=== PATIENT | female | born 1945 | race Caucasian/White ===

== ENCOUNTER 2021-02-07 13:00 | Outpatient (CLI) | payer MEDICARE, SELFPAY | END 2021-02-07 13:01 | disposition home or self-care (01) | LOC: ANHAUDIO 13:01 | PROVIDERS: PCP Internal Medicine; Visit Provider Otolaryngology | DX: R49.8 Other voice and resonance disorders (principal); H91.93 Unspecified hearing loss, bilateral | CPT/HCPCS: 92557; 92567 ==

== ENCOUNTER 2021-02-20 11:00 | Outpatient (RCR) | payer MEDICARE, SELFPAY ==
--- NOTE | 2021-01-25 15:28 | STOPEVAL ---
SPEECH THERAPY INITIAL EVALUATION: Thank you for referring Liat Anton to [facility].? The patient is scheduled to be seen for therapy?2x/week for 4 weeks. Please review, sign, date and return this plan of care TAMMIE. I agree with and certify that the following plan of care is medically necessary. Referring Physician Date Attending Provider: Chadwick Pardo MD Outpatient Past Medical History Past Medical History Source of Past Medical History Patient Respiratory History Hx Chronic Obstructive Pulmonary Disease Yes: my lungs are ok,just (COPD) small Hx Sleep Apnea Yes: uses a Dream station Hx Other Respiratory Disorders Yes: on oxygen Genitourinary History Hx Kidney Stones Yes Musculoskeletal History Hx Other Musculoskeletal Disorders Yes: congenital spinal curvature HEENT History Hx Cataracts Yes: removed Integumentary History Hx Shingles Yes Evaluation Information Problem Diagnosis hoarse vocal quality; bowed vocal cords; presbyphonia Onset 9-12 months at least Cause unknown Additional Evaluation Detail Pt reports her is very hard of hearing which has caused her to talk very loud. She stated she has stopped the loud talking and feels her voice is intermittently better . Her also recently got bilateral hearing aids. She is also cognizant that she was talking over the loudness of the television but has stopped and makes him turn down the television. No choir singing or organizational speaking. 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 Diagnostic Tests Other Tests For This Problem Yes: laryngoscopy Prior Level of Function Activity Level (Last 3 Months) Occupation retired Medications Home Meds (Include: OTC, RX, Vitamins, pt reported that she takes Herbals, Dose, Route,and Frequency) losartan - a low dose beta Query Text:Home Med Entries Will No zaid & doxycycline for Longer Recall From Past Visits. Home rosacea Meds Must Be Re-entered With Each Visit. Prior Swallow Level Prior Intake Method Oral Prior Diet Regular (Level 7 Diet) Prior Liquid Consistency Thin (Level 0 Diet
--- NOTE | 2021-02-21 12:23 | STOPEVAL ---
SPEECH THERAPY PROGRESS REPORT AND PLAN OF CARE UPDATE: Thank you for referring Liat Anton to [facility].? The patient is scheduled to be seen for therapy? 1x/ every other week for 4 weeks. Please review, sign, date and return this plan of care TAMMIE. I agree with and certify that the following plan of care is medically necessary. Referring Physician Date Attending Provider: Chadwick Pardo MD *ST Outpatient Reevaluation Voice Evaluation Voice History Laryngeal Pain No Variation of the Problem Inconsistent Better Situations Pt reports that since beginning ST, her overall vocal quality has improved even though at times there is fluctuation. 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 Description of Daily Voice Use She is retired but states she and her are still very conversive and have lots to talk about . She admits she has had to talk loudly to her him due to his hearing loss but has recently not had to as much due to him getting bilateral hearing aids. Provider Consulted Yes Provider Diagnosis hoarse vocal quality; bowed vocal cords; presbyphonia Allergies No History of Trauma/Injury to the No Laryngeal Region Previous or Planned Laryngeal Surgery No: unknown at this time Previous Speech of Voice Therapy No Intelligibility Conversational Level Speech (% 100 Intelligibility) Respiration Vowel Prolongation (seconds) 12 Termination of Phrases/Sentences not observed pt reports it Coincides with Termination of Exhalation occurs with exertion; has 27% lung capacity Respiratory Support Comments poor breath support and decreased lung capacity may be having a negative impact on her vocal quality. i.e. vocal straining. Pitch Middle to Lowest Tone (Sing) (Hz) 243 Optimal Pitch (Hz) 264 Habitual Pitch in Conversation (Hz) 185 Pitch Discrimination Yes Diplophonia No Pitch Habitual and optimal pitch levels were discussed. Pt may be inadvertently lowering her pitch as she attempts to increase her loudness level
--- NOTE | 2021-03-06 16:52 | PCSTNOTE ---
Patient called & cancelled scheduled appointment this date due to ILLNESS
--- NOTE | 2021-03-13 13:07 | PCSTNOTE ---
SPEECH THERAPY DISCHARGE: Ordering Provider: Chadwick Pardo MD Patient:Liat Anton Date of :1945 Patient has not returned for any further treatments since 02/20/2021, therefore she will be discharged at this time. Patient?s initial visit was on 01/25/2021 and she had a total of 5 visits. The goals have been partially met. Thank you for referring this patient to [facility]. Please review, sign, date and return this discharge summary TAMMIE. I have been updated about the patient's current status and I agree with discharge from the above service at this time. Referring Physician Date
== END 2021-03-14 11:29 | disposition home or self-care (01) ==
LOC: ANHST 11:00
PROVIDERS: PCP Internal Medicine; Visit Provider Otolaryngology
DX: R49.8 Other voice and resonance disorders (principal); H91.93 Unspecified hearing loss, bilateral
CPT/HCPCS: 92507; 92524

== ENCOUNTER → 2021-03-08 00:49 | Outpatient (CLI) | payer MEDICARE, SELFPAY ==
[2021-03-08 17:10] LABS: SARS-CoV-2 RNA PCR Positive
== END ==
PROVIDERS: PCP Internal Medicine; Visit Provider Internal Medicine
DX: U07.1 COVID-19 (principal)
CPT/HCPCS: C9803; U0003; U0005

== ENCOUNTER 2021-03-12 09:32 | Outpatient (RCR) | payer MEDICARE, SELFPAY ==
[2021-03-12] MEDS: ACETAMINOPHEN 325 MG TABLET 650 MG PO (14:40)
[2021-03-12] MEDS: FAMOTIDINE 20 MG TABLET PO (14:41)
[2021-03-12] MEDS: diphenhydrAMINE HCl CAP 25 MG CAPSULE PO (14:41)
[2021-03-12 14:53] VITALS: BP 186/82; PULSE 96; RESP 20; TEMP 36.4; O2SAT 98
[2021-03-12 16:16] VITALS: BP 154/68
--- NOTE | 2021-03-13 12:53 | PC.NURSE ---
Spoke to Ms. Anton and she is feeling about the same as yesterday. She has no questions at this time. I told her if her symptoms do not improve she needs to call her PCP or go to the ER,and she verbalized the understanding.
== END 2021-03-12 16:00 ==
LOC: AMCINF 09:32
PROVIDERS: PCP Internal Medicine; Visit Provider Internal Medicine Hematology & Oncology
DX: U07.1 COVID-19 (principal); I10 Essential (primary) hypertension; J44.9 Chronic obstructive pulmonary disease, unspecified
CPT/HCPCS: A9270; M0243; Q0243

== ENCOUNTER 2022-03-05 14:32 | Outpatient (CLI) | payer MEDICARE, SELFPAY ==
--- NOTE | 2022-03-05 14:47 | ECHO_ITS ---
Patient Info Name: Liat Anton Age: 76 years : 1945 Gender: Female Ht: 58 in Wt: 125 lbs BSA: 1.54 m2 HR: 93 bpm BP: 178 / 82 mmHg Technical Quality: Good Exam Date: 03/05/2022 3:12 PM Exam Location: [facility] Patient Status: Outpatient Admit Date: 03/05/2022 Staff Ordering Physician: Severiano Rivas DO [employer] Operator: Halima Hartmann RCS Attending Provider: Severiano Rivas DO Referring Physician: Evelyn LECHUGA; Exam Type: CA echo doppler color flow Study Info Indications R01.1 - Cardiac murmur, unspecified Complete two-dimensional, color flow and Doppler transthoracic echocardiogram is performed. Summary 1. Complete two-dimensional, color flow and Doppler transthoracic echocardiogram is performed. 2. Left ventricular chamber dimension is normal. 3. Left ventricular systolic function is normal, estimated at 65-70%. 4. There is mildly increased left ventricular wall thickness. 5. The left ventricular diastolic function is grade I diastolic dysfunction. 6. E/e' 13 is mildly elevated. 7. Left atrial chamber dimension is moderately enlarged. 8. There is moderate aortic valve sclerosis. 9. There is mild to moderate aortic valve regurgitation. 10. The mitral valve has moderately calcified annulus. 11. There is mild mitral valve regurgitation. 12. There is mild to moderate tricuspid valve regurgitation. 13. Mild pulmonary hypertension, estimated pulmonary arterial systolic pressure is 44 mmHg. Left Ventricle E/e' 13 is mildly elevated. Left ventricular chamber dimension is normal. Left ventricular systolic function is normal, estimated at 65-70%. There is mildly increased left ventricular wall thickness. The left ventricular diastolic function is grade I diastolic dysfunction. Right Ventricle Right ventricular chamber dimension is normal. Right ventricular systolic function is normal. Left Atria Left atrial chamber dimension is moderately enlarged. Right Atria Right atrial chamber dimension is normal. Aortic Valve The aortic valve is trileaflet. There is moderate aortic valve sclerosis. There is no aortic valve stenosis. There is mild to moderate aortic valve regurgitation. Pulmonic Valve There is no pulmonic regurgitation. Mitral Valve The mitral valve has moderately calcified annulus. There is no mitral valve stenosis. There is mild mitral valve regurgitation. Tricuspid Valve There is mild to moderate tricuspid valve regurgitation. Mild pulmonary hypertension, estimated pulmonary arterial systolic pressure is 44 mmHg. Pericardium/Pleural There is no pericardial effusion. Inferior Vena Cava Normal inferior vena cava with >50% collapse upon inspiration consistent with normal right atrial pressure, 5 mmHg. Aorta The aortic root size at the sinus of Valsalva is normal. Left Ventricular Outflow Tract Name Value Normal LVOT 2D LVOT Diameter 2.0 cm LVOT Doppler LVOT Peak Gradient 7 mmHg LVOT Mean Gradient 4 mmHg LVOT VTI 26 cm LVOT VTI/AV VTI
== END 2022-03-05 14:33 | disposition home or self-care (01) ==
PROVIDERS: PCP Internal Medicine; Visit Provider Internal Medicine
DX: R01.1 Cardiac murmur, unspecified (principal); I08.3 Combined rheumatic disorders of mitral, aortic and tricuspid valves
CPT/HCPCS: 93306

== ENCOUNTER 2022-04-15 10:49 | Outpatient (CLI) | payer MEDICARE, SELFPAY ==
[2022-04-15 12:32] LABS: Influenza A QL RT-PCR Negative (Negative); Influenza B QL RT-PCR Negative (Negative); SARS-CoV-2 RNA PCR Positive
== END 2022-04-15 10:50 | disposition home or self-care (01) ==
PROVIDERS: PCP Internal Medicine; Visit Provider Internal Medicine
DX: U07.1 COVID-19 (principal)
CPT/HCPCS: 87636

== ENCOUNTER 2022-05-23 10:26 | Outpatient (CLI) | payer MEDICARE, SELFPAY ==
--- NOTE | ~2022-05-23 | MM_ITS ---
EXAMINATION: MM screening abena BI w bita HISTORY: Screening mammogram TECHNIQUE: Craniocaudal and mediolateral oblique 3-D tomosynthesis images were obtained and synthetic 2-D images were generated. CAD analysis was submitted and interpreted. COMPARISON: No prior mammogram is available for comparison at this institution. BREAST PARENCHYMAL COMPOSITION: The breasts are heterogeneously dense, which may obscure small masses . FINDINGS: History of bilateral partial mastectomies for breast cancer. There is approximately 1 cm spiculated opacity with prominent overlying retraction in the posterior u pper outer right breast. This may be postoperative scarring. Malignancy is not excluded. Comparison w ith prior mammograms is recommended. Calcifications from fat necrosis and associated architectural distortion are noted on the left. Mode rison with prior mammogram is recommended. Prominent bilateral arterial calcifications. Occasional left calcified microhematomas. IMPRESSION: 1. Bilateral mammographic abnormalities, possibly related to previous bilateral partial mastectomy fo r breast cancer. Malignancy however cannot be excluded. 2. Comparison with prior mammogram examinations is recommended BI-RADS Category 0: Incomplete: Needs additional imaging evaluation. Reviewed, dictated and finalized at location A. OR PUBLICATIONS IMPRESSION: 1. Bilateral mammographic abnormalities, possibly related to previous bilateral partial mastectomy for breast cancer. Malignancy however cannot be excluded. 2. Comparison with prior mammogram examinations is recommended BI-RADS Category 0: Incomplete: Needs additional imaging evaluation.
== END 2022-05-23 10:27 | disposition home or self-care (01) ==
PROVIDERS: PCP Internal Medicine; Visit Provider Internal Medicine
DX: Z12.31 Encounter for screening mammogram for malignant neoplasm of breast (principal); R92.8 Other abnormal and inconclusive findings on diagnostic imaging of breast
CPT/HCPCS: 77063; 77067

== ENCOUNTER 2022-07-21 16:52 | Observation (INO) | payer MEDICARE, SELFPAY ==
--- NOTE | ~2022-07-21 | CT_ITS ---
EXAMINATION: CT abdomen pelvis wo con DATE: 07/21/2022 20:33 INDICATION: RLQ pain TECHNIQUE: Computed tomography (CT) of the abdomen and pelvis was performed without intravenous contr ast. Automated exposure control and iterative reconstruction technique were employed. The dose-length product was 514.25 mGy-cm. COMPARISON: 02/23/2017. FINDINGS: Lower thorax: Bibasilar scarring. Aortic valve, mitral, and coronary artery calcification. Stable arc hitectural distortion in the right breast. Liver: Right lobe hemangioma. Biliary/Gallbladder: Gallbladder is absent. No bile duct dilation. Pancreas: No mass or duct dilation. Spleen: Normal. Adrenals:No mass. Kidneys: 3.4 cm right midpole hypodensity, slightly heterogeneous, indeterminate density. Bilateral n onobstructive calculi. 11 mm calcification in the left renal pelvis. No hydronephrosis or perinephric stranding. GI tract: No small or large bowel dilation. Normal appendix. Diffuse diverticulosis. Short segment pe ricolonic inflammatory change and wall thickening at the splenic flexure. Mesentery/Peritoneum: No ascites, mass, or free air. Retroperitoneum: No mass. Atherosclerotic abdominal aortic and/or arterial calcifications. Pelvis: 4 mm calcification in the left urinary bladder, the remaining pelvic organs are within normal limits. Soft Tissues: Soft tissues and body wall unremarkable. Small uncomplicated fat-containing umbilical h ernia. Bones: No acute osseous finding. Severe thoracolumbar scoliosis IMPRESSION: 1. Acute uncomplicated diverticulitis at the splenic flexure in the left upper quadrant. 2. 3.4 cm indeterminate right renal mass, concerning for renal cell carcinoma, recommend timely outpa tient renal CT or MRI for further evaluation. 3. 11 mm left renal pelvis stone. No evidence of obstructive uropathy. 4. 4 mm calcification in the urinary bladder may represent a bladder wall calcification or a recently passed stone. ... Reviewed, dictated and finalized at location K. IMPRESSION: 1. Acute uncomplicated diverticulitis at the splenic flexure in the left upper quadrant. 2. 3.4 cm indeterminate right renal mass, concerning for renal cell carcinoma, recommend timely outpatient renal CT or MRI for further evaluation. 3. 11 mm left renal pelvis stone. No evidence of obstructive uropathy. 4. 4 mm calcification in the urinary bladder may represent a bladder wall calci fication or a recently passed stone. ...
[2022-07-21 16:57] VITALS: BP 183/84; PULSE 100; RESP 18; TEMP 36.6; O2SAT 100
[2022-07-21 17:18] LABS: Basophils Absolute Auto 0.1 K/mm3 (0.0-0.1); Eosinophils Absolute Auto 0.1 K/mm3 (0-0.3); Eosinophils Percent Auto 1.1 % (0-4.4); Hemoglobin 13.7 g/dL (12.0-15.0); Immature Granulocyte Absolute 0.02 K/mm3 (0.00-0.031); Immature Granulocyte Percent A 0.3 % (0-0.5); Lymphocytes Absolute Auto 0.97 K/mm3 (0.9-3.2); Lymphocytes Percent Auto 13.5 % (18.3-44.2); Mean Corpuscular HGB Conc 32.6 g/dl (32-36); Mean Corpuscular Hemoglobin 29.5 pg (26-34); Mean Corpuscular Volume 90.5 fl (80-100); Mean Platelet Volume 10.6 fl (7.4-10.4); Monocytes Absolute Auto 0.6 K/mm3 (0.1-0.6); Monocytes Percent Auto 7.9 % (2.6-8.5); Neutrophils Absolute Auto 5.5 K/mm3 (1.3-6.7); Neutrophils Percent Auto 76.2 % (45.5-73.1); Platelet Count Result 184 k/mm3 (150-375); Red Blood Count 4.64 M/mm3 (4.2-5.4); Red Cell Distribution Width 12.7 % (11.5-14.5); White Blood Count 7.2 K/mm3 (4.5-10.0)
[2022-07-21 17:29] LABS: Alanine Aminotransferase 16 U/L (6-35); Albumin Level 4.1 g/dL (3.5-5.1); Alkaline Phosphatase 90 U/L (38-126); Anion Gap 3 mmol/L (8-16); Aspartate Amino Transferase 28 U/L (14-36); Bilirubin,Total 0.6 mg/dL (0.2-1.3); Blood Urea Nitrogen 20 mg/dL (7-17); Calcium 8.6 mg/dL (8.4-10.2); Carbon Dioxide 33 mmol/L (22-30); Chloride 104 mmol/L (98-107); Estimated Glomerular Filt Rate > 60; Glucose 128 mg/dL (65-110); Lipase 81 U/L (23-300); Potassium 3.5 mmol/L (3.4-5.0); Sodium 140 mmol/L (137-145)
[2022-07-21 21:00] LABS: Appearance Urine Clear (Clear); Bacteria Urine None Seen /hpf; Bilirubin Urine Negative (Negative); Blood Urine 2+ (Negative); Color Urine Yellow (Yellow); Glucose Urine UA Negative (Negative); Ketones Urine Trace mg/dL (Negative); Leukocyte Esterase Ur 1+ LEU/UL (Negative); Nitrate Urine Negative (Negative); Non Pathogenic Casts 0-2; Protein Urine Trace mg/dL (Negative); RBC Urine 21-50 /hpf (0-2); Specific Grav Ur 1.017 (1.001-1.035); Squamous Epithelial Cell Urine None seen /hpf (Few); Urobilinogen Urine 0.2 mg/dL (<2.0)
[2022-07-21 21:04] LABS: Add Urine Microscopic? YES
--- NOTE | 2022-07-21 21:43 | PM.IMHP ---
H&P: HPI History of Present Illness Date/Time: 07/21/22 21:43 Chief Complaint: Abdominal pain Narrative: This is a 77-year-old female past medical history significant for hypertension, COPD, osteoporosis. Patient presents to the emergency room due to abdominal pain localized to the right flank, discomfort with urination, denies fevers, rigors, chills, nausea, no vomiting her appetite has been poor. Preliminary workup was significant for urinalysis with numerous WBCs present, CT of abdomen and pelvis was reported as: CT abd/ pelvis FINDINGS: Lower thorax: Bibasilar scarring. Aortic valve, mitral, and coronary artery calcification. Stable architectural distortion in the right breast. Liver: Right lobe hemangioma.? Biliary/Gallbladder: Gallbladder is absent. No bile duct dilation. Pancreas: No mass or duct dilation. Spleen: Normal. Adrenals:No mass. Kidneys: 3.4 cm right midpole hypodensity, slightly heterogeneous, indeterminate density. Bilateral nonobstructive calculi. 11 mm calcification in the left renal pelvis. No hydronephrosis or perinephric stranding. GI tract: No small or large bowel dilation. Normal appendix. Diffuse diverticulosis. Short segment pericolonic inflammatory change and wall thickening at the splenic flexure. Mesentery/Peritoneum: No ascites, mass, or free air. Retroperitoneum: No mass. Atherosclerotic abdominal aortic and/or arterial calcifications. Pelvis: 4 mm calcification in the left urinary bladder, the remaining pelvic organs are within normal limits. Soft Tissues: Soft tissues and body wall unremarkable. Small uncomplicated fat-containing umbilical hernia. Bones:? No acute osseous finding. Severe thoracolumbar scoliosis IMPRESSION: 1. Acute uncomplicated diverticulitis at the splenic flexure in the left upper quadrant. 2. 3.4 cm indeterminate right renal mass, concerning for renal cell carcinoma, recommend timely outpatient renal CT or MRI for further evaluation. 3. 11 mm left renal pelvis stone. No evidence of obstructive uropathy. 4. 4 mm calcification in the urinary bladder may represent a bladder wall calcification or a recently passed stone. ... Review of Systems Review of Systems: Abdominal pain, discomfort with urination, poor appetite. Constitutional: Constitutional: Denies chills, Reports fatigue, Denies fever(s), Reports lethargy, Denies malaise, Reports poor appetite and Reports weakness Eyes: Eyes: Denies change in vision ENT: Denies dysphagia and Denies odynophagia Cardiovascular: Cardiovascular: Denies chest pain, Denies leg edema, Denies lightheadedness and Denies radiating jaw, neck or arm pain Respiratory: Respiratory: Denies chest congestion, Denies cough, Denies pain on inspiration and Denies dyspnea on exertion Gastrointestinal: Gastrointestinal: Reports abdominal pain, Denies dyspepsia, Denies heartburn, Denies diarrhea, Denies nausea and Denies vomiting Genitourinary: Genitourinary: Reports dysuria Musculoskeletal: Musculoskeletal: Denies back pain, Denies myalgias, Denies joint swelling and Denies muscle weakness Integumentary/Breasts: Skin/Breast: Denies rash Neurologic: Denies focal weakness and Denies Sensory deficit (Neuro) Psychiatric: Psychiatric: Reports no additional psychiatric complaints and Reports as per HPI Endocrine: Endocrine: Denies cold intolerance, Denies flushing, Denies heat intolerance, Denies polyphagia, Denies polydipsia and Denies palpitations Hematologic/Lymphatic: Hematologic/Lymphatic: Reports no additional hematologic/lymphatic complaints and Reports as per HPI Allergic/Immunologic: Allergic/Immunologic: Reports no additional allergic/immunologic complaints and Reports as per HPI PMFSH Past Medical History Medical History Arthritis COPD (chronic obstructive pulmonary disease) History of kidney cancer Hypertension Osteoporosis Surgical History Surgical History (Reviewed 07/21/22 @ 21:52 by
--- NOTE | 2022-07-21 21:51 | ED.ABDPAIN ---
HPI - Abdominal Pain General Chief Complaint: Abdominal Pain Stated Complaint: Abodminal pain Time Seen by Provider: 07/21/22 20:35 History of Present Illness HPI narrative: Patient has been having on and off abdominal discomfort for the past few months that has worsened over the last week, with increased loose stools, worse on her right lower side. Some pressure and discomfort, worse with certain movements. More difficulty with urination. No nausea or vomiting, no fevers or chills. Related Data Allergies Allergy/AdvReac Type Severity Reaction Status Date / Time alendronate sodium Allergy Unknown Abdominal Verified 07/21/22 16:52 pain fentanyl Allergy Unknown Other Verified 07/21/22 16:52 iodine Allergy Unknown Other Verified 07/21/22 16:52 metoprolol Allergy Unknown Confusion Verified 07/21/22 16:52 Penicillins Allergy Unknown Other Verified 07/21/22 16:52 levofloxacin AdvReac Intermediate fast heart Verified 07/21/22 16:52 rate prednisone AdvReac Unknown RAPID HR, Verified 07/21/22 16:52 HTN Contrast Media Allergy Unknown Other Uncoded 07/21/22 16:52 Review of Systems Review of Systems: CONST: No fever. HEENT: No sore throat C/V: No chest pain RESP: No cough GI: Reports abdominal pain : Dysuria. M/S: No joint pain. SKIN: No rash. NEURO: [No headache or focal numbness or weakness] PSYCH: [No depression] [facility] Past Medical History Medical History Arthritis COPD (chronic obstructive pulmonary disease) History of kidney cancer Hypertension Osteoporosis Surgical History Surgical History H/O lumpectomy History of cholecystectomy History of lithotripsy Family History Family History Father Family history of drug dependence Cerebrovascular accident Family history of lung cancer Patient's father is Family history of arthritis Family history of throat cancer Family history of cardiovascular disease Sibling Patient's brother is in good health Family history of diabetes mellitus in first degree relative Family history of malignant neoplasm of breast in first degree relative, Onset Age: 56 Patient's sister is Family history of arthritis Family history of lymphoma Mother Family history of elevated blood lipids Family history of diabetes mellitus in first degree relative Patient's mother is Family history of arthritis Social History Social History Smoking status: Never smoker Alcohol intake: never Lack of Transportation: No Lack of Food: Never True Current Housing: I Have Housing Concerned About Future Housing: No Difficulty Paying Gas/Electric Bills: No Difficulty Paying for Meds: No Currently Unemployed: Decline to Answer Education: Decline to Answer Difficulty w/ Childcare or Family Care: Decline to Answer Spiritual care concerns: No Exam Narrative: EXAMINATION OF ORGAN SYSTEMS/BODY AREAS: Constitutional: Vital signs per nursing GENERAL:[No acute distress, non-toxic appearing.] HEAD: Normal with no signs of head trauma. EYES: EOMI, conjunctiva normal ENT: Hearing grossly intact LUNGS: Nonlabored breathing. HEART: [Regular rate and rhythm] ABD: [Soft], [nontender to palpation] EXT: Normal range of motion SKIN: [No rashes or lesions.] NEURO: [Alert and oriented x 3. No gross focal sensory or strength deficits.] PSYCH: Normal affect Course Vital Signs Vital signs: Vital Signs Temperature 97.9 F 07/21/22 16:57 Pulse Rate 100 07/21/22 16:57 Respiratory Rate 18 07/21/22 16:57 Blood Pressure 183/84 H 07/21/22 16:57 Pulse Oximetry 100 07/21/22 16:57 Oxygen Delivery Nasal Cannula 07/21/22 16:57 Oxygen Flow Rate 4 07/21/22 16:57 Temperature 97.9 F 07/21/22 16:57 Pulse Rate 100
[2022-07-21 23:21] VITALS: BP 186/90; PULSE 82; RESP 14; O2SAT 96
[2022-07-21 23:31] VITALS: BP 167/79; PULSE 82; RESP 15; O2SAT 96
[2022-07-21 23:48] VITALS: BP 152/87; PULSE 85; RESP 21; O2SAT 93
[2022-07-22] VITALS (8 sets, daily range): BP systolic 142–184; BP diastolic 62–80; PULSE 76–91; RESP 16–18; TEMP 36.5–36.9; O2SAT 94–100; BMI 27.0
--- NOTE | 2022-07-22 00:10 | ADMGEN ---
This patient, Liat Anton, was admitted to 2 Medical Room 252-01. Patient/family oriented to hospital policies and general routines including ID bracelet, bed and alarms, visiting hours, pain management, procedures, bathroom and other care routines, personal items, smoking policy, room service/diet, and visiting hours. Information on how to activate the Rapid Response Team has been discussed. Patient/Family are encouraged to report perceived risks to care and to ask questions if they do not understand what they are told or what they should do.
[2022-07-22] MEDS: WATER FOR IRRIGATION, STERILE 1,000 ML BOTTLE 1000 ML (04:46)
[2022-07-22] MEDS: LOSARTAN POTASSIUM 25 MG TABLET PO (08:25)
[2022-07-22 08:35] LABS: Basophils Percent Auto 0.8 % (0.2-1.2); Eosinophils Absolute Auto 0.1 K/mm3 (0-0.3); Hematocrit 40.4 % (37.0-47.0); Hemoglobin 13.4 g/dL (12.0-15.0); Immature Granulocyte Absolute 0.01 K/mm3 (0.00-0.031); Immature Granulocyte Percent A 0.2 % (0-0.5); Lymphocytes Absolute Auto 0.83 K/mm3 (0.9-3.2); Lymphocytes Percent Auto 16.9 % (18.3-44.2); Mean Corpuscular HGB Conc 33.2 g/dl (32-36); Mean Corpuscular Hemoglobin 30.5 pg (26-34); Mean Platelet Volume 10.2 fl (7.4-10.4); Monocytes Absolute Auto 0.5 K/mm3 (0.1-0.6); Monocytes Percent Auto 9.4 % (2.6-8.5); Neutrophils Absolute Auto 3.5 K/mm3 (1.3-6.7); Neutrophils Percent Auto 70.7 % (45.5-73.1); Platelet Count Result 145 k/mm3 (150-375); Red Blood Count 4.39 M/mm3 (4.2-5.4); Red Cell Distribution Width 12.7 % (11.5-14.5); White Blood Count 4.9 K/mm3 (4.5-10.0)
[2022-07-22 08:48] LABS: Alanine Aminotransferase 14 U/L (6-35); Albumin Level 3.7 g/dL (3.5-5.1); Alkaline Phosphatase 82 U/L (38-126); Anion Gap 2 mmol/L (8-16); Aspartate Amino Transferase 24 U/L (14-36); Bilirubin,Total 0.9 mg/dL (0.2-1.3); Blood Urea Nitrogen 17 mg/dL (7-17); Calcium 8.4 mg/dL (8.4-10.2); Carbon Dioxide 34 mmol/L (22-30); Chloride 103 mmol/L (98-107); Estimated Glomerular Filt Rate > 60; Glucose 94 mg/dL (65-110); Potassium 3.5 mmol/L (3.4-5.0); Sodium 139 mmol/L (137-145)
[2022-07-22] MEDS: ENOXAPARIN 40 MG/0.4 ML SYRINGE SUB-Q (09:40)
--- NOTE | 2022-07-22 09:45 | PM.IMPN ---
Progress Note: A&P Assessment and Plan (1) Diverticulitis: Code(s): K57.92 - Diverticulitis of intestine, part unspecified, without perforation or abscess without bleeding Status: Acute Assessment and Plan: CT abdomen and pelvis indicated acute uncomplicated diverticulitis at the splenic flexure in the left upper quadrant continue imipenem to Augmentin since she had abdominal pain, nausea, weakness post administration of the imipenem WBC stable at this time pain medications for pain antiemetics clear liquid diet advanced as tolerated Cultures in progress (2) Abdominal pain: Code(s): R10.9 - Unspecified abdominal pain Status: Acute Assessment and Plan: Likely secondary to diverticulitis Pain management Antiemetics ordered Added [place], continue tylenol Adjust medications as indicated (3) Acute UTI: Code(s): N39.0 - Urinary tract infection, site not specified Status: Acute Assessment and Plan: UA mildly infectious with 1+ leukocyte esterase WBC 11-20 Stop imipenem, trial Augmentin Await cultures Trend urine output Adjust antibiotics to sensitivity results (4) ANDREINA (obstructive sleep apnea): Code(s): G47.33 - Obstructive sleep apnea (adult) (pediatric) Status: Acute Assessment and Plan: Continue CPAP at nighttime (5) Hypertension: Code(s): I10 - Essential (primary) hypertension Status: Acute Assessment and Plan: BP mildly elevated at 146/63 Most likely related to pain from the diverticulitis Continue home losartan Trend BP adjust therapy as indicated (6) Renal calculi: Code(s): N20.0 - Calculus of kidney Status: Acute Assessment and Plan: Incidental findings on the CT Trend urine output Non obstructive Stable at this time Time Spent With Patient Time: 52 minutes Time with patient: Greater than 35 minutes Subjective Date/time seen: 07/22/22944 Interval history: 07/22/22944 Patient states she was doing okay however she got pretty ill with the antibiotic. She stated that she got lightheaded and very nauseous. She was also complaining of being loopy . She stated that she was shaky with getting up when she was not yesterday. She denies any chest pain, shortness a breath, nausea or vomiting. She does have some abdominal pain a 2/10. She is eating okay. Spoke with ID pharm about antibiotic coverage. Spoke with the patient about trailing the Augmentin at this time, will start with a very small dose. She seems pretty skeptical but agreed to try it at this time. Spoke with the RN about plan of care as well. 07/21/222142 This is a 77-year-old female past medical history significant for hypertension, COPD, osteoporosis.? Patient presents to the emergency room due to abdominal pain localized to the right flank, discomfort with urination, denies fevers, rigors, chills, nausea, no vomiting her appetite has been poor.? Preliminary workup was significant for urinalysis with numerous WBCs present Review of Systems Review of Systems: All systems reviewed & are unremarkable except as noted in HPI and below Exam Narrative: General: well-nourished, well-appearing 77-year-old female, laying in bed, comfortable, NARD Neuro: awake, alert and oriented x4, speech clear, no focal neuro deficits noted HEENMT: normocephalic, atraumatic, EOMI, sclerae anicteric, moist oral mucosa Respiratory: Clear to auscultation bilaterally without crackles, rhonchi or wheezes, nonlabored breathing Cardio: regular rate, regular rhythm with S1-S2 Abdomen: nondistended, normoactive bowel sounds, soft, nontender to palpation Extremities: no edema, erythema, or tenderness to palpation, DP pulses 2+ bilaterally Skin: no rashes or lesions, warm and dry Psych: appropriate mood and affect, judgment and insigh
--- NOTE | 2022-07-22 09:45 | P.PNIM_ITS ---
Progress Note: A&P Assessment and Plan (1) Diverticulitis: Code(s): K57.92 - Diverticulitis of intestine, part unspecified, without perforation or abscess without bleeding Status: Acute Assessment and Plan: * CT abdomen and pelvis indicated acute uncomplicated diverticulitis at the splenic flexure in the left upper quadrant * continue imipenem to Augmentin since she had abdominal pain, nausea, weakness post administration of the imipenem * WBC stable at this time * pain medications for pain * antiemetics * clear liquid diet advanced as tolerated * Cultures in progress (2) Abdominal pain: Code(s): R10.9 - Unspecified abdominal pain Status: Acute Assessment and Plan: * Likely secondary to diverticulitis * Pain management * Antiemetics ordered * Added [place], continue tylenol * Adjust medications as indicated (3) Acute UTI: Code(s): N39.0 - Urinary tract infection, site not specified Status: Acute Assessment and Plan: * UA mildly infectious with 1+ leukocyte esterase WBC 11-20 * Stop imipenem, trial Augmentin * Await cultures * Trend urine output * Adjust antibiotics to sensitivity results (4) ANDREINA (obstructive sleep apnea): Code(s): G47.33 - Obstructive sleep apnea (adult) (pediatric) Status: Acute Assessment and Plan: * Continue CPAP at nighttime (5) Hypertension: Code(s): I10 - Essential (primary) hypertension Status: Acute Assessment and Plan: * BP mildly elevated at 146/63 * Most likely related to pain from the diverticulitis * Continue home losartan * Trend BP * adjust therapy as indicated (6) Renal calculi: Code(s): N20.0 - Calculus of kidney Status: Acute Assessment and Plan: * Incidental findings on the CT * Trend urine output * Non obstructive * Stable at this time Time Spent With Patient Time: 52 minutes Time with patient: Greater than 35 minutes Subjective Date/time seen: 07/22/22944 Interval history: 07/22/22944 Patient states she was doing okay however she got pretty ill with the antibiotic. She stated that she got lightheaded and very nauseous. She was also complaining of being loopy . She stated that she was shaky with getting up when she was not yesterday. She denies any chest pain, shortness a breath, nausea or vomiting. She does have some abdominal pain a 2/10. She is eating okay. Spoke with ID pharm about antibiotic coverage. Spoke with the patient about trailing the Augmentin at this time, will start with a very small dose. She seems pretty skeptical but agreed to try it at this time. Spoke with the RN about plan of care as well. 07/21/222142 This is a 77-year-old female past medical history significant for hypertension, COPD, osteoporosis.? Patient presents to the emergency room due to abdominal pain localized to the right flank, discomfort with urination, denies fevers, rigors, chills, nausea, no vomiting her appetite has been poor.? Preliminary workup was significant for urinalysis with numerous WBCs present Review of Systems Review of Systems: All systems reviewed & are unremarkable except as noted in HPI and below Exam Narrative: General: well-nourished, well-appearing 77-year-old
[2022-07-22] MEDS: AMOXICILLIN/CLAVULANATE K 500-125 MG TAB 1 TABLET PO (12:50)
[2022-07-22] MEDS: HYDROcodone/acetaminophen (*CRX) 5-325 MG TABLET 1 TAB PO (17:37)
--- NOTE | 2022-07-22 18:42 | PC.NURSE ---
On 07/22/22, the License pending RN Sandra, provided care and completed [employer] documentation on this patient. I have reviewed Sandra's sign out clerk and agree with the findings.
[2022-07-22] MEDS: AMOXICILLIN/CLAVULANATE K 875-125 MG TAB 1 TABLET PO (20:06)
[2022-07-23 03:00] VITALS: PULSE 66; O2SAT 98
[2022-07-23 05:14] VITALS: BP 147/69; PULSE 63; RESP 17; TEMP 36.7; O2SAT 100
[2022-07-23 05:49] LABS: Basophils Absolute Auto 0.1 K/mm3 (0.0-0.1); Basophils Percent Auto 2.3 % (0.2-1.2); Eosinophils Absolute Auto 0.1 K/mm3 (0-0.3); Eosinophils Percent Auto 4.2 % (0-4.4); Hematocrit 41.1 % (37.0-47.0); Hemoglobin 13.4 g/dL (12.0-15.0); Immature Granulocyte Absolute 0.01 K/mm3 (0.00-0.031); Immature Granulocyte Percent A 0.3 % (0-0.5); Lymphocytes Absolute Auto 1.05 K/mm3 (0.9-3.2); Lymphocytes Percent Auto 33.9 % (18.3-44.2); Mean Corpuscular HGB Conc 32.6 g/dl (32-36); Mean Corpuscular Hemoglobin 30.4 pg (26-34); Mean Corpuscular Volume 93.2 fl (80-100); Mean Platelet Volume 10.5 fl (7.4-10.4); Monocytes Absolute Auto 0.3 K/mm3 (0.1-0.6); Neutrophils Absolute Auto 1.5 K/mm3 (1.3-6.7); Neutrophils Percent Auto 48.3 % (45.5-73.1); Platelet Count Result 151 k/mm3 (150-375); Red Blood Count 4.41 M/mm3 (4.2-5.4); Red Cell Distribution Width 12.8 % (11.5-14.5); White Blood Count 3.1 K/mm3 (4.5-10.0)
[2022-07-23 06:00] LABS: Alanine Aminotransferase 14 U/L (6-35); Albumin Level 3.8 g/dL (3.5-5.1); Alkaline Phosphatase 80 U/L (38-126); Anion Gap 3 mmol/L (8-16); Aspartate Amino Transferase 24 U/L (14-36); Blood Urea Nitrogen 15 mg/dL (7-17); Calcium 8.5 mg/dL (8.4-10.2); Carbon Dioxide 31 mmol/L (22-30); Chloride 104 mmol/L (98-107); Estimated Glomerular Filt Rate > 60; Glucose 88 mg/dL (65-110); Magnesium 1.8 mg/dL (1.6-2.3); Potassium 3.3 mmol/L (3.4-5.0); Sodium 138 mmol/L (137-145)
[2022-07-23] MEDS: LOSARTAN POTASSIUM 25 MG TABLET PO (08:10)
[2022-07-23] MEDS: AMOXICILLIN/CLAVULANATE K 875-125 MG TAB 1 TABLET PO (08:11)
[2022-07-23] MEDS: ENOXAPARIN 40 MG/0.4 ML SYRINGE SUB-Q (08:11)
[2022-07-23 08:40] VITALS: O2SAT 90
--- NOTE | 2022-07-23 09:45 | PM.DS ---
DS: Admitting Diagnosis Discharge Date 07/23/22 0945 Admitting Diagnosis Mild acute diverticulitis, UTI DS: Discharge Diagnosis Discharge Diagnosis (1) Diverticulitis: Code(s): K57.92 - Diverticulitis of intestine, part unspecified, without perforation or abscess without bleeding Status: Acute Assessment and Plan: CT abdomen and pelvis indicated acute uncomplicated diverticulitis at the splenic flexure in the left upper quadrant continue imipenem to Augmentin since she had abdominal pain, nausea, weakness post administration of the imipenem WBC stable at this time pain medications for pain antiemetics clear liquid diet advanced as tolerated Cultures in progress (2) Abdominal pain: Code(s): R10.9 - Unspecified abdominal pain Status: Acute Assessment and Plan: Likely secondary to diverticulitis Pain management Antiemetics ordered Added [place], continue tylenol Adjust medications as indicated (3) Acute UTI: Code(s): N39.0 - Urinary tract infection, site not specified Status: Acute Assessment and Plan: UA mildly infectious with 1+ leukocyte esterase WBC 11-20 Stop imipenem, trial Augmentin Await cultures Trend urine output Adjust antibiotics to sensitivity results (4) ANDREINA (obstructive sleep apnea): Code(s): G47.33 - Obstructive sleep apnea (adult) (pediatric) Status: Acute Assessment and Plan: Continue CPAP at nighttime (5) Hypertension: Code(s): I10 - Essential (primary) hypertension Status: Acute Assessment and Plan: BP mildly elevated at 146/63 Most likely related to pain from the diverticulitis Continue home losartan Trend BP adjust therapy as indicated (6) Renal calculi: Code(s): N20.0 - Calculus of kidney Status: Acute Assessment and Plan: Incidental findings on the CT Trend urine output Non obstructive Stable at this time DS: Summary Hospital Course Hospital Course: patient is 77-year-old female with a past medical history of hypertension, COPD, osteoperosis who presented the ED with complaints of abdominal pain along with right flank pain discomfort with urination. Upon arrival abdominal pelvis CT was performed and showed uncomplicated diverticulitis with splenic flexure. Patient was started on imipenem however was unable to tolerate abdomen was changed to Augmentin. White blood cell count had been stable throughout the entire visit. Patient was not started liquids diet was advanced as tolerated. Patient is currently the source eats popcorn. UA did appear infectious. Primaxin was started as stated above. Urinary cultures grew . patient does feel better and she is able to move around the room. Labs and vital signs remained stable at this time. Patient is stable for discharge per labs signs. Pain has been controlled and patient currently rates her pain a 2 to 3/10. Diet education has been given and patient verbalizes understanding. Status at Discharge Functional status at discharge: independent ambulation Overall status at discharge: patient is progressing back to baseline Time Spent with Patient Time attestation: Total time spent providing and/or coordinating discharge services: 39 minutes Time spent: Greater than 30 minutes Specific discharge activities: Diagnostic testing, chart review, developing a treatment plan, education, care coordination documentation, physical exam, result review Exam Narrative: General: well-nourished, well-appearing 77-year-old female, laying in bed, comfortable, NARD Neuro: awake, alert and oriented x4, speech clear, no focal neuro deficits noted HEENMT: normocephalic, atraumatic, EOMI, sclerae anicteric, moist oral mucosa Respiratory: Clear to auscultation bilaterally without crackles, rhonchi or wheezes, nonlabored breathing
--- NOTE | 2022-07-23 09:45 | P.DS_ITS ---
DS: Admitting Diagnosis Discharge Date 07/23/22 0945 Admitting Diagnosis Mild acute diverticulitis, UTI DS: Discharge Diagnosis Discharge Diagnosis (1) Diverticulitis: Code(s): K57.92 - Diverticulitis of intestine, part unspecified, without perforation or abscess without bleeding Status: Acute Assessment and Plan: * CT abdomen and pelvis indicated acute uncomplicated diverticulitis at the splenic flexure in the left upper quadrant * continue imipenem to Augmentin since she had abdominal pain, nausea, weakness post administration of the imipenem * WBC stable at this time * pain medications for pain * antiemetics * clear liquid diet advanced as tolerated * Cultures in progress (2) Abdominal pain: Code(s): R10.9 - Unspecified abdominal pain Status: Acute Assessment and Plan: * Likely secondary to diverticulitis * Pain management * Antiemetics ordered * Added [place], continue tylenol * Adjust medications as indicated (3) Acute UTI: Code(s): N39.0 - Urinary tract infection, site not specified Status: Acute Assessment and Plan: * UA mildly infectious with 1+ leukocyte esterase WBC 11-20 * Stop imipenem, trial Augmentin * Await cultures * Trend urine output * Adjust antibiotics to sensitivity results (4) ANDREINA (obstructive sleep apnea): Code(s): G47.33 - Obstructive sleep apnea (adult) (pediatric) Status: Acute Assessment and Plan: * Continue CPAP at nighttime (5) Hypertension: Code(s): I10 - Essential (primary) hypertension Status: Acute Assessment and Plan: * BP mildly elevated at 146/63 * Most likely related to pain from the diverticulitis * Continue home losartan * Trend BP * adjust therapy as indicated (6) Renal calculi: Code(s): N20.0 - Calculus of kidney Status: Acute Assessment and Plan: * Incidental findings on the CT * Trend urine output * Non obstructive * Stable at this time DS: Summary Hospital Course Hospital Course: patient is 77-year-old female with a past medical history of hypertension, COPD, osteoperosis who presented the ED with complaints of abdominal pain along with right flank pain discomfort with urination. Upon arrival abdominal pelvis CT was performed and showed uncomplicated diverticulitis with splenic flexure. Patient was started on imipenem however was unable to tolerate abdomen was changed to Augmentin. White blood cell count had been stable throughout the entire visit. Patient was not started liquids diet was advanced as tolerated. Patient is currently the source eats popcorn. UA did appear infectious. Primaxin was started as stated above. Urinary cultures grew . patient does feel better and she is able to move around the room. Labs and vital signs remained stable at this time. Patient is stable for discharge per labs signs. Pain has been controlled and patient currently rates her pain a 2 to 3/10. Diet education has been given and patient verbalizes understanding. Status at Discharge Functional status at discharge: independent ambulation Overall status at discharge: patient is progressing back to baseline Time Spent with Patient Time attestation: Total time spent providing and/or coordinating discharge services: 39 minutes Time spent: Greater t
[2022-07-23] MEDS: HYDROcodone/acetaminophen (*CRX) 5-325 MG TABLET 1 TAB PO (13:45)
--- NOTE | 2022-07-23 18:37 | PC.NURSE ---
On 07/23/22, the License pending RN Sandra, provided care and completed [employer] documentation on this patient. I have reviewed Sandra's buhr dresser and agree with the findings.
== END 2022-07-23 15:22 | disposition home or self-care (01) ==
LOC: ANHED 21:58 → ANH2MED 07-23 07:29
PROVIDERS: Family Medicine; Nurse Practitioner; Admitting Provider Internal Medicine; Emergency Provider Emergency Medicine; PCP Internal Medicine; Visit Provider Family Medicine
DX: K57.92 Diverticulitis of intestine, part unspecified, without perforation or abscess without bleeding (principal); R10.9 Unspecified abdominal pain; N39.0 Urinary tract infection, site not specified; G47.33 Obstructive sleep apnea (adult) (pediatric); I10 Essential (primary) hypertension; N20.0 Calculus of kidney; M19.90 Unspecified osteoarthritis, unspecified site; J44.9 Chronic obstructive pulmonary disease, unspecified; M81.0 Age-related osteoporosis without current pathological fracture; N28.89 Other specified disorders of kidney and ureter; N32.89 Other specified disorders of bladder; Z85.528 Personal history of other malignant neoplasm of kidney; Z82.49 Family history of ischemic heart disease and other diseases of the circulatory system
CPT/HCPCS: 36415; 74176; 80053; 81001; 83690; 83735; 85025; 87086; 96365; 96372; 99285; A9270; G0378; J0743; J1650

== ENCOUNTER 2022-08-04 06:04 | Emergency (ER) | payer MEDICARE, SELFPAY ==
[2022-08-04] VITALS (16 sets, daily range): BP systolic 152–227; BP diastolic 75–104; PULSE 71–101; RESP 15–32; TEMP 36.1; O2SAT 93–99
--- NOTE | ~2022-08-04 | CT_ITS ---
EXAMINATION: CT abdomen pelvis wo con DATE: 08/04/2022 07:50 INDICATION: Low abdominal pain. TECHNIQUE: Computed tomography (CT) of the abdomen and pelvis was performed without intravenous contr ast. Automated exposure control and iterative reconstruction technique were employed. The dose-length product was 381.18 mGy-cm. COMPARISON: CT abdomen and pelvis 07/21/2022, 02/23/2017 FINDINGS: The visualized portions of the lung bases demonstrate mild atelectasis and scarring. No ple ural effusion. The heart demonstrates left atrial enlargement. There are coronary artery calcificatio ns. No pericardial effusion. The liver and spleen are normal. There are changes of cholecystectomy. T he pancreas and left adrenal gland are normal. There is chronic thickening of right adrenal gland, li walker benign. There is a 2.9 cm mass in right kidney. There are two 1-2 mm stones in right kidney. The re is cortical thinning of left kidney. There are approximately 7 stones in left kidney measuring up to 8 mm. There is an 11 mm stone in left renal pelvis. There is diverticulosis of the colon. The prev iously seen diverticulitis of the colon has resolved. The appendix is not visualized. There are no pa thologically enlarged lymph nodes. There is no free intraperitoneal fluid. There is severe thoracolum bar levoscoliosis. There is severe right hip osteoarthritis and moderate left hip osteoarthritis. IMPRESSION: 1. Bilateral nonobstructing kidney stones. 2. 2.9 cm mass in right kidney, which may be a hemorrhagic cyst or neoplasm. Abdomen MRI without and with contrast is recommended. Reviewed, dictated and finalized at location A. IMPRESSION: 1. Bilateral nonobstructing kidney stones. 2. 2.9 cm mass in right kidney, which may be a hemorrhagic cyst or neoplasm. Ab domen MRI without and with contrast is recommended.
[2022-08-04 06:32] LABS: Basophils Absolute Auto 0.1 K/mm3 (0.0-0.1); Basophils Percent Auto 2.1 % (0.2-1.2); Eosinophils Absolute Auto 0.1 K/mm3 (0-0.3); Eosinophils Percent Auto 2.8 % (0-4.4); Hematocrit 45.5 % (37.0-47.0); Hemoglobin 14.9 g/dL (12.0-15.0); Immature Granulocyte Absolute 0.01 K/mm3 (0.00-0.031); Immature Granulocyte Percent A 0.2 % (0-0.5); Lymphocytes Absolute Auto 1.38 K/mm3 (0.9-3.2); Lymphocytes Percent Auto 31.7 % (18.3-44.2); Mean Corpuscular HGB Conc 32.7 g/dl (32-36); Mean Corpuscular Hemoglobin 30.3 pg (26-34); Mean Corpuscular Volume 92.5 fl (80-100); Mean Platelet Volume 10.9 fl (7.4-10.4); Monocytes Absolute Auto 0.4 K/mm3 (0.1-0.6); Monocytes Percent Auto 9.9 % (2.6-8.5); Neutrophils Absolute Auto 2.3 K/mm3 (1.3-6.7); Neutrophils Percent Auto 53.3 % (45.5-73.1); Platelet Count Result 190 k/mm3 (150-375); Red Blood Count 4.92 M/mm3 (4.2-5.4); Red Cell Distribution Width 12.7 % (11.5-14.5); White Blood Count 4.4 K/mm3 (4.5-10.0)
[2022-08-04 07:07] LABS: Alanine Aminotransferase 18 U/L (6-35); Albumin Level 4.4 g/dL (3.5-5.1); Alkaline Phosphatase 76 U/L (38-126); Anion Gap 8 mmol/L (8-16); Aspartate Amino Transferase 28 U/L (14-36); Blood Urea Nitrogen 23 mg/dL (7-17); Calcium 8.8 mg/dL (8.4-10.2); Carbon Dioxide 29 mmol/L (22-30); Chloride 102 mmol/L (98-107); Estimated Glomerular Filt Rate > 60; Glucose 96 mg/dL (65-110); Lipase 87 U/L (23-300); Potassium 3.8 mmol/L (3.4-5.0); Sodium 139 mmol/L (137-145)
--- NOTE | 2022-08-04 07:24 | ED.ABDPAIN ---
HPI - Abdominal Pain General Chief Complaint: Abdominal Pain Stated Complaint: abdominal pain Time Seen by Provider: 08/04/22 07:00 History of Present Illness HPI narrative: Patient is a 77-year-old female who presents ER with lower abdominal pain. Recently admitted to the hospital for diverticulitis. She been on oral antibiotics. She finished them on 31 July. She has had persistent pain in her lower abdomen but significantly increased today. Over the last week and no fevers or chills or sweats. Worse with any type of movement. She has not been having diarrhea. No urinary frequency urgency or dysuria. Patient had been on Augmentin and has taken Tylenol with hydrocodone at home. Related Data Home Medications Medication Instructions Recorded Confirmed cholecalciferol (vitamin D3) 50 50 mcg PO DAILY 07/22/22 07/31/22 mcg (2,000 unit) tablet [id number]-minerals 1 tablet PO DAILY 07/22/22 07/31/22 Allergies Allergy/AdvReac Type Severity Reaction Status Date / Time alendronate sodium Allergy Unknown Abdominal Verified 08/04/22 06:25 pain fentanyl Allergy Unknown Other Verified 08/04/22 06:25 iodine Allergy Unknown Other Verified 08/04/22 06:25 metoprolol Allergy Unknown Confusion Verified 08/04/22 06:25 Penicillins Allergy Unknown Other Verified 08/04/22 06:25 levofloxacin AdvReac Intermediate fast heart Verified 08/04/22 06:25 rate prednisone AdvReac Unknown RAPID HR, Verified 08/04/22 06:25 HTN Contrast Media Allergy Unknown Other Uncoded 08/04/22 06:04 Review of Systems Review of Systems: All systems reviewed & are unremarkable except as noted in HPI and below Constitutional: Constitutional: Denies chills, Reports fatigue and Denies fever(s) Cardiovascular: Cardiovascular: Denies chest pain and Denies rapid heart rate Respiratory: Respiratory: Denies cough and Denies dyspnea Gastrointestinal: Gastrointestinal: Reports abdominal pain, Denies diarrhea, Denies nausea and Denies vomiting Genitourinary: Genitourinary: Denies nocturia and Denies dysuria [facility] Past Medical History Medical History Arthritis COPD (chronic obstructive pulmonary disease) COVID-19 Eczema of external ear History of deep venous thrombosis or pulmonary embolus History of kidney cancer Hx of breast cancer Hx of renal calculi Hyperlipidemia Hypertension Hypertrophy of both inferior nasal turbinates Nasal septal deviation Osteoporosis Overweight (BMI 25.0-29.9) Post-polio syndrome Presbyphonia Psoriatic arthritis Rhinorrhea Systolic ejection murmur Vasomotor rhinitis Surgical History Surgical History H/O lumpectomy History of cholecystectomy History of lithotripsy Family History Family History Father Family history of drug dependence Cerebrovascular accident Family history of lung cancer Patient's father is Family history of arthritis Family history of throat cancer Family history of cardiovascular disease Sibling Patient's brother is in good health Family history of diabetes mellitus in first degree relative Family history of malignant neoplasm of breast in first degree relative, Onset Age: 56 Patient's sister is Family history of arthritis Family history of lymphoma Mother Family history of elevated blood lipids Family history of diabetes mellitus in first degree relative Patient's mother is Family history of arthritis Social History Social History Smoking status: Never smoker Alcohol intake: never Substance use: never Lack of Transportation: No Lack of Food: Never True Current Housing: I Have Housing Concerned About Future Housing: No Difficulty Paying Gas/Electric Bills: No Difficulty Paying for
[2022-08-04] MEDS: MORPHINE SULFATE (*CRX) 4 MG/ML INJ IV PUSH (07:33)
[2022-08-04] MEDS: SODIUM CHLORIDE 0.9% IV 1,000 ML 999 ML IV CONT (09:36)
[2022-08-04 10:09] LABS: Appearance Urine Clear (Clear); Bacteria Urine None Seen /hpf; Bilirubin Urine Negative (Negative); Blood Urine 3+ (Negative); Color Urine Yellow (Yellow); Glucose Urine UA Negative (Negative); Hyaline Casts Urine Present /lpf; Ketones Urine 2+ mg/dL (Negative); Leukocyte Esterase Ur 2+ LEU/UL (Negative); Nitrate Urine Negative (Negative); Protein Urine 1+ mg/dL (Negative); Specific Grav Ur 1.018 (1.001-1.035); Squamous Epithelial Cell Urine Occasional /hpf (Few); Urobilinogen Urine 0.2 mg/dL (<2.0); WBC Urine 51-100 /hpf
[2022-08-04 10:12] LABS: Add Urine Microscopic? YES
== END 2022-08-04 12:23 | disposition home or self-care (01) ==
PROVIDERS: Emergency Medicine; Emergency Provider Emergency Medicine; PCP Internal Medicine
DX: N39.0 Urinary tract infection, site not specified (principal); M19.90 Unspecified osteoarthritis, unspecified site; J44.9 Chronic obstructive pulmonary disease, unspecified; I10 Essential (primary) hypertension; E78.5 Hyperlipidemia, unspecified; Z85.3 Personal history of malignant neoplasm of breast
CPT/HCPCS: 36415; 74176; 80053; 81001; 83690; 85025; 87086; 87088; 96361; 96365; 96375; 99284; J0696; J2270; J7030

== ENCOUNTER 2022-08-11 12:30 | Outpatient (CLI) | payer MEDICARE, SELFPAY ==
--- NOTE | ~2022-08-11 | MR_ITS ---
EXAMINATION: MR renal wo/w con DATE: 08/11/2022 13:54 INDICATION: Right renal mass concerning for renal cell carcinoma TECHNIQUE: Magnetic resonance imaging (MRI) of the abdomen was performed without and with 10 mL Multi darshana intravenous contrast. Sequences included coronal T2-weighted SS-FSE, coronal and axial FS 2D-F IESTA, axial STIR FSE, axial T2-weighted SS-FSE, axial T2-weighted FS SS-FSE, axial diffusion-weighte d SE, axial dual-echo T1-weighted FSPGR, and axial and coronal T1-weighted LAVA. Postcontrast axial T 1-weighted LAVA images were obtained in a time course. Postcontrast coronal T1-weighted LAVA images w ere obtained. COMPARISON: CT dated 08/04/2022. FINDINGS: Heart size is normal. No pericardial or pleural effusion. There are foci of susceptibility artifact a t both breasts likely related to reported prior bilateral partial mastectomies. Common hepatic duct m easures up to 12 mm and the common bile duct measures up to 9 mm in maximal diameter which along with diffuse mild intrahepatic biliary ductal dilation is likely related to prior cholecystectomy with ch olecystectomy clips at the gallbladder fossa. 5 mm cyst at the caudal tip of the right hepatic lobe. Spleen, pancreas and bilateral adrenal glands are normal. Bilateral T2 hyperintense nonenhancing cyst s measuring 5 mm at the mid left kidney and 12 mm the posterior upper pole of the right kidney. 3.0 c m heterogeneously enhancing mass at the interpolar region of the right kidney. There is extensive col onic diverticulosis without adjacent inflammatory stranding to suggest diverticulitis. No bowel obstr uction. Bladder, uterus and bilateral adnexa are unremarkable. No pathologically enlarged abdominal l ymphadenopathy. No free intraperitoneal fluid. Severe thoracolumbar levorotoscoliosis with associated chest wall deformity. 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 IMPRESSION: 1. Slowly enlarging 3.0 cm heterogeneously enhancing mass at the interpolar region of the right kidne y consistent with renal cell carcinoma which was first noted on MRI dated 08/09/2012 at which time the lesion measured 1.3 cm. 2. Severe thoracolumbar levorotoscoliosis with diastematomyelia of the visualized distal cord 3. Cardiomegaly. 4. Extensive diverticulosis. Reviewed, dictated and finalized at location B. IMPRESSION: 1. Slowly enlarging 3.0 cm heterogeneously enhancing mass at the interpolar reg ion of the right kidney consistent with renal cell carcinoma which was first no arthur on MRI dated 08/09/2012 at which time the lesion measured 1.3 cm. 2. Severe thoracolumbar levorotoscoliosis with diastematomyelia of the visualiz ed distal cord 3. Cardiomegaly. 4. Extensive diverticulosis.
== END 2022-08-11 12:31 | disposition home or self-care (01) ==
PROVIDERS: PCP Internal Medicine; Visit Provider Physician Assistant
DX: N28.89 Other specified disorders of kidney and ureter (principal); I51.7 Cardiomegaly; K57.30 Diverticulosis of large intestine without perforation or abscess without bleeding
CPT/HCPCS: 74183; A9577

== ENCOUNTER 2022-12-04 12:57 | Outpatient (CLI) | payer MEDICARE, SELFPAY ==
--- NOTE | ~2022-12-04 | US_ITS ---
EXAMINATION: US carotid duplex BI DATE: 12/04/2022 14:37 INDICATION: Retinal artery occlusion TECHNIQUE: Grayscale, color Doppler, and pulsed Doppler images of the cervical carotid arteries were obtained. The degree of vessel stenosis is placed in one of the following categories: normal, <50%, 5 0-69%, >=70% but less than near-occlusion, near-occlusion, or total occlusion. Note that percent sten osis relative to normal distal artery lumen diameter is indirectly measured from velocity measurement s as described by Levar, et al. Radiology 2003; 229:340-346. Notes: Normal: Peak systolic velocity <125 centimeters/sec and no plaque <50%. Peak systolic velocity <125 ( EDV <40; ICA/CCA PSV ratio <2.0; used these factors only a tandem lesions or low cardiac output or co ntralateral disease) 50-69 %: PSV 125-230 (EDV 40-100; ratio 2-4) >= 70% but less than near occlusion: PSV greater than 230 (EDV > 100; ratio> 4.0) Near Occlusion: PSV that is variable; markedly narrowed lumen Occlusion: Absent flow on color/spectral Doppler and no lumen on lebron scale. COMPARISON: None. FINDINGS: RIGHT: The right common carotid artery (CCA) peak systolic velocity (PSV) is 68 cm/s. The right internal car otid artery (ICA) PSV is 109 cm/s. The right ICA end-diastolic velocity (EDV) is 22 cm/s. The right I CA/CCA PSV ratio is 1.6. The external carotid artery (ECA) PSV is 94 cm/s. There is antegrade flow in the right vertebral artery. LEFT: The left CCA PSV is 74 cm/s. The left ICA PSV is 94 cm/s. The left ICA EDV is 23 cm/s. The left ICA/C CA PSV ratio is 1.3. The ECA PSV is 174 cm/s. There is antegrade flow in the left vertebral artery. IMPRESSION: 1. Less than 50% stenosis in the right internal carotid artery by sonographic criteria. 2. Less than 50% stenosis in the left internal carotid artery by sonographic criteria. Reviewed, dictated and finalized at location L. IMPRESSION: 1. Less than 50% stenosis in the right internal carotid artery by sonographic jed barahona. 2. Less than 50% stenosis in the left internal carotid artery by sonographic hans mckeon.
== END 2022-12-04 12:58 | disposition home or self-care (01) ==
PROVIDERS: PCP Internal Medicine; Visit Provider Ophthalmology
DX: H34.9 Unspecified retinal vascular occlusion (principal); I65.23 Occlusion and stenosis of bilateral carotid arteries
CPT/HCPCS: 93880

== ENCOUNTER 2023-05-13 14:56 | Emergency (ER) | payer MEDICARE, SELFPAY ==
--- NOTE | ~2023-05-13 | CT_ITS ---
EXAMINATION: CT thoracic lumbar wo con DATE: 05/13/2023 16:51 INDICATION: Back pain. TECHNIQUE: Computed tomography (CT) of the thoracic and lumbar spine was performed without intravenou s contrast. Automated exposure control and iterative reconstruction technique were employed. The dose -length product was 592.39 mGy-cm. COMPARISON: CT abdomen and pelvis 08/04/2022, abdomen MRI 08/11/2022 FINDINGS: CT THORACIC SPINE: There is 99 degrees levoscoliosis of thoracic spine. There is a fusion mass from T 5 to T7. There is a fusion mass from T7 to L1 including segmentation anomalies. There is mildly decre ased disc height at multiple levels. There is moderately decreased disc height at T2-T3, T3-T4, and T 4-T5. No central canal stenosis. There are dystrophic calcifications in central spinal canal in lower thoracic spine. 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 There is fusion of multiple right-sided ribs. CT LUMBAR SPINE: Vertebral body heights are normal in lumbar spine. There is 3 mm anterolisthesis of L5 on S1. There is mildly decreased disc height at L3-L4, L4-L5, and L5-S1. There is multilevel mild to moderate facet joint osteoarthritis. On the left, there is mild neural foraminal stenosis from L3- L4 through L5-S1. There is a 3.6 cm mass in right kidney that demonstrated contrast enhancement on pr ior MRI. IMPRESSION: 1. Severe levoscoliosis of thoracic spine with fusion anomalies. 2. 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 3. Moderate thoracic and lumbar spondylosis. 4. 3.6 cm mass in right kidney that demonstrated contrast enhancement on primary MRI, consistent with renal cell carcinoma. Reviewed, dictated and finalized at location A. EL ACCOMMODATION INSPECTOR IMPRESSION: 1. Severe levoscoliosis of thoracic spine with fusion anomalies. 2. 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 3. Moderate thoracic and lumbar spondylosis. 4. 3.6 cm mass in right kidney that demonstrated contrast enhancement on primar y MRI, consistent with renal cell carcinoma.
--- NOTE | ~2023-05-13 | XR_ITS ---
XR hip LT 2V w AP pelvis DATE: 05/13/2023 17:11 INDICATION: Fall. Left hip pain. TECHNIQUE: AP pelvis. AP and lateral views of left hip. COMPARISON: 10/30/2017 left hip FINDINGS: Osteopenia. Rotatory levoscoliosis and degenerative disc disease of the lumbar spine. No pelvic fracture or bone destruction is evident. Normal alignment at the pubic symphysis and sacroi liac joints. Mild narrowing at the hip joints. No fracture or dislocation, avascular necrosis or bone destruction of the left hip is detected. IMPRESSION: Mild bilateral hip osteoarthritis No pelvic or left hip fracture or dislocation Rotatory levoscoliosis and multilevel degenerative disc disease of the lumbar spine Osteopenia Reviewed, dictated and finalized at location B. ST FIRE FIGHTER IMPRESSION: Mild bilateral hip osteoarthritis No pelvic or left hip fracture or dislocation Rotatory levoscoliosis and multilevel degenerative disc disease of the lumbar s pine Osteopenia
--- NOTE | ~2023-05-13 | XR_ITS ---
XR ankle LT min 3V DATE: 05/13/2023 17:11 INDICATION: Ankle pain TECHNIQUE: 3 views COMPARISON: None FINDINGS: Diffuse osteopenia. No fracture or dislocation of the ankle or disruption of the ankle mortise. No periosteal reaction or bone destruction. No soft tissue swelling is noted. IMPRESSION: Osteopenia Reviewed, dictated and finalized at location B. MATED EQUIPMENT ENGINEER TECHNICIAN IMPRESSION: Osteopenia
--- NOTE | ~2023-05-13 | XR_ITS ---
EXAMINATION: XR knee LT 3V DATE: 05/13/2023 17:11 INDICATION: Left knee pain. TECHNIQUE: 3 views of left knee were obtained. COMPARISON: None. FINDINGS: Bone alignment is normal. No fracture. There is mild tricompartmental osteoarthritis. No kn ee joint effusion. IMPRESSION: 1. Mild left knee osteoarthritis. Reviewed, dictated and finalized at location A. STANT GOLF COURSE SUPERINTENDENT
--- NOTE | ~2023-05-13 | CT_ITS ---
EXAMINATION: CT brain wo con DATE: 05/13/2023 16:48 INDICATION: Head injury. Headache. TECHNIQUE: Computed tomography (CT) of the head was performed without intravenous contrast. The mA wa s adjusted according to patient size. Iterative reconstruction technique was employed. Exam dose: 68 1.00 mGy-cm total exam DLP. COMPARISON: 10/30/2017 CT brain FINDINGS: Right vertebral artery, basilar artery and prominent bilateral carotid siphon internal alexander tid artery calcifications. There is nonspecific diminished attenuation of the cerebral white matter, likely due to chronic small vessel ischemic changes. No intracranial mass lesion or hemorrhage or cerebrovascular accident is detected. No midline shift o r mass effect. No subdural or epidural hematoma. Moderate cerebral volume loss. Evidence of bilateral ocular lens replacements. The paranasal sinuses and mastoid air cells are normally developed and aerated. No fracture or bone destruction of the cranial vault IMPRESSION: Cerebral atherosclerosis and chronic small vessel ischemic changes of the cerebral white matter No acute intracranial finding or skull fracture Reviewed, dictated and finalized at Location A. Reviewed, dictated and finalized at location B. NICAL ARTIST
[2023-05-13 14:57] VITALS: BP 158/93; PULSE 92; RESP 20; TEMP 36.3; O2SAT 95
--- NOTE | 2023-05-13 16:13 | ED.FALL ---
HPI - Fall General Chief Complaint: Fall Stated Complaint: Fall Time Seen by Provider: 05/13/23 15:19 History of Present Illness HPI Narrative: 78-year-old female presenting emergency department for evaluation after having a ground level fall in her garage. Patient states she lost her balance and while attempting to steady herself she did fall on her right side. Patient does complain of right ankle right knee right hip pain. Patient is also complaining of mid and lower back pain along with head pain. Patient denies any associated back pain. Patient denies any associated numbness or weakness. Patient reports he does have a prior history of scoliosis was and polio Related Data Home Medications Medication Instructions Recorded Confirmed cholecalciferol (vitamin D3) 50 50 mcg PO DAILY 07/22/22 05/11/23 mcg (2,000 unit) tablet dgkwjpmscnye-Ky-rsvw-minerals 1 tablet PO DAILY 07/22/22 05/11/23 Allergies Allergy/AdvReac Type Severity Reaction Status Date / Time alendronate sodium Allergy Unknown Abdominal Verified 05/13/23 15:02 pain fentanyl Allergy Unknown Other Verified 05/13/23 15:02 iodine Allergy Unknown Other Verified 05/13/23 15:02 metoprolol Allergy Unknown Confusion Verified 05/13/23 15:02 Penicillins Allergy Unknown Other Verified 05/13/23 15:02 levofloxacin AdvReac Intermediate fast heart Verified 05/13/23 15:02 rate prednisone AdvReac Unknown RAPID HR, Verified 05/13/23 15:02 HTN Contrast Media Allergy Unknown Other Uncoded 05/11/23 14:02 Review of Systems Review of Systems: All systems reviewed & are unremarkable except as noted in HPI and below PMFSH Past Medical History Medical History (Updated 05/14/23 @ 00:01 by Mateus Pool) Arthritis COPD (chronic obstructive pulmonary disease) COVID-19 Eczema of external ear History of deep venous thrombosis or pulmonary embolus History of kidney cancer Hx of breast cancer Hx of renal calculi Hyperlipidemia Hypertension Hypertrophy of both inferior nasal turbinates Nasal septal deviation Osteoporosis Overweight (BMI 25.0-29.9) Post-polio syndrome Presbyphonia Psoriatic arthritis Rhinorrhea Systolic ejection murmur Vasomotor rhinitis Surgical History Surgical History H/O lumpectomy History of cholecystectomy History of lithotripsy Family History Family History Father Family history of drug dependence Cerebrovascular accident Family history of lung cancer Patient's father is Family history of arthritis Family history of throat cancer Family history of cardiovascular disease Sibling Patient's brother is in good health Family history of diabetes mellitus in first degree relative Family history of malignant neoplasm of breast in first degree relative, Onset Age: 56 Patient's sister is Family history of arthritis Family history of lymphoma Mother Family history of elevated blood lipids Family history of diabetes mellitus in first degree relative Patient's mother is Family history of arthritis Social History Social History Smoking status: Never smoker Alcohol intake: never Substance use: never Lack of Transportation: No Lack of Food: Never True Current Housing: I Have Housing Concerned About Future Housing: No Difficulty Paying Gas/Electric Bills: No Difficulty Paying for Meds: No Currently Unemployed: No Education: Master's Degree or Higher Difficulty w/ Childcare or Family Care: No Spiritual care concerns: No Exam Narrative: APPEARANCE: Well appearing, no pain, no distress, well-nourished. HEAD: normocephalic, atraumatic. EYES: PERRLA/EOMI, conjunctivae clear. NOSE: Normal no drainage EARS:TMS clear with good light reflex. THROAT: Pharynx clear, no exudate. NECK: Supple. No
--- NOTE | 2023-05-13 17:47 | PC.NURSE ---
Pt able to ambulate with w/c without difficulty
--- NOTE | 2023-05-13 17:48 | PC.NURSE ---
Pt able to ambulate with walker without difficulty
[2023-05-13 18:07] VITALS: BP 146/72; PULSE 88; RESP 18; TEMP 36.4; O2SAT 97
== END 2023-05-13 18:08 | disposition home or self-care (01) ==
PROVIDERS: Emergency Provider Emergency Medicine; PCP Internal Medicine
DX: S99.912A Unspecified injury of left ankle, initial encounter (principal); S09.90XA Unspecified injury of head, initial encounter; S39.92XA Unspecified injury of lower back, initial encounter; C64.1 Malignant neoplasm of right kidney, except renal pelvis; I10 Essential (primary) hypertension; E78.5 Hyperlipidemia, unspecified; G14 Postpolio syndrome; M41.9 Scoliosis, unspecified; L40.50 Arthropathic psoriasis, unspecified; Z87.442 Personal history of urinary calculi; Z86.718 Personal history of other venous thrombosis and embolism; Z85.3 Personal history of malignant neoplasm of breast; Z86.16 Personal history of COVID-19; M81.0 Age-related osteoporosis without current pathological fracture; Z90.49 Acquired absence of other specified parts of digestive tract; I67.2 Cerebral atherosclerosis; M47.816 Spondylosis without myelopathy or radiculopathy, lumbar region; M47.814 Spondylosis without myelopathy or radiculopathy, thoracic region; M16.0 Bilateral primary osteoarthritis of hip; M51.36 Other intervertebral disc degeneration, lumbar region; M85.89 Other specified disorders of bone density and structure, multiple sites; M17.12 Unilateral primary osteoarthritis, left knee
CPT/HCPCS: 70450; 72128; 72131; 73502; 73562; 73610; 99284

== ENCOUNTER 2024-11-22 22:39 | Emergency (ER) | payer MEDICARE, SELFPAY ==
--- NOTE | ~2024-11-22 | XR_ITS ---
HISTORY: fall, pain COMPARISON: 05/13/2023 TECHNIQUE: 3 views of the left ankle were performed FINDINGS: No acute fracture or dislocation. No significant soft tissue swelling. Significant vascular calcifications are redemonstrated. The ankle mortise is preserved. Diffuse bony demineralization, unchanged from prior IMPRESSION: Degenerative disease, without acute fracture. Reviewed, dictated and finalized at location A.
--- NOTE | ~2024-11-22 | CT_ITS ---
EXAMINATION: CT diagnostic chest wo con DATE: 11/23/2024 00:32 INDICATION: Left chest wall pain after fall TECHNIQUE: Computed tomography (CT) of the chest was performed without intravenous contrast. The dose -length product was 118.59 mGy-cm. Automated exposure control and iterative reconstruction technique were employed. COMPARISON: CT dated 11/19/1999 FINDINGS: No significant pleural or pericardial effusions. There is severe scoliosis. There is athero sclerosis of the aorta and coronary arteries. There is carotid atherosclerosis.There is linear right upper lobe atelectasis/scarring. Cannot exclude superimposed pneumonia. There is bandlike opacity in the left upper lobe which may represent atelectasis/scarring most likely. No pneumothorax. No signifi cant pleural or pericardial effusion. There are nonobstructing bilateral renal stones. There is a low -density right renal mass, measuring 3.7 cm, likely benign cysts. IMPRESSION: 1. Linear bandlike opacities of the upper lobes, most likely atelectasis/scarring, although pneumonia not excluded. 2: Right renal mass measuring 19 Hounsfield units, most compatible with benign cysts. Reviewed, dictated and finalized at location A. IMPRESSION: 1. Linear bandlike opacities of the upper lobes, most likely atelectasis/scarri ng, although pneumonia not excluded. 2: Right renal mass measuring 19 Hounsfield units, most compatible with benign cysts.
--- NOTE | ~2024-11-22 | XR_ITS ---
HISTORY: fall, pain COMPARISON: None TECHNIQUE: 3 views of the left shoulder were performed FINDINGS: Significant cortical irregularity within the left humeral head and glenoid fossa possibly representin g prior fracture deformity with bony remodeling for which clinical correlation is needed. Severe levoscoliotic curvature of the thoracic spine is present. The visualized portion of the adjacent left lung is clear. The humeral head is well seated within the glenoid fossa. Diffuse bony demineralization IMPRESSION: Findings suggesting prior fracture deformity with bony remodeling in the left humeral head for which clinical correlation is needed. Reviewed, dictated and finalized at location A. IMPRESSION: Findings suggesting prior fracture deformity with bony remodeling in the left h umeral head for which clinical correlation is needed.
--- NOTE | ~2024-11-22 | CT_ITS ---
EXAMINATION: CT cervical spine wo con DATE: 11/23/2024 00:32 INDICATION: Neck pain after fall TECHNIQUE: Computed tomography (CT) of the cervical spine was performed without intravenous contrast. The dose-length product was 177 mGy-cm. Automated exposure control and iterative reconstruction tech Assurely were employed. COMPARISON: CT dated 11/03/2017 FINDINGS: There is dextroscoliosis. There is reversal of cervical lordosis. There is disc narrowing a nd spondylosis at all cervical spine levels. Odontoid process is normal. Craniovertebral junction wit hin normal limits. Spinous processes are normal. No evidence for perched facet. No acute fracture or traumatic malalignment. There is right upper lobe atelectasis/scarring. Multilevel uncinate and facet hypertrophy. IMPRESSION: 1. No acute fracture. 2: Severe cervical spondylosis with dextroscoliosis. Reviewed, dictated and finalized at location A.
[2024-11-22 22:41] VITALS: BP 170/91; PULSE 89; RESP 19; TEMP 36.6; O2SAT 94
--- OUTSIDE RECORDS SUMMARY | 2024-11-22 23:43 | XMS_ITS | Encounter Summary ---
Author Organization [employer] Address [address] [place] [address] Care Team Providers Care Crystalizer Tender Name Role Phone Vane Singer MD Primary Care Provider [phone] Encounter Details Date Type Department Care Team (Late st Contact Info) Description 08/28/2001 Outpatient Historical [facility] Social History Tobacco Use Types Packs/Day Years Used Date Smoking Tobacco: Never Assessed Comments Unknown Sex and Gender Information Value Date Recorded Sex Assigned at Not on file Legal Sex Female 2:38 AM CREDIT REPORT CHECKER Gender Identity Not on file Sexual Orientation Not on file documented as of this encounter Plan of Treatment Not on file documented as of this encounter Visit Diagnoses Not on filedocumented in this encounter Care Teams Crystalizer Tender Relationship Specialty Start Date End Date Vane Singer MD [address] [place] [address] PCP - General 03/30/15 documented as of this encounter
--- OUTSIDE RECORDS SUMMARY | 2024-11-22 23:43 | XMS_ITS | Encounter Summary ---
Author Organization [employer] Address [address] [place] [address] Care Team Providers Care Silver Buffer Name Role Phone Vane Singer MD Primary Care Provider [phone] Encounter Details Date Type Department Care Team (Late st Contact Info) Description 01/01/2002 Outpatient Historical [facility] Social History Tobacco Use Types Packs/Day Years Used Date Smoking Tobacco: Never Assessed Comments Unknown Sex and Gender Information Value Date Recorded Sex Assigned at Not on file Legal Sex Female 2:38 AM SPOT MACHINE OPERATOR Gender Identity Not on file Sexual Orientation Not on file documented as of this encounter Plan of Treatment Not on file documented as of this encounter Visit Diagnoses Not on filedocumented in this encounter Care Teams Silver Buffer Relationship Specialty Start Date End Date Vane Singer MD [address] [place] [address] PCP - General 03/30/15 documented as of this encounter
--- OUTSIDE RECORDS SUMMARY | 2024-11-22 23:43 | XMS_ITS | Encounter Summary ---
Author Organization [employer] Address [address] [place] [address] Care Team Providers Care Maintenance Parts Technician Name Role Phone Vane Singer MD Primary Care Provider [phone] Encounter Details Date Type Department Care Team (Late st Contact Info) Description 12/04/2001 Outpatient Historical [facility] Social History Tobacco Use Types Packs/Day Years Used Date Smoking Tobacco: Never Assessed Comments Unknown Sex and Gender Information Value Date Recorded Sex Assigned at Not on file Legal Sex Female 2:38 AM PROGRAM LEAD Gender Identity Not on file Sexual Orientation Not on file documented as of this encounter Plan of Treatment Not on file documented as of this encounter Visit Diagnoses Not on filedocumented in this encounter Care Teams Maintenance Parts Technician Relationship Specialty Start Date End Date Vane Singer MD [address] [place] [address] PCP - General 03/30/15 documented as of this encounter
--- OUTSIDE RECORDS SUMMARY | 2024-11-22 23:43 | XMS_ITS | Encounter Summary ---
Author Organization [employer] Address [address] [place] [address] Care Team Providers Care Foot Doctor Name Role Phone Vane Singer MD Primary Care Provider [phone] Encounter Details Date Type Department Care Team (Late st Contact Info) Description 03/28/2002 Outpatient [address] [facility] Social History Tobacco Use Types Packs/Day Years Used Date Smoking Tobacco: Never Assessed Comments Unknown Sex and Gender Information Value Date Recorded Sex Assigned at Not on file Legal Sex Female 2:38 AM SHOP REPAIRER Gender Identity Not on file Sexual Orientation Not on file documented as of this encounter Plan of Treatment Not on file documented as of this encounter Visit Diagnoses Not on filedocumented in this encounter Care Teams Foot Doctor Relationship Specialty Start Date End Date Vane Singer MD [address] [place] [address] PCP - General 03/30/15 documented as of this encounter
--- OUTSIDE RECORDS SUMMARY | 2024-11-22 23:43 | XMS_ITS | Encounter Summary ---
Author Organization [employer] Address [address] [place] [address] Care Team Providers Care Youth Ministry Director Name Role Phone Vane Singer MD Primary Care Provider [phone] Encounter Details Date Type Department Care Team (Late st Contact Info) Description 01/10/2006 Outpatient Historical [facility] [address] [place] [address] Adry Morris Social History Tobacco Use Types Packs/Day Years Used Date Smoking Tobacco: Never Assessed Comments Unknown Sex and Gender Information Value Date Recorded Sex Assigned at Not on file Legal Sex Female 2:38 AM PAINT TESTER Gender Identity Not on file Sexual Orientation Not on file documented as of this encounter Plan of Treatment Not on file documented as of this encounter Visit Diagnoses Not on filedocumented in this encounter Care Teams Youth Ministry Director Relationship Specialty Start Date End Date Vane Singer MD [address] [place] [address] PCP - General 03/30/15 documented as of this encounter
--- OUTSIDE RECORDS SUMMARY | 2024-11-22 23:43 | XMS_ITS | Encounter Summary ---
Author Organization [employer] Address [address] [place] [address] Care Team Providers Care Senior Mobile Application Developer Name Role Phone Vane Singer MD Primary Care Provider [phone] Encounter Details Date Type Department Care Team (Late st Contact Info) Description 02/07/[address] [facility] [address] [place] [address] Adry Morris Social History Tobacco Use Types Packs/Day Years Used Date Smoking Tobacco: Never Assessed Comments Unknown Sex and Gender Information Value Date Recorded Sex Assigned at Not on file Legal Sex Female 2:38 AM EXCEPTIONAL STUDENT EDUCATION AIDE Gender Identity Not on file Sexual Orientation Not on file documented as of this encounter Plan of Treatment Not on file documented as of this encounter Visit Diagnoses Not on filedocumented in this encounter Care Teams Senior Mobile Application Developer Relationship Specialty Start Date End Date Vane Singer MD [address] [place] [address] PCP - General 03/30/15 documented as of this encounter
--- OUTSIDE RECORDS SUMMARY | 2024-11-22 23:43 | XMS_ITS | Encounter Summary ---
Author Organization [employer] Address [address] [place] [address] Care Team Providers Care Manager Validation Name Role Phone Vane Singer MD Primary Care Provider [phone] Encounter Details Date Type Department Care Team (Late st Contact Info) Description 11/20/2001 Outpatient Historical [facility] Social History Tobacco Use Types Packs/Day Years Used Date Smoking Tobacco: Never Assessed Comments Unknown Sex and Gender Information Value Date Recorded Sex Assigned at Not on file Legal Sex Female 2:38 AM GLASS CARRIER Gender Identity Not on file Sexual Orientation Not on file documented as of this encounter Plan of Treatment Not on file documented as of this encounter Visit Diagnoses Not on filedocumented in this encounter Care Teams Manager Validation Relationship Specialty Start Date End Date Vane Singer MD [address] [place] [address] PCP - General 03/30/15 documented as of this encounter
--- OUTSIDE RECORDS SUMMARY | 2024-11-22 23:43 | XMS_ITS | Encounter Summary ---
Author Organization [employer] Address [address] [place] [address] Care Team Providers Care Cable Puller Name Role Phone Vane Singer MD Primary Care Provider [phone] Encounter Details Date Type Department Care Team (Late st Contact Info) Description 12/27/2005 Outpatient Historical [facility] [address] [place] [address] Adry Morris Social History Tobacco Use Types Packs/Day Years Used Date Smoking Tobacco: Never Assessed Comments Unknown Sex and Gender Information Value Date Recorded Sex Assigned at Not on file Legal Sex Female 2:38 AM OCCUPATIONAL THERAPY SUPERVISOR Gender Identity Not on file Sexual Orientation Not on file documented as of this encounter Plan of Treatment Not on file documented as of this encounter Visit Diagnoses Not on filedocumented in this encounter Care Teams Cable Puller Relationship Specialty Start Date End Date Vane Singer MD [address] [place] [address] PCP - General 03/30/15 documented as of this encounter
--- OUTSIDE RECORDS SUMMARY | 2024-11-22 23:43 | XMS_ITS | Encounter Summary ---
Author Organization [employer] Address [address] [place] [address] Care Team Providers Care Deputy Director Of Nursing Name Role Phone Vane Singer MD Primary Care Provider [phone] Encounter Details Date Type Department Care Team (Late st Contact Info) Description 07/11/2006 Outpatient Historical [facility] [address] [place] [address] Adry Morris Social History Tobacco Use Types Packs/Day Years Used Date Smoking Tobacco: Never Assessed Comments Unknown Sex and Gender Information Value Date Recorded Sex Assigned at Not on file Legal Sex Female 2:38 AM LOSS CONTROL REPRESENTATIVE Gender Identity Not on file Sexual Orientation Not on file documented as of this encounter Plan of Treatment Not on file documented as of this encounter Visit Diagnoses Not on filedocumented in this encounter Care Teams Deputy Director Of Nursing Relationship Specialty Start Date End Date Vane Singer MD [address] [place] [address] PCP - General 03/30/15 documented as of this encounter
--- OUTSIDE RECORDS SUMMARY | 2024-11-22 23:43 | XMS_ITS | Encounter Summary ---
Author Organization [employer] Address [address] [place] [address] Care Team Providers Care Call Worker Name Role Phone Vane Singer MD Primary Care Provider [phone] Encounter Details Date Type Department Care Team (Late st Contact Info) Description 02/05/2002 Outpatient Historical [facility] Social History Tobacco Use Types Packs/Day Years Used Date Smoking Tobacco: Never Assessed Comments Unknown Sex and Gender Information Value Date Recorded Sex Assigned at Not on file Legal Sex Female 2:38 AM CALENDAR CONTROL CLERK BLOOD BANK Gender Identity Not on file Sexual Orientation Not on file documented as of this encounter Plan of Treatment Not on file documented as of this encounter Visit Diagnoses Not on filedocumented in this encounter Care Teams Call Worker Relationship Specialty Start Date End Date Vane Singer MD [address] [place] [address] PCP - General 03/30/15 documented as of this encounter
--- OUTSIDE RECORDS SUMMARY | 2024-11-22 23:43 | XMS_ITS | Encounter Summary ---
Author Organization [employer] Address [address] [place] [address] Care Team Providers Care Sales Product Specialist Name Role Phone Vane Singer MD Primary Care Provider [phone] Encounter Details Date Type Department Care Team (Late st Contact Info) Description 11/06/2001 Outpatient Historical [facility] Social History Tobacco Use Types Packs/Day Years Used Date Smoking Tobacco: Never Assessed Comments Unknown Sex and Gender Information Value Date Recorded Sex Assigned at Not on file Legal Sex Female 2:38 AM DIRECTOR CHEMISTRY Gender Identity Not on file Sexual Orientation Not on file documented as of this encounter Plan of Treatment Not on file documented as of this encounter Visit Diagnoses Not on filedocumented in this encounter Care Teams Sales Product Specialist Relationship Specialty Start Date End Date Vane Singer MD [address] [place] [address] PCP - General 03/30/15 documented as of this encounter
--- OUTSIDE RECORDS SUMMARY | 2024-11-22 23:43 | XMS_ITS | Encounter Summary ---
Author Organization [employer] Address [address] [place] [address] Care Team Providers Care Supervisor Telephone Information Name Role Phone Vane Singer MD Primary Care Provider [phone] Encounter Details Date Type Department Care Team (Late st Contact Info) Description 03/05/2002 Outpatient Historical [facility] Social History Tobacco Use Types Packs/Day Years Used Date Smoking Tobacco: Never Assessed Comments Unknown Sex and Gender Information Value Date Recorded Sex Assigned at Not on file Legal Sex Female 2:38 AM RESIDENTIAL APPLIANCE REPAIR TECHNICIAN Gender Identity Not on file Sexual Orientation Not on file documented as of this encounter Plan of Treatment Not on file documented as of this encounter Visit Diagnoses Not on filedocumented in this encounter Care Teams Supervisor Telephone Information Relationship Specialty Start Date End Date Vane Singer MD [address] [place] [address] PCP - General 03/30/15 documented as of this encounter
--- OUTSIDE RECORDS SUMMARY | 2024-11-22 23:43 | XMS_ITS | Encounter Summary ---
Author Organization [employer] Address [address] [place] [address] Care Team Providers Care Technical Marketing Consultant Name Role Phone Vane Singer MD Primary Care Provider [phone] Encounter Details Date Type Department Care Team (Late st Contact Info) Description 09/11/2001 Outpatient Historical [facility] Social History Tobacco Use Types Packs/Day Years Used Date Smoking Tobacco: Never Assessed Comments Unknown Sex and Gender Information Value Date Recorded Sex Assigned at Not on file Legal Sex Female 2:38 AM PLANT MECHANIC Gender Identity Not on file Sexual Orientation Not on file documented as of this encounter Plan of Treatment Not on file documented as of this encounter Visit Diagnoses Not on filedocumented in this encounter Care Teams Technical Marketing Consultant Relationship Specialty Start Date End Date Vane Singer MD [address] [place] [address] PCP - General 03/30/15 documented as of this encounter
--- OUTSIDE RECORDS SUMMARY | 2024-11-22 23:43 | XMS_ITS | Encounter Summary ---
Author Organization [employer] Address [address] [place] [address] Care Team Providers Care Supervisor Newspaper Deliveries Name Role Phone Vane Singer MD Primary Care Provider [phone] Encounter Details Date Type Department Care Team (Late st Contact Info) Description 01/15/2002 Outpatient Historical [facility] Social History Tobacco Use Types Packs/Day Years Used Date Smoking Tobacco: Never Assessed Comments Unknown Sex and Gender Information Value Date Recorded Sex Assigned at Not on file Legal Sex Female 2:38 AM HYDROCHLORIC ACID OPERATOR Gender Identity Not on file Sexual Orientation Not on file documented as of this encounter Plan of Treatment Not on file documented as of this encounter Visit Diagnoses Not on filedocumented in this encounter Care Teams Supervisor Newspaper Deliveries Relationship Specialty Start Date End Date Vane Singer MD [address] [place] [address] PCP - General 03/30/15 documented as of this encounter
--- OUTSIDE RECORDS SUMMARY | 2024-11-22 23:43 | XMS_ITS | Encounter Summary ---
Author Organization [employer] Address 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
--- OUTSIDE RECORDS SUMMARY | 2024-11-22 23:43 | XMS_ITS | Encounter Summary ---
Author Organization [employer] Address [address] [place] [address] Care Team Providers Care Copy Operator Name Role Phone Vane Singer MD Primary Care Provider [phone] Encounter Details Date Type Department Care Team (Late st Contact Info) Description 07/12/2001 Outpatient Historical [facility] Social History Tobacco Use Types Packs/Day Years Used Date Smoking Tobacco: Never Assessed Comments Unknown Sex and Gender Information Value Date Recorded Sex Assigned at Not on file Legal Sex Female 2:38 AM COKE CRUSHER OPERATOR Gender Identity Not on file Sexual Orientation Not on file documented as of this encounter Plan of Treatment Not on file documented as of this encounter Visit Diagnoses Not on filedocumented in this encounter Care Teams Copy Operator Relationship Specialty Start Date End Date Vane Singer MD [address] [place] [address] PCP - General 03/30/15 documented as of this encounter
--- OUTSIDE RECORDS SUMMARY | 2024-11-22 23:43 | XMS_ITS | Encounter Summary ---
Author Organization [employer] Address [address] [place] [address] Care Team Providers Care Bin Filler Name Role Phone Vane Singer MD Primary Care Provider [phone] Encounter Details Date Type Department Care Team (Late st Contact Info) Description 10/30/2001 Outpatient Historical [facility] Social History Tobacco Use Types Packs/Day Years Used Date Smoking Tobacco: Never Assessed Comments Unknown Sex and Gender Information Value Date Recorded Sex Assigned at Not on file Legal Sex Female 2:38 AM BUSINESS SERVICES ASSOCIATE Gender Identity Not on file Sexual Orientation Not on file documented as of this encounter Plan of Treatment Not on file documented as of this encounter Visit Diagnoses Not on filedocumented in this encounter Care Teams Bin Filler Relationship Specialty Start Date End Date Vane Singer MD [address] [place] [address] PCP - General 03/30/15 documented as of this encounter
--- OUTSIDE RECORDS SUMMARY | 2024-11-22 23:43 | XMS_ITS | Encounter Summary ---
Author Organization [employer] Address [address] [place] [address] Care Team Providers Care Record Clerk Salesperson Name Role Phone Vane Singer MD Primary Care Provider [phone] Encounter Details Date Type Department Care Team (Late st Contact Info) Description 09/25/2001 Outpatient Historical [facility] Social History Tobacco Use Types Packs/Day Years Used Date Smoking Tobacco: Never Assessed Comments Unknown Sex and Gender Information Value Date Recorded Sex Assigned at Not on file Legal Sex Female 2:38 AM AIRPORT DUTY MANAGER Gender Identity Not on file Sexual Orientation Not on file documented as of this encounter Plan of Treatment Not on file documented as of this encounter Visit Diagnoses Not on filedocumented in this encounter Care Teams Record Clerk Salesperson Relationship Specialty Start Date End Date Vane Singer MD [address] [place] [address] PCP - General 03/30/15 documented as of this encounter
--- OUTSIDE RECORDS SUMMARY | 2024-11-22 23:43 | XMS_ITS | Encounter Summary ---
Author Organization [employer] Address [address] [place] [address] Care Team Providers Care International Freight Forwarder Name Role Phone Vane Singer MD Primary Care Provider [phone] Encounter Details Date Type Department Care Team (Late st Contact Info) Description 05/16/2006 Outpatient Historical [facility] 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
--- OUTSIDE RECORDS SUMMARY | 2024-11-22 23:43 | XMS_ITS | Encounter Summary ---
Author Organization [employer] Address [address] [place] [address] Care Team Providers Care Cio Name Role Phone Vane Singer MD Primary Care Provider [phone] Encounter Details Date Type Department Care Team (Late st Contact Info) Description 07/25/2006 Outpatient Historical [facility] 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
--- OUTSIDE RECORDS SUMMARY | 2024-11-22 23:43 | XMS_ITS | Encounter Summary ---
Author Organization [employer] Address [address] [place] [address] Care Team Providers Care Tool And Die Engineer Name Role Phone Vane Singer MD Primary Care Provider [phone] Encounter Details Date Type Department Care Team (Late st Contact Info) Description 10/18/2001 Outpatient Historical [facility] Social History Tobacco Use Types Packs/Day Years Used Date Smoking Tobacco: Never Assessed Comments Unknown Sex and Gender Information Value Date Recorded Sex Assigned at Not on file Legal Sex Female 2:38 AM SERVICE STATION CONSOLE OPERATOR Gender Identity Not on file Sexual Orientation Not on file documented as of this encounter Plan of Treatment Not on file documented as of this encounter Visit Diagnoses Not on filedocumented in this encounter Care Teams Tool And Die Engineer Relationship Specialty Start Date End Date Vane Singer MD [address] [place] [address] PCP - General 03/30/15 documented as of this encounter
--- OUTSIDE RECORDS SUMMARY | 2024-11-22 23:43 | XMS_ITS | Encounter Summary ---
Author Organization [employer] Address [address] [place] [address] Care Team Providers Care Rehabilitation Medicine Physician Name Role Phone Vane Singer MD Primary Care Provider [phone] Encounter Details Date Type Department Care Team (Late st Contact Info) Description 04/11/2006 Outpatient Historical [facility] [address] [place] [address] Adry Morris Social History Tobacco Use Types Packs/Day Years Used Date Smoking Tobacco: Never Assessed Comments Unknown Sex and Gender Information Value Date Recorded Sex Assigned at Not on file Legal Sex Female 2:38 AM FLIGHT TEST MECHANIC Gender Identity Not on file Sexual Orientation Not on file documented as of this encounter Plan of Treatment Not on file documented as of this encounter Visit Diagnoses Not on filedocumented in this encounter Care Teams Rehabilitation Medicine Physician Relationship Specialty Start Date End Date Vane Singer MD [address] [place] [address] PCP - General 03/30/15 documented as of this encounter
--- OUTSIDE RECORDS SUMMARY | 2024-11-22 23:43 | XMS_ITS | Encounter Summary ---
Author Organization [employer] Address [address] [place] [address] Care Team Providers Care Certified Prosthetist/Orthotist Name Role Phone Vane Singer MD Primary Care Provider [phone] Encounter Details Date Type Department Care Team (Late st Contact Info) Description 12/18/2001 Outpatient Historical [facility] Social History Tobacco Use Types Packs/Day Years Used Date Smoking Tobacco: Never Assessed Comments Unknown Sex and Gender Information Value Date Recorded Sex Assigned at Not on file Legal Sex Female 2:38 AM ACCOUNTANT ASSISTANT Gender Identity Not on file Sexual Orientation Not on file documented as of this encounter Plan of Treatment Not on file documented as of this encounter Visit Diagnoses Not on filedocumented in this encounter Care Teams Certified Prosthetist/Orthotist Relationship Specialty Start Date End Date Vane Singer MD [address] [place] [address] PCP - General 03/30/15 documented as of this encounter
--- OUTSIDE RECORDS SUMMARY | 2024-11-22 23:43 | XMS_ITS | Encounter Summary ---
Author Organization [employer] Address [address] [place] [address] Care Team Providers Care Field Interviewer Name Role Phone Vane Singer MD Primary Care Provider [phone] Encounter Details Date Type Department Care Team (Late st Contact Info) Description 08/14/2001 Outpatient Historical [facility] Social History Tobacco Use Types Packs/Day Years Used Date Smoking Tobacco: Never Assessed Comments Unknown Sex and Gender Information Value Date Recorded Sex Assigned at Not on file Legal Sex Female 2:38 AM GARMENT SUPERVISOR Gender Identity Not on file Sexual Orientation Not on file documented as of this encounter Plan of Treatment Not on file documented as of this encounter Visit Diagnoses Not on filedocumented in this encounter Care Teams Field Interviewer Relationship Specialty Start Date End Date Vane Singer MD [address] [place] [address] PCP - General 03/30/15 documented as of this encounter
--- OUTSIDE RECORDS SUMMARY | 2024-11-22 23:43 | XMS_ITS | Encounter Summary ---
Author Organization [employer] Address [address] [place] [address] Care Team Providers Care Mail Examiner Name Role Phone Vane Singer MD Primary Care Provider [phone] Encounter Details Date Type Department Care Team (Late st Contact Info) Description 07/24/2001 Outpatient Historical [facility] Social History Tobacco Use Types Packs/Day Years Used Date Smoking Tobacco: Never Assessed Comments Unknown Sex and Gender Information Value Date Recorded Sex Assigned at Not on file Legal Sex Female 2:38 AM GARDENING MANAGER Gender Identity Not on file Sexual Orientation Not on file documented as of this encounter Plan of Treatment Not on file documented as of this encounter Visit Diagnoses Not on filedocumented in this encounter Care Teams Mail Examiner Relationship Specialty Start Date End Date Vane Singer MD [address] [place] [address] PCP - General 03/30/15 documented as of this encounter
--- OUTSIDE RECORDS SUMMARY | 2024-11-22 23:43 | XMS_ITS | Encounter Summary ---
Author Organization [employer] Address [address] [place] [address] Care Team Providers Care High Lead Yarder Name Role Phone Vane Singer MD Primary Care Provider [phone] Encounter Details Date Type Department Care Team (Late st Contact Info) Description 04/14/2002 Outpatient [address] [facility] Social History Tobacco Use Types Packs/Day Years Used Date Smoking Tobacco: Never Assessed Comments Unknown Sex and Gender Information Value Date Recorded Sex Assigned at Not on file Legal Sex Female 2:38 AM VESSEL CREW MEMBER Gender Identity Not on file Sexual Orientation Not on file documented as of this encounter Plan of Treatment Not on file documented as of this encounter Visit Diagnoses Not on filedocumented in this encounter Care Teams High Lead Yarder Relationship Specialty Start Date End Date Vane Singer MD [address] [place] [address] PCP - General 03/30/15 documented as of this encounter
--- OUTSIDE RECORDS SUMMARY | 2024-11-22 23:44 | XMS_ITS | Encounter Summary ---
Author Organization [employer] Address [address] [place] [address] Care Team Providers Care Hospital Intern Name Role Phone Vane Singer MD Primary Care Provider [phone] Encounter Details Date Type Department Care Team (Late st Contact Info) Description 11/01/2005 Outpatient Historical [facility] [address] [place] [address] Adry Morris Social History Tobacco Use Types Packs/Day Years Used Date Smoking Tobacco: Never Assessed Comments Unknown Sex and Gender Information Value Date Recorded Sex Assigned at Not on file Legal Sex Female 2:38 AM FUR FINISHER SEAMSTRESS Gender Identity Not on file Sexual Orientation Not on file documented as of this encounter Plan of Treatment Not on file documented as of this encounter Visit Diagnoses Not on filedocumented in this encounter Care Teams Hospital Intern Relationship Specialty Start Date End Date Vane Singer MD [address] [place] [address] PCP - General 03/30/15 documented as of this encounter
--- OUTSIDE RECORDS SUMMARY | 2024-11-22 23:44 | XMS_ITS | Encounter Summary ---
Author Organization [employer] Address [address] [place] [address] Care Team Providers Care Customer Relations Consultant Name Role Phone Vane Singer MD Primary Care Provider [phone] Encounter Details Date Type Department Care Team (Late st Contact Info) Description 06/04/2002 Outpatient Historical [facility] Social History Tobacco Use Types Packs/Day Years Used Date Smoking Tobacco: Never Assessed Comments Unknown Sex and Gender Information Value Date Recorded Sex Assigned at Not on file Legal Sex Female 2:38 AM ESTHETICIAN/SPA COORDINATOR Gender Identity Not on file Sexual Orientation Not on file documented as of this encounter Plan of Treatment Not on file documented as of this encounter Visit Diagnoses Not on filedocumented in this encounter Care Teams Customer Relations Consultant Relationship Specialty Start Date End Date Vane Singer MD [address] [place] [address] PCP - General 03/30/15 documented as of this encounter
--- OUTSIDE RECORDS SUMMARY | 2024-11-22 23:44 | XMS_ITS | Encounter Summary ---
Author Organization [employer] Address [address] [place] [address] Care Team Providers Care Adzing And Boring Machine Operator Name Role Phone Vane Singer MD Primary Care Provider [phone] Encounter Details Date Type Department Care Team (Late st Contact Info) Description 10/04/2005 Outpatient Historical [facility] [address] [place] [address] Adry Morris Social History Tobacco Use Types Packs/Day Years Used Date Smoking Tobacco: Never Assessed Comments Unknown Sex and Gender Information Value Date Recorded Sex Assigned at Not on file Legal Sex Female 2:38 AM PIPING MANAGER Gender Identity Not on file Sexual Orientation Not on file documented as of this encounter Plan of Treatment Not on file documented as of this encounter Visit Diagnoses Not on filedocumented in this encounter Care Teams Adzing And Boring Machine Operator Relationship Specialty Start Date End Date Vane Singer MD [address] [place] [address] PCP - General 03/30/15 documented as of this encounter
--- OUTSIDE RECORDS SUMMARY | 2024-11-22 23:44 | XMS_ITS | Encounter Summary ---
Author Organization [employer] Address [address] [place] [address] Care Team Providers Care Digital Solutions Architect Name Role Phone Vane Singer MD Primary Care Provider [phone] Encounter Details Date Type Department Care Team (Late st Contact Info) Description 11/25/2004 Outpatient Historical [facility] [address] [place] [address] Jai Bustamante MD [address] [place] [address] Social History Tobacco Use Types Packs/Day Years Used Date Smoking Tobacco: Never Assessed Comments Unknown Sex and Gender Information Value Date Recorded Sex Assigned at Not on file Legal Sex Female 2:38 AM PLANT INSPECTOR Gender Identity Not on file Sexual Orientation Not on file documented as of this encounter Plan of Treatment Not on file documented as of this encounter Visit Diagnoses Not on filedocumented in this encounter Care Teams Digital Solutions Architect Relationship Specialty Start Date End Date Vane Singer MD [address] [place], [place] [address] PCP - General 03/30/15 documented as of this encounter
--- OUTSIDE RECORDS SUMMARY | 2024-11-22 23:44 | XMS_ITS | Encounter Summary ---
Author Organization [employer] Address [address] [place] [address] Care Team Providers Care Jewelry Technician Name Role Phone Vane Singer MD Primary Care Provider [phone] Encounter Details Date Type Department Care Team (Late st Contact Info) Description 11/15/2005 Outpatient Historical [facility] [address] [place] [address] Adry Morris Social History Tobacco Use Types Packs/Day Years Used Date Smoking Tobacco: Never Assessed Comments Unknown Sex and Gender Information Value Date Recorded Sex Assigned at Not on file Legal Sex Female 2:38 AM PHARMACOMETRICIAN Gender Identity Not on file Sexual Orientation Not on file documented as of this encounter Plan of Treatment Not on file documented as of this encounter Visit Diagnoses Not on filedocumented in this encounter Care Teams Jewelry Technician Relationship Specialty Start Date End Date Vane Singer MD [address] [place] [address] PCP - General 03/30/15 documented as of this encounter
--- OUTSIDE RECORDS SUMMARY | 2024-11-22 23:44 | XMS_ITS | Encounter Summary ---
Author Organization [employer] Address [address] [place] [address] Care Team Providers Care Warehouse Specialist Name Role Phone Vane Singer MD Primary Care Provider [phone] Encounter Details Date Type Department Care Team (Late st Contact Info) Description 09/10/2002 Outpatient Historical [facility] Social History Tobacco Use Types Packs/Day Years Used Date Smoking Tobacco: Never Assessed Comments Unknown Sex and Gender Information Value Date Recorded Sex Assigned at Not on file Legal Sex Female 2:38 AM HADOOP ANALYST Gender Identity Not on file Sexual Orientation Not on file documented as of this encounter Plan of Treatment Not on file documented as of this encounter Visit Diagnoses Not on filedocumented in this encounter Care Teams Warehouse Specialist Relationship Specialty Start Date End Date Vane Singer MD [address] [facility] [facility] [address] [place] [address] PCP - General 03/30/15 documented as of this encounter
--- OUTSIDE RECORDS SUMMARY | 2024-11-22 23:44 | XMS_ITS | Encounter Summary ---
Author Organization [employer] Address [address] [place] [address] Care Team Providers Care Printing Technician Name Role Phone Vane Singer MD Primary Care Provider [phone] Encounter Details Date Type Department Care Team (Late st Contact Info) Description 05/17/2005 Outpatient Historical [facility] [address] [place] [address] Adry Morris Social History Tobacco Use Types Packs/Day Years Used Date Smoking Tobacco: Never Assessed Comments Unknown Sex and Gender Information Value Date Recorded Sex Assigned at Not on file Legal Sex Female 2:38 AM GALVANIZER Gender Identity Not on file Sexual Orientation Not on file documented as of this encounter Plan of Treatment Not on file documented as of this encounter Visit Diagnoses Not on filedocumented in this encounter Care Teams Printing Technician Relationship Specialty Start Date End Date Vane Singer MD [address] [place] [address] PCP - General 03/30/15 documented as of this encounter
--- OUTSIDE RECORDS SUMMARY | 2024-11-22 23:44 | XMS_ITS | Encounter Summary ---
Author Organization [employer] Address [address] [place] [address] Care Team Providers Care Technical Services Consultant Name Role Phone Vane Singer MD Primary Care Provider [phone] Encounter Details Date Type Department Care Team (Late st Contact Info) Description 08/02/2005 Outpatient Historical [facility] [address] [place] [address] Adry Morris Social History Tobacco Use Types Packs/Day Years Used Date Smoking Tobacco: Never Assessed Comments Unknown Sex and Gender Information Value Date Recorded Sex Assigned at Not on file Legal Sex Female 2:38 AM AUDIO VISUAL DESIGN ENGINEER Gender Identity Not on file Sexual Orientation Not on file documented as of this encounter Plan of Treatment Not on file documented as of this encounter Visit Diagnoses Not on filedocumented in this encounter Care Teams Technical Services Consultant Relationship Specialty Start Date End Date Vane Singer MD [address] [place] [address] PCP - General 03/30/15 documented as of this encounter
--- OUTSIDE RECORDS SUMMARY | 2024-11-22 23:44 | XMS_ITS | Clinical Summary ---
Author Organization [facility] Address [address] [place] [address] Care Team Providers Care Cogeneration Operator Name Role Phone TerrellMore Enmanuel VINSON Primary Care Provider [phone] Lakeshia Ramsay MSN Unavailable [phone] Jw Mireles MD Unavailable Allergies Active Allergy Reactions Criticality Noted Date Comments Iodinated Contrast Media Shortness of Breath High Levofloxacin Other (see comment) Low 03/21/2024 Reaction: Penicillins Rash Medium 12/11/2011 Reaction: RASH, Medications MULTIPLE VITAMINS OR Take 1 tablet by mouth daily. Active aspirin EC (ECOTRIN) 81 MG tablet Take 1 tablet (81 mg total) by mouth daily. Active doxycycline hyclate (VIBRAMYCIN) 50 MG capsule Take 1 capsule (50 mg total) by mouth 2 (two) times daily. Active Active Problems Problem Noted Date Diagnosed Date Acute respiratory failure with hypoxia ([facility]) 05/11/2024 Social History Tobacco Use Types Packs/Day Years Used Date Smoking Tobacco: Never Smokeless Tobacco: Never Tobacco Cessation:Counseling Given: Not Answered Alcohol Use Standard Drinks/Week Comments Not Currently 0 (1 standard drink = 0.6 oz pur e alcohol) Comments No Sex and Gender Information Value Date Recorded Sex Assigned at Female 05/06/2024 9:11 AM HEMP FIBER TAKER OFF Legal Sex Female 11:37 AM HEMP FIBER TAKER OFF Gender Identity Not on file Sexual Orientation Not on file Last Filed Vital Signs Vital Sign Reading Time Taken Comments Blood Pressure 165/81 05/12/2024 12:26 PM HEMP FIBER TAKER OFF Pulse 90 05/12/2024 12:26 PM HEMP FIBER TAKER OFF Temperature 36.9 C (98.5 F) 05/12/2024 12:26 PM HEMP FIBER TAKER OFF Respiratory Rate 26 05/12/2024 12:26 PM HEMP FIBER TAKER OFF Oxygen Saturation 96% 05/12/2024 12:26 PM HEMP FIBER TAKER OFF Inhaled Oxygen Concentration - - Weight 47.9 kg (105 lb 9.6 oz) 05/11/2024 11:40 AM HEMP FIBER TAKER OFF Height 147.3 cm (4' 10) 05/11/2024 11:40 AM HEMP FIBER TAKER OFF Body Mass Index 22.07 05/11/2024 11:40 AM HEMP FIBER TAKER OFF Plan of Treatment Health Maintenance Due Date Last Done Comments DTaP, Tdap and Td Vaccines ( 1 - Tdap) 1963 Zoster Vaccines (1 of 2) 1994 Annual Medicare Wellness Visit 2009 Pneumococcal Vaccine: 50+ Years (2 of 2 - PCV) 08/14/2015 08/13/2014 RSV Immunization or 60+ Years (1 - 1-dose 75+ series) 2019 COVID-19 Vaccine (2023-2 5 season) 2023 Dexa Scan (General) Completed 06/02/2018, 06/02/2018 Meningococcal B Vaccine Aged Out No l onger eligible based on patient's age to complete this topic Meningococcal Vaccine Aged Out No kenya stacie eligible based on patient's age to complete this topic RSV Immunizations Under 20 Months Aged Out No longer eligible b ased on patient's age to complete this topic Medical Devices Implanted Type Area Windshield Repair Technician Device Identifier Shelf Expiration Date Model / Serial / Lot Stent Ureteral Pigtail 6fr 24cm Crv Taper Tip - [id number] Implanted:Qty : 1 on 05/11/2024 by Phillip Billy MD at [facility] Stent Left: Ureter Helleroy JAYRO [id number] 09/21/2026 [id number] 20 / / [id number] Insurance [employer]ET[employer] Advance Directives * Full Code (Latest Code Status on File) Date Activated Date Inactivated Comments 05/11/2024 8:03 PM 05/12/2024 3:32 PM Care Teams Cogeneration Operator Relationship Specialty Start Date End Date More Tejada NP [address] [place] [address] PCP - General FAMILY PRACTICE 03/21/24 Lakeshia Ramsay, MSN [address] [facility] 2L DIV OF PULMONARY/[place] [address] PULMONARY DISEASE 03/21/24 Jw Mireles MD [address] [place] [address] CARDIOLOGY 05/04/24
--- OUTSIDE RECORDS SUMMARY | 2024-11-22 23:44 | XMS_ITS | Encounter Summary ---
Author Organization [employer] Address 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
--- OUTSIDE RECORDS SUMMARY | 2024-11-22 23:44 | XMS_ITS | Encounter Summary ---
Author Organization [employer] Address [address] [place] [address] Care Team Providers Care Bonsai Tender Name Role Phone Vane Singer MD Primary Care Provider [phone] Encounter Details Date Type Department Care Team (Late st Contact Info) Description 06/21/2005 Outpatient Historical [facility] 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
--- OUTSIDE RECORDS SUMMARY | 2024-11-22 23:44 | XMS_ITS | Encounter Summary ---
Author Organization [facility] Address [address] [place] [address] Care Team Providers Care Stitcher Feeder Name Role Phone Danae Glover MD Primary Care Provider + Severiano Rivas DO Primary Care Provider [phone] Encounter Details Date Type Department Care Team (Late st Contact Info) Description 08/25/2018 Lab Requisition [facility] Care DermPath Lab [address] [facility], [place] [address] Nyla Echeverria DO [address] [facility] 3 [place] [address] Social History Tobacco Use Types Packs/Day Years Used Date Smoking Tobacco: Never Smokeless Tobacco: Never Alcohol Use Standard Drinks/Week Comments Yes 0 (1 standard drink = 0.6 oz pur e alcohol) sip of wine on her birthday Comments No Sex and Gender Information Value Date Recorded Sex Assigned at Not on file Legal Sex Female 5:43 PM AIR TRAFFIC CONTROL EQUIPMENT 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 Gender Identity Not on file Sexual Orientation Not on file 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 on file N ot on file documented as of this encounter Plan of Treatment Not on file documented as of this encounter Procedures Procedure Name Priority Date/Time Associated Diagnosis Comments DERMATOPATHOLOGY Routine 08/24/2018 12:0 0 AM CDT documented in this encounter Results * DERMATOPATHOLOGY (08/24/2018 12:00 AM CDT) Case Report Dermatopathology Report Case: [id number] Authorizing Provider: Nyla Echeverria DO Collected: 08/24/2018 12:00 AM Pathologist: Wanda Huitron MD Received: 08/25/2018 06:39 AM Specimen: Skin, umbilicus 4:23 PM CDT DERMATOPATHOLOGY LABORATORY Final Diagnosis Specimen A. SKIN, umbilicus: SEBORRHEIC KERATOSIS (L82.1) (see microscopic description) 4:23 PM CDT DERMATOPATHOLOGY LABORATORY at 1623 CDT Clinical History ISK R/O Met Hx renal cancer. 4:23 PM CDT DERMATOPATHOLOGY LABORATORY Gross Description Specimen A: Received is one formalin filled container labeled with the patient's name and designated umbilicus. The specimen consists of a shave measuring [id number]. Jar 0. 4:23 PM CDT DERMATOPATHOLOGY LABORATORY Microscopic Description Specimen A. SKIN, umbilicus: Sections show an acanthotic lesion composed of relatively uniform keratinocytes. There is hyperkeratosis and pseudo horn cysts formation. Additional deeper sections were obtained and reviewed. 4:23 PM CDT DERMATOPATHOLOGY LABORATORY Disclaimer An external and internal positive and negative controls are appropriate for the histochemical, immunohistochemical and immunofluorescence stain(s) in this case (if any), except where stated explicitly. The performance characteristics of the stain(s) cited in this report were developed and its performance characteristic determined by the Dermatopathology Laboratory at [facility], directed by Dr. Julianne Huitron. These tests need not be, and therefore are not, approved by the [place] Food and Drug Administration. The tests are used for clinical purposes. Billing Codes Specimen Charges Stain Charges 20695 1 9 4:23 PM CDT DERMATOPATHOLOGY LABORATORY Embedded Images 4:23 PM CDT DERMATOPATHOLOGY LABORATORY Pathology/Cytolog y TISSUE SPECIMEN FROM SKIN / Unknown 08/24/2018 08/25/2018 6:39 AM CDT Nyla Philomena Echeverria DO LAB - PATHOLOGY/CYTOLOGY ORDERABLES Final Result DERMATOPATHOLOGY LABORATORY [facility] - Department of Dermatology [address] [facility], 5th Floor Lab [address] [phone] documented in this encounter Visit Diagnoses Not on filedocumented in this encounter Care Teams Stitcher Feeder Relationship Specialty Start Date End Date Danae Glover MD [address] [place] [address] PCP - General Family Medicine 07/20/17 11/25/20 Severiano Rivas DO [address] [place] [address] PCP - General 11/26/20 documented as of this encounter
--- OUTSIDE RECORDS SUMMARY | 2024-11-22 23:44 | XMS_ITS | Encounter Summary ---
Author Organization [facility] Address [address] [facility] [place] [address] Care Team Providers Care Craft Manager Name Role Phone Severiano Rivas Primary Care Provider [phone] Encounter Details Date Type Department Care Team (Late st Contact Info) Description 01/13/2023 Lab Requisition [facility] - DermPath Lab [address] [facility], [place] [address] Nyla Echeverria DO [address] [facility] 3 [place] [address] Social History Tobacco Use Types Packs/Day Years Used Date Smoking Tobacco: Never Smokeless Tobacco: Never Alcohol Use Standard Drinks/Week Comments Yes 0 (1 standard drink = 0.6 oz pur e alcohol) sip of wine on her birthday AUDIT-C Answer Date Recorded Q1: How often do you have a drink containing alcohol? Never 09/03/2022 Q2: How many drinks containi ng alcohol do you have on a typical day when you are drinking? 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 Answer Date of Assessment Author No 09/03/2022 11:48 AM CDT Mari Sim i, RN * Is person blind or have serious difficulty seeing? Answer Date of Assessment Author No 09/03/2022 11:48 AM CDT Mari Sim i, RN * Does person have serious difficulty walking/climbing stairs? Answer Date of Assessment Author No 09/03/2022 11:48 AM CDT Mari Sim i, RN * Does person have difficulty dressing/bathing? Answer Date of Assessment Author No 09/03/2022 11:48 AM CDT Mari iSm i, RN * Does person have difficulty doing errands alone? Answer Date of Assessment Author No 09/03/2022 11:48 AM CATRACHOT Mari Sim i, RN documented as of this encounter Mental Status * Does person have difficulty concentrating/remembering/making decisions? Answer Entry Date Author No 09/03/2022 11:48 AM Mari Fuentes i, RN documented in this encounter Plan of Treatment Not on file documented as of this encounter Procedures Procedure Name Priority Date/Time Associated Diagnosis Comments DERMATOPATHOLOGY Routine 01/13/2023 2:41 PM CDT documented in this encounter Results * DERMATOPATHOLOGY (01/13/2023 2:41 PM CDT) Case Report Dermatopathology Report Case: [id number] Authorizing Provider: Nyla Echeverria DO Collected: 01/13/2023 02:41 PM Ordering Location: [facility] DermPath Lab Received: 01/14/2023 02:38 PM Pathologist: Kaleigh Okeefe MD Specimen: Skin, left ant thigh 1:37 PM CDT DERMATOPATHOLOGY LABORATORY Final Diagnosis Specimen A. SKIN, left ant thigh: LICHEN PLANUS-LIKE KERATOSIS (BENIGN LICHENOID KERATOSIS) (L82.1) (see microscopic description) 1:37 PM CDT DERMATOPATHOLOGY LABORATORY at 1337 CDT Clinical History R/O NMSC 1:37 PM CDT DERMATOPATHOLOGY LABORATORY Gross Description Specimen A: Received is one formalin filled container labeled with the patient's name and designated left ant thigh. The specimen consists of a shave biopsy measuring 5x4x1 mm. Jar 0. 1:37 PM CDT DERMATOPATHOLOGY LABORATORY Microscopic Description Specimen A. SKIN, left ant thigh: The epidermis is mildly acanthotic. There is a lichenoid infiltrate with vacuolar changes of basilar keratinocytes and scattered necrotic keratinocytes. Additional deeper sections were obtained and reviewed. 1:37 PM CDT DERMATOPATHOLOGY LABORATORY Disclaimer An external and internal positive and negative controls are appropriate for the histochemical, immunohistochemical and immunofluorescence stain(s) in this case (if any), except where stated explicitly. The performance characteristics of the stain(s) cited in this report were developed and its performance characteristic determined by the Dermatopathology Laboratory at [facility], directed by Dr. Julianne Huitron. These tests need not be, and therefore are not, approved by the [place] Food and Drug Administration. The tests are used for clinical purposes. Billing Codes Specimen Charges Stain Charges 63614 1 1:37 PM CDT DERMATOPATHOLOGY LABORATORY Embedded Images 1:37 PM CDT DERMATOPATHOLOGY LABORATORY Pathology/Cytolo gy TISSUE SPECIMEN FROM SKIN / Unknown 01/13/2023 2:41 PM CDT 01/14/2023 2:38 PM CDT Nyla Echeverria DO LAB - PATHOLOGY/CYTOLOGY ORDERABLES Final Result DERMATOPATHOLOGY LABORATORY [facility] - Department of Dermatology [facility] Specialized Medicine [address] [place] [address], [address]rd [address] [phone] documented in this encounter Visit Diagnoses Not on filedocumented in this encounter Care Teams Craft Manager Relationship Specialty Start Date End Date Seveirano Rivas DO [address] [facility] [address] [place] [address] PCP - General 11/26/20 documented as of this encounter
--- OUTSIDE RECORDS SUMMARY | 2024-11-22 23:44 | XMS_ITS | Encounter Summary ---
Author Organization [facility] Address [address] [place] [address] Care Team Providers Care Glazier Stained Glass Name Role Phone Danae Glover MD Primary Care Provider + Severiano Rivas DO Primary Care Provider [phone] Encounter Details Date Type Department Care Team (Late st Contact Info) Description 03/08/2018 Lab Requisition [facility] Care DermPath Lab [address] [facility], [place] [address] Nyla Echeverria DO [address] [facility] 3 [place] [address] Social History Tobacco Use Types Packs/Day Years Used Date Smoking Tobacco: Never Smokeless Tobacco: Never Alcohol Use Standard Drinks/Week Comments Yes 0 (1 standard drink = 0.6 oz pur e alcohol) sip of wine on her birthday Comments No Sex and Gender Information Value Date Recorded Sex Assigned at Not on file Legal Sex Female 5:43 PM SECURITIES ATTORNEY Gender Identity Not on file Sexual Orientation Not on file 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 on file N ot on file documented as of this encounter Plan of Treatment Not on file documented as of this encounter Procedures Procedure Name Priority Date/Time Associated Diagnosis Comments DERMATOPATH TECHNICAL REPORT Routine 03/02/2018 12:00 AM SECURITIES ATTORNEY documented in this encounter Results * DERMATOPATH TECHNICAL REPORT (03/02/2018 12:00 AM SECURITIES ATTORNEY) Case Report Dermatopathology Report Case: [id number] Authorizing Provider: Nyla Echeverria DO Collected: 03/02/2018 12:00 AM Pathologist: Wanda Huitron MD Received: 03/08/2018 07:07 AM Specimens: A) - Skin, crown of scalp B) - Skin, right hairline C) - Skin, left thigh 5:[address] [facility] DERMATOPATHOLOGY LABORATORY Addendum 2 At the request of the diagnosing physician, the technical component for MART-1/Melan A and Emerson-EP4 on Specimen C was performed by [facility] Dermatopathology Laboratory. 5:[address] [facility] DERMATOPATHOLOGY LABORATORY Addendum electronically signed by Wanda Huitron MD on 03/18/2018 at 1708 SECURITIES ATTORNEY Addendum 1 At the request of the diagnosing physician, the technical component for GMS and Tissue Gram on Specimen A was performed by [facility] Dermatopathology Laboratory. 5:[address] [facility] DERMATOPATHOLOGY LABORATORY Addendum electronically signed by Wanda Huitron MD on 03/16/2018 at 1638 SECURITIES ATTORNEY Clinical History A: Boggy red scaly plaques on scalp hx of BC breast ca. DDx: Stefano derm vs PSO vs met breast ca. B-C: R/O BCC vs SCC. 5:[address] [facility] DERMATOPATHOLOGY LABORATORY Gross Description Specimen A: Received is one formalin filled container labeled with the patient's name and designated crown of scalp. The specimen consists of a shave measuring 2h1k6bg. Jar 0+. Specimen B: Received is one formalin filled container labeled with the patient's name and designated right hairline. The specimen consists of a shave measuring 6z9m8qj. Jar 0. Specimen C: Received is one formalin filled container labeled with the patient's name and designated left thigh. The specimen consists of a shave measuring 7b7h3pu. Jar 0. [facility] Dermatopathology Laboratory performed the technical component only. 5:[address] [facility] DERMATOPATHOLOGY LABORATORY Embedded Images 5:[address] [facility] DERMATOPATHOLOGY LABORATORY DISCLAIMER An external and internal positive and negative controls are appropriate for the histochemical, immunohistochemical and immunofluorescence stain(s) in this case (if any), except where stated explicitly. The performance characteristics of the stain(s) cited in this report were developed and its performance characteristic determined by the Dermatopathology Laboratory at [facility]. These tests need not be, and therefore are not, approved by the [place] Food and Drug Administration. The tests are used for clinical purposes. 8 5:08 PM SECURITIES ATTORNEY DERMATOPATHOLOGY LABORATORY at 1051 SECURITIES ATTORNEY Pathology/Cytology TISSUE SPECIMEN FROM SKIN / Unknown 03/02/2018 03/08/2018 7:07 AM SECURITIES ATTORNEY Miscellaneous samples (specimen) TISSUE SPECIMEN FROM SKIN / Unknown 03/02/2018 03/08/2018 7:07 AM SECURITIES ATTORNEY Miscellaneous samples (specimen) TISSUE SPECIMEN FROM SKIN / Unknown 03/02/2018 03/08/2018 7:07 AM SECURITIES ATTORNEY us Nyla Echeverria DO LAB - PATHOLOGY/CYTOLOGY ORDERABLES Edited Result - Final Performing Organization Address City/State/[facility] Co de Phone Number DERMATOPATHOLOGY LABORATORY [facility] - Department of Dermatology [address] [place] [address], 5th Floor Lab [address] [phone] documented in this encounter Visit Diagnoses Not on filedocumented in this encounter Care Teams Glazier Stained Glass Relationship Specialty Start Date End Date Danae Glover MD [address] [facility] [address] [place] [address] PCP - General Family Medicine 07/20/17 11/25/20 Severiano Rivas DO [address] [facility] [address] [place] [address] PCP - General 11/26/20 documented as of this encounter
--- OUTSIDE RECORDS SUMMARY | 2024-11-22 23:44 | XMS_ITS | Clinical Summary ---
Author Organization [facility] Address [address] [place] [address] Care Team Providers Care Upholsterer Assembly Line Name Role Phone Danae Glover MD Unavailable [phone] Severiano Rivas MD Primary Care Provider [phone] Allergies Active Allergy Reactions Criticality Noted Date Comments Haemophilus Influenzae Type B Unknown 04/18/2019 Flu like symptoms, breathing issues, muscle aches Iodinated Contrast Media Shortness of breath High Levofloxacin Other (See comments) Low Reaction: Penicillins Rash Medium 12/11/2011 Reaction: RASH, Sulfamethoxazole Unknown Trimethoprim Unknown Medications carvedilol (COREG) 3.125 mg tablet Take 1.5 mg by mouth. 08/13/2017 Active celecoxib (CeleBREX) 200 mg capsule TK 1 C PO BID PRN 2 08/29/2017 Active cholecalciferol (VITAMIN D-3) 2,000 unit capsule Take 2,000 Units by mouth. 08/13/2017 Active losartan (COZAAR) 25 mg tablet Take by mouth. Active ergocalciferol (VITAMIN D) 50,000 unit capsule Take 1 po once a week for 8 weeks, and then get lab work week 9 07/02/2017 Active magnesium amino acid chelate 100 mg tabletIndicatio ns:hypomagnesem ia Take 1 tablet by mouth. 08/13/2017 Active umeclidinium (INCRUSE ELLIPTA) 62.5 mcg/actuation blister with device Inhale 1 puff. 11/26/2017 Active losartan (COZAAR) 25 mg tablet Take by mouth. Active ketoconazole (NIZORAL) 2 % shampoo WASH SCALP AND GROIN THREE TIMES WEEKLY 3 03/02/2018 Active clobetasol (TEMOVATE) 0.05 % external solutionIndicat ions:Dermatosis of the Scalp MARC TO SCALP BID 3 03/02/2018 Active tacrolimus (PROTOPIC) 0.1 % ointment MARC BID UTD 3 03/10/2018 Active metroNIDAZOLE (METROGEL VAGINAL) 0.75 % vaginal gelIndications: Bacterial Vaginosis Insert into the vagina daily. 12/17/2011 Active [id number]-[id number]-V-[id number] -[id number] 500 mg calcium- 400 unit-15 mcg tablet Take 360 mg by mouth daily Active magnesium amino acid chelate 100 mg tablet Take 1 tablet by mouth 2 (two) times a day 08/13/2017 Active metroNIDAZOLE (Metrogel Vaginal) 0.75 % vaginal gel Insert into the vagina daily 12/17/2011 Active pediatric multivitamin-ir on tablet,chewable Take by mouth daily Active POTASSIUM BROMIDE, BULK, MISC Active trazodone HCl (TRAZODONE, BULK, MISC) Take by mouth Acti ve tobramycin-dexA METHasone (TOBRADEX) ophthalmic solution 2 03/22/2019 Active metroNIDAZOLE (METROCREAM) 0.75 % cream APPLY TO FACE BID DIRECTED 3 03/03/2019 Active Active Problems Problem Noted Date Diagnosed Date Chronic respiratory failure with hypoxia 019 Restrictive lung disease 2018 Sleep related hypoxia 2018 LV dysfunction 02/22/2018 RBBB 02/22/2018 Pain in the shoulder 11/10/2016 Calcium oxalate calculus 09/23/2016 Excess or deficiency of vitamin D 09/23/2016 Osteoporosis 09/23/2016 Palpitations 09/03/2012 Overview (07/17/2016): Palpitations Hypoventilation 08/12/2012 Overview (07/16/2016): Hypoventilation Obstructive sleep apnea syndrome 06/24/2012 Central alveolar hypoventilation syndrome 2012 Syncope 05/20/2012 Overview (07/17/2016): Syncopal episodes History of poliomyelitis 03/31/2012 Overview (07/16/2016): History of poliomyelitis Scoliosis 03/31/2012 Overview (06/07/2019): Kyphoscoliosis and scoliosis Overview: restrictive lung disease on BPAP History of respiratory system disease 03/31/2012 Overview (07/17/2016): History of restrictive lung disease Extreme obesity with alveolar hypoventilation Overview (07/17/2016): Pickwickian syndrome Pulmonary hypertension 03/31/2012 Overview (07/17/2016): Pulmonary hypertension History of bilateral breast cancer. RIGHT breast ER+ 2003. LEFT breast ER+ 1992. 03/29/2012 Anemia 03/29/2012 Overview (07/16/2016): Anemia Essential hypertension 03/29/2012 Overview (06/07/2019): Hypertension Heart murmur 03/29/2012 Overview (07/17/2016): Heart murmur Menopause present 03/29/2012 Overview (07/17/2016): Menopause Obesity (BMI 30.0-34.9) 03/29/2012 Overview (06/07/2019): Obesity Hyperlipidemia 03/29/2012 Overview (07/17/2016): Hyperlipidemia Renal mass 03/29/2012 Overview (06/07/2019): Renal stones History of pulmonary embolism 03/29/2012 Overview (07/17/2016): History of pulmonary embolism Vaginitis and vulvovaginitis 12/11/2011 Immunizations Immunization Administration Dates Next Due Influenza, Trivalent, IM (JACKLYN) 01/27/2011 Surgical History Surgery Date Site/Laterality Comments OTHER SURGICAL HISTORY renal stone: lithotripsy OTHER SURGICAL HISTORY Cancer, breast: lumpectomy/ right and left OTHER SURGICAL HISTORY 2012 Dysfunctional uterine bleeding (DUB): Biopsy HERNIA REPAIR Hernia repair SECTION section OTHER SURGICAL HISTORY D&C CHOLECYSTECTOMY Cholecystectomy TONSILLECTOMY Tonsillectomy OTHER SURGICAL HISTORY Syncope: hospital OTHER SURGICAL HISTORY renal mass: observation PA CHOLECYSTECTOMY Cholecystectomy - (Added by TW Conv) PA LITHOTRIPSY XTRCORP SHOCK WAVE Renal Lithotripsy - (Added by TW Conv) PA UNLISTED PROCEDURE ABDOME N PERITONEUM & OMENTUM Hernia Repair - (Added by TW Conv) Medical History Medical History Date Comments Hx Other Medical renal stone Malignant neoplasm of male breast (HCC) Cancer, breast Hx Other Medical Dysfunctional u terine bleeding (DUB) Hyperlipidemia Hyperlipidemia Malignant neoplasm of female breast (HCC) Cancer, breast Osteoporosis Osteoporosis Hypertension Hypertension Anemia Anemia Hx Other Medical Syncope Hx Other Medical renal mass Personal history of other di seases of the circulatory system History of hypertension - (A dded by TW Conv) Personal history of other sp ecified conditions History of shortness of kalyn th - (Added by TW Conv) Personal history of other di seases of the digestive system History of constipation - (A dded by TW Conv) Personal history of pulmonary embolism History of pulmonary embolism - (Added by TW Conv) Personal history of other me ntal and behavioral disorders History of anxiety - (Added by TW Conv) Personal history of other me ntal and behavioral disorders History of depression - (Add ed by TW Conv) Malignant neoplasm of right female breast (HCC) Cancer of right female breas t - (Added by TW Conv) Personal history of other di seases of the musculoskeletal system and connective tissue History of arthritis - (Adde d by TW Conv) Personal history of other di seases of the respiratory system History of lung disease - (A dded by TW Conv) Malignant neoplasm of right female breast (HCC) Cancer of right female breas t - (Added by TW Conv) Family History Medical History Relation Name Comments Cancer Father Family history of malignant neoplasm - (Added by TW Conv) Lung cancer Father Cancer -lung; Diabetes Mother Diabetes mellit us; Hyperlipidemia Mother Hyperlipidemi a; Diabetes Other 1 Family history of Diabetes mellitus; Osteoarthritis Other 2 Family histor y of Osteoarthritis; Breast cancer Sister Cancer -breast ; Relation Name Status Comments Father Mother Other 1 Other 2 Sister Social History Tobacco Use Types Packs/Day Years Used Date Smoking Tobacco: Never Smokeless Tobacco: Never Alcohol Use Standard Drinks/Week Comments No 0 (1 standard drink = 0.6 oz pur e alcohol) Comments Unknown Sex and Gender Information Value Date Recorded Sex Assigned at Not on file Legal Sex Female 2:04 AM MEMORY CARE PROGRAM RESIDENT Gender Identity Female 08/22/2022 1:27 PM CDT Sexual Orientation Straight 08/22/2022 1: 27 PM CDT Obstetrics History Last Filed Vital Signs Vital Sign Reading Time Taken Comments Blood Pressure 173/89 12/23/2016 10:37 AM CDT Pulse 90 12/23/2016 10:37 AM CDT Temperature - - Respiratory Rate - - Oxygen Saturation 93% 12/23/2016 10:37 AM CDT Inhaled Oxygen Concentration - - Weight 59.9 kg (132 lb) 04/11/2019 5:11 PM MEMORY CARE PROGRAM RESIDENT Height 144.8 cm (4' 9) 04/11/2019 5:11 PM MEMORY CARE PROGRAM RESIDENT Body Mass Index 28.56 04/11/2019 5:11 PM MEMORY CARE PROGRAM RESIDENT Plan of Treatment Health Maintenance Due Date Last Done Comments Depression Screening 1945 Fall Risk Assessment 1945 DTaP/Tdap/Td Vaccine (1 - Tdap) 1955 Hepatitis B Screening 1962 Zoster Vaccine (1 of 2) 1994 Well Visit 65+ 2009 Osteoporosis Screening-Bone Density Scan 06/02/2020 06/02/2018, 07/31/2016 Influenza Vaccine (#1) 2024 , 02/28/2012, 01/27/2011 Pneumococcal vaccine 65+ Completed 08/13/2017, 06/2014 Procedures Procedure Name Priority Date/Time Associated Diagnosis Comments DEXA AXIAL SKELETON BONE DENSITY 1 OR MORE SITES Schedule Routine, Read Routine (OP Routine) 06/02/2018 1:28 PM MEMORY CARE PROGRAM RESIDENT Osteoporosis, unspecified osteoporosis type, unspecified pathological fracture presence from Last 3 Months or Most Recently Relevant to Health Maintenance Results * Dexa Axial Skeleton Bone Density 1 or 2 Site (06/02/2018 1:28 PM MEMORY CARE PROGRAM RESIDENT) Anatomical Region Laterality Modality Body N/A Radiographic Leah ging Narrative 06/02/2018 2:08 PM MEMORY CARE PROGRAM RESIDENT Patient Name: Liat Anton Date of : 1945 Date of scan: 06/02/2018 Bone mineral density was performed on a HoloChalkboard Discovery Densitometer. Machine Cross-calibration and Precision studies have been performed with a least significant change of 0.024 g/cm at the spine, 0.020 g/cm at the total proximal femur, and 0.014g/cm at the forearm. HISTORY: This is a 73 y.o. postmenopausal female with a history of breast cancer and osteoporosis. Previously treated with anticoagulants and Tamoxifen. With a current complaint of neck and arm pain. History of tobacco use: History Smoking Status Never Smoker INDICATIONS: Menopause status and history of osteoporosis. FINDINGS: BONE MINERAL DENSITY OF THE PROXIMAL FEMUR Bone Mineral Density (BMD) of the left hip total was found to be 0.794 gm/cm2. This corresponds to a T-score standard deviations from the mean of young adults of -1.2. Femoral neck is 0.602 gm/cm2 with a T-score of -2.2. When compared to the previous study of 07/31/2016 there has been a measured -0.061 gm/cm -7.1% decrease which is considered significant. BONE MINERAL DENSITY OF THE FOREARM Bone Mineral density (BMD) of the left proximal 1/3 of the radius measures 0.524gm/cm2. This corresponds to a T-score standard deviations from the mean of young adults of -2.8. When compared to the previous study of 07/31/2016 there has been a measured -0.020 gm/cm -3.6% decrease which is considered significant. A forearm bone density study was performed due to severe scoliosis. SUMMARY: Bone mineral density shows evidence of osteoporosis and marked increase risk of fracture.There has been a signicant decrease in bone density since previous measurement. ADDITIONAL COMMENTS: If the patient has a history of a fragility fracture, a fracture that occurred with trauma equivalent to a fall from a standing position or less, then the diagnosis is osteoporosis. The risk of osteoporotic fracture increases approximately 2-fold for each 1.0 SD decrease in T-score. However, low bone density is not the only risk factor for fracture. Other factors include patient s age, previous osteoporotic fracture or prior fracture as an adult, loss of height of greater than 2 inches, corticosteroid use, risk of falling, risk of injury, and family history of osteoporosis. Not everyone with low bone mineral density has osteoporosis. Osteomalacia and other metabolic bone disorders should also be considered where indicated. Patients who have osteoporosis should be evaluated for specific diseases and conditions (secondary causes) that may cause or contribute to bone loss. Consider repeating this study in 1-2 years to assess the patient s response to treatment, if applicable. It is recommended that any follow up exam be performed on the same machine if possible for better accuracy. DEFINITIONS: Osteoporosis: BMD at or below -2.5 T-score Osteopenia (low bone mass): BMD between -1.0 and-2.5 T-score. The Bone Health Program adopts the following WHO definitions: Osteoporosis: BMD below -2.5 S.D. as compared to the BMD of young normal adults. Osteopenia or Low Bone Mass: BMD between -1.0 and -2.5 S.D. below the BMD of young normal adults. Normal Bone Density: BMD equal to or greater than -1.0 S.D. as compared to the BMD of young normal adults. References: 1) Diogo, Annals of Internal Medicine 114(11): 919-923 (1990) 2) Suero, Lancet 341 : 72-75 (1992) 3) Black, Journal Bone and Mineral Research 7(6): 633-8 (1991) 4) Floyd, Journal Bone and Mineral Research 8(10):1227-33 (1992) The history and data sections of the bone mineral density scan were prepared by Nyla Wayne who is accredited by the International Society of Clinical Densitometry. The overall patient assessment and scan interpretation were performed by Ami Moreno MD who is certified by the International Society of Clinical Densitometry. [id number] Lianna Cho MD [facility]ED[place] Final Resu lt from Last 3 Months or Most Recently Relevant to Health Maintenance Insurance [facility] MEDICARE [facility] MEDIC[facility] Address: [address] [address] [place] [address] MEDICARE [facility] MEDICARE [facility] MEDICARE [facility] MED[facility] Address: [address] [address] [place] [address] [employer] MEDICARE [facility] MEDICARE Address: [address] [place] [address] Care Teams Upholsterer Assembly Line Relationship Specialty Start Date End Date Severiano Rivas MD [address] [facility] [address] [place] [address] PCP - General Internal Medicine 01/24/22 Danae Glover MD [address] [facility] [address] [place] [address] 09/21/19
--- OUTSIDE RECORDS SUMMARY | 2024-11-22 23:44 | XMS_ITS | Encounter Summary ---
Author Organization [employer] Address 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
--- OUTSIDE RECORDS SUMMARY | 2024-11-22 23:44 | XMS_ITS | Encounter Summary ---
Author Organization [facility] Address 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
--- OUTSIDE RECORDS SUMMARY | 2024-11-22 23:44 | XMS_ITS | Encounter Summary ---
Author Organization [facility] Address 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
--- OUTSIDE RECORDS SUMMARY | 2024-11-22 23:44 | XMS_ITS | Encounter Summary ---
Author Organization [employer] Address [address] [place] [address] Care Team Providers Care Greaser Operator Name Role Phone Vane Singer MD Primary Care Provider [phone] Encounter Details Date Type Department Care Team (Late st Contact Info) Description 09/13/2005 Outpatient Historical [facility] [address] [place] [address] Adry Morris Social History Tobacco Use Types Packs/Day Years Used Date Smoking Tobacco: Never Assessed Comments Unknown Sex and Gender Information Value Date Recorded Sex Assigned at Not on file Legal Sex Female 2:38 AM CERTIFIED LOW VISION THERAPIST Gender Identity Not on file Sexual Orientation Not on file documented as of this encounter Plan of Treatment Not on file documented as of this encounter Visit Diagnoses Not on filedocumented in this encounter Care Teams Greaser Operator Relationship Specialty Start Date End Date Vane Singer MD [address] [place] [address] PCP - General 03/30/15 documented as of this encounter
--- OUTSIDE RECORDS SUMMARY | 2024-11-22 23:44 | XMS_ITS | Encounter Summary ---
Author Organization [facility] Address [address] [place] [address] Care Team Providers Care Reaming Machine Operator Name Role Phone Vane Singer MD Primary Care Provider [phone] Encounter Details Date Type Department Care Team (Latest Contact Info) Description 11/25/2004 Outpatient Historical [facility] Jai Bustamante MD [address] [place] [address] LATE EFFECT ACUTE POLIO (Primary Dx) Social History Tobacco Use Types Packs/Day Years Used Date Smoking Tobacco: Never Assessed Comments Unknown Sex and Gender Information Value Date Recorded Sex Assigned at Not on file Legal Sex Female 2:38 AM KENNEL MANAGER DOG TRACK Gender Identity Not on file Sexual Orientation Not on file documented as of this encounter Plan of Treatment Not on file documented as of this encounter Visit Diagnoses Diagnosis Late effects of acute poliomyelitis- Primary documented in this encounter Care Teams Reaming Machine Operator Relationship Specialty Start Date End Date Vane Singer MD [address] [place] [address] PCP - General 03/30/15 documented as of this encounter
--- OUTSIDE RECORDS SUMMARY | 2024-11-22 23:44 | XMS_ITS | Clinical Summary ---
Author Organization [facility] Address [address] [address] Care Team Providers Care Crating And Moving Estimator Name Role Phone Severiano Rivas DO Primary Care Provider [phone] Source Comments [facility],non-owned Affiliates and Associated Physician Practices is amultiple site organization consisting of ambulatory clinics and hospital sitesin [place], [place], [place] and [place]. This disclosure is being madepursuant to the Care Everywhere program and may not contain all information available regarding this patient. Last updated 18.[facility] Allergies Active Allergy Reactions Criticality Noted Date Comments Flu Virus Vaccine Other 04/18/2019 Flu like symptoms, breathing issues, muscle aches Medications * Be aware that medications may not be up to date on this document. Alwaysverify current medications with the patient. Cholecalciferol (VITAMIN D) 2000 UNITS capsule Take 1 capsule by mouth 2 times daily 180 capsule 3 08/13/2017 Active Multiple Vitamin (MULTI VITAMIN PO) Take by mouth once daily Active aspirin (Aspirin) 81 MG chew tablet Take 1 (one) tablet by mouth once daily 100 tablet 4 09/03/2022 Active doxycycline hyclate (Vibramycin) 50 MG capsule Take 1 (one) capsule by mouth every 12 hours Active Active Problems Problem Noted Date Diagnosed Date Coronary artery disease of n ative artery of [place] heart with stable angina pectoris 09/10/2022 Overview (09/10/2022): Added automatically from request for surgery [id number] Nonrheumatic mitral valve regurgitation 09/04/19 23 Abnormal stress test 09/03/2022 Abnormal dobutamine stress echo 07/16/2022 Overview (07/16/2022): Added automatically from request for surgery [id number] Shortness of breath 07/16/2022 Overview (07/16/2022): Added automatically from request for surgery [id number] Chronic fatigue 01/03/2020 Psoriatic arthritis 04/13/2019 Chronic respiratory failure with hypoxia 019 Sleep related hypoxia 2018 Restrictive lung disease 2018 Chronic hypercapnic respiratory failure 02/23/20 18 LV dysfunction 02/22/2018 Kyphoscoliosis 02/22/2018 Overview (02/22/2018): restrictive lung disease on BPAP RBBB 02/22/2018 Pain in the shoulder 11/10/2016 Osteoporosis 09/23/2016 Palpitations 09/03/2012 Overview (07/10/2020): Palpitations ANDREINA (obstructive sleep apnea) 06/24/2012 Central alveolar hypoventilation syndrome 2012 Syncope 05/20/2012 Overview (07/10/2020): Syncopal episodes Scoliosis 03/31/2012 Overview (07/10/2020): Kyphoscoliosis and scoliosis Overview: restrictive lung disease on BPAP Pulmonary hypertension 03/31/2012 Overview (07/10/2020): Pulmonary hypertension Essential hypertension 03/29/2012 Overview (07/10/2020): Hypertension Anemia 03/29/2012 Overview (07/10/2020): Anemia Heart murmur 03/29/2012 Overview (07/10/2020): Heart murmur Hyperlipidemia 03/29/2012 Overview (07/10/2020): Hyperlipidemia Immunizations Immunization Administration Dates Next Due INFLUENZA VACCINE, TRIV. (AF LURIA, FLUZONE TRIVALENT; 6MO+) (IIV3) 01/27/2011 INFLUENZA VACCINE 11/26/2012 PNEUMOCOCCAL PPSV23 08/13/2014 Family History Medical History Relation Name Comments Asthma Brother Jr spring Cancer - Skin, Non Melanoma Brother Jr Nephrolithiasis Brother Jr Other - Musculoskeletal Brother Jr knee replacement Sleep Disorder - Other Brother Jr ANDREINA o n CPAP CAD (Coronary Artery Disease) Father Cancer - Other Father throat cancer Other - Cardiac Father aortic aneur ysm Arthritis - Osteo Mother Hypertension Mother Renal Disease Mother Arthritis - Rheumatoid Sister 1 Adry Lymphoma Sister 1 Adry Parkinson's Disease Sister 1 Adry Cancer - Breast Sister 2 Fiona Other - Dermatologic Sister 3 Emily Flowers skin th ickening, heart thickening, with brain thickening Relation Name Status Comments Brother Jr Alive Father Mother Sister 1 Adry Alive Sister 2 Fiona Sister 3 Emily Flowers Social History Tobacco Use Types Packs/Day Years Used Date Smoking Tobacco: Never Smokeless Tobacco: Never Tobacco Cessation:Counseling Given: Not Answered Alcohol Use Standard Drinks/Week Comments Yes 0 [...] on file Legal Sex Female 5:43 PM ENGINEER BYPRODUCT Gender Identity Not on file Sexual Orientation Not on file 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 on file N ot on file Last Filed Vital Signs Vital Sign Reading Time Taken Comments Blood Pressure 160/84 04/11/2024 2:47 PM ENGINEER BYPRODUCT Pulse 103 10/30/2023 12:59 PM CDT Temperature 36.4 C (97.5 F) 09/23/2022 8:59 AM CDT Respiratory Rate 12 09/23/2022 12:15 PM CDT Oxygen Saturation 94% 04/11/2024 2:47 PM ENGINEER BYPRODUCT Inhaled Oxygen Concentration 21% 10/30/2023 3 :45 PM CDT Weight 47.6 kg (105 lb) 04/11/2024 2:47 PM ENGINEER BYPRODUCT Height 142.2 cm (4' 8) 04/11/2024 2:47 PM ENGINEER BYPRODUCT Body Mass Index 23.54 04/11/2024 2:47 PM ENGINEER BYPRODUCT Plan of Treatment Health Maintenance Due Date Last Done Comments DTAP/TDAP/TD VACCINES (1 - Tdap) 1963 ZOSTER VACCINE (1 of 2) 1994 PNEUMOCOCCAL VACCINE 50+ (2 of 2 - PCV) 08/14/2015 08/13/2014 Respiratory Syncytial Virus (RSV) Vaccine Pt: or over 60 yrs (1 - 1-dose 75+ series) 2019 COVID-19 VACCINE (1 - 2023-2 5 season) 2023 DEPRESSION SCREENING 04/13/2024 MEDICARE AWV CALENDAR YEAR 2024 BONE DENSITY TESTING Completed 06/02/2018, 07/31/2016 HEPATITIS B VACCINE Aged Out No longe r eligible based on patient's age to complete this topic HIB VACCINE Aged Out No longer eligi ble based on patient's age to complete this topic HPV VACCINE Aged Out No longer eligi ble based on patient's age to complete this topic MENINGOCOCCAL (Group B) VACCINE SHARED DECISION-MAKING Aged Out No longer eligible based on patient's age to complete this topic MENINGOCOCCAL GROUPS A/C/Y/W VACCINE Aged Out No longer eligible b ased on patient's age to complete this topic Insurance AETNA MEDICARE ADV AETNA MEDICARE Advance Directives * Full Code (Latest Code Status on File) Date Activated Date Inactivated Comments 09/03/2022 11:45 AM 09/03/2022 5:11 PM Care Teams Crating And Moving Estimator Relationship Specialty Start Date End Date Severiano Riavs DO [address] [place] [address] PCP - General 11/26/20
--- OUTSIDE RECORDS SUMMARY | 2024-11-22 23:44 | XMS_ITS | Encounter Summary ---
Author Organization [employer] Address 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
--- OUTSIDE RECORDS SUMMARY | 2024-11-22 23:44 | XMS_ITS | Encounter Summary ---
Author Organization [employer] Address [address] [place] [address] Care Team Providers Care Risk Officer Name Role Phone Vane Singer MD Primary Care Provider [phone] Encounter Details Date Type Department Care Team (Late st Contact Info) Description 07/29/[address] [facility] Social History Tobacco Use Types Packs/Day Years Used Date Smoking Tobacco: Never Assessed Comments Unknown Sex and Gender Information Value Date Recorded Sex Assigned at Not on file Legal Sex Female 2:38 AM BENZOL OPERATOR Gender Identity Not on file Sexual Orientation Not on file documented as of this encounter Plan of Treatment Not on file documented as of this encounter Visit Diagnoses Not on filedocumented in this encounter Care Teams Risk Officer Relationship Specialty Start Date End Date Vane Singer MD [address] [place] [address] PCP - General 03/30/15 documented as of this encounter
--- OUTSIDE RECORDS SUMMARY | 2024-11-22 23:44 | XMS_ITS | Encounter Summary ---
Author Organization [employer] Address [address] [place] [address] Care Team Providers Care Mate First Name Role Phone Vane Singer MD Primary Care Provider [phone] Encounter Details Date Type Department Care Team (Late st Contact Info) Description 08/23/2005 Outpatient Historical [facility] [address] [place] [address] Adry Morris Social History Tobacco Use Types Packs/Day Years Used Date Smoking Tobacco: Never Assessed Comments Unknown Sex and Gender Information Value Date Recorded Sex Assigned at Not on file Legal Sex Female 2:38 AM TALENT ACQUISITION ADMINISTRATOR Gender Identity Not on file Sexual Orientation Not on file documented as of this encounter Plan of Treatment Not on file documented as of this encounter Visit Diagnoses Not on filedocumented in this encounter Care Teams Mate First Relationship Specialty Start Date End Date Vane Singer MD [address] [place] [address] PCP - General 03/30/15 documented as of this encounter
--- OUTSIDE RECORDS SUMMARY | 2024-11-22 23:44 | XMS_ITS | Encounter Summary ---
Author Organization [employer] Address [address] [place] [address] Care Team Providers Care Tool And Gauge Inspector Name Role Phone Vane Singer MD Primary Care Provider [phone] Encounter Details Date Type Department Care Team (Late st Contact Info) Description 08/27/2002 Outpatient Historical [facility] Social History Tobacco Use Types Packs/Day Years Used Date Smoking Tobacco: Never Assessed Comments Unknown Sex and Gender Information Value Date Recorded Sex Assigned at Not on file Legal Sex Female 2:38 AM SUPPLY ASSISTANT Gender Identity Not on file Sexual Orientation Not on file documented as of this encounter Plan of Treatment Not on file documented as of this encounter Visit Diagnoses Not on filedocumented in this encounter Care Teams Tool And Gauge Inspector Relationship Specialty Start Date End Date Vane Singer MD [address] [place] [address] PCP - General 03/30/15 documented as of this encounter
--- OUTSIDE RECORDS SUMMARY | 2024-11-22 23:44 | XMS_ITS | Encounter Summary ---
Author Organization [facility] Address [address] [place] [address] Care Team Providers Care Manager Golf Name Role Phone Danae Glover MD Primary Care Provider + Severiano Rivas DO Primary Care Provider [phone] Encounter Details Date Type Department Care Team (Late st Contact Info) Description 12/10/2018 Lab Requisition [facility] D[facility] Lab [address] [place] [phone] Nyla Echeverria DO [address] [facility] [address] [facility] [address] [address] [place] [address] Social History Tobacco Use Types Packs/Day Years Used Date Smoking Tobacco: Never Smokeless Tobacco: Never Alcohol Use Standard Drinks/Week Comments Yes 0 (1 standard drink = 0.6 oz pur e alcohol) sip of wine on her birthday Comments No Sex and Gender Information Value Date Recorded Sex Assigned at Not on file Legal Sex Female 5:43 PM ARCHITECT Gender Identity Not on file Sexual Orientation Not on file 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 on file N ot on file documented as of this encounter Plan of Treatment Not on file documented as of this encounter Procedures Procedure Name Priority Date/Time Associated Diagnosis Comments DERMATOPATHOLOGY Routine 12/09/2018 12:0 0 AM CDT documented in this encounter Results * DERMATOPATHOLOGY (12/09/2018 12:00 AM CDT) Case Report Dermatopathology Report Case: [id number] Authorizing Provider: Nyla Echeverria DO Collected: 12/09/2018 12:00 AM Ordering Location: [facility] Lab Received: 12/10/2018 07:00 AM Pathologist: Wanda Huitron MD Specimen: Skin, left cheek 2:27 PM CDT DERMATOPATHOLOGY LABORATORY Final Diagnosis Specimen A. SKIN, left cheek: ACTINIC KERATOSIS (L57.0) (see microscopic description) 2:27 PM CDT DERMATOPATHOLOGY LABORATORY at 1427 CDT Clinical History R/O NMSC, non-healing. 2:27 PM CDT DERMATOPATHOLOGY LABORATORY Gross Description Specimen A: Received is one formalin filled container labeled with the patient's name and designated left cheek. The specimen consists of a shave measuring 7l4l4vu. Jar 0. 2:27 PM CDT DERMATOPATHOLOGY LABORATORY Microscopic Description Specimen A. SKIN, left cheek: There is focal parakeratosis. The lower half of the epidermis shows disorderly maturation of keratinocytes with nuclear pleomorphism. Additional deeper sections were obtained and reviewed. 2:27 PM CDT DERMATOPATHOLOGY LABORATORY Disclaimer An external and internal positive and negative controls are appropriate for the histochemical, immunohistochemical and immunofluorescence stain(s) in this case (if any), except where stated explicitly. The performance characteristics of the stain(s) cited in this report were developed and its performance characteristic determined by the Dermatopathology Laboratory at [facility], directed by Dr. Julianne Huitron. These tests need not be, and therefore are not, approved by the [place] Food and Drug Administration. The tests are used for clinical purposes. Billing Codes Specimen Charges Stain Charges 04312 1 2:27 PM CDT DERMATOPATHOLOGY LABORATORY Embedded Images 2:27 PM CDT DERMATOPATHOLOGY LABORATORY Pathology/Cytolog y TISSUE SPECIMEN FROM SKIN / Unknown 12/09/2018 12/10/2018 7:00 AM CDT us Nyla Philomena Echeverria DO LAB - PATHOLOGY/CYTOLOGY ORDERABLES Final Result DERMATOPATHOLOGY LABORATORY [facility] - Department of Dermatology [address], [address]th [place] [address], [facility] [phone] documented in this encounter Visit Diagnoses Not on filedocumented in this encounter Care Teams Manager Golf Relationship Specialty Start Date End Date Danae Glover MD [address] [place] [address] PCP - General Family Medicine 07/20/17 11/25/20 Severiano Rivas DO [address] [place] [address] PCP - General 11/26/20 documented as of this encounter
--- OUTSIDE RECORDS SUMMARY | 2024-11-22 23:44 | XMS_ITS | Clinical Summary ---
Author Organization [facility] Address [address] [place] [place] [address] Phone Care Team Providers Care Tin Dipper Name Role Phone Vane Singer MD Primary Care Provider [phone] Social History Tobacco Use Types Packs/Day Years Used Date Smoking Tobacco: Never Assessed Comments Unknown Sex and Gender Information Value Date Recorded Sex Assigned at Not on file Legal Sex Female 2:38 AM TIRE STRIPPER Gender Identity Not on file Sexual Orientation Not on file Plan of Treatment Health Maintenance Due Date Last Done Comments DTAP/TDAP/TD VACCINES (1 - Tdap) 1963 PNEUMOCOCCAL VACCINE 50+ YEARS (1 of 1 - PCV) 04/19/18 95 ZOSTER VACCINE (1 of 2) 1994 OSTEOPOROSIS SCREENING 2009 RSV VACCINE (60+ or ) (1 - 1-dose 75+ series) 2019 INFLUENZA VACCINE (#1) 2024 Care Teams Tin Dipper Relationship Specialty Start Date End Date Vane Singer MD [address] [place] [address] PCP - General 03/30/15
--- OUTSIDE RECORDS SUMMARY | 2024-11-22 23:44 | XMS_ITS | Encounter Summary ---
Author Organization [employer] Address [address] [place] [address] Care Team Providers Care Rotary Kiln Operator Name Role Phone Vane Singer MD Primary Care Provider [phone] Encounter Details Date Type Department Care Team (Late st Contact Info) Description 08/10/2004 Outpatient Historical [facility] 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
--- OUTSIDE RECORDS SUMMARY | 2024-11-22 23:44 | XMS_ITS | Encounter Summary ---
Author Organization [employer] Address [address] [place] [address] Care Team Providers Care Chairlift Operator Name Role Phone Vane Singer MD Primary Care Provider [phone] Encounter Details Date Type Department Care Team (Late st Contact Info) Description 07/12/2005 Outpatient Historical [facility] [address] [place] [address] Adry Morris Social History Tobacco Use Types Packs/Day Years Used Date Smoking Tobacco: Never Assessed Comments Unknown Sex and Gender Information Value Date Recorded Sex Assigned at Not on file Legal Sex Female 2:38 AM WINDOWS SYSTEM ADMIN Gender Identity Not on file Sexual Orientation Not on file documented as of this encounter Plan of Treatment Not on file documented as of this encounter Visit Diagnoses Not on filedocumented in this encounter Care Teams Chairlift Operator Relationship Specialty Start Date End Date Vane iSnger MD [address] [place] [address] PCP - General 03/30/15 documented as of this encounter
--- OUTSIDE RECORDS SUMMARY | 2024-11-22 23:44 | XMS_ITS | Encounter Summary ---
Author Organization [facility] Address [address] [place] [address] Care Team Providers Care Applications Analyst Name Role Phone Severiano Rivas Primary Care Provider [phone] Encounter Details Date Type Department Care Team (Late st Contact Info) Description 10/08/2022 Lab Requisition [facility] - Derm[facility] Lab [address] [place] [address] Nyla Echeverria DO [address] [facility] [address] [place] [address] Social History Tobacco Use Types Packs/Day Years [...] on file Legal Sex Female 5:43 PM FLUX CORE WELDER Gender Identity Not on file Sexual Orientation Not on file 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 No / Unsure 09/23/2022 2:27 PM CDT documented as of this encounter Functional Status [...] 11:48 AM CDT Mari Sim i, RN documented as of this encounter Mental Status * Does person have difficulty concentrating/remembering/making decisions? Answer Entry Date Author No 09/03/2022 11:48 AM CDT Mari Sim i, RN documented in this encounter Plan of Treatment Not on file documented as of this encounter Procedures Procedure Name Priority Date/Time Associated Diagnosis Comments DERMATOPATHOLOGY Routine 10/08/2022 9:44 AM CDT documented in this encounter Results * DERMATOPATHOLOGY (10/08/2022 9:44 AM CDT) Case Report Dermatopathology Report Case: [id number] Authorizing Provider: Nyla Echeverria DO Collected: 10/08/2022 09:44 AM Ordering Location: [facility] DermPath Lab Received: 10/08/2022 04:48 PM Pathologist: Kaleigh Okeefe MD Specimen: Skin, right 5th digit 3 4:43 PM CDT DERMATOPATHOLOGY LABORATORY Final Diagnosis Specimen A. 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 The specimen consists of a shave biopsy measuring 6x5x3 mm. Jar 0. 3 4:43 PM CDT DERMATOPATHOLOGY LABORATORY Microscopic Description Specimen A. SKIN, right 5th digit: Arising in the epidermis and extending into the dermis there are irregularly shaped aggregates of keratinocytes showing evidence of premature cornification. 3 4:43 PM CDT DERMATOPATHOLOGY LABORATORY Disclaimer An external and internal positive and negative controls are appropriate for the histochemical, immunohistochemical and immunofluorescence stain(s) in this case (if any), except where stated explicitly. The performance characteristics of the stain(s) cited in this report were developed and its performance characteristic determined by the Dermatopathology Laboratory at [facility], directed by Dr. Julianne Huitron. These tests need not be, and therefore are not, approved by the [place] Food and Drug Administration. The tests are used for clinical purposes. Billing Codes Specimen Charges Stain Charges 00840 1 3 4:43 PM CDT DERMATOPATHOLOGY LABORATORY Embedded Images 3 4:43 PM CDT DERMATOPATHOLOGY LABORATORY Pathology/Cytolo gy TISSUE SPECIMEN FROM SKIN / Unknown 10/08/2022 9:44 AM CDT 10/08/2022 4:48 PM CDT Nyla Echeverria DO LAB - PATHOLOGY/CYTOLOGY ORDERABLES Final Result DERMATOPATHOLOGY LABORATORY [facility] - Department of Dermatology [facility] Medicine [address] [place] [address], [address] [phone] documented in this encounter Visit Diagnoses Not on filedocumented in this encounter Care Teams Applications Analyst Relationship Specialty Start Date End Date Severiano Rivas DO [address] [place] [address] PCP - General 11/26/20 documented as of this encounter
--- OUTSIDE RECORDS SUMMARY | 2024-11-22 23:44 | XMS_ITS | Encounter Summary ---
Author Organization [employer] Address [address] [place] [address] Care Team Providers Care Music Journalist Name Role Phone Vane Singer MD Primary Care Provider [phone] Encounter Details Date Type Department Care Team (Late st Contact Info) Description 06/07/2005 Outpatient Historical [facility] 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
--- NOTE | 2024-11-22 23:53 | ED.FALL ---
HPI - Fall General Chief Complaint: Fall Stated Complaint: LUE & LLE PAIN S/P FALL Time Seen by Provider: 11/22/24 23:04 Source: patient Mode of arrival: EMS Limitations: no limitations History of Present Illness HPI Narrative: Patient is an 79 y/o female, with PMH of HTN, COPD, polio, who presents to the ED via EMS with report of a fall. Patient reports having chronic issues with her left lower extremity related to polio. She was getting up off the couch today and states her left foot rolled on her. She lost her balance and fell onto her left side. She did not hit her head or lose consciousness. She complains of pain to her left foot, left shoulder, left-sided neck, left-sided chest. Denies difficulty breathing or pain with deep inspiration. Denies numbness, tingling. Related Data Home Medications ?Medication ?Instructions ?Recorded ?Confirmed ?Last Taken ?Type cholecalciferol (vitamin D3) 50 50 mcg PO DAILY 07/22/22 11/20/23 Unknown History mcg (2,000 unit) tablet vitamin B12 0.5 mg-folic acid 1 mg 1 tablet PO DAILY 11/20/23 11/20/23 Unknown History tablet Allergies Allergy/AdvReac Type Severity Reaction Status Date / Time alendronate sodium Allergy Unknown Abdominal Verified 11/22/24 22:48 pain fentanyl Allergy Unknown Other Verified 11/22/24 22:48 iodine Allergy Unknown Other Verified 11/22/24 22:48 metoprolol Allergy Unknown Confusion Verified 11/22/24 22:48 Penicillins Allergy Unknown Other Verified 11/22/24 22:48 levofloxacin AdvReac Intermediate fast heart Verified 11/22/24 22:48 rate prednisone AdvReac Unknown RAPID HR, Verified 11/22/24 22:48 HTN Contrast Media Allergy Unknown Other Uncoded 11/22/24 22:48 Review of Systems Review of Systems: All systems reviewed & are unremarkable except as noted in HPI. All systems reviewed & are unremarkable except as noted in HPI and below PMFSH Past Medical History Medical History Systolic ejection murmur Overweight (BMI 25.0-29.9) COVID-19 Eczema of external ear Nasal septal deviation Hypertrophy of both inferior nasal turbinates Vasomotor rhinitis Rhinorrhea Presbyphonia Hyperlipidemia Post-polio syndrome Psoriatic arthritis History of deep venous thrombosis or pulmonary embolus Hx of renal calculi Hx of breast cancer Osteoporosis Hypertension COPD (chronic obstructive pulmonary disease) History of kidney cancer Arthritis Surgical History Surgical History H/O lumpectomy History of cholecystectomy History of lithotripsy Family History Family History Father Family history of drug dependence Cerebrovascular accident Family history of lung cancer Patient's father is Family history of arthritis Family history of throat cancer Family history of cardiovascular disease Sibling Patient's brother is in good health Family history of diabetes mellitus in first degree relative Family history of malignant neoplasm of breast in first degree relative, Onset Age: 56 Patient's sister is Family history of arthritis Family history of lymphoma Mother Family history of elevated blood lipids Family history of diabetes mellitus in first degree relative Patient's mother is Family history of arthritis Social History Social History Smoking status: Never smoker Alcohol intake: never Substance use: never Do You Feel Safe in your Home?: Yes Lack of Transportation: No Lack of Food: Never True Current Housing: I Have Housing Concerned About Future Housing: No Difficulty Paying Gas/Electric Bills: No Difficulty Paying for Meds: No Currently Unemployed: No Education: Master's Degree or Higher Difficulty w/ Childcare or Family Care: No Spiritual care concerns: No Exam Narrative: GENERAL: Elderly, frail/thin, non-toxic, in no acute distress. HEAD: Normocephalic, atraumatic. RESPIRATORY: Airway patent, respirations nonlabored. Clear to auscultation bilaterally, no rales, rhonchi, wheezing. Lung sounds are equal bilaterally. CARDIOVASCULAR: Regular rate and rhythm without murmurs, rubs, or gallops. Peripheral pulses are intact. ABDOMINAL: Soft, nontender, nondistended. Normoactive BS. MUSCULOSKELETAL: Moves all extremities. Tenderness to palpation over dorsal left foot/anterior left ankle. Minimal swelling. No bruising. Tenderness to palpation along left anterior shoulder joint with fairly preserved range of motion of left shoulder. Tenderness to palpation along left upper anterior chest wall without palpable bony deformities. Mild tenderness palpation in left paraspinal musculature/upper trapezius region. No appreciable midline cervical spinal tenderness. Sensation intact throughout extremities. SKIN: Warm, dry, normal color. NEURO: A&O X3. Speech clear. Cranial nerves II-XII grossly intact. No ataxic movements. PSYCHIATRIC: Appropriate mood and affect. Normal interaction. Course Vital Signs Vital signs: Vital Signs Temperature 97.8 F 11/22/24 22:41 Pulse Rate 89 11/22/24 22:41 Respiratory Rate 19 11/22/24 22:41 Blood Pressure 170/91 H 11/22/24 22:41 Pulse Oximetry 94 11/22/24 22:41 Oxygen Delivery Room Air 11/22/24 22:41 Temperature 97.8 F 11/22/24 22:41 Pulse Rate 87 11/23/24 02:00 Respiratory Rate 16 11/23/24 02:00 Blood Pressure 155/60 H 11/23/24 02:00 Pulse Oximetry 97 11/23/24 02:00 Oxygen Delivery Room Air 11/22/24 22:41 MDM - Fall MDM Narrative Medical decision making narrative: Patient presented to ED status post mechanical fall off of the couch. History of polio. Complaining of pain to left foot, left shoulder, left chest wall, left sided neck. No head injury or LOC. No anticoagulation. Vital signs are stable upon arrival. Patient in no acute distress. She is neurologically intact. No gross deformities on exam. X-ray of left shoulder showing previous fracture deformity, no acute fracture. Discussed possibility of rotator cuff injury/shoulder strain. X-ray of left ankle negative for acute fracture. Discussed likely ankle sprain. Placed in Umair bandage. CT cervical spine without acute fracture/subluxation. CT of chest also without acute traumatic findings. No fracture, pneumothorax, pleural effusion. Patient given pain control in the ED. Able to ambulate with a walker. Safe for discharge home. Advised will likely be sore over the next few days. Recommended ice, Tylenol. Will prescribe short course of tramadol for home use. Recommended follow-up with PCP. Given return precautions. Discharged in stable condition. Medical Records Attestation: I reviewed the patient's medical records. Imaging Data Attestation: I personally reviewed and interpreted this imaging study as follows: Radiologist's impression: ITS Impressions Ankle X-Ray 11/22/24 23:40 IMPRESSION: Degenerative disease, without acute fracture. Shoulder X-Ray 11/22/24 23:42 IMPRESSION: Findings suggesting prior fracture deformity with bony remodeling in the left humeral head for which clinical correlation is needed. STAT RAD CT cervical spine: No acute fracture or subluxation of the cervical spine. STAT RAD CT chest: No focal infiltrate, pleural effusion, or pneumothorax. Discharge Plan Discharge Clinical Impression: Fall from ground level, History of poliomyelitis Strain of left ankle and foot Qualifiers: Encounter type: initial encounter Qualified Code(s): S96.912A - Strain of unspecified muscle and tendon at ankle and foot level, left foot, initial encounter Strain of left shoulder Qualifiers: Encounter type: initial encounter Qualified Code(s): S46.912A - Strain of unspecified muscle, fascia and tendon at shoulder and upper arm level, left arm, initial encounter Patient Disposition: Home Condition: Stable Instructions: Antibiotic Form, Ankle Sprain (ED), Muscle Strain (ED), Shoulder Sprain (ED) Additional Instructions: Your imaging did not show any evidence of fractures. You will likely be sore over the next few days. Recommend ice to areas of pain, Tylenol as needed for pain. Recommend tramadol as needed for more severe pain. Follow-up with your primary care doctor for further evaluation. Return to the ED for new or worsening concerns. Patient Language: Azerbaijani Prescriptions: New tramadol 50 mg tablet 25 mg PO Q6H PRN (Reason: pain) Qty: 15 0RF No Action vitamin X17-nuxeg acid 0.5-1 mg tablet 1 tablet PO DAILY cholecalciferol (vitamin D3) 50 mcg (2,000 unit) Tablet 50 mcg PO DAILY doxycycline monohydrate 100 mg capsule 100 mg PO BID Qty: 20 0RF Follow-up/Referrals: More Tejada APRN [Primary Care Provider] - Time of Disposition: 02:48
[2024-11-23] MEDS: traMADol HCL (*CRX) 25 MG TABLET PO (01:59)
[2024-11-23] MEDS: ACETAMINOPHEN 500 MG TABLET 1000 MG PO (01:59)
[2024-11-23 02:00] VITALS: BP 155/60; PULSE 87; RESP 16; O2SAT 97
[2024-11-23 03:09] VITALS: BP 150/67; PULSE 80; RESP 15; O2SAT 93
== END 2024-11-23 03:11 | disposition home or self-care (01) ==
PROVIDERS: Emergency Provider Physician Assistant; PCP Nurse Practitioner Family
DX: S96.912A Strain of unspecified muscle and tendon at ankle and foot level, left foot, initial encounter (principal); S46.912A Strain of unspecified muscle, fascia and tendon at shoulder and upper arm level, left arm, initial encounter; E78.5 Hyperlipidemia, unspecified; I10 Essential (primary) hypertension; J44.9 Chronic obstructive pulmonary disease, unspecified; Z85.528 Personal history of other malignant neoplasm of kidney; Z85.3 Personal history of malignant neoplasm of breast; Z86.12 Personal history of poliomyelitis; X50.0XXA Overexertion from strenuous movement or load, initial encounter
CPT/HCPCS: 71250; 72125; 73030; 73610; 99284; A9270

== ENCOUNTER 2025-01-30 19:31 | Inpatient (IN) | payer MEDICARE, SELFPAY ==
[2025-01-30] VITALS (19 sets, daily range): BP systolic 115–156; BP diastolic 62–98; PULSE 78–100; RESP 14–28; TEMP 36.5–36.7; O2SAT 56–100
--- NOTE | ~2025-01-30 | CT_ITS ---
CT diagnostic chest wo con HISTORY:JASON, cough COMPARISON: None. TECHNIQUE: Axial images of the chest were obtained without infusion of intravenous contrast. Dose optimization technique was utilized. FINDINGS: The examination demonstrates no pulmonary nodules, infiltrates and/or effusions. There is atelectasis within the left lung and right upper lobe. Cardiac size and mediastinal configuration are normal in appearance. No hilar or mediastinal lymphadenopathy is seen. The thoracic aorta is normal in caliber. Severe scoliosis. IMPRESSION: No acute cardiopulmonary process. All CT scans at this facility are performed using low dose modulation techniques as appropriate to perform exam including the following: automated exposure control; use of iterative reconstruction technique; adjustment of the mA and/or kV according to patient size (this includes techniques or standardized protocols for targeted exams where dose is matched to indication/reason for exam). Reviewed, dictated and finalized at location S. IMPRESSION: No acute cardiopulmonary process. All CT scans at this facility are performed using low dose modulation techniqu es as appropriate to perform exam including the following: automated exposure c ontrol; use of iterative reconstruction technique; adjustment of the mA and/or kV according to patient size (this includes techniques or standardized protocol s for targeted exams where dose is matched to indication/reason for exam).
--- NOTE | ~2025-01-30 | XR_ITS ---
XR chest 1V portable INDICATION:SHOB, hypoxia . REFERENCE: None FINDINGS: A single AP of the chest demonstrates normal heart size. Perihilar opacities are present. There is no evidence of pneumothorax or pleural effusion. IMPRESSION: Bilateral perihilar opacities. Reviewed, dictated and finalized at location S.
--- OUTSIDE RECORDS SUMMARY | 2025-01-30 19:34 | XMS_ITS | Encounter Summary ---
Author Organization [facility] Address [address] [place] [address] Care Team Providers Care Branch Office Administrator Name Role Phone Danae Glover MD Primary Care Provider + Severiano Rivas DO Primary Care Provider [phone] Encounter Details Date Type Department Care Team (Late st Contact Info) Description 08/25/2018 Lab Requisition [facility] Care DermPath Lab [address] [facility] [place] [id number] Nyla Echeverria DO [address] [facility] [address] [place] [address] Social History Tobacco Use Types Packs/Day Years Used Date Smoking Tobacco: Never Smokeless Tobacco: Never Alcohol Use Standard Drinks/Week Comments Yes 0 (1 standard drink = 0.6 oz pur e alcohol) sip of wine on her birthday Comments No Sex and Gender Information Value Date Recorded Sex Assigned at Not on file 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 Jar 0. 4:23 PM CDT DERMATOPATHOLOGY LABORATORY [...] characteristic determined by the Dermatopathology Laboratory at [facility], directed by Dr. Julianne Huitron. These tests need not be, and therefore are not, approved by the [place] Food and Drug Administration. The tests are used for clinical purposes. Billing Codes Specimen Charges Stain Charges 78364 1 9 4:23 PM CDT DERMATOPATHOLOGY LABORATORY Embedded Images 4:23 PM CDT DERMATOPATHOLOGY LABORATORY Pathology/Cytolog y TISSUE SPECIMEN FROM SKIN / Unknown 08/24/2018 08/25/2018 6:39 AM CDT Nyla Philomena Echeverria DO LAB - PATHOLOGY/CYTOLOGY ORDERABLES Final Result DERMATOPATHOLOGY LABORATORY [facility] - Department of Dermatology [address] [facility], 5th Floor Lab [address] [phone] documented in this encounter Visit Diagnoses Not on filedocumented in this encounter Care Teams Branch Office Administrator Relationship Specialty Start Date End Date Danae Glover MD [address] [place] [address] PCP - General Family Medicine 07/20/17 11/25/20 Severiano Rivas DO [address] [place] [address] PCP - General 11/26/20 documented as of this encounter
--- OUTSIDE RECORDS SUMMARY | 2025-01-30 19:34 | XMS_ITS | Encounter Summary ---
Author Organization [facility] Address [address] [place] [address] Care Team Providers Care Interlocking And Signal Mechanic Name Role Phone Danae Glover MD Primary Care Provider + Severiano Rivas DO Primary Care Provider [phone] Encounter Details Date Type Department Care Team (Late st Contact Info) Description 12/10/2018 Lab Requisition 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 Jar 0. 2:27 PM CDT DERMATOPATHOLOGY LABORATORY [...] characteristic determined by the Dermatopathology Laboratory at [facility], directed by Dr. Julianne Huitron. These tests need not be, and therefore are not, approved by the [place] Food and Drug Administration. The tests are used for clinical purposes. Billing Codes Specimen Charges Stain Charges 46624 1 2:27 PM CDT DERMATOPATHOLOGY LABORATORY Embedded Images 2:27 PM CDT DERMATOPATHOLOGY LABORATORY Pathology/Cytolog y TISSUE SPECIMEN FROM SKIN / Unknown 12/09/2018 12/10/2018 7:00 AM CDT us Nyla Philomena Echeverria DO LAB - PATHOLOGY/CYTOLOGY ORDERABLES Final Result DERMATOPATHOLOGY LABORATORY [facility] - Department of Dermatology [address] [facility], 5th [place] [address], [facility] [phone] documented in this encounter Visit Diagnoses Not on filedocumented in this encounter Care Teams Interlocking And Signal Mechanic Relationship Specialty Start Date End Date Danae Glover MD [address] [place] [address] PCP - General Family Medicine 07/20/17 11/25/20 Severiano Rivas DO [address] [place] [address] PCP - General 11/26/20 documented as of this encounter
--- OUTSIDE RECORDS SUMMARY | 2025-01-30 19:35 | XMS_ITS | Encounter Summary ---
Author Organization [facility] Address [address] [facility] [place] [address] Care Team Providers Care Sourcing Consultant Name Role Phone Severiano Rivas Primary Care Provider [phone] Encounter Details Date Type Department Care Team (Late st Contact Info) Description 01/13/2023 Lab Requisition [facility] - DermPath Lab [address] [facility] [place] [address] Nyla Echeverria DO [address] [facility] [address] [place] [address] Social History Tobacco Use Types Packs/Day Years [...] on file 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 Julianne Huitron. These tests need not be, and therefore are not, approved by the [place] Food and Drug Administration. The tests are used for clinical purposes. Billing Codes Specimen Charges Stain Charges 58847 1 1:37 PM CDT DERMATOPATHOLOGY LABORATORY Embedded Images 1:37 PM CDT DERMATOPATHOLOGY LABORATORY Pathology/Cytolo gy TISSUE SPECIMEN FROM SKIN / Unknown 01/13/2023 2:41 PM CDT 01/14/2023 2:38 PM CDT Nyla Echeverria DO LAB - PATHOLOGY/CYTOLOGY ORDERABLES Final Result DERMATOPATHOLOGY LABORATORY [facility] - Department of Dermatology [facility] [address] [place] [address], [address] [phone] documented in this encounter Visit Diagnoses Not on filedocumented in this encounter Care Teams Sourcing Consultant Relationship Specialty Start Date End Date Sveeriano Rivas DO [address] [facility] [address] [place] [address] PCP - General 11/26/20 documented as of this encounter
--- OUTSIDE RECORDS SUMMARY | 2025-01-30 19:36 | XMS_ITS | Encounter Summary ---
Author Organization [facility] Address [address] [place] [address] Care Team Providers Care Shift Mechanic Name Role Phone Severiano Rivsa Primary Care Provider [phone] Encounter Details Date Type Department Care Team (Late st Contact Info) Description 10/08/2022 Lab Requisition [facility] - DermPath Lab [address] [facility] [place] [address] Nyla Echeverria DO [address] [facility] [address] [place] [address] Social History Tobacco Use Types Packs/Day Years [...] on file 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 Julianne Huitron. These tests need not be, and therefore are not, approved by the [place] Food and Drug Administration. The tests are used for clinical purposes. Billing Codes Specimen Charges Stain Charges 69318 1 3 4:43 PM CDT DERMATOPATHOLOGY LABORATORY Embedded Images 3 4:43 PM CDT DERMATOPATHOLOGY LABORATORY Pathology/Cytolo gy TISSUE SPECIMEN FROM SKIN / Unknown 10/08/2022 9:44 AM CDT 10/08/2022 4:48 PM CDT Nyla Echeverria DO LAB - PATHOLOGY/CYTOLOGY ORDERABLES Final Result DERMATOPATHOLOGY LABORATORY [facility] - Department of Dermatology [facility] Medicine [address] [place] [address], [address] [phone] documented in this encounter Visit Diagnoses Not on filedocumented in this encounter Care Teams Shift Mechanic Relationship Specialty Start Date End Date Severiano Rivas DO [address] [facility] [address] [place] [address] PCP - General 11/26/20 documented as of this encounter
--- OUTSIDE RECORDS SUMMARY | 2025-01-30 19:36 | XMS_ITS | Clinical Summary ---
Author Organization [facility] Address [address] [place] [address] Care Team Providers Care Income Tax Return Preparer Name Role Phone Severiano Rivas DO Primary Care Provider [phone] Source Comments [facility],non-owned Affiliates and Associated Physician Practices is amultiple site organization consisting of ambulatory clinics and hospital sitesin [place], [place], [place] and [place]. This disclosure is being madepursuant to the Care Everywhere program and may not contain all information available regarding this patient. Last updated 18.[facility] Allergies Active Allergy Reactions Criticality Noted Date [...] artery disease of n ative artery of [place] heart with stable angina pectoris 09/10/2022 Overview (09/10/2022): Added automatically from request for surgery [id number] Nonrheumatic mitral valve regurgitation 09/04/19 23 Abnormal stress test 09/03/2022 Abnormal dobutamine stress echo 07/16/2022 Overview (07/16/2022): Added automatically from request for surgery [id number] Shortness of breath 07/16/2022 Overview (07/16/2022): Added automatically from request for surgery [id number] Chronic fatigue 01/03/2020 Psoriatic arthritis 04/13/2019 Chronic [...] on file Legal Sex Female 5:43 PM STORAGE CONSULTANT Gender Identity Not on file Sexual Orientation Not on file 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 on file N ot on file Last Filed Vital Signs Vital Sign Reading Time Taken Comments Blood Pressure 160/84 04/11/2024 2:47 PM STORAGE CONSULTANT Pulse 103 10/30/2023 12:59 PM CDT Temperature 36.4 C (97.5 F) 09/23/2022 8:59 AM CDT Respiratory Rate 12 09/23/2022 12:15 PM CDT Oxygen Saturation 94% 04/11/2024 2:47 PM STORAGE CONSULTANT Inhaled Oxygen Concentration 21% 10/30/2023 3 :45 PM CDT Weight 47.6 kg (105 lb) 04/11/2024 2:47 PM STORAGE CONSULTANT Height 142.2 cm (4' 8) 04/11/2024 2:47 PM STORAGE CONSULTANT Body Mass Index 23.54 04/11/2024 2:47 PM STORAGE CONSULTANT Plan of Treatment Health Maintenance Due Date Last Done Comments DTAP/TDAP/TD VACCINES (1 - Tdap) 1963 ZOSTER VACCINE (1 of 2) 1994 PNEUMOCOCCAL VACCINE 50+ (2 of 2 - PCV) 08/14/2015 08/13/2014 Respiratory Syncytial Virus (RSV) Vaccine Pt: or over 60 yrs (1 - 1-dose 75+ series) 2019 DEPRESSION SCREENING 04/13/2024 MEDICARE AWV CALENDAR YEAR 2024 COVID-19 VACCINE ( - 2023-2 5 season) 2024 BONE DENSITY TESTING Completed 06/02/2018, 07/31/2016 [...] 11:45 AM 09/03/2022 5:11 PM Care Teams Income Tax Return Preparer Relationship Specialty Start Date End Date Severiano Rivas DO [address] [place] [address] PCP - General 11/26/20
--- OUTSIDE RECORDS SUMMARY | 2025-01-30 19:36 | XMS_ITS | Encounter Summary ---
Author Organization [facility] Address [address] [place] [address] Care Team Providers Care Mobile Home Park Manager Name Role Phone Danae Glover MD Primary Care Provider + Severiano Rivas DO Primary Care Provider [phone] Encounter Details Date Type Department Care Team (Late st Contact Info) Description 03/08/2018 Lab Requisition [facility] Care DermPath Lab [address] [place] [id number] Nyla Echeverria DO [address] [facility] [address] [place] [address] Social History Tobacco Use Types Packs/Day Years Used Date Smoking Tobacco: Never Smokeless Tobacco: Never Alcohol Use Standard Drinks/Week Comments Yes 0 (1 standard drink = 0.6 oz pur e alcohol) sip of wine on her birthday Comments No Sex and Gender Information Value Date Recorded Sex Assigned at Not on file Legal Sex Female 5:43 PM WELLNESS DIRECTOR Gender Identity Not on file Sexual Orientation Not on file 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 on file N ot on file documented as of this encounter Plan of Treatment Not on file documented as of this encounter Procedures Procedure Name Priority Date/Time Associated Diagnosis Comments DERMATOPATH TECHNICAL REPORT Routine 03/02/2018 12:00 AM WELLNESS DIRECTOR documented in this encounter Results * DERMATOPATH TECHNICAL REPORT (03/02/2018 12:00 AM WELLNESS DIRECTOR) Case Report Dermatopathology Report Case: [id number] Authorizing Provider: Nyla Echeverria DO Collected: 03/02/2018 12:00 AM Pathologist: Wanda Huitron MD Received: 03/08/2018 07:07 AM Specimens: A) - Skin, crown of scalp B) - Skin, right hairline C) - Skin, left thigh 5:08 PM [facility] Addendum 2 At the request of the diagnosing physician, the technical component for MART-1/Melan A and Emerson-EP4 on Specimen C was performed by [facility] Dermatopathology Laboratory. 5:08 PM [facility] DERMAT[facility]ATH[facility] Addendum electronically signed by Wanda Huitron MD on 03/18/2018 at 1708 WELLNESS DIRECTOR Addendum 1 At the request of the diagnosing physician, the technical component for GMS and Tissue Gram on Specimen A was performed by [facility] Dermatopathology [facility]. 5:08 PM [facility]MAT[facility] Addendum electronically signed by Wanda Huitron MD on 03/16/2018 at 1638 WELLNESS DIRECTOR Clinical History A: Boggy red scaly plaques on scalp hx of BC breast ca. DDx: Stefano derm vs PSO vs met breast ca. B-C: R/O BCC vs SCC. 5:08 PM [facility]MAT[facility] Gross Description Specimen A: Received is one formalin filled container labeled with the patient's name and designated crown of scalp. The specimen consists of a shave measuring [id number]. Jar 0+. Specimen B: Received is one formalin filled container labeled with the patient's name and designated right hairline. The specimen consists of a shave measuring [id number]. Jar 0. Specimen C: Received is one formalin filled container labeled with the patient's name and designated left thigh. The specimen consists of a shave measuring [id number]. Jar 0. [facility]ermat[facility] performed the technical component only. 5:08 PM [facility]ERMAT[facility] Embedded Images 5:08 PM [facility]MAT[facility]ATH[facility] DISCLAIMER An external and internal positive and negative controls are appropriate for the histochemical, immunohistochemical and immunofluorescence stain(s) in this case (if any), except where stated explicitly. The performance characteristics of the stain(s) cited in this report were developed and its performance characteristic determined by the Dermatopathology Laboratory at [facility]. These tests need not be, and therefore are not, approved by the [place] Food and Drug Administration. The tests are used for clinical purposes. 8 5:08 PM WELLNESS DIRECTOR DERMATOPATHOLOGY LABORATORY at [address]51 WELLNESS DIRECTOR Pathology/Cytology TISSUE SPECIMEN FROM SKIN / Unknown 03/02/2018 03/08/2018 7:07 AM WELLNESS DIRECTOR Miscellaneous samples (specimen) TISSUE SPECIMEN FROM SKIN / Unknown 03/02/2018 03/08/2018 7:07 AM WELLNESS DIRECTOR Miscellaneous samples (specimen) TISSUE SPECIMEN FROM SKIN / Unknown 03/02/2018 03/08/2018 7:07 AM WELLNESS DIRECTOR us Nyla Echeverria DO LAB - PATHOLOGY/CYTOLOGY ORDERABLES Edited Result - Final Performing Organization Address City/State/[facility] Co de Phone Number DERMATOPATHOLOGY LABORATORY [facility] - Department of Dermatology [address] [place] [address], 5th Floor Lab [address] [phone] documented in this encounter Visit Diagnoses Not on filedocumented in this encounter Care Teams Mobile Home Park Manager Relationship Specialty Start Date End Date Danae Glover MD [address] [facility] [facility] [address] [place] [address] PCP - General Family Medicine 07/20/17 11/25/20 Severiano Rivas DO [address] [facility] [address] [place] [address] PCP - General 11/26/20 documented as of this encounter
--- OUTSIDE RECORDS SUMMARY | 2025-01-30 19:36 | XMS_ITS | Clinical Summary ---
Author Organization [facility] Address [address] [place] [address] Care Team Providers Care Mica Patcher Name Role Phone Danae Glover MD Unavailable [phone] Severiano Rivas MD Primary Care Provider [phone] Allergies Active Allergy Reactions Criticality Noted Date [...] Insert into the vagina daily. 12/17/2011 Active [id number] 500 mg calcium- 400 unit-15 mcg tablet [...] hospital OTHER SURGICAL HISTORY renal mass: observation ID CHOLECYSTECTOMY Cholecystectomy - (Added by TW Conv) ID LITHOTRIPSY XTRCORP SHOCK WAVE Renal Lithotripsy - (Added by TW Conv) ID UNLISTED PROCEDURE ABDOME N PERITONEUM & OMENTUM [...] on file Legal Sex Female 2:04 AM LABOR DELIVERY RN Gender Identity Female 08/22/2022 1:27 PM CDT [...] 59.9 kg (132 lb) 04/11/2019 5:11 PM LABOR DELIVERY RN Height 144.8 cm (4' 9) 04/11/2019 5:11 PM LABOR DELIVERY RN Body Mass Index 28.56 04/11/2019 5:11 PM LABOR DELIVERY RN Plan of Treatment Health Maintenance Due Date [...] Read Routine (OP Routine) 06/02/2018 1:28 PM LABOR DELIVERY RN Osteoporosis, unspecified osteoporosis type, unspecified pathological fracture presence from Last 3 Months or Most Recently Relevant to Health Maintenance Results * Dexa Axial Skeleton Bone Density 1 or 2 Site (06/02/2018 1:28 PM LABOR DELIVERY RN) Anatomical Region Laterality Modality Body N/A Radiographic Leah ging Narrative 06/02/2018 2:08 PM LABOR DELIVERY RN Patient Name: Liat Anton Date of : 1945 Date of scan: 06/02/2018 Bone mineral density was performed on a [employer] Discovery Densitometer. Machine Cross-calibration and Precision studies [...] by the International Society of Clinical Densitometry. [id number] Lianna Cho MD [facility] DXA PROCEDURES Final Resu lt from Last 3 Months or Most Recently Relevant to Health Maintenance Insurance [facility]IC[facility]VANTAGE [facility] Address: [address] [address] [place] [address] MEDICARE [facility] MEDICARE [facility] MEDIC[facility] ADVANTAGE [facility] Address: [address] [address] [place] [address] [employer] MEDICARE [facility] Address: [address] [place] [address] Care Teams Mica Patcher Relationship Specialty Start Date End Date Severiano Rivas MD [address] [facility] [address] [place] [address] PCP - General Internal Medicine 01/24/22 Danae Glover MD [address] [facility] [address] [place] [address] 09/21/19
--- NOTE | 2025-01-30 19:44 | ECG_ITS ---
Test Date: 2025-01-30 19:50:53 Measurements Intervals [place] Rate: 87 P: -3 NH: 129 QRS: -31 QRSD: 145 T: -39 QT: 387 QTc: 466 Interpretive Statements SINUS RHYTHM LEFT AXIS DEVIATION POSSIBLE LEFT ATRIAL ENLARGEMENT RIGHT BUNDLE BRANCH BLOCK CANNOT R/O SEPTAL INFARCT, AGE INDETERMINATE ST-T WAVE ABNORMALITY IN ANTEROLATERAL LEADS- CONSIDER ISCHEMIA ABNORMAL ECG No previous ECG available for comparison Electronically Signed On 01-30-2025 19:57:14 CDT by Werner Michael D.O.
[2025-01-30 20:04] LABS: Hematocrit 37.8 % (37.0-47.0); Hemoglobin 11.7 g/dL (12.0-15.0); Immature Granulocyte Percent A 0.2 % (0-0.5); Lymphocytes Absolute Auto 0.44 K/mm3 (0.9-3.2); Mean Corpuscular HGB Conc 31.0 g/dl (32-36); Mean Corpuscular Hemoglobin 30.9 pg (26-34); Mean Corpuscular Volume 99.7 fl (80-100); Nucleated Red Blood Cells Absolute Auto 0.000 K/mm3 (0.0-0.012); Nucleated Red Blood Cells Perc 0.0 % (0.0-0.2); Platelet Count Result 177 k/mm3 (150-375); Red Blood Count 3.79 M/mm3 (4.2-5.4); White Blood Count 5.0 K/mm3 (4.5-10.0)
--- NOTE | 2025-01-30 20:10 | ECG_ITS ---
Test Date: 2025-01-30 20:19:30 Measurements Intervals [place] Rate: 89 P: -5 NM: 129 QRS: -32 QRSD: 147 T: -42 QT: 393 QTc: 478 Interpretive Statements SINUS RHYTHM LEFT AXIS DEVIATION POSSIBLE LEFT ATRIAL ENLARGEMENT RIGHT BUNDLE BRANCH BLOCK CANNOT R/O SEPTAL INFARCT, AGE INDETERMINATE ST-T WAVE ABNORMALITY IN ANTEROLATERAL LEADS- CONSIDER ISCHEMIA ABNORMAL ECG Compared to ECG 01/30/2025 19:50:53 NO SIGNIFICANT CHANGE Electronically Signed On 01-31-2025 06:14:06 CDT by Werner Michael D.O.
[2025-01-30] MEDS: cefTRIAXone 1 GM in SODIUM CHLORIDE 0.9% IV 50 ML 100 ML IVPB (20:17)
--- NOTE | 2025-01-30 20:20 | ED.WEAKNESS ---
HPI - Weakness General Chief complaint: Weakness Stated complaint: cough and congestion Time Seen by Provider: 01/30/25 19:46 History of Present Illness HPI Narrative: 79-year-old female with history of hypertension, previous polio, chronic lung disease /COPD. Patient does wear 4 L nasal cannula at night and when she exerts herself. She presents today she has been having generalized fatigue and weakness as well as a productive cough since Thursday. Cough is worsening as well as her shortness of breath. No chest pain or chest tightness/chest pressure. No nausea, vomiting, fever, chills. Patient came in from walk-in triage and was found to be severely hypoxic 56%, immediately placed on non-rebreather and brought back to the room. She is awake and answering questions appropriately. Not any acute distress but does have some tachypnea and very productive cough with congestion. Related Data Home Medications ?Medication ?Instructions ?Recorded ?Confirmed ?Last Taken ?Type cholecalciferol (vitamin D3) 50 50 mcg PO DAILY 07/22/22 11/30/24 Unknown History mcg (2,000 unit) tablet vitamin B12 0.5 mg-folic acid 1 mg 1 tablet PO DAILY 11/20/23 11/30/24 Unknown History tablet Allergies Allergy/AdvReac Type Severity Reaction Status Date / Time alendronate sodium Allergy Unknown Abdominal Verified 01/31/25 00:37 pain fentanyl Allergy Unknown Other Verified 01/31/25 00:37 Iodinated Contrast Media Allergy Unknown Unknown Verified 01/31/25 00:37 iodine Allergy Unknown Other Verified 01/31/25 00:37 metoprolol Allergy Unknown Confusion Verified 01/31/25 00:37 Penicillins Allergy Unknown Other Verified 01/31/25 00:37 levofloxacin AdvReac Intermediate fast heart Verified 01/31/25 00:37 rate prednisone AdvReac Unknown RAPID HR, Verified 01/31/25 00:37 HTN Review of Systems Review of Systems: As reviewed [facility] Past Medical History Medical History Systolic ejection murmur Overweight (BMI 25.0-29.9) COVID-19 Eczema of external ear Nasal septal deviation Hypertrophy of both inferior nasal turbinates Vasomotor rhinitis Rhinorrhea Presbyphonia Hyperlipidemia Post-polio syndrome Psoriatic arthritis History of deep venous thrombosis or pulmonary embolus Hx of renal calculi Hx of breast cancer Osteoporosis Hypertension COPD (chronic obstructive pulmonary disease) History of kidney cancer Arthritis Surgical History Surgical History H/O lumpectomy History of cholecystectomy History of lithotripsy Family History Family History Father Family history of drug dependence Cerebrovascular accident Family history of lung cancer Patient's father is Family history of arthritis Family history of throat cancer Family history of cardiovascular disease Sibling Patient's brother is in good health Family history of diabetes mellitus in first degree relative Family history of malignant neoplasm of breast in first degree relative, Onset Age: 56 Patient's sister is Family history of arthritis Family history of lymphoma Mother Family history of elevated blood lipids Family history of diabetes mellitus in first degree relative Patient's mother is Family history of arthritis Social History Social History Smoking status: Never smoker Alcohol intake: never Substance use: never Do You Feel Safe in your Home?: Yes Lack of Transportation: No Lack of Food: Never True Current Housing: I Have Housing Concerned About Future Housing: No Difficulty Paying Gas/Electric Bills: No Difficulty Paying for Meds: No Currently Unemployed: No Education: Don't Know Difficulty w/ Childcare or Family Care: No Spiritual care concerns: No Exam Narrative: GENERAL: Ill-appearing, tachypneic. Elderly and thin/frail. HEAD: [Normocephalic, atraumatic.] EYES: [PERRLA and EOMI.] ENT: Nares clear, no rhinorrhea or epistaxis. Mucous membranes dry. NECK: Supple. CHEST: Coarse breath sounds throughout all lung cobb worse on the left side. Productive cough throughout the examination. Tachypnea but no retractions. HEART: [Regular rate and rhythm]. No murmur heard. [Normal peripheral pulses.] ABDOMEN: [Soft, nondistended], [nontender], [No rigidity or guarding] EXTREMITIES: Normal range of motion. [No edema.] SKIN: Warm, dry, no rash. NEURO: [No focal deficits]. Alert and oriented [x3.] PSYCH: [Normal mood and affect.] Course Vital Signs Vital signs: Vital Signs Temperature 36.7 C 01/30/25 19:35 Pulse Rate 100 01/30/25 19:35 Respiratory Rate 28 H 01/30/25 19:35 Blood Pressure 156/98 H 01/30/25 19:35 Pulse Oximetry 56 L 01/30/25 19:35 Oxygen Delivery Room Air 01/30/25 19:35 Temperature 36.5 C 01/30/25 23:20 Pulse Rate 79 01/31/25 01:56 Respiratory Rate 14 01/30/25 23:20 Blood Pressure 129/89 01/30/25 23:20 Pulse Oximetry 100 01/31/25 01:12 Oxygen Delivery Nasal Cannula 01/31/25 01:12 Oxygen Flow Rate 2 01/31/25 01:12 MDM - Weakness MDM Narrative Medical decision making narrative: 79-year-old female with history of hypertension, previous polio, chronic lung disease/COPD. Patient does wear 4 L nasal cannula at night and when she exerts herself. She presents today she has been having generalized fatigue and weakness as well as a productive cough since Thursday. Cough is worsening as well as her shortness of breath. No chest pain or chest tightness/chest pressure. No nausea, vomiting, fever, chills. Patient came in from walk-in triage and was found to be severely hypoxic 56%, immediately placed on non-rebreather and brought back to the room. She is awake and answering questions appropriately. Not any acute distress but does have some tachypnea and very productive cough with congestion. Patient improved on supplemental oxygen we were able to down titrate her to her to 6 L nasal cannula 100% on the monitor. Remains tachypneic but no fever. Borderline tachycardia and mildly elevated blood pressure. She sounds like she has potential bacterial pneumonia with her very coarse breath sounds worse than left side and tachypnea. Will evaluate for other potential causes such as pneumothorax, sepsis, ACS especially with her EKG that shows anterior lateral ST derangements that on review of the EMR are chronic from 2016. No new ST segment elevations. Septic bundle initiated. She was given a L of fluid which for her weight is almost 30 cc/kg already. Lactic acid and blood cultures drawn. Started empirically on azithromycin and ceftriaxone. Supplemental oxygen maintained. Chest x-ray shows asymmetric findings worse than left side. CT scan without contrast ordered for further evaluation given her allergy to iodine contrast. CT scan shows no acute findings. No leukocytosis. Hemoglobin 11.7 but no recent H&H to compare to. Normal platelet count. Normal GFR. Mildly elevated glucose. Lactic acid elevated 2.3 in down trending to 0.9 after treatments. Troponin elevated at 0.048 but stable without any delta. EKG shows no acute changes but does have lateral depressions. I relayed this information to the site specialist Dr. Garrido. Given the stability in the EKGs with no active chest pain at this time will hold off on emergent catheterization but recommended aspirin and heparin drip and making her NPO for likely catheterization tomorrow. Patient felt better after the oxygen supplementation and treatment with DuoNeb and magnesium. Likely EKG shows ischemic changes from hypoxemia in the setting of coronary disease like a type 2 AR rather than being acute coronary disease in nature. Spoke to the hospitalist who accepted the patient to the IMU at this time and made NPO for potential interventions tomorrow. Medical Records Attestation: I reviewed the patient's medical records. Lab Data Attestation: I reviewed the patient's lab results. 01/30/25 19:57 01/30/25 19:57 Labs: Lab Results 01/30/25 01/30/25 01/30/25 Range/Units 19:57 19:57 19:57 WBC 5.0 (4.5-10.0) K/mm3 RBC 3.79 L (4.2-5.4) M/mm3 Hgb 11.7 L D (12.0-15.0) g/dL Hct 37.8 (37.0-47.0) % MCV 99.7 (80-100) fl MCH 30.9 (26-34) pg MCHC 31.0 L (32-36) g/dl RDW 12.6 (11.5-14.5) % Plt Count 177 (150-375) k/mm3 MPV 10.6 H (7.4-10.4) fl Immature Gran % (Auto) 0.2 (0-0.5) % Neut % (Auto) 71.6 (45.5-73.1) % Lymph % (Auto) 8.8 L (18.3-44.2) % [place] % (Auto) 18.2 H (2.6-8.5) % Eos % (Auto) 0.4 (0-4.4) % Baso % (Auto) 0.8 (0.2-1.2) % Lymph # (Auto) 0.44 L (0.9-3.2) K/mm3 [place] # (Auto) 0.9 H (0.1-0.6) K/mm3 Eos # (Auto) 0.0 (0-0.3) K/mm3 Baso # (Auto) 0.0 (0.0-0.1) K/mm3 Abs Immat Gran (auto) 0.01 (0.00-0.031) K/mm3 Absolute Neuts (auto) 3.6 (1.3-6.7) K/mm3 Absolute Nucleated RBC 0.000 (0.0-0.012) K/mm3 Nucleated RBC % 0.0 (0.0-0.2) % PT (11.1-14.7) Seconds INR APTT (22.3-36.8) Seconds Sodium Cancelled 139 Potassium Cancelled 3.6 Chloride Cancelled Carbon Dioxide Anion Gap BUN Creatinine Estim Creat Clear Calc Estimated GFR Glucose Lactic Acid (0.7-2.0) mmol/L Calcium Total Bilirubin AST ALT Alkaline Phosphatase Troponin I (0.000-0.034) ng/mL Total Protein Albumin Influenza A (RT-PCR) (Negative) Influenza B (RT-PCR) (Negative) RSV (RT-PCR) (Negative) SARS-CoV-2 RNA (RT-PCR) (Negative) 01/30/25 01/30/25 01/30/25 Range/Units 19:57 19:57 19:57 WBC (4.5-10.0) K/mm3 RBC (4.2-5.4) M/mm3 Hgb (12.0-15.0) g/dL Hct (37.0-47.0) % MCV (80-100) fl MCH (26-34) pg MCHC (32-36) g/dl RDW (11.5-14.5) % Plt Count (150-375) k/mm3 MPV (7.4-10.4) fl Immature Gran % (Auto) (0-0.5) % Neut % (Auto) (45.5-73.1) % Lymph % (Auto) (18.3-44.2) % [place] % (Auto) (2.6-8.5) % Eos % (Auto) (0-4.4) % Baso % (Auto) (0.2-1.2) % Lymph # (Auto) (0.9-3.2) K/mm3 [place] # (Auto) (0.1-0.6) K/mm3 Eos # (Auto) (0-0.3) K/mm3 Baso # (Auto) (0.0-0.1) K/mm3 Abs Immat Gran (auto) (0.00-0.031) K/mm3 Absolute Neuts (auto) (1.3-6.7) K/mm3 Absolute Nucleated RBC (0.0-0.012) K/mm3 Nucleated RBC % (0.0-0.2) % PT (11.1-14.7) Seconds INR APTT (22.3-36.8) Seconds Sodium Potassium Chloride 95 L Carbon Dioxide Cancelled 38 H Anion Gap Cancelled 6 BUN Cancelled Creatinine Estim Creat Clear Calc Estimated GFR Glucose Lactic Acid (0.7-2.0) mmol/L Calcium Total Bilirubin AST ALT Alkaline Phosphatase Troponin I (0.000-0.034) ng/mL Total Protein Albumin Influenza A (RT-PCR) (Negative) Influenza B (RT-PCR) (Negative) RSV (RT-PCR) (Negative) SARS-CoV-2 RNA (RT-PCR) (Negative) 01/30/25 01/30/25 01/30/25 Range/Units 19:57 19:57 19:57 WBC (4.5-10.0) K/mm3 RBC (4.2-5.4) M/mm3 Hgb (12.0-15.0) g/dL Hct (37.0-47.0) % MCV (80-100) fl MCH (26-34) pg MCHC (32-36) g/dl RDW (11.5-14.5) % Plt Count (150-375) k/mm3 MPV (7.4-10.4) fl Immature Gran % (Auto) (0-0.5) % Neut % (Auto) (45.5-73.1) % Lymph % (Auto) (18.3-44.2) % [place] % (Auto) (2.6-8.5) % Eos % (Auto) (0-4.4) % Baso % (Auto) (0.2-1.2) % Lymph # (Auto) (0.9-3.2) K/mm3 [place] # (Auto) (0.1-0.6) K/mm3 Eos # (Auto) (0-0.3) K/mm3 Baso # (Auto) (0.0-0.1) K/mm3 Abs Immat Gran (auto) (0.00-0.031) K/mm3 Absolute Neuts (auto) (1.3-6.7) K/mm3 Absolute Nucleated RBC (0.0-0.012) K/mm3 Nucleated RBC % (0.0-0.2) % PT (11.1-14.7) Seconds INR APTT (22.3-36.8) Seconds Sodium Potassium Chloride Carbon Dioxide Anion Gap BUN 32 H Creatinine Cancelled 0.65 L Estim Creat Clear Calc Cancelled Not Reportable Estimated GFR Cancelled Glucose Lactic Acid (0.7-2.0) mmol/L Calcium Total Bilirubin AST ALT Alkaline Phosphatase Troponin I (0.000-0.034) ng/mL Total Protein Albumin Influenza A (RT-PCR) (Negative) Influenza B (RT-PCR) (Negative) RSV (RT-PCR) (Negative) SARS-CoV-2 RNA (RT-PCR) (Negative) 01/30/25 01/30/25 01/30/25 Range/Units 19:57 19:57 19:57 WBC (4.5-10.0) K/mm3 RBC (4.2-5.4) M/mm3 Hgb (12.0-15.0) g/dL Hct (37.0-47.0) % MCV (80-100) fl MCH (26-34) pg MCHC (32-36) g/dl RDW (11.5-14.5) % Plt Count (150-375) k/mm3 MPV (7.4-10.4) fl Immature Gran % (Auto) (0-0.5) % Neut % (Auto) (45.5-73.1) % Lymph % (Auto) (18.3-44.2) % [place] % (Auto) (2.6-8.5) % Eos % (Auto) (0-4.4) % Baso % (Auto) (0.2-1.2) % Lymph # (Auto) (0.9-3.2) K/mm3 [place] # (Auto) (0.1-0.6) K/mm3 Eos # (Auto) (0-0.3) K/mm3 Baso # (Auto) (0.0-0.1) K/mm3 Abs Immat Gran (auto) (0.00-0.031) K/mm3 Absolute Neuts (auto) (1.3-6.7) K/mm3 Absolute Nucleated RBC (0.0-0.012) K/mm3 Nucleated RBC % (0.0-0.2) % PT (11.1-14.7) Seconds INR APTT (22.3-36.8) Seconds Sodium Potassium Chloride Carbon Dioxide Anion Gap BUN Creatinine Estim Creat Clear Calc Estimated GFR > 60 Glucose Cancelled 190 H Lactic Acid 2.3 H (0.7-2.0) mmol/L Calcium Cancelled 8.7 Total Bilirubin Cancelled AST ALT Alkaline Phosphatase Troponin I (0.000-0.034) ng/mL Total Protein Albumin Influenza A (RT-PCR) (Negative) Influenza B (RT-PCR) (Negative) RSV (RT-PCR) (Negative) SARS-CoV-2 RNA (RT-PCR) (Negative) 01/30/25 01/30/25 01/30/25 Range/Units 19:57 19:57 19:57 WBC (4.5-10.0) K/mm3 RBC (4.2-5.4) M/mm3 Hgb (12.0-15.0) g/dL Hct (37.0-47.0) % MCV (80-100) fl MCH (26-34) pg MCHC (32-36) g/dl RDW (11.5-14.5) % Plt Count (150-375) k/mm3 MPV (7.4-10.4) fl Immature Gran % (Auto) (0-0.5) % Neut % (Auto) (45.5-73.1) % Lymph % (Auto) (18.3-44.2) % [place] % (Auto) (2.6-8.5) % Eos % (Auto) (0-4.4) % Baso % (Auto) (0.2-1.2) % Lymph # (Auto) (0.9-3.2) K/mm3 [place] # (Auto) (0.1-0.6) K/mm3 Eos # (Auto) (0-0.3) K/mm3 Baso # (Auto) (0.0-0.1) K/mm3 Abs Immat Gran (auto) (0.00-0.031) K/mm3 Absolute Neuts (auto) (1.3-6.7) K/mm3 Absolute Nucleated RBC (0.0-0.012) K/mm3 Nucleated RBC % (0.0-0.2) % PT (11.1-14.7) Seconds INR APTT (22.3-36.8) Seconds Sodium Potassium Chloride Carbon Dioxide Anion Gap BUN Creatinine Estim Creat Clear Calc Estimated GFR Glucose Lactic Acid (0.7-2.0) mmol/L Calcium Total Bilirubin 0.9 AST Cancelled 44 H ALT Cancelled 35 Alkaline Phosphatase Cancelled Troponin I (0.000-0.034) ng/mL Total Protein Albumin Influenza A (RT-PCR) (Negative) Influenza B (RT-PCR) (Negative) RSV (RT-PCR) (Negative) SARS-CoV-2 RNA (RT-PCR) (Negative) 01/30/25 01/30/25 01/30/25 Range/Units 19:57 19:57 19:57 WBC (4.5-10.0) K/mm3 RBC (4.2-5.4) M/mm3 Hgb (12.0-15.0) g/dL Hct (37.0-47.0) % MCV (80-100) fl MCH (26-34) pg MCHC (32-36) g/dl RDW (11.5-14.5) % Plt Count (150-375) k/mm3 MPV (7.4-10.4) fl Immature Gran % (Auto) (0-0.5) % Neut % (Auto) (45.5-73.1) % Lymph % (Auto) (18.3-44.2) % [place] % (Auto) (2.6-8.5) % Eos % (Auto) (0-4.4) % Baso % (Auto) (0.2-1.2) % Lymph # (Auto) (0.9-3.2) K/mm3 [place] # (Auto) (0.1-0.6) K/mm3 Eos # (Auto) (0-0.3) K/mm3 Baso # (Auto) (0.0-0.1) K/mm3 Abs Immat Gran (auto) (0.00-0.031) K/mm3 Absolute Neuts (auto) (1.3-6.7) K/mm3 Absolute Nucleated RBC (0.0-0.012) K/mm3 Nucleated RBC % (0.0-0.2) % PT (11.1-14.7) Seconds INR APTT (22.3-36.8) Seconds Sodium Potassium Chloride Carbon Dioxide Anion Gap BUN Creatinine Estim Creat Clear Calc Estimated GFR Glucose Lactic Acid (0.7-2.0) mmol/L Calcium Total Bilirubin AST ALT Alkaline Phosphatase 86 Troponin I 0.048 H* (0.000-0.034) ng/mL Total Protein Cancelled 6.8 Albumin Cancelled 3.7 Influenza A (RT-PCR) (Negative) Influenza B (RT-PCR) (Negative) RSV (RT-PCR) (Negative) SARS-CoV-2 RNA (RT-PCR) (Negative) 01/30/25 01/30/25 Range/Units 21:29 22:45 WBC (4.5-10.0) K/mm3 RBC (4.2-5.4) M/mm3 Hgb (12.0-15.0) g/dL Hct (37.0-47.0) % MCV (80-100) fl MCH (26-34) pg MCHC (32-36) g/dl RDW (11.5-14.5) % Plt Count (150-375) k/mm3 MPV (7.4-10.4) fl Immature Gran % (Auto) (0-0.5) % Neut % (Auto) (45.5-73.1) % Lymph % (Auto) (18.3-44.2) % [place] % (Auto) (2.6-8.5) % Eos % (Auto) (0-4.4) % Baso % (Auto) (0.2-1.2) % Lymph # (Auto) (0.9-3.2) K/mm3 [place] # (Auto) (0.1-0.6) K/mm3 Eos # (Auto) (0-0.3) K/mm3 Baso # (Auto) (0.0-0.1) K/mm3 Abs Immat Gran (auto) (0.00-0.031) K/mm3 Absolute Neuts (auto) (1.3-6.7) K/mm3 Absolute Nucleated RBC (0.0-0.012) K/mm3 Nucleated RBC % (0.0-0.2) % PT 13.0 (11.1-14.7) Seconds INR 1.0 APTT 32.9 (22.3-36.8) Seconds Sodium Potassium Chloride Carbon Dioxide Anion Gap BUN Creatinine Estim Creat Clear Calc Estimated GFR Glucose Lactic Acid 0.9 (0.7-2.0) mmol/L Calcium Total Bilirubin AST ALT Alkaline Phosphatase Troponin I 0.047 H* (0.000-0.034) ng/mL Total Protein Albumin Influenza A (RT-PCR) Negative (Negative) Influenza B (RT-PCR) Negative (Negative) RSV (RT-PCR) Negative (Negative) SARS-CoV-2 RNA (RT-PCR) Negative (Negative) Imaging Data Attestation: I personally reviewed and interpreted this imaging study as follows: My impression: Impressions Chest X-Ray 01/30/25 20:23 IMPRESSION: Bilateral perihilar opacities. Chest CT 01/30/25 20:43 IMPRESSION: No acute cardiopulmonary process. All CT scans at this facility are performed using low dose modulation techniques as appropriate to perform exam including the following: automated exposure control; use of iterative reconstruction technique; adjustment of the mA and/or kV according to patient size (this includes techniques or standardized protocols for targeted exams where dose is matched to indication/reason for exam). Critical Care Time Critical Care Time Critical Care Time: Yes Total Critical Care Time: 35 Discharge Plan Discharge Clinical Impression: Acute hypoxemic respiratory failure, Hypoxemia requiring supplemental oxygen, ST segment depression, Elevated troponin, Acute exacerbation of chronic obstructive pulmonary disease Patient Disposition: Still a Patient Condition: Stable
[2025-01-30] MEDS: LACTATED RINGERS 1,000 ML 999 ML IV CONT (20:21)
[2025-01-30 20:25] LABS: Alanine Aminotransferase 35 U/L (6-35); Albumin Level 3.7 g/dL (3.5-5.1); Alkaline Phosphatase 86 U/L (38-126); Anion Gap 6 mmol/L (4-12); Aspartate Amino Transferase 44 U/L (14-36); Bilirubin,Total 0.9 mg/dL (0.2-1.3); Blood Urea Nitrogen 32 mg/dL (7-17); Calcium 8.7 mg/dL (8.4-10.2); Carbon Dioxide 38 mmol/L (22-30); Chloride 95 mmol/L (98-107); Estimated Glomerular Filt Rate > 60; Glucose 190 mg/dL (65-110); Potassium 3.6 mmol/L (3.4-5.0); Sodium 139 mmol/L (137-145); Total Protein 6.8 g/dL (6.3-8.2)
[2025-01-30 20:37] LABS: Troponin I 0.048 ng/mL (0.000-0.034)
[2025-01-30] MEDS: IPRATROPIUM 0.5 MG/ALBUTEROL SULFATE 2.5 MG (BASE) AMPUL.NEB 3 ML INHALATION (20:50)
[2025-01-30] MEDS: AZITHROMYCIN IV 500 MG in SODIUM CHLORIDE 0.9% IV 250 ML IVPB (21:03)
--- OUTSIDE RECORDS SUMMARY | 2025-01-30 21:05 | XMS_ITS | Encounter Summary ---
Author Organization [employer] Address [address] [place] [address] Care Team Providers Care Commercial Front Load Driver Name Role Phone Vane Singer MD Primary Care Provider [phone] Encounter Details Date Type Department Care Team (Late st Contact Info) Description 01/15/[address] 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
--- OUTSIDE RECORDS SUMMARY | 2025-01-30 21:05 | XMS_ITS | Encounter Summary ---
Author Organization [employer] Address 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
--- OUTSIDE RECORDS SUMMARY | 2025-01-30 21:05 | XMS_ITS | Encounter Summary ---
Author Organization [employer] Address [address] [place] [address] Care Team Providers Care Supervisor Brew House Name Role Phone Vane Singer MD Primary Care Provider [phone] Encounter Details Date Type Department Care Team (Late st Contact Info) Description 04/14/2002 Outpatient Historical [facility] Social History Tobacco Use Types Packs/Day Years Used Date Smoking Tobacco: Never Assessed Comments Unknown Sex and Gender Information Value Date Recorded Sex Assigned at Not on file Legal Sex Female 2:38 AM SANDWICH HAND Gender Identity Not on file Sexual Orientation Not on file documented as of this encounter Plan of Treatment Not on file documented as of this encounter Visit Diagnoses Not on filedocumented in this encounter Care Teams Supervisor Brew House Relationship Specialty Start Date End Date Vane Singer MD [address] [place] [address] PCP - General 03/30/15 documented as of this encounter
--- OUTSIDE RECORDS SUMMARY | 2025-01-30 21:05 | XMS_ITS | Encounter Summary ---
Author Organization [employer] Address 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
--- OUTSIDE RECORDS SUMMARY | 2025-01-30 21:05 | XMS_ITS | Encounter Summary ---
Author Organization [email or web address] Address [address] [place] [address] Care Team Providers Care Blood Donor Recruiter Name Role Phone Vane Singer MD Primary Care Provider [phone] Encounter Details Date Type Department Care Team (Late st Contact Info) Description 09/25/[address] 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
--- OUTSIDE RECORDS SUMMARY | 2025-01-30 21:05 | XMS_ITS | Encounter Summary ---
Author Organization [employer] Address 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
--- OUTSIDE RECORDS SUMMARY | 2025-01-30 21:05 | XMS_ITS | Encounter Summary ---
Author Organization [employer] Address [address] [place] [address] Care Team Providers Care Quality Review Trainer Name Role Phone Vane Singer MD Primary Care Provider [phone] Encounter Details Date Type Department Care Team (Late st Contact Info) Description 05/16/2006 Outpatient Historical [facility] [address] [place] [address] Adry Morris Social History Tobacco Use Types Packs/Day Years Used Date Smoking Tobacco: Never Assessed Comments Unknown Sex and Gender Information Value Date Recorded Sex Assigned at Not on file Legal Sex Female 2:38 AM DCS ENGINEER Gender Identity Not on file Sexual Orientation Not on file documented as of this encounter Plan of Treatment Not on file documented as of this encounter Visit Diagnoses Not on filedocumented in this encounter Care Teams Quality Review Trainer Relationship Specialty Start Date End Date Vane Singer MD [address] [place] [address] PCP - General 03/30/15 documented as of this encounter
--- OUTSIDE RECORDS SUMMARY | 2025-01-30 21:05 | XMS_ITS | Encounter Summary ---
Author Organization [employer] Address 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
--- OUTSIDE RECORDS SUMMARY | 2025-01-30 21:05 | XMS_ITS | Encounter Summary ---
Author Organization [employer] Address [address] [place] [address] Care Team Providers Care Handbag Designer Name Role Phone Vane Singer MD Primary Care Provider [phone] Encounter Details Date Type Department Care Team (Late st Contact Info) Description 07/12/2001 Outpatient Historical [facility] Social History Tobacco Use Types Packs/Day Years Used Date Smoking Tobacco: Never Assessed Comments Unknown Sex and Gender Information Value Date Recorded Sex Assigned at Not on file Legal Sex Female 2:38 AM COMMAND AND CONTROL OFFICER Gender Identity Not on file Sexual Orientation Not on file documented as of this encounter Plan of Treatment Not on file documented as of this encounter Visit Diagnoses Not on filedocumented in this encounter Care Teams Handbag Designer Relationship Specialty Start Date End Date Vane Singer MD [address] [place] [address] PCP - General 03/30/15 documented as of this encounter
--- OUTSIDE RECORDS SUMMARY | 2025-01-30 21:05 | XMS_ITS | Encounter Summary ---
Author Organization [employer] Address [address] [place] [address] Care Team Providers Care Leaf Binner Name Role Phone Vane Singer MD Primary Care Provider [phone] Encounter Details Date Type Department Care Team (Late st Contact Info) Description 07/25/2006 Outpatient Historical [facility] 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
--- OUTSIDE RECORDS SUMMARY | 2025-01-30 21:05 | XMS_ITS | Encounter Summary ---
Author Organization [employer] Address [address] [place] [address] Care Team Providers Care Title Insurance Sales Representative Name Role Phone Vane Singer MD Primary Care Provider [phone] Encounter Details Date Type Department Care Team (Late st Contact Info) Description 02/05/[address] 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
--- OUTSIDE RECORDS SUMMARY | 2025-01-30 21:05 | XMS_ITS | Encounter Summary ---
Author Organization [employer] Address [address] [place] [address] Care Team Providers Care Bag Filler Machine Operator Name Role Phone Vane Singer MD Primary Care Provider [phone] Encounter Details Date Type Department Care Team (Late st Contact Info) Description 07/24/2001 Outpatient Historical [facility] Social History Tobacco Use Types Packs/Day Years Used Date Smoking Tobacco: Never Assessed Comments Unknown Sex and Gender Information Value Date Recorded Sex Assigned at Not on file Legal Sex Female 2:38 AM PRESS TENDER SMOKE SIGNAL Gender Identity Not on file Sexual Orientation Not on file documented as of this encounter Plan of Treatment Not on file documented as of this encounter Visit Diagnoses Not on filedocumented in this encounter Care Teams Bag Filler Machine Operator Relationship Specialty Start Date End Date Vane Singer MD [address] [place] [address] PCP - General 03/30/15 documented as of this encounter
--- OUTSIDE RECORDS SUMMARY | 2025-01-30 21:05 | XMS_ITS | Encounter Summary ---
Author Organization [employer] Address [address] [place] [address] Care Team Providers Care Blade Boner Name Role Phone Vane Singer MD Primary Care Provider [phone] Encounter Details Date Type Department Care Team (Late st Contact Info) Description 02/07/[address] [facility] 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
--- OUTSIDE RECORDS SUMMARY | 2025-01-30 21:05 | XMS_ITS | Encounter Summary ---
Author Organization [employer] Address [address] [place] [address] Care Team Providers Care Fruit Harvester Name Role Phone Vane Singer MD Primary Care Provider [phone] Encounter Details Date Type Department Care Team (Late st Contact Info) Description 01/01/2002 Outpatient Historical [facility] Social History Tobacco Use Types Packs/Day Years Used Date Smoking Tobacco: Never Assessed Comments Unknown Sex and Gender Information Value Date Recorded Sex Assigned at Not on file Legal Sex Female 2:38 AM GLOBAL CLINICAL LEADER Gender Identity Not on file Sexual Orientation Not on file documented as of this encounter Plan of Treatment Not on file documented as of this encounter Visit Diagnoses Not on filedocumented in this encounter Care Teams Fruit Harvester Relationship Specialty Start Date End Date Vane Singer MD [address] [place] [address] PCP - General 03/30/15 documented as of this encounter
--- OUTSIDE RECORDS SUMMARY | 2025-01-30 21:05 | XMS_ITS | Encounter Summary ---
Author Organization [employer] Address [address] [place] [address] Care Team Providers Care Firearms Expert Name Role Phone Vane Singer MD Primary Care Provider [phone] Encounter Details Date Type Department Care Team (Late st Contact Info) Description 02/19/2002 Outpatient Historical [facility] Social History Tobacco Use Types Packs/Day Years Used Date Smoking Tobacco: Never Assessed Comments Unknown Sex and Gender Information Value Date Recorded Sex Assigned at Not on file Legal Sex Female 2:38 AM HEALTH PROGRAM SPECIALIST Gender Identity Not on file Sexual Orientation Not on file documented as of this encounter Plan of Treatment Not on file documented as of this encounter Visit Diagnoses Not on filedocumented in this encounter Care Teams Firearms Expert Relationship Specialty Start Date End Date Vane Singer MD [address] [place] [address] PCP - General 03/30/15 documented as of this encounter
--- OUTSIDE RECORDS SUMMARY | 2025-01-30 21:05 | XMS_ITS | Encounter Summary ---
Author Organization [employer] Address [address] [place] [address] Care Team Providers Care Sonogram Technician Name Role Phone Vane Singer MD Primary Care Provider [phone] Encounter Details Date Type Department Care Team (Late st Contact Info) Description 12/18/2001 Outpatient Historical [facility] Social History Tobacco Use Types Packs/Day Years Used Date Smoking Tobacco: Never Assessed Comments Unknown Sex and Gender Information Value Date Recorded Sex Assigned at Not on file Legal Sex Female 2:38 AM MACHINE BENDER Gender Identity Not on file Sexual Orientation Not on file documented as of this encounter Plan of Treatment Not on file documented as of this encounter Visit Diagnoses Not on filedocumented in this encounter Care Teams Sonogram Technician Relationship Specialty Start Date End Date Vane Singer MD [address] [place] [address] PCP - General 03/30/15 documented as of this encounter
--- OUTSIDE RECORDS SUMMARY | 2025-01-30 21:05 | XMS_ITS | Encounter Summary ---
Author Organization [employer] Address [address] [place] [address] Care Team Providers Care Merchandise Displayer Name Role Phone Vane Singer MD Primary Care Provider [phone] Encounter Details Date Type Department Care Team (Late st Contact Info) Description 07/11/[address] [facility] [address] [place] [address] Adry Morris Social History Tobacco Use Types Packs/Day Years Used Date Smoking Tobacco: Never Assessed Comments Unknown Sex and Gender Information Value Date Recorded Sex Assigned at Not on file Legal Sex Female 2:38 AM OPTICAL FABRICATOR Gender Identity Not on file Sexual Orientation Not on file documented as of this encounter Plan of Treatment Not on file documented as of this encounter Visit Diagnoses Not on filedocumented in this encounter Care Teams Merchandise Displayer Relationship Specialty Start Date End Date Vane Singer MD [address] [place] [address] PCP - General 03/30/15 documented as of this encounter
--- OUTSIDE RECORDS SUMMARY | 2025-01-30 21:05 | XMS_ITS | Encounter Summary ---
Author Organization [employer] Address 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
--- OUTSIDE RECORDS SUMMARY | 2025-01-30 21:05 | XMS_ITS | Encounter Summary ---
Author Organization [employer] Address [address] [place] [address] Care Team Providers Care Roll Shop Supervisor Name Role Phone Vane Singer MD Primary Care Provider [phone] Encounter Details Date Type Department Care Team (Late st Contact Info) Description 08/28/2001 Outpatient Historical [facility] Social History Tobacco Use Types Packs/Day Years Used Date Smoking Tobacco: Never Assessed Comments Unknown Sex and Gender Information Value Date Recorded Sex Assigned at Not on file Legal Sex Female 2:38 AM WET WHEELER Gender Identity Not on file Sexual Orientation Not on file documented as of this encounter Plan of Treatment Not on file documented as of this encounter Visit Diagnoses Not on filedocumented in this encounter Care Teams Roll Shop Supervisor Relationship Specialty Start Date End Date Vane Singer MD [address] [place] [address] PCP - General 03/30/15 documented as of this encounter
--- OUTSIDE RECORDS SUMMARY | 2025-01-30 21:05 | XMS_ITS | Encounter Summary ---
Author Organization [employer] Address [address] [place] [address] Care Team Providers Care Electric Power Line Repairer Name Role Phone Vane Singer MD Primary Care Provider [phone] Encounter Details Date Type Department Care Team (Late st Contact Info) Description 09/11/2001 Outpatient Historical [facility] Social History Tobacco Use Types Packs/Day Years Used Date Smoking Tobacco: Never Assessed Comments Unknown Sex and Gender Information Value Date Recorded Sex Assigned at Not on file Legal Sex Female 2:38 AM REGIONAL EDUCATION MANAGER Gender Identity Not on file Sexual Orientation Not on file documented as of this encounter Plan of Treatment Not on file documented as of this encounter Visit Diagnoses Not on filedocumented in this encounter Care Teams Electric Power Line Repairer Relationship Specialty Start Date End Date Vane Singer MD [address] [place] [address] PCP - General 03/30/15 documented as of this encounter
--- OUTSIDE RECORDS SUMMARY | 2025-01-30 21:05 | XMS_ITS | Encounter Summary ---
Author Organization [employer] Address 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
--- OUTSIDE RECORDS SUMMARY | 2025-01-30 21:05 | XMS_ITS | Encounter Summary ---
Author Organization [employer] Address [address] [place] [address] Care Team Providers Care Jig Hand Name Role Phone Vane Singer MD Primary Care Provider [phone] Encounter Details Date Type Department Care Team (Late st Contact Info) Description 08/14/2001 Outpatient Historical [facility] Social History Tobacco Use Types Packs/Day Years Used Date Smoking Tobacco: Never Assessed Comments Unknown Sex and Gender Information Value Date Recorded Sex Assigned at Not on file Legal Sex Female 2:38 AM CRANIOLOGIST Gender Identity Not on file Sexual Orientation Not on file documented as of this encounter Plan of Treatment Not on file documented as of this encounter Visit Diagnoses Not on filedocumented in this encounter Care Teams Jig Hand Relationship Specialty Start Date End Date Vane Singer MD [address] [place] [address] PCP - General 03/30/15 documented as of this encounter
--- OUTSIDE RECORDS SUMMARY | 2025-01-30 21:06 | XMS_ITS | Encounter Summary ---
Author Organization [employer] Address [address] [place] [address] Care Team Providers Care Supervisor Cold Rolling Name Role Phone Vane Singer MD Primary Care Provider [phone] Encounter Details Date Type Department Care Team (Late st Contact Info) Description 06/04/2002 Outpatient Historical [facility] Social History Tobacco Use Types Packs/Day Years Used Date Smoking Tobacco: Never Assessed Comments Unknown Sex and Gender Information Value Date Recorded Sex Assigned at Not on file Legal Sex Female 2:38 AM SPECIAL AGENT [employer] Gender Identity Not on file Sexual Orientation Not on file documented as of this encounter Plan of Treatment Not on file documented as of this encounter Visit Diagnoses Not on filedocumented in this encounter Care Teams Supervisor Cold Rolling Relationship Specialty Start Date End Date Vane Singer MD [address] [place] [address] PCP - General 03/30/15 documented as of this encounter
--- OUTSIDE RECORDS SUMMARY | 2025-01-30 21:06 | XMS_ITS | Encounter Summary ---
Author Organization [employer] Address [address] [place] [address] Care Team Providers Care Prototype Model Maker Name Role Phone Vane Singer MD Primary Care Provider [phone] Encounter Details Date Type Department Care Team (Latest Contact Info) Description 11/25/2004 Outpatient Historical [facility] Jai Bustamante MD [address] [place] [address] LATE EFFECT ACUTE POLIO (Primary Dx) Social History Tobacco Use Types Packs/Day Years Used Date Smoking Tobacco: Never Assessed Comments Unknown Sex and Gender Information Value Date Recorded Sex Assigned at Not on file Legal Sex Female 2:38 AM ZOOLOGY TECHNICAL OFFICER Gender Identity Not on file Sexual Orientation Not on file documented as of this encounter Plan of Treatment Not on file documented as of this encounter Visit Diagnoses Diagnosis Late effects of acute poliomyelitis- Primary documented in this encounter Care Teams Prototype Model Maker Relationship Specialty Start Date End Date Vane Singer MD [address] [place] [address] PCP - General 03/30/15 documented as of this encounter
--- OUTSIDE RECORDS SUMMARY | 2025-01-30 21:06 | XMS_ITS | Encounter Summary ---
Author Organization [employer] Address [address] [place] [address] Care Team Providers Care Dtp Operator Name Role Phone Vane Singer MD Primary Care Provider [phone] Encounter Details Date Type Department Care Team (Late st Contact Info) Description 07/02/2002 Outpatient Historical [facility] Social History Tobacco Use Types Packs/Day Years Used Date Smoking Tobacco: Never Assessed Comments Unknown Sex and Gender Information Value Date Recorded Sex Assigned at Not on file Legal Sex Female 2:38 AM PROCESS COACH Gender Identity Not on file Sexual Orientation Not on file documented as of this encounter Plan of Treatment Not on file documented as of this encounter Visit Diagnoses Not on filedocumented in this encounter Care Teams Dtp Operator Relationship Specialty Start Date End Date Vane Singer MD [address] [place] [address] PCP - General 03/30/15 documented as of this encounter
--- OUTSIDE RECORDS SUMMARY | 2025-01-30 21:06 | XMS_ITS | Encounter Summary ---
Author Organization [employer] Address 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
--- OUTSIDE RECORDS SUMMARY | 2025-01-30 21:06 | XMS_ITS | Encounter Summary ---
Author Organization [employer] Address [address] [place] [address] Care Team Providers Care Separator Operator Shellfish Meats Name Role Phone Vane Singer MD Primary Care Provider [phone] Encounter Details Date Type Department Care Team (Late st Contact Info) Description 10/04/2005 Outpatient Historical [facility] [address] [place] [address] Adry Morris Social History Tobacco Use Types Packs/Day Years Used Date Smoking Tobacco: Never Assessed Comments Unknown Sex and Gender Information Value Date Recorded Sex Assigned at Not on file Legal Sex Female 2:38 AM LACE PAPER MACHINE OPERATOR Gender Identity Not on file Sexual Orientation Not on file documented as of this encounter Plan of Treatment Not on file documented as of this encounter Visit Diagnoses Not on filedocumented in this encounter Care Teams Separator Operator Shellfish Meats Relationship Specialty Start Date End Date Vane Singer MD [address] [place] [address] PCP - General 03/30/15 documented as of this encounter
--- OUTSIDE RECORDS SUMMARY | 2025-01-30 21:06 | XMS_ITS | Encounter Summary ---
Author Organization [facility] Address [address] [place] [address] Care Team Providers Care Geographic Information Systems Manager Name Role Phone Danae Glover MD Primary Care Provider + Severiano Rivas DO Primary Care Provider [phone] Encounter Details Date Type Department Care Team (Late st Contact Info) Description 03/08/2018 Lab Requisition [facility] Care DermPath Lab [address] [facility], [place] [address] Nyla Echeverria DO [address] 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 on file N ot on file documented as of this encounter Plan of Treatment Not on file documented as of this encounter Procedures Procedure Name Priority Date/Time Associated Diagnosis Comments DERMATOPATH TECHNICAL REPORT Routine 03/02/2018 12:00 AM ASSOCIATE PROFESSOR OF PHILOSOPHY documented in this encounter Results * DERMATOPATH TECHNICAL REPORT (03/02/2018 12:00 AM ASSOCIATE PROFESSOR OF PHILOSOPHY) Case Report Dermatopathology Report Case: [id number] Authorizing Provider: Nyla Echeverria DO Collected: 03/02/2018 12:00 AM Pathologist: Wanda Huitron MD Received: 03/08/2018 07:07 AM Specimens: A) - Skin, crown of scalp B) - Skin, right hairline C) - Skin, left thigh 5:08 PM [facility] DERMATOPATHOLOGY LABORATORY Addendum 2 At the request of the diagnosing physician, the technical component for MART-1/Melan A and Emerson-EP4 on Specimen C was performed by [facility] Dermatopathology Laboratory. 5:08 PM [facility] DERMATOPATHOLOGY LABORATORY Addendum electronically signed by Wanda Huitron MD on 03/18/2018 at 1708 ASSOCIATE PROFESSOR OF PHILOSOPHY Addendum 1 At the request of the diagnosing physician, the technical component for GMS and Tissue Gram on Specimen A was performed by [facility] Dermatopathology Laboratory. 5:08 PM [facility] DERMATOPATHOLOGY LABORATORY Addendum electronically signed by Wanda Huitron MD on 03/16/2018 at 1638 ASSOCIATE PROFESSOR OF PHILOSOPHY Clinical History A: Boggy red scaly plaques on scalp hx of BC breast ca. DDx: Stefano derm vs PSO vs met breast ca. B-C: R/O BCC vs SCC. 5:08 PM [facility] DERMATOPATHOLOGY LABORATORY Gross Description Specimen A: Received is one formalin filled container labeled with the patient's name and designated crown of scalp. The specimen consists of a shave measuring [id number]. Jar 0+. Specimen B: Received is one formalin filled container labeled with the patient's name and designated right hairline. The specimen consists of a shave measuring [id number]. Jar 0. Specimen C: Received is one formalin filled container labeled with the patient's name and designated left thigh. The specimen consists of a shave measuring [id number]. Jar 0. [facility] Dermatopathology Laboratory performed the technical component only. 5:08 PM [facility] DERMATOPATHOLOGY LABORATORY Embedded Images 5:08 PM [facility] DERMATOPATHOLOGY LABORATORY DISCLAIMER An external and internal positive and negative controls are appropriate for the histochemical, immunohistochemical and immunofluorescence stain(s) in this case (if any), except where stated explicitly. The performance characteristics of the stain(s) cited in this report were developed and its performance characteristic determined by the Dermatopathology Laboratory at [facility]. These tests need not be, and therefore are not, approved by the [place] Food and Drug Administration. The tests are used for clinical purposes. 8 5:08 PM ASSOCIATE PROFESSOR OF PHILOSOPHY DERMATOPATHOLOGY LABORATORY at 1051 ASSOCIATE PROFESSOR OF PHILOSOPHY Pathology/Cytology TISSUE SPECIMEN FROM SKIN / Unknown 03/02/2018 03/08/2018 7:07 AM ASSOCIATE PROFESSOR OF PHILOSOPHY Miscellaneous samples (specimen) TISSUE SPECIMEN FROM SKIN / Unknown 03/02/2018 03/08/2018 7:07 AM ASSOCIATE PROFESSOR OF PHILOSOPHY Miscellaneous samples (specimen) TISSUE SPECIMEN FROM SKIN / Unknown 03/02/2018 03/08/2018 7:07 AM ASSOCIATE PROFESSOR OF PHILOSOPHY us Nyla Echeverria DO LAB - PATHOLOGY/CYTOLOGY ORDERABLES Edited Result - Final Performing Organization Address City/State/[facility] Co de Phone Number DERMATOPATHOLOGY LABORATORY [facility] - Department of Dermatology [address] [place] [address], 5th Floor Lab [address] [phone] documented in this encounter Visit Diagnoses Not on filedocumented in this encounter Care Teams Geographic Information Systems Manager Relationship Specialty Start Date End Date Danae Glover MD [address] [facility] [address] [place] [address] PCP - General Family Medicine 07/20/17 11/25/20 Severiano Rivas DO [address] [facility] [address] [place] [address] PCP - General 11/26/20 documented as of this encounter
--- OUTSIDE RECORDS SUMMARY | 2025-01-30 21:06 | XMS_ITS | Encounter Summary ---
Author Organization [employer] Address [address] [place] [address] Care Team Providers Care Job Recruiter Name Role Phone Vane Singer MD Primary Care Provider [phone] Encounter Details Date Type Department Care Team (Late st Contact Info) Description 07/29/2002 Outpatient Historical [facility] Social History Tobacco Use Types Packs/Day Years Used Date Smoking Tobacco: Never Assessed Comments Unknown Sex and Gender Information Value Date Recorded Sex Assigned at Not on file Legal Sex Female 2:38 AM LEATHER HEEL BREASTER Gender Identity Not on file Sexual Orientation Not on file documented as of this encounter Plan of Treatment Not on file documented as of this encounter Visit Diagnoses Not on filedocumented in this encounter Care Teams Job Recruiter Relationship Specialty Start Date End Date Vane Singer MD [address] [place] [address] PCP - General 03/30/15 documented as of this encounter
--- OUTSIDE RECORDS SUMMARY | 2025-01-30 21:06 | XMS_ITS | Encounter Summary ---
Author Organization [employer] Address [address] [place] [address] Care Team Providers Care Hosiery Bagger Name Role Phone Vane Singer MD Primary Care Provider [phone] Encounter Details Date Type Department Care Team (Late st Contact Info) Description 11/01/[address] [facility] [address] [place] [address] Adry Morris Social History Tobacco Use Types Packs/Day Years Used Date Smoking Tobacco: Never Assessed Comments Unknown Sex and Gender Information Value Date Recorded Sex Assigned at Not on file Legal Sex Female 2:38 AM THRILL PERFORMER Gender Identity Not on file Sexual Orientation Not on file documented as of this encounter Plan of Treatment Not on file documented as of this encounter Visit Diagnoses Not on filedocumented in this encounter Care Teams Hosiery Bagger Relationship Specialty Start Date End Date Vane Singer MD [address] [place] [address] PCP - General 03/30/15 documented as of this encounter
--- OUTSIDE RECORDS SUMMARY | 2025-01-30 21:06 | XMS_ITS | Encounter Summary ---
Author Organization [email or web address] Address [address] [place] [address] Care Team Providers Care Merchandising Execution Manager Name Role Phone Vane Singer MD Primary Care Provider [phone] Encounter Details Date Type Department Care Team (Late st Contact Info) Description 04/11/2006 Outpatient Historical [facility] [address] [place] [address] Adry Morris Social History Tobacco Use Types Packs/Day Years Used Date Smoking Tobacco: Never Assessed Comments Unknown Sex and Gender Information Value Date Recorded Sex Assigned at Not on file Legal Sex Female 2:38 AM FILM PRINTER Gender Identity Not on file Sexual Orientation Not on file documented as of this encounter Plan of Treatment Not on file documented as of this encounter Visit Diagnoses Not on filedocumented in this encounter Care Teams Merchandising Execution Manager Relationship Specialty Start Date End Date Vane Singer MD [address] [place] [address] PCP - General 03/30/15 documented as of this encounter
--- OUTSIDE RECORDS SUMMARY | 2025-01-30 21:06 | XMS_ITS | Encounter Summary ---
Author Organization [facility] Address [address] [address] Care Team Providers Care Regional Sales Engineer Name Role Phone Danae Glover MD Primary Care Provider + Severiano Rivas DO Primary Care Provider [phone] Encounter Details Date Type Department Care Team (Late st Contact Info) Description 08/25/2018 Lab Requisition [facility] Care DermPath Lab [address] [facility], [place] [address] Nyla Echeverria DO [address] [facility] [address] [place] [address] Social History Tobacco Use Types Packs/Day Years Used Date Smoking Tobacco: Never Smokeless Tobacco: Never Alcohol Use Standard Drinks/Week Comments Yes 0 (1 standard drink = 0.6 oz pur e alcohol) sip of wine on her birthday Comments No Sex and Gender Information Value Date Recorded Sex Assigned at Not on file Legal Sex Female 5:43 PM UTILITY SPECIALIST Gender Identity Not on file Sexual [...] AM CDT) Case Report Dermatopathology Report Case: [id number] Authorizing Provider: Nyla Echeverria DO Collected: 08/24/2018 [...] The specimen consists of a shave measuring [id number]. Jar 0. 4:23 PM CDT DERMATOPATHOLOGY LABORATORY [...] characteristic determined by the Dermatopathology Laboratory at [facility], directed by Dr. Julianne Huitron. These tests need not be, and therefore are not, approved by the [place] Food and Drug Administration. The tests are used for clinical purposes. Billing Codes Specimen Charges Stain Charges 61067 1 9 4:23 PM CDT DERMATOPATHOLOGY LABORATORY Embedded Images 4:23 PM CDT DERMATOPATHOLOGY LABORATORY Pathology/Cytolog y TISSUE SPECIMEN FROM SKIN / Unknown 08/24/2018 08/25/2018 6:39 AM CDT Nyla Philomena Echeverria DO LAB - PATHOLOGY/CYTOLOGY ORDERABLES Final Result DERMATOPATHOLOGY LABORATORY [facility] - Department of Dermatology [address] [facility], 5th Floor Lab [address] [phone] documented in this encounter Visit Diagnoses Not on filedocumented in this encounter Care Teams Regional Sales Engineer Relationship Specialty Start Date End Date Danae Glover MD [address] [place] [address] PCP - General Family Medicine 07/20/17 11/25/20 Severiano Rivas DO [address] [place] [address] PCP - General 11/26/20 documented as of this encounter
--- OUTSIDE RECORDS SUMMARY | 2025-01-30 21:06 | XMS_ITS | Encounter Summary ---
Author Organization [facility] Address [address] [place] [address] Care Team Providers Care Die Machine Operator Name Role Phone Severiano Rivas Primary Care Provider [phone] Encounter Details Date Type Department Care Team (Late st Contact Info) Description 10/08/2022 Lab Requisition [facility] - DermPath Lab [address] [facility], [place] [address] Nyla Echeverria DO [address] [facility] 3 [place] [address] Social History Tobacco Use Types Packs/Day Years [...] on file Legal Sex Female 5:43 PM FAC ENGINEER Gender Identity Not on file Sexual [...] AM CDT) Case Report Dermatopathology Report Case: [id number] Authorizing Provider: Nyla Echeverria DO Collected: 10/08/2022 09:44 AM Ordering Location: [facility] DermPath Lab Received: 10/08/2022 04:48 [...] characteristic determined by the Dermatopathology Laboratory at [facility], directed by Dr. Julianne Huitron. These tests need not be, and therefore are not, approved by the [place] Food and Drug Administration. The tests are used for clinical purposes. Billing Codes Specimen Charges Stain Charges 90690 1 3 4:43 PM CDT DERMATOPATHOLOGY LABORATORY Embedded Images 3 4:43 PM CDT DERMATOPATHOLOGY LABORATORY Pathology/Cytolo gy TISSUE SPECIMEN FROM SKIN / Unknown 10/08/2022 9:44 AM CDT 10/08/2022 4:48 PM CDT Nyla Echeverria DO LAB - PATHOLOGY/CYTOLOGY ORDERABLES Final Result DERMATOPATHOLOGY LABORATORY [facility] - Department of Dermatology [facility] Medicine [address] [place] [address], [address] [phone] documented in this encounter Visit Diagnoses Not on filedocumented in this encounter Care Teams Die Machine Operator Relationship Specialty Start Date End Date Severiano Rivas DO [address] [facility] [address] [place] [address] PCP - General 11/26/20 documented as of this encounter
--- OUTSIDE RECORDS SUMMARY | 2025-01-30 21:06 | XMS_ITS | Encounter Summary ---
Author Organization [employer] Address [address] [place] [address] Care Team Providers Care Transfer Driver Name Role Phone Vane Singer MD Primary Care Provider [phone] Encounter Details Date Type Department Care Team (Late st Contact Info) Description 08/13/2002 Outpatient Historical [facility] Social History Tobacco Use Types Packs/Day Years Used Date Smoking Tobacco: Never Assessed Comments Unknown Sex and Gender Information Value Date Recorded Sex Assigned at Not on file Legal Sex Female 2:38 AM MOLD FILLER Gender Identity Not on file Sexual Orientation Not on file documented as of this encounter Plan of Treatment Not on file documented as of this encounter Visit Diagnoses Not on filedocumented in this encounter Care Teams Transfer Driver Relationship Specialty Start Date End Date Vane Singer MD [address] [place] [address] PCP - General 03/30/15 documented as of this encounter
--- OUTSIDE RECORDS SUMMARY | 2025-01-30 21:06 | XMS_ITS | Encounter Summary ---
Author Organization [employer] Address [address] [place] [address] Care Team Providers Care News Operations Manager Name Role Phone Vane Singer MD Primary Care Provider [phone] Encounter Details Date Type Department Care Team (Late st Contact Info) Description 09/13/2005 Outpatient Historical [facility] [address] [place] [address] Adry Morris Social History Tobacco Use Types Packs/Day Years Used Date Smoking Tobacco: Never Assessed Comments Unknown Sex and Gender Information Value Date Recorded Sex Assigned at Not on file Legal Sex Female 2:38 AM TRAFFIC ENGINEER Gender Identity Not on file Sexual Orientation Not on file documented as of this encounter Plan of Treatment Not on file documented as of this encounter Visit Diagnoses Not on filedocumented in this encounter Care Teams News Operations Manager Relationship Specialty Start Date End Date Vane Singer MD [address] [place] [address] PCP - General 03/30/15 documented as of this encounter
--- OUTSIDE RECORDS SUMMARY | 2025-01-30 21:06 | XMS_ITS | Encounter Summary ---
Author Organization [employer] Address [address] [place] [address] Care Team Providers Care Soap Grinder Name Role Phone Vane Singer MD Primary Care Provider [phone] Encounter Details Date Type Department Care Team (Late st Contact Info) Description 11/15/2005 Outpatient Historical [facility] [address] [place] [address] Adry Morris Social History Tobacco Use Types Packs/Day Years Used Date Smoking Tobacco: Never Assessed Comments Unknown Sex and Gender Information Value Date Recorded Sex Assigned at Not on file Legal Sex Female 2:38 AM IT BUSINESS SYSTEMS ANALYST Gender Identity Not on file Sexual Orientation Not on file documented as of this encounter Plan of Treatment Not on file documented as of this encounter Visit Diagnoses Not on filedocumented in this encounter Care Teams Soap Grinder Relationship Specialty Start Date End Date Vane Singer MD [address] [place] [address] PCP - General 03/30/15 documented as of this encounter
--- OUTSIDE RECORDS SUMMARY | 2025-01-30 21:06 | XMS_ITS | Clinical Summary ---
Author Organization [facility] Address [address] [place] [address] Care Team Providers Care Assisted Living Assistant Name Role Phone Danae Glover MD Unavailable [phone] Severiano Rivas MD Primary Care Provider [phone] Allergies Active Allergy Reactions Criticality Noted Date [...] Insert into the vagina daily. 12/17/2011 Active [id number] -[id number] 500 mg calcium- 400 unit-15 mcg tablet [...] hospital OTHER SURGICAL HISTORY renal mass: observation [place] CHOLECYSTECTOMY Cholecystectomy - (Added by TW Conv) SC LITHOTRIPSY XTRCORP SHOCK WAVE Renal Lithotripsy - (Added by TW Conv) SC UNLISTED PROCEDURE ABDOME N PERITONEUM & OMENTUM [...] on file Legal Sex Female 2:04 AM ECHO TECHNICIAN Gender Identity Female 08/22/2022 1:27 PM CDT [...] 59.9 kg (132 lb) 04/11/2019 5:11 PM ECHO TECHNICIAN Height 144.8 cm (4' 9) 04/11/2019 5:11 PM ECHO TECHNICIAN Body Mass Index 28.56 04/11/2019 5:11 PM ECHO TECHNICIAN Plan of Treatment Health Maintenance Due Date [...] Read Routine (OP Routine) 06/02/2018 1:28 PM ECHO TECHNICIAN Osteoporosis, unspecified osteoporosis type, unspecified pathological fracture presence from Last 3 Months or Most Recently Relevant to Health Maintenance Results * Dexa Axial Skeleton Bone Density 1 or 2 Site (06/02/2018 1:28 PM ECHO TECHNICIAN) Anatomical Region Laterality Modality Body N/A Radiographic Leah ging Narrative 06/02/2018 2:08 PM ECHO TECHNICIAN Patient Name: Liat Anton Date of : 1945 Date of scan: 06/02/2018 Bone mineral density was performed on a [employer] Discovery Densitometer. Machine Cross-calibration and Precision studies [...] by the International Society of Clinical Densitometry. [id number] Lianna Cho MD [facility] DXA PROCEDURES Final Resu lt from Last 3 Months or Most Recently Relevant to Health Maintenance Insurance [facility] MEDICARE ADVANTAGE MEDICARE [facility] MEDICARE [facility] MEDICARE ADVANTAGE [employer] MEDICARE Care Teams Assisted Living Assistant Relationship Specialty Start Date End Date Severiano Rivas MD [address] [facility] [address] [place] [address] PCP - General Internal Medicine 01/24/22 Danae Glover MD [address] [facility] [address] [place] [address] 09/21/19
--- OUTSIDE RECORDS SUMMARY | 2025-01-30 21:06 | XMS_ITS | Clinical Summary ---
Author Organization [facility] Address [address] [place] [address] Care Team Providers Care Pipe Fitter Helper Name Role Phone Severiano Rivas DO Primary Care Provider [phone] Source Comments [facility],non-owned Affiliates and Associated Physician Practices is amultiple site organization consisting of ambulatory clinics and hospital sitesin [place], [place], [place] and [place]. This disclosure is being madepursuant to the Care Everywhere program and may not contain all information available regarding this patient. 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 09/10/2022 Overview (09/10/2022): Added automatically from request for surgery [id number] Nonrheumatic mitral valve regurgitation 09/04/19 23 Abnormal stress test 09/03/2022 Abnormal dobutamine stress echo 07/16/2022 Overview (07/16/2022): Added automatically from request for surgery [id number] Shortness of breath 07/16/2022 Overview (07/16/2022): Added automatically from request for surgery [id number] Chronic fatigue 01/03/2020 Psoriatic arthritis 04/13/2019 Chronic [...] on file Legal Sex Female 5:43 PM GOAL UMPIRE Gender Identity Not on file Sexual Orientation Not on file 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 on file N ot on file Last Filed Vital Signs Vital Sign Reading Time Taken Comments Blood Pressure 160/84 04/11/2024 2:47 PM GOAL UMPIRE Pulse 103 10/30/2023 12:59 PM CDT Temperature 36.4 C (97.5 F) 09/23/2022 8:59 AM CDT Respiratory Rate 12 09/23/2022 12:15 PM CDT Oxygen Saturation 94% 04/11/2024 2:47 PM GOAL UMPIRE Inhaled Oxygen Concentration 21% 10/30/2023 3 :45 PM CDT Weight 47.6 kg (105 lb) 04/11/2024 2:47 PM GOAL UMPIRE Height 142.2 cm (4' 8) 04/11/2024 2:47 PM GOAL UMPIRE Body Mass Index 23.54 04/11/2024 2:47 PM GOAL UMPIRE Plan of Treatment Health Maintenance Due Date [...] 11:45 AM 09/03/2022 5:11 PM Care Teams Pipe Fitter Helper Relationship Specialty Start Date End Date Severiano Rivas DO [address] [facility] [address] [place] [address] PCP - General 11/26/20
--- OUTSIDE RECORDS SUMMARY | 2025-01-30 21:06 | XMS_ITS | Encounter Summary ---
Author Organization [employer] Address [address] [place] [address] Care Team Providers Care Supervisor Fruit Grading Name Role Phone Vane Singer MD Primary Care Provider [phone] Encounter Details Date Type Department Care Team (Late st Contact Info) Description 12/27/2005 Outpatient Historical [facility] [address] [place] [address] Adry Morris Social History Tobacco Use Types Packs/Day Years Used Date Smoking Tobacco: Never Assessed Comments Unknown Sex and Gender Information Value Date Recorded Sex Assigned at Not on file Legal Sex Female 2:38 AM AERIAL ADVERTISER Gender Identity Not on file Sexual Orientation Not on file documented as of this encounter Plan of Treatment Not on file documented as of this encounter Visit Diagnoses Not on filedocumented in this encounter Care Teams Supervisor Fruit Grading Relationship Specialty Start Date End Date Vane Singer MD [address] [place] [address] PCP - General 03/30/15 documented as of this encounter
--- OUTSIDE RECORDS SUMMARY | 2025-01-30 21:06 | XMS_ITS | Encounter Summary ---
Author Organization [facility] Address [address] [place] [address] Care Team Providers Care Airways Operations Specialist Name Role Phone Danae Glover MD Primary Care Provider + Severiano Rivas DO Primary Care Provider [phone] Encounter Details Date Type Department Care Team (Late st Contact Info) Description 12/10/2018 Lab Requisition [facility] Care DermPath Lab [address] [facility], [place] [id number] Nyla Echeverria DO [address] [facility] 3 [place] [address] Social History Tobacco Use Types Packs/Day Years Used Date Smoking Tobacco: Never Smokeless Tobacco: Never Alcohol Use Standard Drinks/Week Comments Yes 0 (1 standard drink = 0.6 oz pur e alcohol) sip of wine on her birthday Comments No Sex and Gender Information Value Date Recorded Sex Assigned at Not on file Legal Sex Female 5:43 PM SPIRAL SPRING WINDER Gender Identity Not on file Sexual Orientation [...] AM CDT) Case Report Dermatopathology Report Case: [id number] Authorizing Provider: Nyla Echeverria DO Collected: 12/09/2018 12:00 AM Ordering Location: [facility] DermPath Lab Received: 12/10/2018 07:00 AM [...] The specimen consists of a shave measuring [id number]. Jar 0. 2:27 PM CDT DERMATOPATHOLOGY LABORATORY [...] characteristic determined by the Dermatopathology Laboratory at [facility], directed by Dr. Julianne Huitron. These tests need not be, and therefore are not, approved by the [place] Food and Drug Administration. The tests are used for clinical purposes. Billing Codes Specimen Charges Stain Charges 59476 1 2:27 PM CDT DERMATOPATHOLOGY LABORATORY Embedded Images 2:27 PM CDT DERMATOPATHOLOGY LABORATORY Pathology/Cytolog y TISSUE SPECIMEN FROM SKIN / Unknown 12/09/2018 12/10/2018 7:00 AM CDT us Nyla Philomena Echeverria DO LAB - PATHOLOGY/CYTOLOGY ORDERABLES Final Result DERMATOPATHOLOGY LABORATORY [facility] - Department of Dermatology [address] [facility], 5th [place] [address], [facility] [phone] documented in this encounter Visit Diagnoses Not on filedocumented in this encounter Care Teams Airways Operations Specialist Relationship Specialty Start Date End Date Danae Glover MD [address] [place] [address] PCP - General Family Medicine 07/20/17 11/25/20 Severiano Rivas DO [address] [place] [address] PCP - General 11/26/20 documented as of this encounter
--- OUTSIDE RECORDS SUMMARY | 2025-01-30 21:06 | XMS_ITS | Encounter Summary ---
Author Organization [employer] Address [address] [place] [address] Care Team Providers Care Yarn Twister Name Role Phone Vane Singer MD Primary Care Provider [phone] Encounter Details Date Type Department Care Team (Late st Contact Info) Description 06/21/2005 Outpatient Historical [facility] 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
--- OUTSIDE RECORDS SUMMARY | 2025-01-30 21:06 | XMS_ITS | Encounter Summary ---
Author Organization [employer] Address 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
--- OUTSIDE RECORDS SUMMARY | 2025-01-30 21:06 | XMS_ITS | Encounter Summary ---
Author Organization [employer] Address [address] [place] [address] Care Team Providers Care Blueberry Grower Name Role Phone Vane Singer MD Primary Care Provider [phone] Encounter Details Date Type Department Care Team (Late st Contact Info) Description 01/10/2006 Outpatient Historical [facility] 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
--- OUTSIDE RECORDS SUMMARY | 2025-01-30 21:06 | XMS_ITS | Encounter Summary ---
Author Organization [facility] Address [address] [facility] [place] [address] Care Team Providers Care Expansion Joint Finisher Name Role Phone Severiano Rivas Primary Care Provider [phone] Encounter Details Date Type Department Care Team (Late st Contact Info) Description 01/13/2023 Lab Requisition [facility] - DermPath Lab [address] [facility], [place] [address] Nyla Echeverria DO [address] [facility] 3 [place] [address] Social History Tobacco Use Types Packs/Day Years [...] on file Legal Sex Female 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 Julianne Huitron. These tests need not be, and therefore are not, approved by the [place] Food and Drug Administration. The tests are used for clinical purposes. Billing Codes Specimen Charges Stain Charges 28213 1 1:37 PM CDT DERMATOPATHOLOGY LABORATORY Embedded Images 1:37 PM CDT DERMATOPATHOLOGY LABORATORY Pathology/Cytolo gy TISSUE SPECIMEN FROM SKIN / Unknown 01/13/2023 2:41 PM CDT 01/14/2023 2:38 PM CDT Nyla Echeverria DO LAB - PATHOLOGY/CYTOLOGY ORDERABLES Final Result DERMATOPATHOLOGY LABORATORY [facility] - Department of Dermatology [facility] Specialized Medicine [address] [place] [address], [address] [phone] documented in this encounter Visit Diagnoses Not on filedocumented in this encounter Care Teams Expansion Joint Finisher Relationship Specialty Start Date End Date Severiano Rivas DO [address] [facility] [address] [place] [address] PCP - General 11/26/20 documented as of this encounter
--- OUTSIDE RECORDS SUMMARY | 2025-01-30 21:06 | XMS_ITS | Encounter Summary ---
Author Organization [employer] Address [address] [place] [address] Care Team Providers Care Licensed Bondsman Name Role Phone Vane Singer MD Primary Care Provider [phone] Encounter Details Date Type Department Care Team (Late st Contact Info) Description 05/17/2005 Outpatient Historical [facility] 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
--- OUTSIDE RECORDS SUMMARY | 2025-01-30 21:06 | XMS_ITS | Encounter Summary ---
Author Organization [employer] Address [address] [place] [address] Care Team Providers Care Assistant Merchandise Manager Name Role Phone Vane Singer MD Primary Care Provider [phone] Encounter Details Date Type Department Care Team (Late st Contact Info) Description 08/02/2005 Outpatient Historical [facility] 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
--- OUTSIDE RECORDS SUMMARY | 2025-01-30 21:06 | XMS_ITS | Encounter Summary ---
Author Organization [employer] Address [address] [place] [address] Care Team Providers Care Rotary Bar Operator Name Role Phone Vane Singer MD Primary Care Provider [phone] Encounter Details Date Type Department Care Team (Late st Contact Info) Description 08/10/2004 Outpatient Historical [facility] CAN[facility]ER CENTER 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
--- OUTSIDE RECORDS SUMMARY | 2025-01-30 21:06 | XMS_ITS | Encounter Summary ---
Author Organization [employer] Address 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
--- OUTSIDE RECORDS SUMMARY | 2025-01-30 21:06 | XMS_ITS | Encounter Summary ---
Author Organization [employer] Address [address] [place] [address] Care Team Providers Care Quality Worker Name Role Phone Vane Singer MD Primary Care Provider [phone] Encounter Details Date Type Department Care Team (Late st Contact Info) Description 07/12/2005 Outpatient Historical [facility] 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
--- OUTSIDE RECORDS SUMMARY | 2025-01-30 21:06 | XMS_ITS | Encounter Summary ---
Author Organization [employer] Address [address] [place] [address] Care Team Providers Care Sales/Marketing Name Role Phone Vane Singer MD Primary Care Provider [phone] Encounter Details Date Type Department Care Team (Late st Contact Info) Description 06/07/2005 Outpatient Historical CANCER CENTER 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
--- OUTSIDE RECORDS SUMMARY | 2025-01-30 21:06 | XMS_ITS | Encounter Summary ---
Author Organization [employer] Address [address] [place] [address] Care Team Providers Care Ends Down Checker Name Role Phone Vane Singer MD Primary Care Provider [phone] Encounter Details Date Type Department Care Team (Late st Contact Info) Description 08/23/[address] [facility] 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
--- OUTSIDE RECORDS SUMMARY | 2025-01-30 21:06 | XMS_ITS | Clinical Summary ---
Author Organization [facility] Address [address] [place] 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
--- OUTSIDE RECORDS SUMMARY | 2025-01-30 21:06 | XMS_ITS | Encounter Summary ---
Author Organization [employer] Address [address] [place] [address] Care Team Providers Care Biomedical Equipment Technician Name Role Phone Vane Singer MD Primary Care Provider [phone] Encounter Details Date Type Department Care Team (Late st Contact Info) Description 05/21/2002 Outpatient Historical [facility] Social History Tobacco Use Types Packs/Day Years Used Date Smoking Tobacco: Never Assessed Comments Unknown Sex and Gender Information Value Date Recorded Sex Assigned at Not on file Legal Sex Female 2:38 AM IC DESIGNER [employer] Gender Identity Not on file Sexual Orientation Not on file documented as of this encounter Plan of Treatment Not on file documented as of this encounter Visit Diagnoses Not on filedocumented in this encounter Care Teams Biomedical Equipment Technician Relationship Specialty Start Date End Date Vane Singer MD [address] [place] [address] PCP - General 03/30/15 documented as of this encounter
--- OUTSIDE RECORDS SUMMARY | 2025-01-30 21:06 | XMS_ITS | Encounter Summary ---
Author Organization [employer] Address 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
--- OUTSIDE RECORDS SUMMARY | 2025-01-30 21:06 | XMS_ITS | Encounter Summary ---
Author Organization [employer] Address [address] [place] [address] Care Team Providers Care Box Office Agent Name Role Phone Vane Singer MD Primary Care Provider [phone] Encounter Details Date Type Department Care Team (Late st Contact Info) Description 08/27/[address] [facility] Social History Tobacco Use Types Packs/Day Years Used Date Smoking Tobacco: Never Assessed Comments Unknown Sex and Gender Information Value Date Recorded Sex Assigned at Not on file Legal Sex Female 2:38 AM BARNWORKER GROOM Gender Identity Not on file Sexual Orientation Not on file documented as of this encounter Plan of Treatment Not on file documented as of this encounter Visit Diagnoses Not on filedocumented in this encounter Care Teams Box Office Agent Relationship Specialty Start Date End Date Vane Singer MD [address] [place] [address] PCP - General 03/30/15 documented as of this encounter
[2025-01-30] MEDS: dexAMETHasone SOD PHOS INJ 10 MG/ML 1 ML VIAL 6 MG IV PUSH (21:13)
[2025-01-30] MEDS: ASPIRIN 325 MG TABLET PO (21:13)
[2025-01-30] MEDS: MAGNESIUM SULF 2 GM/WATER 50ML 2 GM/50 ML BAG IVPB (21:14)
[2025-01-30] MEDS: HEPARIN SOD/D5W 100 UNITS/ML 25,000 UNITS/250 ML BAG IV CONT (21:26)
[2025-01-30 21:44] LABS: INR 1.0; Prothrombin Time 13.0 Seconds (11.1-14.7)
[2025-01-30 21:45] LABS: Partial Thromboplastin Time 32.9 Seconds (22.3-36.8)
[2025-01-30] MEDS: LACTATED RINGERS 1,000 ML 80 ML IV CONT (22:05)
[2025-01-30 22:15] LABS: Influenza A QL RT-PCR Negative (Negative); Influenza B QL RT-PCR Negative (Negative); RSV RNA, RT-PCR Negative (Negative); SARS-CoV-2 RNA PCR Negative (Negative)
--- NOTE | 2025-01-30 22:57 | ECG_ITS ---
Test Date: 2025-01-30 22:56:59 Measurements Intervals [place] Rate: 90 P: 2 AL: 128 QRS: -41 QRSD: 142 T: -46 QT: 388 QTc: 476 Interpretive Statements SINUS RHYTHM LEFT AXIS DEVIATION RIGHT BUNDLE BRANCH BLOCK ST-T WAVE ABNORMALITY IN ANTEROLATERAL LEADS- CONSIDER ISCHEMIA BASELINE ARTIFACT- AVR, AVL, AVF, V1-V6 ABNORMAL ECG Compared to ECG 01/30/2025 20:19:30 NO SIGNIFICANT CHANGE Electronically Signed On 01-31-2025 06:18:53 CDT by Werner Michael D.O.
--- NOTE | 2025-01-30 23:08 | PC.NURSE ---
RN called son about admission to IMU.
[2025-01-30 23:21] LABS: Troponin I 0.047 ng/mL (0.000-0.034)
--- NOTE | 2025-01-30 23:53 | ADMGEN ---
This patient, Liat Anton, was admitted to IMU Room 205-01. Patient/family oriented to hospital policies and general routines including ID bracelet, bed and alarms, visiting hours, pain management, procedures, bathroom and other care routines, personal items, smoking policy, room service/diet, and visiting hours. Information on how to activate the Rapid Response Team has been discussed. Patient/Family are encouraged to report perceived risks to care and to ask questions if they do not understand what they are told or what they should do.
[2025-01-31] VITALS (17 sets, daily range): BP systolic 145–179; BP diastolic 69–93; PULSE 71–106; RESP 12–20; TEMP 36.4–37; O2SAT 90–100
--- NOTE | 2025-01-31 | ECHO_ITS ---
Patient Info Name: Liat Anton Age: 79 years : 1945 Gender: Female Ht: 63 in Wt: 92 lbs BSA: 1.35 m2 HR: 86 bpm BP: 145 / 69 mmHg Heart Rhythm: Sinus Rhythm Technical Quality: Fair Exam Date: 01/31/2025 3:12 PM Patient Status: I Admit Date: 01/30/2025 Exam Type: CA echo doppler color flow Complete two-dimensional, color flow and Doppler transthoracic echocardiogram is performed with contrast to opacify the left ventricle and to improve the deliniation of the left ventricle endocardial borders. Staff Referring Physician: Willard Mcclure Card Grinder Helper: Meghan West Attending Provider: Shivani Gould Contrast/Agitated Saline Contrast/Ag. Saline: Definity Amount: 2.00 ml Administered By: Meghan West Existing IV Access: Yes IV Access Condition: patent with no signs of infiltration Summary 1. Suboptimal image quality. 2. Suboptimal image quality. Normal LV size, moderate LVH, LV systolic function at lower limits of normal, ejection fraction visually estimated at about 50-55%. Hypokinetic anterior segment, aneurysmal basal inferior segment. Grade 1 diastolic dysfunction. Normal RV size and systolic function. Mild left atrial enlargement. Thickened mitral valve leaflets, mild mitral regurgitation. Aortic valve is not well visualized, appears to be severely calcified with restricted leaflet mobility. Severe aortic stenosis with relatively low mean gradient. Maximum velocity 3.1 m/sec, mean gradient 19 mmHg, aortic valve area 0.8 cm2. Mild tricuspid regurgitation, severe pulmonary hypertension, RVSP 77 mmHg. Consider further evaluation of aortic valve anatomy if clinically appropriate. Left Ventricle Left ventricular systolic function is mildly reduced, estimated at 50-55. There is moderately increased left ventricular wall thickness. The left ventricular diastolic function is grade I diastolic dysfunction. Right Ventricle Right ventricular chamber dimension is normal. Right ventricular systolic function is normal. Left Atria Left atrial chamber dimension is mildly enlarged. Right Atria Right atrial chamber dimension is normal. Aortic Valve The aortic valve is not well visualized. There is severe aortic valve stenosis with a peak velocity of 311 cm/s, mean gradient of 19 mmHg, and aortic valve area of 1.0 cm2. There is severe aortic valve calcification. Pulmonic Valve The pulmonic valve is not well visualized. Mitral Valve The mitral valve has thickened leaflets. There is mild to moderate mitral valve regurgitation. Tricuspid Valve The tricuspid valve leaflets are normal. There is mild tricuspid valve regurgitation. Severe pulmonary hypertension, estimated pulmonary arterial systolic pressure is 77 mmHg. Pericardium/Pleural The pericardium appears thickened pericardium. Left Ventricular Outflow Tract Name Value Normal LVOT 2D LVOT Diameter 1.9 cm LVOT Doppler LVOT Peak Velocity 87 cm/s LVOT Peak Gradient 3 mmHg LVOT Mean Gradient 2 mmHg LVOT VTI 16 cm LVOT VTI/AV VTI Ratio 0.3 LVOT Stroke Volume 46 ml LVOT CO 5.0 l/min LVOT CI 3.7 l/min/m2 Mitral Valve Name Value Normal MV Diastolic Function MV E Peak Velocity 91 cm/s MV A Peak Velocity 110 cm/s MV E/A 0.8 MV Decel Time (PW) 96 ms MV Annular TDI MV E/e' (Septal) 14.6 MV E/e' (Lateral) 15.5 MV E/e' (Average) 15.0 Tricuspid Valve Name Value Normal TV Regurgitation Doppler TR Peak Velocity 409 cm/s TR Peak Gradient 67 mmHg Estimated PAP/RSVP RA Pressure 10 mmHg <=5 PA Systolic Pressure 77 mmHg <36 RV Systolic Pressure 77 mmHg <36 TV Annular TDI TV Lateral Rabia s' Velocity 6.2 cm/s >=9.5 Aortic Valve Name Value Normal AV Doppler AV Peak Velocity 311 cm/s AV Peak Gradient 39 mmHg AV Mean Gradient 19 mmHg AV VTI 49 cm AV Area (Cont Eq VTI) 1.0 cm2 >=3.0 AV Area (Cont Eq Yonny) 0.8 cm2 AV DI (Yonny) 0.28 AV Regurgitation 2D LVOT Area 2.9 cm2 Ventricles Name Value Normal LV Dimensions 2D/MM IVS Diastolic Thickness (2D) 1.4 cm 0.6-1.0 LVID Diastole (2D) 4.3 cm 3.8-5.2 LVIW Diastolic Thickness (2D) 1.3 cm 0.6-0.9 LVID Systole (2D) 3.0 cm 2.2-3.5 LVOT Diameter 1.9 cm LV Mass (2D Cubed) 215.94 g 67.00-162.00 LV Mass Index (2D Cubed) 160 g/m2 43-95 Relative Wall Thickness (2D) 0.60 <=0.42 LV Fractional Shortening/Ejection Fraction 2D/MM LV Fractional Shortening (2D) 30 % 27-45 LV EF (2D Teichholz) 58 % LV Diastolic Volume (4C MOD) 62 ml LV EF (4C MOD) 51 % LV Diastolic Volume (2C MOD) 70 ml LV EF (2C MOD) 43 % LV Diastolic Volume (BP MOD) 69 ml 46-106 LV Diastolic Volume Index (BP MOD) 51 ml/m2 29-61 LV Systolic Volume (BP MOD) 37 ml 14-42 LV Systolic Volume Index (BP MOD) 27 ml/m2 8-24 LV EF (BP MOD) 46 % 54-74 LV Diastolic Length (4C) 6.3 cm LV Systolic Length (4C) 5.0 cm LV Stroke Volume (4C MOD) 31 ml Atria Name Value Normal LA Dimensions LA Volume (4C A-L) 45 ml LA Volume (BP A-L) 43 ml RA Dimensions RA Area (4C) 7.6 cm2 <=18.0 Report Signatures
--- NOTE | 2025-01-31 01:04 | PC.NURSE ---
unable to verify home meds at this time. history lists vitamens and a baby aspirin. Patient states she doesn't take anything. Unable to contact children at this time.
--- NOTE | 2025-01-31 03:03 | PM.IMHP ---
H&P: HPI History of Present Illness Date/Time: 01/31/25 03:03 Chief Complaint: Cough, shortness of breath Narrative: 79-year-old female with history hypertension, remote polio, partial paralysis left lower extremity, severe kyphoscoliosis with related small lung volume, 4 L with activity, BiPAP for sleep apnea follows with pulmonology at [facility], right-sided kidney cancer, CAD with moderate stenosis of mid left anterior descending artery and moderate mitral regurgitation, treated with medical management. Presents to [facility] ER on 01/30/2025 complaining of generalized weakness, productive cough since 3 days prior. Worsening shortness of breath. Walk into the ER from triage found to be hypoxic at 56%, placed on non-rebreather. Tachypnea, productive cough on examination with coarse breath sounds. Wean down to 2 L nasal cannula after therapy including Decadron 6 mg IV x1, magnesium 2 g rider, DuoNeb, aspirin, 1 L lactated Ringer's, ceftriaxone, azithromycin. CT chest without contrast demonstrates small lung volumes, severe scoliosis, however no acute cardiopulmonary process. Quad viral screen negative. Initial troponin 0.048, lactic acid 2.3. Review of Systems Review of Systems: All systems reviewed & are unremarkable except as noted in HPI and below (Subjective) PMFSH Past Medical History Medical History Systolic ejection murmur Overweight (BMI 25.0-29.9) COVID-19 Eczema of external ear Nasal septal deviation Hypertrophy of both inferior nasal turbinates Vasomotor rhinitis Rhinorrhea Presbyphonia Hyperlipidemia Post-polio syndrome Psoriatic arthritis History of deep venous thrombosis or pulmonary embolus Hx of renal calculi Hx of breast cancer Osteoporosis Hypertension COPD (chronic obstructive pulmonary disease) History of kidney cancer Arthritis Surgical History Surgical History H/O lumpectomy History of cholecystectomy History of lithotripsy Family History Family History Father Family history of drug dependence Cerebrovascular accident Family history of lung cancer Patient's father is Family history of arthritis Family history of throat cancer Family history of cardiovascular disease Sibling Patient's brother is in good health Family history of diabetes mellitus in first degree relative Family history of malignant neoplasm of breast in first degree relative, Onset Age: 56 Patient's sister is Family history of arthritis Family history of lymphoma Mother Family history of elevated blood lipids Family history of diabetes mellitus in first degree relative Patient's mother is Family history of arthritis Social History Social History Smoking status: Never smoker Alcohol intake: never Substance use: never Do You Feel Safe in your Home?: Yes Lack of Transportation: No Lack of Food: Never True Current Housing: I Have Housing Concerned About Future Housing: No Difficulty Paying Gas/Electric Bills: No Difficulty Paying for Meds: No Currently Unemployed: No Education: Don't Know Difficulty w/ Childcare or Family Care: No Spiritual care concerns: No Meds Home Medications and Allergies Home Medications ?Medication ?Instructions ?Recorded ?Confirmed ?Type cholecalciferol (vitamin D3) 50 50 mcg PO DAILY 07/22/22 11/30/24 History mcg (2,000 unit) tablet vitamin B12 0.5 mg-folic acid 1 mg 1 tablet PO DAILY 11/20/23 11/30/24 History tablet Allergies Allergy/AdvReac Type Severity Reaction Status Date / Time alendronate sodium Allergy Unknown Abdominal Verified 01/31/25 00:37 pain fentanyl Allergy Unknown Other Verified 01/31/25 00:37 Iodinated Contrast Media Allergy Unknown Unknown Verified 01/31/25 00:37 iodine Allergy Unknown Other Verified 01/31/25 00:37 metoprolol Allergy Unknown Confusion Verified 01/31/25 00:37 Penicillins Allergy Unknown Other Verified 01/31/25 00:37 levofloxacin AdvReac Intermediate fast heart Verified 01/31/25 00:37 rate prednisone AdvReac Unknown RAPID HR, Verified 01/31/25 00:37 HTN Vital Signs Vital Signs - 24 hr 01/30/25 19:35 01/30/25 19:37 01/30/25 20:04 Temperature 98.0 F Pulse Rate 100 Respiratory Rate 28 H Blood Pressure 156/98 H Pulse Oximetry 56 L 100 100 Oxygen Delivery Room Air Non-Rebreather Mask Nasal Cannula Oxygen Flow Rate 15 4 01/30/25 20:50 01/30/25 20:50 01/30/25 21:30 Temperature Pulse Rate 89 96 Respiratory Rate 20 21 H Blood Pressure 147/82 H Pulse Oximetry 99 100 Oxygen Delivery Nasal Cannula Oxygen Flow Rate 4 01/30/25 21:31 01/30/25 21:45 01/30/25 21:46 Temperature Pulse Rate 92 88 87 Respiratory Rate 23 H 20 19 Blood Pressure 147/82 H 126/68 Pulse Oximetry 100 100 98 Oxygen Delivery Oxygen Flow Rate 01/30/25 21:47 01/30/25 22:00 01/30/25 22:01 Temperature Pulse Rate 87 84 84 Respiratory Rate 22 H 17 16 Blood Pressure 117/62 Pulse Oximetry 94 100 100 Oxygen Delivery Oxygen Flow Rate 01/30/25 22:15 01/30/25 22:16 01/30/25 22:30 Temperature Pulse Rate 81 81 81 Respiratory Rate 17 16 16 Blood Pressure 115/67 Pulse Oximetry 100 100 100 Oxygen Delivery Oxygen Flow Rate 01/30/25 22:31 01/30/25 22:45 01/30/25 22:46 Temperature Pulse Rate 85 94 92 Respiratory Rate 20 22 H 23 H Blood Pressure 124/64 148/75 H Pulse Oximetry 100 100 100 Oxygen Delivery Oxygen Flow Rate 01/30/25 23:00 01/30/25 23:20 01/31/25 01:12 Temperature 97.7 F Pulse Rate 84 78 Respiratory Rate 23 H 14 Blood Pressure 129/89 Pulse Oximetry 100 100 100 Oxygen Delivery Nasal Cannula Oxygen Flow Rate 2 01/31/25 01:12 01/31/25 01:56 Temperature Pulse Rate 81 79 Respiratory Rate Blood Pressure Pulse Oximetry 90 Oxygen Delivery Autopap Oxygen Flow Rate Exam Const: General: comfortable HENMT: Mouth: Yes moist mucous membranes Eyes: Pupils: Equal, round and reactive pupils present Neck: Neck: supple Resp: Effort & Inspection: normal respiratory effort Auscultation: clear to auscultation bilaterally Cardio: Rate: regular rate Rhythm: regular rhythm GI: Inspection: non-distended GI Palp: Yes Soft to palpation Auscultation: normal bowel sounds : General: Yes bladder normal to palpation Neuro: Motor exam (neuro): 5/5 motor strength present throughout Extrem: General: no edema H&P: Results Labs Labs: Short CBC 01/30/25 Range/Units 19:57 WBC 5.0 (4.5-10.0) K/mm3 Hgb 11.7 L D (12.0-15.0) g/dL Hct 37.8 (37.0-47.0) % Plt Count 177 (150-375) k/mm3 BMP 01/30/25 01/30/25 01/30/25 19:57 19:57 19:57 Sodium Cancelled 139 Potassium Cancelled 3.6 Chloride Cancelled Carbon Dioxide BUN Creatinine Glucose Calcium 01/30/25 01/30/25 01/30/25 19:57 19:57 19:57 Sodium Potassium Chloride 95 L Carbon Dioxide Cancelled 38 H BUN Cancelled 32 H Creatinine Cancelled Glucose Calcium 01/30/25 01/30/25 01/30/25 19:57 19:57 19:57 Sodium Potassium Chloride Carbon Dioxide BUN Creatinine 0.65 L Glucose Cancelled 190 H Calcium Cancelled 8.7 Cardiac Enzymes 01/30/25 01/30/25 Range/Units 19:57 22:45 Troponin I 0.048 H* 0.047 H* (0.000-0.034) ng/mL Liver Function 01/30/25 01/30/25 01/30/25 Range/Units 19:57 19:57 19:57 Total Bilirubin Cancelled 0.9 AST Cancelled 44 H ALT Cancelled Alkaline Phosphatase Albumin 01/30/25 01/30/25 01/30/25 Range/Units 19:57 19:57 19:57 Total Bilirubin AST ALT 35 Alkaline Phosphatase Cancelled 86 Albumin Cancelled 3.7 Assessment and Plan Assessment and plan (1) Elevated troponin: Code(s): R79.89 - Other specified abnormal findings of blood chemistry Status: Acute (2) Acute exacerbation of chronic obstructive pulmonary disease: Code(s): J44.1 - Chronic obstructive pulmonary disease with (acute) exacerbation Status: Acute (3) ANDREINA (obstructive sleep apnea): Code(s): G47.33 - Obstructive sleep apnea (adult) (pediatric) Status: Acute (4) Acute hypoxemic respiratory failure: Code(s): J96.01 - Acute respiratory failure with hypoxia Status: Acute Plan 79-year-old female with history hypertension, remote polio, partial paralysis left lower extremity, severe kyphoscoliosis with related small lung volume, 4 L with activity, BiPAP for sleep apnea follows with pulmonology at [facility], right-sided kidney cancer, CAD with moderate stenosis of mid left anterior descending artery and moderate mitral regurgitation, treated with medical management. Presents to [facility] ER on 01/30/2025 complaining of generalized weakness, productive cough since 3 days prior. Worsening shortness of breath. Walk into the ER from triage found to be hypoxic at 56%, placed on non-rebreather. Tachypnea, productive cough on examination with coarse breath sounds. Wean down to 2 L nasal cannula after therapy including Decadron 6 mg IV x1, magnesium 2 g rider, DuoNeb, aspirin, 1 L lactated Ringer's, ceftriaxone, azithromycin. CT chest without contrast demonstrates small lung volumes, severe scoliosis, however no acute cardiopulmonary process. Quad viral screen negative. Initial troponin 0.048, lactic acid 2.3. ----- COPD exacerbation/acute hypoxic respiratory failure: Per report, patient was nearing respiratory extremis in the ER however a repeat examination she is resting comfortably, tachypnea is resolved, denies shortness of breath, resolution of coarse breath sounds. Denies any further cough. At this time she does not want to continue steroids, she had a previous reaction to prednisone with rapid heart rate and high blood pressure. Of note, she received Decadron in the ER and she experienced the therapeutic affects without any adverse effects. Continue DuoNebs q.6 hours p.r.n. otherwise. Upon examination she is on room air and saturating 93%. She received ceftriaxone and azithromycin, do not see evidence to continue that. Quad viral screen negative, checking full respiratory pathogen panel. At this time she does not remember her controller inhalers, when we can verify will restart these. Continue O2 with 4 L on exertion and as needed. ANDREINA on CPAP: Patient reports compliance, continue this nightly. Lactic acidosis: 2.3 on admission, resolved status post resolution of acute hypoxic respiratory failure, she did receive fluids as well. 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 She denied chest pain. Administered aspirin 325 mg p.o. x1 in the ER. EKG demonstrated sinus rhythm, right bundle branch block, ST depressions in V4 V5 V6 which were similar to EKG in 2016, a repeat EKG after ER treatment revealed improvement in those ST depressions. Cardiology was consulted from the ER, recommended NPO and anticipate cardiac catheterization. Patient started on heparin GTT. ---- Patient wishes to be full code. NPO. Lactated Ringer's 80 cc/hour SCDs Heparin GTT Prior to admission the patient lives with her . Greater than 75 minute spent on chart review, [id number] time, coordination with nursing and ER physician, documentation and decision making. Hospitalist MIPS Advance Care Plan I have confirmed that the patient's Advanced Care Plan is present, code status is documented, or surrogate decision maker is listed in patient medical record.: Yes Medication Reconciliation I have utilized all available resources to obtain, update and review the patients current medications (includes all prescriptions, OTC, herbals, cannabis, and nutritional supplements).: Yes
[2025-01-31 03:50] LABS: Hematocrit 38.5 % (37.0-47.0); Hemoglobin 12.0 g/dL (12.0-15.0); Immature Granulocyte Percent A 0.2 % (0-0.5); Lymphocytes Absolute Auto 0.27 K/mm3 (0.9-3.2); Mean Corpuscular HGB Conc 31.2 g/dl (32-36); Mean Corpuscular Hemoglobin 31.4 pg (26-34); Mean Corpuscular Volume 100.8 fl (80-100); Nucleated Red Blood Cells Absolute Auto 0.000 K/mm3 (0.0-0.012); Nucleated Red Blood Cells Perc 0.0 % (0.0-0.2); Platelet Count Result 154 k/mm3 (150-375); Red Blood Count 3.82 M/mm3 (4.2-5.4); White Blood Count 4.4 K/mm3 (4.5-10.0)
[2025-01-31 04:02] LABS: Anion Gap 5 mmol/L (4-12); Blood Urea Nitrogen 26 mg/dL (7-17); Calcium 8.4 mg/dL (8.4-10.2); Carbon Dioxide 34 mmol/L (22-30); Chloride 98 mmol/L (98-107); Estimated Glomerular Filt Rate > 60; Glucose 140 mg/dL (65-110); Magnesium 2.5 mg/dL (1.6-2.3); Potassium 3.9 mmol/L (3.4-5.0); Sodium 137 mmol/L (137-145)
[2025-01-31 04:05] LABS: Partial Thromboplastin Time 44.7 Seconds (22.3-36.8)
--- NOTE | 2025-01-31 06:54 | PC.NURSE ---
Spoke to son Noam, verified that patient has not been taking any home medications. Also, verified patient lives at home with her . There is a caregiver and son and daughter in law also assist with care. They do have poa and plan to bring in paperwork.
--- NOTE | 2025-01-31 07:51 | P.PNIM_ITS ---
Progress Note: A&P Assessment and Plan (1) Elevated troponin: Code(s): R79.89 - Other specified abnormal findings of blood chemistry Status: Acute Assessment and Plan: CAD with moderate stenosis of mid left anterior descending artery --> troponin 0.048, repeat 0.047. --denied chest pain. --Administered aspirin 325 mg p.o. x1 in the ER. --EKG demonstrated sinus rhythm, right bundle branch block, ST depressions in V4 V5 V6 which were similar to EKG in 2016, -- repeat EKG after ER treatment revealed improvement in those ST depressions. -- Cardiology was consulted from the ER, recommended NPO and anticipate cardiac catheterization. -- started on heparin GTT. (2) Acute exacerbation of chronic obstructive pulmonary disease: Code(s): J44.1 - Chronic obstructive pulmonary disease with (acute) exacerbation Status: Acute Assessment and Plan: --->in ER on arrival hypoxic at 56%, placed on non-rebreather. Tachypnea, productive cough on examination with coarse breath sounds. Weaned down to 2 L nasal cannula --> given Decadron 6 mg IV x1, magnesium 2 g rider, DuoNeb, aspirin, 1 L lactated Ringer's, ceftriaxone, azithromycin in ER. - CT chest without contrast demonstrates small lung volumes, severe scoliosis, however no acute cardiopulmonary process. - Quad viral screen negative. - Initial troponin 0.048, lactic acid 2.3. - Continue DuoNebs q.6 hours p.r.n. otherwise. - PRN albuterol nebs - Continue O2 with 4 L on exertion and as needed. (3) ANDREINA (obstructive sleep apnea): Code(s): G47.33 - Obstructive sleep apnea (adult) (pediatric) Status: Acute Assessment and Plan: continue with CPAP at HS per home setting. (4) Acute hypoxemic respiratory failure: Code(s): J96.01 - Acute respiratory failure with hypoxia Status: Acute Assessment and Plan: ---> - lacctic acidosis: 2.3 on admission, resolved status post resolution of acute hypoxic respiratory failure, --she did receive fluids -- monitor closely Plan Code status - full code. diet - NPO until seen by cardiology Lactated Ringer's 80 cc/hour SCDs Heparin GTT per cardiology. disposition - will cotninue treatment plan, monitor patient. will work with case management on discharge plan, will need outpatient follow up possible home health vs acute rehab Time Spent With Patient Time with patient: Greater than 35 minutes Subjective Date/time seen: 01/31/25 07:51 Interval history: this is a 79-year-old female with history hypertension, remote polio, partial paralysis left lower extremity, severe kyphoscoliosis with related small lung volume, 4 L with activity, BiPAP for sleep apnea follows with pulmonology at [facility], right-sided kidney cancer, CAD with moderate stenosis of mid left anterior descending artery and moderate mitral regurgitation, treated with medical management. Originally presented to [facility] ER on 01/30/2025 complaining of generalized weakness, productive cough since 3 days prior. Worsening shortness of breath. On arrival to ER patient was found to be hypoxic at 56%, placed on non-rebreather. Tachypnea, productive cough on examination with coarse breath sounds. Wean down to 2 L nasal cannula after therapy including Decadron 6 mg IV x1, magnesium 2 g rider, DuoNeb, aspirin, 1 L lactated Ringer's, ceftriaxone, azithromycin. CT chest without contrast demonstrates small lung volumes, severe scoliosis, however no acute cardiopulmonary process. Quad viral screen negative. Initial troponin 0.048, lactic acid 2.3. Started on Heparin gtt and Cardiology consulted. patient was feeling improved and admitted for further management. This am patient is sitting up in a chair, reporting no chest pain, improved shortness of breath. Patient admits she has a harsh cough non productive cough. denies any distress otherwise. No headache, dizziness, chills, weaknes. Review of Systems Review of Systems: All systems reviewed & are unremarkable except as noted in HPI and below (Subjective) Exam Const: General: comfortable HENMT: Mouth: Yes moist mucous membranes Eyes: Pupils: Equal, round and reactive pupils present Neck: Neck: supple Resp: Effort & Inspection: normal respiratory effort Auscultation: rhonchi left lower and right lower and diminished lung sounds bilateral Cardio: Rate: regular rate Rhythm: regular rhythm GI: Inspection: non-distended Auscultation: normal bowel sounds : General: Yes bladder normal to palpation Bimanual exam- vagina & uterus: bladder normal to palpation Neuro: Cranial nerves: Yes Equal, round and reactive pupils present Motor exam (neuro): 5/5 motor strength present throughout Extrem: General: no edema Objective Data Vital Signs Vital Signs: Vital Signs - 24 hr 01/30/25 19:35 01/30/25 19:37 01/30/25 20:04 Temperature 98.0 F Pulse Rate 100 Respiratory Rate 28 H Blood Pressure 156/98 H Pulse Oximetry 56 L 100 100 Oxygen Delivery Room Air Non-Rebreather Mask Nasal Cannula Oxygen Flow Rate 15 4 Fraction of Inspired Oxygen 01/30/25 20:50 01/30/25 20:50 01/30/25 21:30 Temperature Pulse Rate 89 96 Respiratory Rate 20 21 H Blood Pressure 147/82 H Pulse Oximetry 99 100 Oxygen Delivery Nasal Cannula Oxygen Flow Rate 4 Fraction of Inspired Oxygen 01/30/25 21:31 01/30/25 21:45 01/30/25 21:46 Temperature Pulse Rate 92 88 87 Respiratory Rate 23 H 20 19 Blood Pressure 147/82 H 126/68 Pulse Oximetry 100 100 98 Oxygen Delivery Oxygen Flow Rate Fraction of Inspired Oxygen 01/30/25 21:47 01/30/25 22:00 01/30/25 22:01 Temperature Pulse Rate 87 84 84 Respiratory Rate 22 H 17 16 Blood Pressure 117/62 Pulse Oximetry 94 100 100 Oxygen Delivery Oxygen Flow Rate Fraction of Inspired Oxygen 01/30/25 22:15 01/30/25 22:16 01/30/25 22:30 Temperature Pulse Rate 81 81 81 Respiratory Rate 17 16 16 Blood Pressure 115/67 Pulse Oximetry 100 100 100 Oxygen Delivery Oxygen Flow Rate Fraction of Inspired Oxygen 01/30/25 22:31 01/30/25 22:45 01/30/25 22:46 Temperature Pulse Rate 85 94 92 Respiratory Rate 20 22 H 23 H Blood Pressure 124/64 148/75 H Pulse Oximetry 100 100 100 Oxygen Delivery Oxygen Flow Rate Fraction of Inspired Oxygen 01/30/25 23:00 01/30/25 23:20 01/31/25 01:12 Temperature 97.7 F Pulse Rate 84 78 Respiratory Rate 23 H 14 Blood Pressure 129/89 Pulse Oximetry 100 100 100 Oxygen Delivery Nasal Cannula Oxygen Flow Rate 2 Fraction of Inspired Oxygen 01/31/25 01:12 01/31/25 01:56 01/31/25 04:00 Temperature Pulse Rate 81 79 71 Respiratory Rate Blood Pressure Pulse Oximetry 90 Oxygen Delivery Autopap Oxygen Flow Rate Fraction of Inspired Oxygen 01/31/25 04:00 01/31/25 04:00 01/31/25 05:02 Temperature 98.1 F Pulse Rate 93 Respiratory Rate 18 Blood Pressure 179/93 H 168/88 H Pulse Oximetry 99 98 Oxygen Delivery Nasal Cannula Oxygen Flow Rate 3 Fraction of Inspired Oxygen 01/31/25 05:02 01/31/25 05:57 Temperature Pulse Rate 81 80 Respiratory Rate 20 Blood Pressure Pulse Oximetry 94 Oxygen Delivery Nasal Cannula Oxygen Flow Rate 2 Fraction of Inspired Oxygen 28 Intake/Output Intake/Output: Intake & Output 01/28/25 01/29/25 01/30/25 01/31/25 23:59 23:59 23:59 23:59 Intake Total 1350 34.9 Output Total 0 Balance 1350 34.9 Meds/Results Medications: Active Medications Generic Name Dose Route Start Last Admin Trade Name Freq PRN Reason Stop Dose Admin Acetaminophen 650 mg 01/30/25 21:25 Acetaminophen 325 Mg Tablet PO Q4H PRN Mild Pain (1-3) or Fever Albuterol/Ipratropium 3 ml 01/31/25 02:57 Ipratropium 0.5 Mg/Albuterol Sulfate 2.5 Mg (Base) Ampul.Neb 3 Ml INHALATION Q6HRT PRN shortness of breath Heparin Sodium (Porcine) 3,500 units 01/30/25 20:45 01/31/25 04:23 Heparin Sodium 5,000 Units/Ml Vial IV PUSH 3,500 units PRN PRN Administration aPTT less than 55 seconds Heparin Sodium (Porcine) 1,500 units 01/30/25 20:45 Heparin Sodium 5,000 Units/Ml Vial IV PUSH PRN PRN aPTT 55 - 70 seconds Heparin Sodium/Dextrose 25,000 units in 250 mls @ 7 mls/hr 01/30/25 20:45 01/31/25 04:25 Heparin Sodium/D5w 100 Units/Ml IV CONT 700 units/hr .Q24H JOVANY 7 mls/hr Protocol Titration 700 UNITS/HR Ondansetron HCl 4 mg 01/30/25 21:25 Ondansetron Inj 4 Mg/2 Ml Vial IV PUSH Q4H PRN Nausea Radiology Results: ITS Impressions Chest X-Ray 01/30/25 20:23 IMPRESSION: Bilateral perihilar opacities. Chest CT 01/30/25 20:43 IMPRESSION: No acute cardiopulmonary process. All CT scans at this facility are performed using low dose modulation techniques as appropriate to perform exam including the following: automated exposure control; use of iterative reconstruction technique; adjustment of the mA and/or kV according to patient size (this includes techniques or standardized protocols for targeted exams where dose is matched to indication/reason for exam). Labs Labs: Laboratory Results - last 24 hr 01/30/25 01/30/25 01/30/25 19:57 19:57 19:57 WBC 5.0 RBC 3.79 L Hgb 11.7 L D Hct 37.8 MCV 99.7 MCH 30.9 MCHC 31.0 L RDW 12.6 Plt Count 177 MPV 10.6 H Immature Gran % (Auto) 0.2 Neut % (Auto) 71.6 Lymph % (Auto) 8.8 L [place] % (Auto) 18.2 H Eos % (Auto) 0.4 Baso % (Auto) 0.8 Lymph # (Auto) 0.44 L [place] # (Auto) 0.9 H Eos # (Auto) 0.0 Baso # (Auto) 0.0 Abs Immat Gran (auto) 0.01 Absolute Neuts (auto) 3.6 Absolute Nucleated RBC 0.000 Nucleated RBC % 0.0 PT INR APTT Sodium Cancelled 139 Potassium Cancelled 3.6 Chloride Cancelled Carbon Dioxide Anion Gap BUN Creatinine Estim Creat Clear Calc Estimated GFR Glucose Lactic Acid Calcium Magnesium Total Bilirubin AST ALT Alkaline Phosphatase Troponin I Total Protein Albumin Influenza A (RT-PCR) Influenza B (RT-PCR) RSV (RT-PCR) SARS-CoV-2 RNA (RT-PCR) 01/30/25 01/30/25 01/30/25 19:57 19:57 19:57 WBC RBC Hgb Hct MCV MCH MCHC RDW Plt Count MPV Immature Gran % (Auto) Neut % (Auto) Lymph % (Auto) [place] % (Auto) Eos % (Auto) Baso % (Auto) Lymph # (Auto) [place] # (Auto) Eos # (Auto) Baso # (Auto) Abs Immat Gran (auto) Absolute Neuts (auto) Absolute Nucleated RBC Nucleated RBC % PT INR APTT Sodium Potassium Chloride 95 L Carbon Dioxide Cancelled 38 H Anion Gap Cancelled 6 BUN Cancelled Creatinine Estim Creat Clear Calc Estimated GFR Glucose Lactic Acid Calcium Magnesium Total Bilirubin AST ALT Alkaline Phosphatase Troponin I Total Protein Albumin Influenza A (RT-PCR) Influenza B (RT-PCR) RSV (RT-PCR) SARS-CoV-2 RNA (RT-PCR) 01/30/25 01/30/25 01/30/25 19:57 19:57 19:57 WBC RBC Hgb Hct MCV MCH MCHC RDW Plt Count MPV Immature Gran % (Auto) Neut % (Auto) Lymph % (Auto) [place] % (Auto) Eos % (Auto) Baso % (Auto) Lymph # (Auto) [place] # (Auto) Eos # (Auto) Baso # (Auto) Abs Immat Gran (auto) Absolute Neuts (auto) Absolute Nucleated RBC Nucleated RBC % PT INR APTT Sodium Potassium Chloride Carbon Dioxide Anion Gap BUN 32 H Creatinine Cancelled 0.65 L Estim Creat Clear Calc Cancelled Not Reportable Estimated GFR Cancelled Glucose Lactic Acid Calcium Magnesium Total Bilirubin AST ALT Alkaline Phosphatase Troponin I Total Protein Albumin Influenza A (RT-PCR) Influenza B (RT-PCR) RSV (RT-PCR) SARS-CoV-2 RNA (RT-PCR) 01/30/25 01/30/25 01/30/25 19:57 19:57 19:57 WBC RBC Hgb Hct MCV MCH MCHC RDW Plt Count MPV Immature Gran % (Auto) Neut % (Auto) Lymph % (Auto) [place] % (Auto) Eos % (Auto) Baso % (Auto) Lymph # (Auto) [place] # (Auto) Eos # (Auto) Baso # (Auto) Abs Immat Gran (auto) Absolute Neuts (auto) Absolute Nucleated RBC Nucleated RBC % PT INR APTT Sodium Potassium Chloride Carbon Dioxide Anion Gap BUN Creatinine Estim Creat Clear Calc Estimated GFR > 60 Glucose Cancelled 190 H Lactic Acid 2.3 H Calcium Cancelled 8.7 Magnesium Total Bilirubin Cancelled AST ALT Alkaline Phosphatase Troponin I Total Protein Albumin Influenza A (RT-PCR) Influenza B (RT-PCR) RSV (RT-PCR) SARS-CoV-2 RNA (RT-PCR) 01/30/25 01/30/25 01/30/25 19:57 19:57 19:57 WBC RBC Hgb Hct MCV MCH MCHC RDW Plt Count MPV Immature Gran % (Auto) Neut % (Auto) Lymph % (Auto) [place] % (Auto) Eos % (Auto) Baso % (Auto) Lymph # (Auto) [place] # (Auto) Eos # (Auto) Baso # (Auto) Abs Immat Gran (auto) Absolute Neuts (auto) Absolute Nucleated RBC Nucleated RBC % PT INR APTT Sodium Potassium Chloride Carbon Dioxide Anion Gap BUN Creatinine Estim Creat Clear Calc Estimated GFR Glucose Lactic Acid Calcium Magnesium Total Bilirubin 0.9 AST Cancelled 44 H ALT Cancelled 35 Alkaline Phosphatase Cancelled Troponin I Total Protein Albumin Influenza A (RT-PCR) Influenza B (RT-PCR) RSV (RT-PCR) SARS-CoV-2 RNA (RT-PCR) 01/30/25 01/30/25 01/30/25 19:57 19:57 19:57 WBC RBC Hgb Hct MCV MCH MCHC RDW Plt Count MPV Immature Gran % (Auto) Neut % (Auto) Lymph % (Auto) [place] % (Auto) Eos % (Auto) Baso % (Auto) Lymph # (Auto) [place] # (Auto) Eos # (Auto) Baso # (Auto) Abs Immat Gran (auto) Absolute Neuts (auto) Absolute Nucleated RBC Nucleated RBC % PT INR APTT Sodium Potassium Chloride Carbon Dioxide Anion Gap BUN Creatinine Estim Creat Clear Calc Estimated GFR Glucose Lactic Acid Calcium Magnesium Total Bilirubin AST ALT Alkaline Phosphatase 86 Troponin I 0.048 H* Total Protein Cancelled 6.8 Albumin Cancelled 3.7 Influenza A (RT-PCR) Influenza B (RT-PCR) RSV (RT-PCR) SARS-CoV-2 RNA (RT-PCR) 01/30/25 01/30/25 01/31/25 21:29 22:45 03:40 WBC 4.4 L RBC 3.82 L Hgb 12.0 Hct 38.5 MCV 100.8 H MCH 31.4 MCHC 31.2 L RDW 12.6 Plt Count 154 MPV 10.8 H Immature Gran % (Auto) 0.2 Neut % (Auto) 89.1 H Lymph % (Auto) 6.1 L [place] % (Auto) 4.1 Eos % (Auto) 0.0 Baso % (Auto) 0.5 Lymph # (Auto) 0.27 L [place] # (Auto) 0.2 Eos # (Auto) 0.0 Baso # (Auto) 0.0 Abs Immat Gran (auto) 0.01 Absolute Neuts (auto) 3.9 Absolute Nucleated RBC 0.000 Nucleated RBC % 0.0 PT 13.0 INR 1.0 APTT 32.9 44.7 H Sodium 137 Potassium 3.9 Chloride 98 Carbon Dioxide 34 H Anion Gap 5 BUN 26 H Creatinine 0.51 L Estim Creat Clear Calc Not Reportable Estimated GFR > 60 Glucose 140 H Lactic Acid 0.9 Calcium 8.4 Magnesium 2.5 H Total Bilirubin AST ALT Alkaline Phosphatase Troponin I 0.047 H* Total Protein Albumin Influenza A (RT-PCR) Negative Influenza B (RT-PCR) Negative RSV (RT-PCR) Negative SARS-CoV-2 RNA (RT-PCR) Negative
--- NOTE | 2025-01-31 09:53 | P.CONCA_ITS ---
Assessment and Plan Assessment and plan (1) Acute hypoxemic respiratory failure: Code(s): J96.01 - Acute respiratory failure with hypoxia Status: Acute Assessment and Plan: 79-year-old female with nonobstructive CAD (reported to be 30-40% from 09/26/2016 cardiac catheterization), hypertension, severe kyphoscoliosis with related small lung volume (on supplemental oxygen), ANDREINA on BiPAP, history of right RCC. Patient admitted to the hospital with cough, shortness of breath and found to be hypoxemic. EKG shows sinus rhythm, ST T wave abnormalities, which based on previous EKG reports have not significantly changed. -currently being treated with empirical antibiotics; bronchodilators, steroids, supplemental oxygen as needed-management as per primary team. -patient has minimal troponin elevation, 2 sets are essentially flat. NT pro BNP pending. She has history of nonobstructive CAD of LAD based on cardiac catheterization from 09/26/2016. Clinical presentation not suggestive of ACS. May initiate aspirin low-dose and statin. Will check echo with Doppler to assess LV function and wall motion and rule out any progression of valvular heart disease. Will determine need for any further ischemic evaluation. -continue telemetry monitoring for now. -further recommendations will follow as appropriate History of Present Illness History of Present Illness Consult date/time: 01/31/25 09:53 Requesting physician: Willard Mcclure MD Reason For Visit: Hypoxemia requiring oxygen, NSTEMI, COPD exacerbat Narrative: DATE OF CONSULT: 01/31/2025 REASON FOR CONSULT: Elevated troponins REQUESTING PHYSICIAN:Ren CHIEF COMPLAINT: Cough, shortness or breath HPI: 79-year-old female with nonobstructive CAD (reported to be 30-40% from 09/26/2016 cardiac catheterization), hypertension, severe kyphoscoliosis with related small lung volume (on supplemental oxygen), ANDREINA on BiPAP, history of right RCC. Patient presented to [facility] Emergency Room on 02/01/2025 with complaints of worsening shortness of breath and cough. Patient was reportedly hypoxemic at 56% in the ER, placed on non-rebreather. She has limited mobility at baseline. Denies chest pain. EKG at presentation on my personal interpretation showed sinus rhythm, RBBB, ST- T abnormality in the anterolateral leads. Two sets of troponins are minimally elevated at 0.04 and essentially flat. Chest [id number] perihilar opacities. CT chest-No acute cardiopulmonary process. Previous echo from 03/05/2022 reportedly showed normal LV systolic function, grade 1 diastolic dysfunction, [id number] aortic regurgitation, RVSP 44 mmHg. Review of Systems 2 Review of Systems: General: Positive for fatigue Psychological: Negative for anxiety, depression Ophthalmic: negative for loss of vision ENT: Negative for epistaxis, headaches Allergy and immunology: Negative for hives, nasal congestion Hematologic and lymphatic: Negative for overt bleeding problems Endocrine: Negative for hot flashes, palpitations Respiratory: Positive for cough and dyspnea Cardiovascular: Negative for chest pain, positive for dyspnea Gastrointestinal: Negative for abdominal pain, nausea, vomiting, hematochezia Musculoskeletal: Positive for spine deformity Neurological: Positive for weakness Dermatological: Negative for rash, skin discoloration PMFSH Past Medical History Medical History Systolic ejection murmur Overweight (BMI 25.0-29.9) COVID-19 Eczema of external ear Nasal septal deviation Hypertrophy of both inferior nasal turbinates Vasomotor rhinitis Rhinorrhea Presbyphonia Hyperlipidemia Post-polio syndrome Psoriatic arthritis History of deep venous thrombosis or pulmonary embolus Hx of renal calculi Hx of breast cancer Osteoporosis Hypertension COPD (chronic obstructive pulmonary disease) History of kidney cancer Arthritis Surgical History Surgical History H/O lumpectomy History of cholecystectomy History of lithotripsy Family History Family History Father Family history of drug dependence Cerebrovascular accident Family history of lung cancer Patient's father is Family history of arthritis Family history of throat cancer Family history of cardiovascular disease Sibling Patient's brother is in good health Family history of diabetes mellitus in first degree relative Family history of malignant neoplasm of breast in first degree relative, Onset Age: 56 Patient's sister is Family history of arthritis Family history of lymphoma Mother Family history of elevated blood lipids Family history of diabetes mellitus in first degree relative Patient's mother is Family history of arthritis Social History Social History Smoking status: Never smoker Alcohol intake: never Substance use: never Do You Feel Safe in your Home?: Yes Lack of Transportation: No Lack of Food: Never True Current Housing: I Have Housing Concerned About Future Housing: No Difficulty Paying Gas/Electric Bills: No Difficulty Paying for Meds: No Currently Unemployed: No Education: Don't Know Difficulty w/ Childcare or Family Care: No Spiritual care concerns: No Meds Home Medications and Allergies Home Medications ?Medication ?Instructions ?Recorded ?Confirmed ?Type No Home Medications 01/31/25 01/31/25 H istory Allergies Allergy/AdvReac Type Severity Reaction Status Date / Time alendronate sodium Allergy Unknown Abdominal Verified 01/31/25 00:37 pain fentanyl Allergy Unknown Other Verified 01/31/25 00:37 Iodinated Contrast Media Allergy Unknown Unknown Verified 01/31/25 00:37 iodine Allergy Unknown Other Verified 01/31/25 00:37 metoprolol Allergy Unknown Confusion Verified 01/31/25 00:37 Penicillins Allergy Unknown Other Verified 01/31/25 00:37 levofloxacin AdvReac Intermediate fast heart Verified 01/31/25 00:37 rate prednisone AdvReac Unknown RAPID HR, Verified 01/31/25 00:37 HTN Vital Signs Vital Signs - 24 hr 01/30/25 19:35 01/30/25 19:37 01/30/25 20:04 Temperature 36.7 C Pulse Rate 100 Respiratory Rate 28 H Blood Pressure 156/98 H Pulse Oximetry 56 L 100 100 Oxygen Delivery Room Air Non-Rebreather Mask Nasal Cannula Oxygen Flow Rate 15 4 Fraction of Inspired Oxygen 01/30/25 20:50 01/30/25 20:50 01/30/25 21:30 Temperature Pulse Rate 89 96 Respiratory Rate 20 21 H Blood Pressure 147/82 H Pulse Oximetry 99 100 Oxygen Delivery Nasal Cannula Oxygen Flow Rate 4 Fraction of Inspired Oxygen 01/30/25 21:31 01/30/25 21:45 01/30/25 21:46 Temperature Pulse Rate 92 88 87 Respiratory Rate 23 H 20 19 Blood Pressure 147/82 H 126/68 Pulse Oximetry 100 100 98 Oxygen Delivery Oxygen Flow Rate Fraction of Inspired Oxygen 01/30/25 21:47 01/30/25 22:00 01/30/25 22:01 Temperature Pulse Rate 87 84 84 Respiratory Rate 22 H 17 16 Blood Pressure 117/62 Pulse Oximetry 94 100 100 Oxygen Delivery Oxygen Flow Rate Fraction of Inspired Oxygen 01/30/25 22:15 01/30/25 22:16 01/30/25 22:30 Temperature Pulse Rate 81 81 81 Respiratory Rate 17 16 16 Blood Pressure 115/67 Pulse Oximetry 100 100 100 Oxygen Delivery Oxygen Flow Rate Fraction of Inspired Oxygen 01/30/25 22:31 01/30/25 22:45 01/30/25 22:46 Temperature Pulse Rate 85 94 92 Respiratory Rate 20 22 H 23 H Blood Pressure 124/64 148/75 H Pulse Oximetry 100 100 100 Oxygen Delivery Oxygen Flow Rate Fraction of Inspired Oxygen 01/30/25 23:00 01/30/25 23:20 01/31/25 01:12 Temperature 36.5 C Pulse Rate 84 78 Respiratory Rate 23 H 14 Blood Pressure 129/89 Pulse Oximetry 100 100 100 Oxygen Delivery Nasal Cannula Oxygen Flow Rate 2 Fraction of Inspired Oxygen 01/31/25 01:12 01/31/25 01:56 01/31/25 04:00 Temperature Pulse Rate 81 79 71 Respiratory Rate Blood Pressure Pulse Oximetry 90 Oxygen Delivery Autopap Oxygen Flow Rate Fraction of Inspired Oxygen 01/31/25 04:00 01/31/25 04:00 01/31/25 05:02 Temperature 36.7 C Pulse Rate 93 Respiratory Rate 18 Blood Pressure 179/93 H 168/88 H Pulse Oximetry 99 98 Oxygen Delivery Nasal Cannula Oxygen Flow Rate 3 Fraction of Inspired Oxygen 01/31/25 05:02 01/31/25 05:57 01/31/25 08:00 Temperature 36.7 C Pulse Rate 81 80 86 Respiratory Rate 20 12 Blood Pressure 145/69 H Pulse Oximetry 94 100 Oxygen Delivery Nasal Cannula Oxygen Flow Rate 2 Fraction of Inspired Oxygen 28 Exam 2 Narrative: PHYSICAL EXAMINATION: GENERAL: Weak appearing elderly female MENTAL STATUS: affect appropriate to mood EYES: Extraocular movements intact, pallor EARS: External ears appear normal, hearing grossly normal NOSE: Normal and patent, no discharge MOUTH: Mucous membranes moist, tongue normal NECK: Supple, no JVD CHEST: Diminished breath sounds HEART: Normal rate, regular rhythm ABDOMEN: Soft, nontender NEUROLOGICAL: Alert, oriented, normal speech MUSCULOSKELETAL: Spine deformity EXTREMITIES: No pedal edema SKIN: no rash on the exposed area, no cyanosis PSYCHIATRIC: Normal mood, appropriate affect Results Labs and Meds 01/31/25 03:40 01/31/25 03:40 Lab results: Cardiac Enzymes 01/30/25 01/30/25 01/30/25 Range/Units 19:57 19:57 22:45 AST Cancelled 44 H Troponin I 0.048 H* 0.047 H* (0.000-0.034) ng/mL Coagulation 01/30/25 01/31/25 Range/Units 21:29 03:40 PT 13.0 (11.1-14.7) Seconds APTT 32.9 44.7 H (22.3-36.8) Seconds CBC 01/30/25 01/31/25 Range/Units 19:57 03:40 WBC 5.0 4.4 L (4.5-10.0) K/mm3 RBC 3.79 L 3.82 L (4.2-5.4) M/mm3 Hgb 11.7 L D 12.0 (12.0-15.0) g/dL Hct 37.8 38.5 (37.0-47.0) % Plt Count 177 154 (150-375) k/mm3 Lymph # (Auto) 0.44 L 0.27 L (0.9-3.2) K/mm3 [place] # (Auto) 0.9 H 0.2 (0.1-0.6) K/mm3 Eos # (Auto) 0.0 0.0 (0-0.3) K/mm3 Baso # (Auto) 0.0 0.0 (0.0-0.1) K/mm3 Comprehensive Metabolic Panel 01/30/25 01/30/25 01/30/25 Range/Units 19:57 19:57 19:57 Sodium Cancelled 139 Potassium Cancelled 3.6 Chloride Cancelled Carbon Dioxide BUN Creatinine Glucose Calcium AST ALT Alkaline Phosphatase Total Protein Albumin 01/30/25 01/30/25 01/30/25 Range/Units 19:57 19:57 19:57 Sodium Potassium Chloride 95 L Carbon Dioxide Cancelled 38 H BUN Cancelled 32 H Creatinine Cancelled Glucose Calcium AST ALT Alkaline Phosphatase Total Protein Albumin 01/30/25 01/30/25 01/30/25 Range/Units 19:57 19:57 19:57 Sodium Potassium Chloride Carbon Dioxide BUN Creatinine 0.65 L Glucose Cancelled 190 H Calcium Cancelled 8.7 AST Cancelled ALT Alkaline Phosphatase Total Protein Albumin 01/30/25 01/30/25 01/30/25 Range/Units 19:57 19:57 19:57 Sodium Potassium Chloride Carbon Dioxide BUN Creatinine Glucose Calcium AST 44 H ALT Cancelled 35 Alkaline Phosphatase Cancelled 86 Total Protein Cancelled Albumin 01/30/25 01/30/25 01/31/25 Range/Units 19:57 19:57 03:40 Sodium 137 Potassium 3.9 Chloride 98 Carbon Dioxide 34 H BUN 26 H Creatinine 0.51 L Glucose 140 H Calcium 8.4 AST ALT Alkaline Phosphatase Total Protein 6.8 Albumin Cancelled 3.7 Intake and Output 01/30/25 01/31/25 01/31/25 23:59 07:59 15:59 Intake Total 1350 34.9 Output Total 0 Balance 1350 34.9 Intake: IV 1350 34.9 Heparin Sod/D5w 100 Units/ml 25 34.9 ,000 units In 250 ml @ 700 UNITS/HR 7 mls/hr IV CONT .Q24H [facility] Rx#:[id number] Lactated Ringers 1,000 ml @ 999 1000 mls/hr IV CONT .Q1H1M [facility] Rx#: [id number] Azithromycin IV 500 mg In 250 Sodium Chloride 0.9% IV 250 ml @ 250 mls/hr IVPB ONCE ONE Rx#: [id number] Magnesium Sulf 2 gm/Water 50Ml 50 2 gm In 50 ml @ 50 mls/hr IVPB ONCE ONE Rx#:[id number] cefTRIAXone 1 gm In Sodium 50 Chloride 0.9% IV 50 ml @ 100 mls/hr IVPB ONCE STA Rx#: [id number] Output: Urine 0 Patient Weight 01/31/25 23:59 Weight 42.1 kg
[2025-01-31 10:31] LABS: Partial Thromboplastin Time 96.4 Seconds (22.3-36.8)
[2025-01-31 10:49] LABS: NT Pro B Type Natriuretic Pept 15400 pg/mL (19.9-100)
[2025-01-31] MEDS: ATORVASTATIN 20 MG TABLET PO (13:08)
[2025-01-31] MEDS: ASPIRIN 81 MG ENTERIC TABLET PO (13:08)
[2025-01-31] MEDS: PERFLUTREN LIPID MICROSPHERES 1.5 ML VIAL DILUTED TO 10 ML TOTAL VOLUME IV PUSH (15:20)
--- NOTE | 2025-01-31 16:15 | IVDEFINITY ---
Prior to administration of IV Definity the patient was educated on the risks and benefits of the imaging enhancing agent including potential adverse side effects. The patient verbalized understanding. Allergies were verified. No exclusion criteria were identified and at least one of the following inclusion criteria were met: 1) physician request, 2) patient technically difficult to image (per the [place] [employer] guidelines of two or more segments not discernable within the apical view), or 3) questionable left ventricular function. ?
[2025-01-31] MEDS: FUROSEMIDE INJ 40 MG/4 ML VIAL IV PUSH (17:03)
[2025-01-31] MEDS: POTASSIUM CHLORIDE 20 MEQ PACKET (FOR LIQUID) 40 MEQ PO (17:04)
--- NOTE | 2025-01-31 22:49 | PC.NURSE ---
at 2100 pt took off telly box, got out of bed, ripped out IV, took O2 out oxygen dropped to 74% pt orientated to self only was redirected back to bed and oxygen placed back on pt O2 came back to normal level
--- NOTE | 2025-01-31 23:22 | PC.NURSE ---
pt ripped o2 mask off that respiratory had put on. Pt droped down to 69% lips turned blue. Luiza RAY, Di RAY and myself went into the room switched pt over to non-rebreather. called respiratory. Pt recovered and stating 94 % on 2 L non-rebreather.
[2025-02-01] VITALS (22 sets, daily range): BP systolic 155–170; BP diastolic 71–91; PULSE 74–106; RESP 16–23; TEMP 36.5–37.3; O2SAT 91–100
[2025-02-01 04:43] LABS: Alanine Aminotransferase 24 U/L (6-35); Albumin Level 3.3 g/dL (3.5-5.1); Alkaline Phosphatase 75 U/L (38-126); Aspartate Amino Transferase 34 U/L (14-36); Bilirubin,Total 0.4 mg/dL (0.2-1.3); Blood Urea Nitrogen 25 mg/dL (7-17); Calcium 8.1 mg/dL (8.4-10.2); Chloride 94 mmol/L (98-107); Estimated Glomerular Filt Rate > 60; Glucose 97 mg/dL (65-110); Magnesium 2.0 mg/dL (1.6-2.3); Potassium 3.7 mmol/L (3.4-5.0); Sodium 137 mmol/L (137-145); Total Protein 6.0 g/dL (6.3-8.2)
[2025-02-01 04:51] LABS: Carbon Dioxide > 40 mmol/L (22-30)
[2025-02-01 08:23] LABS: Hematocrit 36.1 % (37.0-47.0); Hemoglobin 11.1 g/dL (12.0-15.0); Immature Granulocyte Percent A 0.2 % (0-0.5); Lymphocytes Absolute Auto 0.65 K/mm3 (0.9-3.2); Mean Corpuscular HGB Conc 30.7 g/dl (32-36); Mean Corpuscular Hemoglobin 31.2 pg (26-34); Mean Corpuscular Volume 101.4 fl (80-100); Nucleated Red Blood Cells Absolute Auto 0.000 K/mm3 (0.0-0.012); Nucleated Red Blood Cells Perc 0.0 % (0.0-0.2); Platelet Count Result 165 k/mm3 (150-375); Red Blood Count 3.56 M/mm3 (4.2-5.4); White Blood Count 5.3 K/mm3 (4.5-10.0)
[2025-02-01] MEDS: ATORVASTATIN 20 MG TABLET PO (09:02)
[2025-02-01] MEDS: ASPIRIN 81 MG ENTERIC TABLET PO (09:02)
--- NOTE | 2025-02-01 10:13 | PM.IMPN ---
Progress Note: A&P Assessment and Plan (1) Elevated troponin: Code(s): R79.89 - Other specified abnormal findings of blood chemistry Status: Acute Assessment and Plan: CAD with moderate stenosis of mid left anterior descending artery --> troponin 0.048, repeat 0.047. --denied chest pain. --Administered aspirin 325 mg p.o. x1 in the ER. --EKG demonstrated sinus rhythm, right bundle branch block, ST depressions in V4 V5 V6 which were similar to EKG in 2016, -- repeat EKG after ER treatment revealed improvement in those ST depressions. -- Cardiology consulted, appreciate recommendations. --echo done demonstrating EF of 50-55% with severe pulm HTN and PASP of 77mmHG and severe with FARRAH of 0.8cm2 -unclear if her SOB is secondary to her severe vs severe pulm HTN. Can follow up on OP basis to discuss if TAVR candidate -monitor volume status closely she was given dose of IV lasix yesterday and does not appear overloaded at this time. (2) Acute exacerbation of chronic obstructive pulmonary disease: Code(s): J44.1 - Chronic obstructive pulmonary disease with (acute) exacerbation Status: Acute Assessment and Plan: --->in ER on arrival hypoxic at 56%, placed on non-rebreather. Tachypnea, productive cough on examination with coarse breath sounds. Weaned down to 2 L nasal cannula --> given Decadron 6 mg IV x1, magnesium 2 g rider, DuoNeb, aspirin, 1 L lactated Ringer's, ceftriaxone, azithromycin in ER. - CT chest without contrast demonstrates small lung volumes, severe scoliosis, however no acute cardiopulmonary process. - Quad viral screen negative. - Initial troponin 0.048, lactic acid 2.3. - PRN albuterol nebs - Patient with confusion over night and this morning oriented x2. Blood gas and UA ordered. - Blood gas obtained initially: pH 7.339, PCO2 81.7, P02 79.5, HC03 43.0. Patient placed on bipap. - Repeat blood gas: pH 7.377, PCO2 76.8, P02 72.6, HC03 44.1. - Repeat blood gas: pH 7.427, PCO2 65.6.8, P02 128.1, HC03 42.3. - Pulmonology consult placed. - Azithromycin 500 mg IVPB daily, Guaifenesin 600 mg PO q12, PEP therapy q6, and Duo neb changed to routine. - Recheck blood gas in the AM (3) ANDREINA (obstructive sleep apnea): Code(s): G47.33 - Obstructive sleep apnea (adult) (pediatric) Status: Acute Assessment and Plan: continue with CPAP at HS per home setting. (4) Acute hypoxemic respiratory failure: Code(s): J96.01 - Acute respiratory failure with hypoxia Status: Acute Assessment and Plan: ---> - lacctic acidosis: 2.3 on admission, resolved status post resolution of acute hypoxic respiratory failure, --she did receive fluids -- monitor closely Subjective Date/time seen: 02/01/25 10:13 Interval history: Patient sleepy when rounded and oriented x2. Patient had confusion overnight pulling off oxygen. Sitter at bedside at present. Denies any pain. Review of Systems Review of Systems: All systems reviewed & are unremarkable except as noted in HPI and below Exam Const: General: comfortable Eyes: Pupils: Equal, round and reactive pupils present Neck: Neck: supple Resp: Effort & Inspection: normal respiratory effort Auscultation: rhonchi left lower and right lower and diminished lung sounds bilateral Cardio: Rate: regular rate Rhythm: regular rhythm Heart sounds: Murmur heart sound present systolic Other: Tele SR 66. GI: Inspection: non-distended GI Palp: Yes Soft to palpation Auscultation: normal bowel sounds Neuro: Cranial nerves: Yes Equal, round and reactive pupils present Motor exam (neuro): 5/5 motor strength present throughout Extrem: General: no edema Psych: Other: Oriented to person and year. Objective Data Vital Signs Vital Signs: Vital Signs - 24 hr 01/31/25 11:26 01/31/25 12:00 01/31/25 12:00 Temperature 97.8 F Pulse Rate 93 101 H Respiratory Rate 20 Blood Pressure 168/69 H Pulse Oximetry 93 93 Oxygen Delivery Nasal Cannula Oxygen Flow Rate 2 01/31/25 14:00 01/31/25 15:09 01/31/25 16:00 Temperature 97.6 F Pulse Rate 101 H 97 Respiratory Rate 12 Blood Pressure 170/74 H Pulse Oximetry 100 92 Oxygen Delivery Nasal Cannula Oxygen Flow Rate 2 01/31/25 16:00 01/31/25 18:00 01/31/25 19:55 Temperature Pulse Rate 100 102 H Respiratory Rate Blood Pressure Pulse Oximetry 100 Oxygen Delivery Nasal Cannula Oxygen Flow Rate 2 01/31/25 20:00 01/31/25 20:00 01/31/25 22:00 Temperature 98.6 F Pulse Rate 106 H 98 94 Respiratory Rate 14 Blood Pressure 166/79 H Pulse Oximetry 100 Oxygen Delivery Oxygen Flow Rate 01/31/25 22:45 01/31/25 22:45 02/01/25 00:00 Temperature 98.3 F Pulse Rate 96 96 100 Respiratory Rate 18 Blood Pressure 170/80 H Pulse Oximetry 99 99 100 Oxygen Delivery Autopap CPAP Oxygen Flow Rate 2 02/01/25 00:00 02/01/25 02:00 02/01/25 02:15 Temperature Pulse Rate 85 78 106 H Respiratory Rate Blood Pressure Pulse Oximetry 93 Oxygen Delivery Oxygen Flow Rate 02/01/25 04:00 02/01/25 04:00 02/01/25 06:00 Temperature 97.8 F Pulse Rate 91 74 82 Respiratory Rate 16 Blood Pressure 155/73 H Pulse Oximetry 94 Oxygen Delivery Oxygen Flow Rate 02/01/25 07:57 Temperature 97.7 F Pulse Rate 96 Respiratory Rate 19 Blood Pressure 160/76 H Pulse Oximetry 95 Oxygen Delivery Oxygen Flow Rate Intake/Output Intake/Output: Intake & Output 01/29/25 01/30/25 01/31/25 02/01/25 23:59 23:59 23:59 23:59 Intake Total 1350 274.9 240 Output Total 0 500 Balance 1350 274.9 -260 Meds/Results Medications: Active Medications Generic Name Dose Route Start Last Admin Trade Name Freq PRN Reason Stop Dose Admin Acetaminophen 650 mg 01/30/25 21:25 Acetaminophen 325 Mg Tablet PO Q4H PRN Mild Pain (1-3) or Fever Albuterol/Ipratropium 3 ml 01/31/25 02:57 Ipratropium 0.5 Mg/Albuterol Sulfate 2.5 Mg (Base) Ampul.Neb 3 Ml INHALATION Q6HRT PRN shortness of breath Aspirin 81 mg 01/31/25 10:30 02/01/25 09:02 Aspirin 81 Mg Enteric Tablet PO 81 mg QAM JOVANY Administration Atorvastatin Calcium 20 mg 01/31/25 10:30 02/01/25 09:02 Atorvastatin 20 Mg Tablet PO 20 mg DAILY JOVANY Administration Heparin Sodium (Porcine) 3,500 units 01/30/25 20:45 01/31/25 04:23 Heparin Sodium 5,000 Units/Ml Vial IV PUSH 3,500 units PRN PRN Administration aPTT less than 55 seconds Heparin Sodium (Porcine) 1,500 units 01/30/25 20:45 Heparin Sodium 5,000 Units/Ml Vial IV PUSH PRN PRN aPTT 55 - 70 seconds Ondansetron HCl 4 mg 01/30/25 21:25 Ondansetron Inj 4 Mg/2 Ml Vial IV PUSH Q4H PRN Nausea Radiology Results: ITS Impressions Chest X-Ray 01/30/25 20:23 IMPRESSION: Bilateral perihilar opacities. Chest CT 01/30/25 20:43 IMPRESSION: No acute cardiopulmonary process. All CT scans at this facility are performed using low dose modulation techniques as appropriate to perform exam including the following: automated exposure control; use of iterative reconstruction technique; adjustment of the mA and/or kV according to patient size (this includes techniques or standardized protocols for targeted exams where dose is matched to indication/reason for exam). Labs Labs: Laboratory Results - last 24 hr 01/31/25 01/31/25 02/01/25 03:40 10:09 03:52 WBC 5.3 RBC 3.56 L Hgb 11.1 L Hct 36.1 L MCV 101.4 H MCH 31.2 MCHC 30.7 L RDW 12.5 Plt Count 165 MPV 11.1 H Immature Gran % (Auto) 0.2 Neut % (Auto) 71.0 Lymph % (Auto) 12.3 L [place] % (Auto) 15.7 H Eos % (Auto) 0.2 Baso % (Auto) 0.6 Lymph # (Auto) 0.65 L [place] # (Auto) 0.8 H Eos # (Auto) 0.0 Baso # (Auto) 0.0 Abs Immat Gran (auto) 0.01 Absolute Neuts (auto) 3.8 Absolute Nucleated RBC 0.000 Nucleated RBC % 0.0 APTT 96.4 H Sodium 137 Potassium 3.7 Chloride 94 L Carbon Dioxide > 40 H Anion Gap BUN 25 H Creatinine 0.63 L Estim Creat Clear Calc Not Reportable Estimated GFR > 60 Glucose 97 Calcium 8.1 L Magnesium 2.0 Total Bilirubin 0.4 AST 34 ALT 24 Alkaline Phosphatase 75 NT-Pro-B Natriuret Pep 74152 H Total Protein 6.0 L Albumin 3.3 L Quality VTE Prophylaxis VTE prophylaxis: mechanical ordered
--- NOTE | 2025-02-01 11:28 | PM.PNCARD ---
Progress Note: A&P Assessment and Plan (1) Acute hypoxemic respiratory failure: Code(s): J96.01 - Acute respiratory failure with hypoxia Status: Acute Assessment and Plan: 79-year-old female with nonobstructive CAD (reported to be 30-40% from 09/26/2016 cardiac catheterization), hypertension, severe kyphoscoliosis with related small lung volume (on supplemental oxygen), ANDREINA on BiPAP, history of right RCC. Patient admitted to the hospital with cough, shortness of breath and found to be hypoxemic. EKG shows sinus rhythm, ST T wave abnormalities, which based on previous EKG reports have not significantly changed. -currently being treated with empirical antibiotics; bronchodilators, steroids, supplemental oxygen as needed-management as per primary team. -patient has minimal troponin elevation, 2 sets are essentially flat. NT pro BNP elevated at 15,400. She has history of nonobstructive CAD of LAD based on cardiac catheterization from 09/26/2016. Clinical presentation not suggestive of ACS, no plan for LHC at this time. May initiate aspirin low-dose and statin. -echo done demonstrating EF of 50-55% with severe pulm HTN and PASP of 77mmHG and severe with FARRAH of 0.8cm2 -unclear if her SOB is secondary to her severe vs severe pulm HTN. Can follow up on OP basis to discuss if TAVR candidate -monitor volume status closely she was given dose of IV lasix yesterday and does not appear overloaded at this time -her BP however, is elevated and will add losartan for better BP control -continue telemetry monitoring for now. -further recommendations will follow as appropriate Subjective Date/time seen: 02/01/25 11:28 Interval history: 02/01/25: Patient is lying in bed. Sitter is at bedside. She is sleeping, but arouses to voice. She states breathing much easier this am. No chest pain or pressure. Review of Systems Review of Systems: General: Positive for fatigue Psychological: Negative for anxiety, depression Ophthalmic: negative for loss of vision ENT: Negative for epistaxis, headaches Allergy and immunology: Negative for hives, nasal congestion Hematologic and lymphatic: Negative for overt bleeding problems Endocrine: Negative for hot flashes, palpitations Respiratory: Positive for cough and dyspnea Cardiovascular: Negative for chest pain, positive for dyspnea Gastrointestinal: Negative for abdominal pain, nausea, vomiting, hematochezia Musculoskeletal: Positive for spine deformity Neurological: Positive for weakness Dermatological: Negative for rash, skin discoloration Exam Narrative: PHYSICAL EXAMINATION: GENERAL: Weak appearing elderly female MENTAL STATUS: affect appropriate to mood EYES: Extraocular movements intact, pallor EARS: External ears appear normal, hearing grossly normal NOSE: Normal and patent, no discharge MOUTH: Mucous membranes moist, tongue normal NECK: Supple, no JVD CHEST: Diminished breath sounds HEART: Normal rate, regular rhythm, systolic murmur III/ ABDOMEN: Soft, nontender NEUROLOGICAL: Alert, oriented, normal speech MUSCULOSKELETAL: Spine deformity EXTREMITIES: No pedal edema SKIN: no rash on the exposed area, no cyanosis PSYCHIATRIC: Normal mood, appropriate affect Objective Data Vital Signs Vital Signs: Vital Signs - 24 hr 01/31/25 12:00 01/31/25 12:00 01/31/25 14:00 Temperature 36.6 C Pulse Rate 93 101 H 101 H Respiratory Rate 20 Blood Pressure 168/69 H Pulse Oximetry 93 Oxygen Delivery Oxygen Flow Rate 01/31/25 15:09 01/31/25 16:00 01/31/25 16:00 Temperature 36.4 C Pulse Rate 97 100 Respiratory Rate 12 Blood Pressure 170/74 H Pulse Oximetry 100 92 Oxygen Delivery Nasal Cannula Oxygen Flow Rate 2 01/31/25 18:00 01/31/25 19:55 01/31/25 20:00 Temperature 37.0 C Pulse Rate 102 H 106 H Respiratory Rate 14 Blood Pressure 166/79 H Pulse Oximetry 100 100 Oxygen Delivery Nasal Cannula Oxygen Flow Rate 2 01/31/25 20:00 01/31/25 22:00 01/31/25 22:45 Temperature Pulse Rate 98 94 96 Respiratory Rate Blood Pressure Pulse Oximetry 99 Oxygen Delivery Autopap Oxygen Flow Rate 01/31/25 22:45 02/01/25 00:00 02/01/25 00:00 Temperature 36.8 C Pulse Rate 96 100 85 Respiratory Rate 18 Blood Pressure 170/80 H Pulse Oximetry 99 100 Oxygen Delivery CPAP Oxygen Flow Rate 2 02/01/25 02:00 02/01/25 02:15 02/01/25 04:00 Temperature 36.6 C Pulse Rate 78 106 H 91 Respiratory Rate 16 Blood Pressure 155/73 H Pulse Oximetry 93 94 Oxygen Delivery Oxygen Flow Rate 02/01/25 04:00 02/01/25 06:00 02/01/25 07:57 Temperature 36.5 C Pulse Rate 74 82 96 Respiratory Rate 19 Blood Pressure 160/76 H Pulse Oximetry 95 Oxygen Delivery Oxygen Flow Rate 02/01/25 08:00 02/01/25 08:00 02/01/25 10:00 Temperature Pulse Rate 94 106 H Respiratory Rate Blood Pressure Pulse Oximetry 100 Oxygen Delivery Nasal Cannula Oxygen Flow Rate 2 Intake/Output Intake/Output: Intake & Output 01/29/25 01/30/25 01/31/25 02/01/25 23:59 23:59 23:59 23:59 Intake Total 1350 274.9 240 Output Total 0 500 Balance 1350 274.9 -260 Meds/Results Medications: Active Medications Generic Name Dose Route Start Last Admin Trade Name Freq PRN Reason Stop Dose Admin Acetaminophen 650 mg 01/30/25 21:25 Acetaminophen 325 Mg Tablet PO Q4H PRN Mild Pain (1-3) or Fever Albuterol/Ipratropium 3 ml 01/31/25 02:57 Ipratropium 0.5 Mg/Albuterol Sulfate 2.5 Mg (Base) Ampul.Neb 3 Ml INHALATION Q6HRT PRN shortness of breath Aspirin 81 mg 01/31/25 10:30 02/01/25 09:02 Aspirin 81 Mg Enteric Tablet PO 81 mg QAM JOVANY Administration Atorvastatin Calcium 20 mg 01/31/25 10:30 02/01/25 09:02 Atorvastatin 20 Mg Tablet PO 20 mg DAILY JOVANY Administration Heparin Sodium (Porcine) 3,500 units 01/30/25 20:45 01/31/25 04:23 Heparin Sodium 5,000 Units/Ml Vial IV PUSH 3,500 units PRN PRN Administration aPTT less than 55 seconds Heparin Sodium (Porcine) 1,500 units 01/30/25 20:45 Heparin Sodium 5,000 Units/Ml Vial IV PUSH PRN PRN aPTT 55 - 70 seconds Ondansetron HCl 4 mg 01/30/25 21:25 Ondansetron Inj 4 Mg/2 Ml Vial IV PUSH Q4H PRN Nausea Radiology Results: ITS Impressions Chest X-Ray 01/30/25 20:23 IMPRESSION: Bilateral perihilar opacities. Chest CT 01/30/25 20:43 IMPRESSION: No acute cardiopulmonary process. All CT scans at this facility are performed using low dose modulation techniques as appropriate to perform exam including the following: automated exposure control; use of iterative reconstruction technique; adjustment of the mA and/or kV according to patient size (this includes techniques or standardized protocols for targeted exams where dose is matched to indication/reason for exam). Labs Labs: Laboratory Results - last 24 hr 02/01/25 03:52 WBC 5.3 RBC 3.56 L Hgb 11.1 L Hct 36.1 L MCV 101.4 H MCH 31.2 MCHC 30.7 L RDW 12.5 Plt Count 165 MPV 11.1 H Immature Gran % (Auto) 0.2 Neut % (Auto) 71.0 Lymph % (Auto) 12.3 L [place] % (Auto) 15.7 H Eos % (Auto) 0.2 Baso % (Auto) 0.6 Lymph # (Auto) 0.65 L [place] # (Auto) 0.8 H Eos # (Auto) 0.0 Baso # (Auto) 0.0 Abs Immat Gran (auto) 0.01 Absolute Neuts (auto) 3.8 Absolute Nucleated RBC 0.000 Nucleated RBC % 0.0 Sodium 137 Potassium 3.7 Chloride 94 L Carbon Dioxide > 40 H Anion Gap BUN 25 H Creatinine 0.63 L Estim Creat Clear Calc Not Reportable Estimated GFR > 60 Glucose 97 Calcium 8.1 L Magnesium 2.0 Total Bilirubin 0.4 AST 34 ALT 24 Alkaline Phosphatase 75 Total Protein 6.0 L Albumin 3.3 L
[2025-02-01 12:52] LABS: Alveolar/Arterial O2 Gradient 82.4 mmHg; Carboxyhemoglobin 0.5 % THb (0-2.0); Fractional Inspired Oxygen 36 %; HCO3 ABG 43.0 mEq/l (22.0-26.0); Methemoglobin ABG 0.1 %THb (0-1.5); Oxygen Content ABG 17.2 %vol (16.0-22.0); Oxygen Saturation ABG 94.4 % (95.0-100.0); PO2 ABG 79.5 mmHg (80.0-100.0); PO2 FiO2 Ratio Arterial Blood 2.21 %; Reduced Hemoglobin 4.9 %THb (0-5.0)
[2025-02-01 12:54] LABS: Liters per Minute 4.0 LPM; Modified Allen's Test Pass; PCO2 ABG 81.7 mmHg (35.0-45.0); Site Drawn RIGHT RADIAL
[2025-02-01 14:18] LABS: Alveolar/Arterial O2 Gradient 124.3 mmHg; Fractional Inspired Oxygen 40 %; HCO3 ABG 44.1 mEq/l (22.0-26.0); Oxygen Content ABG 16.3 %vol (16.0-22.0); Oxygen Saturation ABG 93.5 % (95.0-100.0); PO2 ABG 72.6 mmHg (80.0-100.0); PO2 FiO2 Ratio Arterial Blood 1.81 %
[2025-02-01 14:19] LABS: PCO2 ABG 76.8 mmHg (35.0-45.0)
[2025-02-01 14:20] LABS: Modified Allen's Test Pass; Site Drawn LEFT RADIAL
[2025-02-01] MEDS: LOSARTAN POTASSIUM 25 MG TABLET PO (14:58)
[2025-02-01 15:35] LABS: Alveolar/Arterial O2 Gradient 81.7 mmHg; Carboxyhemoglobin 0.7 % THb (0-2.0); Fractional Inspired Oxygen 40 %; HCO3 ABG 42.3 mEq/l (22.0-26.0); Methemoglobin ABG 0.0 %THb (0-1.5); Oxygen Content ABG 17.4 %vol (16.0-22.0); Oxygen Saturation ABG 98.5 % (95.0-100.0); PO2 ABG 128.1 mmHg (80.0-100.0); PO2 FiO2 Ratio Arterial Blood 3.20 %; Reduced Hemoglobin 1.3 %THb (0-5.0)
[2025-02-01 15:41] LABS: Modified Allen's Test Pass; Non-Invasive Inspiratory Pressure 12 CMH2O; Non-Invasive Vent Rate 4 /MIN; PCO2 ABG 65.6 mmHg (35.0-45.0); Site Drawn LEFT RADIAL
[2025-02-01 15:42] LABS: Non-Invasive Expiratory Pressure 6 CMH2O
[2025-02-01] MEDS: guaiFENesin 12 HR 600 MG TABCR PO ×2 (15:42→21:34)
[2025-02-01] MEDS: AZITHROMYCIN IV 500 MG in SODIUM CHLORIDE 0.9% IV 250 ML IVPB (15:42)
[2025-02-01 17:34] LABS: Add Urine Microscopic? YES; Appearance Urine Clear (Clear); Glucose Urine UA Negative (Negative); Leukocyte Esterase Ur Negative LEU/UL (Negative); Nitrate Urine Negative (Negative); Non Pathogenic Casts 0-2; Specific Grav Ur 1.012 (1.001-1.035)
[2025-02-01] MEDS: IPRATROPIUM 0.5 MG/ALBUTEROL SULFATE 2.5 MG (BASE) AMPUL.NEB 3 ML INHALATION (21:17)
[2025-02-02] VITALS (25 sets, daily range): BP systolic 136–161; BP diastolic 61–68; PULSE 60–89; RESP 17–23; TEMP 36.8–37.2; O2SAT 94–100
[2025-02-02] MEDS: IPRATROPIUM 0.5 MG/ALBUTEROL SULFATE 2.5 MG (BASE) AMPUL.NEB 3 ML INHALATION ×4 (02:14→19:55)
[2025-02-02 04:04] LABS: Hematocrit 35.6 % (37.0-47.0); Hemoglobin 10.9 g/dL (12.0-15.0); Immature Granulocyte Percent A 0.4 % (0-0.5); Lymphocytes Absolute Auto 0.87 K/mm3 (0.9-3.2); Mean Corpuscular HGB Conc 30.6 g/dl (32-36); Mean Corpuscular Hemoglobin 30.8 pg (26-34); Mean Corpuscular Volume 100.6 fl (80-100); Nucleated Red Blood Cells Absolute Auto 0.000 K/mm3 (0.0-0.012); Nucleated Red Blood Cells Perc 0.0 % (0.0-0.2); Platelet Count Result 157 k/mm3 (150-375); Red Blood Count 3.54 M/mm3 (4.2-5.4); White Blood Count 4.5 K/mm3 (4.5-10.0)
[2025-02-02 04:18] LABS: Alanine Aminotransferase 20 U/L (6-35); Albumin Level 3.1 g/dL (3.5-5.1); Alkaline Phosphatase 69 U/L (38-126); Aspartate Amino Transferase 25 U/L (14-36); Bilirubin,Total 0.5 mg/dL (0.2-1.3); Blood Urea Nitrogen 19 mg/dL (7-17); Calcium 8.3 mg/dL (8.4-10.2); Carbon Dioxide > 40 mmol/L (22-30); Chloride 94 mmol/L (98-107); Estimated Glomerular Filt Rate > 60; Glucose 94 mg/dL (65-110); Magnesium 1.9 mg/dL (1.6-2.3); Potassium 3.3 mmol/L (3.4-5.0); Sodium 137 mmol/L (137-145); Total Protein 5.6 g/dL (6.3-8.2)
[2025-02-02 05:41] LABS: Alveolar/Arterial O2 Gradient 113.4 mmHg; Carboxyhemoglobin 0.9 % THb (0-2.0); Fractional Inspired Oxygen 28 %; HCO3 ABG 40.6 mEq/l (22.0-26.0); Methemoglobin ABG 0.0 %THb (0-1.5); Oxygen Content ABG 17.4 %vol (16.0-22.0); Oxygen Saturation ABG 96.6 % (95.0-100.0); PO2 ABG 86.2 mmHg (80.0-100.0); PO2 FiO2 Ratio Arterial Blood 3.08 %; Reduced Hemoglobin 3.1 %THb (0-5.0)
[2025-02-02 05:47] LABS: PCO2 ABG 61.0 mmHg (35.0-45.0)
[2025-02-02 05:48] LABS: Modified Allen's Test Pass; Site Drawn RIGHT RADIAL
[2025-02-02] MEDS: ATORVASTATIN 20 MG TABLET PO (09:24)
[2025-02-02] MEDS: guaiFENesin 12 HR 600 MG TABCR PO ×2 (09:24→21:24)
[2025-02-02] MEDS: LOSARTAN POTASSIUM 25 MG TABLET PO (09:24)
[2025-02-02] MEDS: ASPIRIN 81 MG ENTERIC TABLET PO (09:24)
--- NOTE | 2025-02-02 10:00 | P.PNIM_ITS ---
Progress Note: A&P Assessment and Plan (1) Altered mental status: Code(s): R41.82 - Altered mental status, unspecified Status: Acute Assessment and Plan: Improving DC restraints Could be from hypercarbia although it is improving No leukocytosis UA on admission negative for infection (2) Elevated troponin: Code(s): R79.89 - Other specified abnormal findings of blood chemistry Status: Acute Assessment and Plan: CAD with moderate stenosis of mid left anterior descending artery Troponins flat. denied chest pain. Administered aspirin 325 mg p.o. x1 in the ER. EKG demonstrated sinus rhythm, right bundle branch block, ST depressions in V4 V5 V6 which were similar to EKG in 2016, repeat EKG after ER treatment revealed improvement in those ST depressions. Cardiology consulted, appreciate recommendations. echo done demonstrating EF of 50-55% with severe pulm HTN and PASP of 77mmHG and severe with FARRAH of 0.8cm2 (3) Acute exacerbation of chronic obstructive pulmonary disease: Code(s): J44.1 - Chronic obstructive pulmonary disease with (acute) exacerbation Status: Acute Assessment and Plan: CT chest without contrast demonstrates small lung volumes, severe scoliosis, however no acute cardiopulmonary process. given Decadron 6 mg IV x1, magnesium 2 g Anoop centenob, aspirin, 1 L lactated Ringer's, ceftriaxone, azithromycin in ER. Quad viral screen negative. Pulmonology consult pending Rocephin, Azithromycin 500 mg IVPB daily, Guaifenesin 600 mg PO q12, PEP therapy q6, and Duo neb changed to routine. PCO2 improving on blood gas Will avoid doing steroids due to contraindication tachycardia and hypertension (4) Acute hypoxemic respiratory failure: Code(s): J96.01 - Acute respiratory failure with hypoxia Status: Acute Assessment and Plan: Secondary to above Lactic acidosis resolved old after fluid bolus Improving (5) ANDREINA (obstructive sleep apnea): Code(s): G47.33 - Obstructive sleep apnea (adult) (pediatric) Status: Acute Assessment and Plan: continue with CPAP at HS per home setting. (6) CAD (coronary artery disease): Code(s): I25.10 - Atherosclerotic heart disease of [place] coronary artery without angina pectoris Status: Acute Assessment and Plan: Continue aspirin, and Cozaar (7) Hypertension: Code(s): I10 - Essential (primary) hypertension Status: Acute Assessment and Plan: Cardiology added Cozaar Time Spent With Patient Time with patient: Greater than 35 minutes Subjective Date/time seen: 02/02/25 10:00 Interval history: 79-year-old female presents the hospital with shortness of Breath found to have acute exacerbation of COPD and elevated troponin Patient is at baseline for her mental status, will transition to oral antibiotics and downgrade patient possible discharge tomorrow Review of Systems Review of Systems: Alzheimer's at baseline ROS unobtainable: Yes unobtainable due to medical condition Exam Narrative: General: well appearing, appears stated age. HEENT: normocephalic, atraumatic. Mucous membranes moist. EOMI, PERRLA, bilateral sclera anicteric, no conjunctival injection. Neck supple without JVD, lymphadenopathy, or bruit. Respiratory: clear to ascultation bilaterally. Productive cough Cardiovascular: Regular rate and rhythm, normal S1-S2 upon ascultation. No murmurs, rubs, or clicks. PMI is nondisplaced, capillary refill less than 3 second. Abdomen: Soft, round, no pulsatile masses, nondistended and nontender. No rebound, no guarding. No CVA tenderness, no hepatosplenomegaly. Bowel sounds p resent to all four quadrants. No high pitch or tinkling sounds, resonant to percussion. Extremities: No cyanosis, clubbing, or edema present. Pulses are palpable 2/2. Active ROM to all four extremities. Neuro: Alert and orientated x 4. PERRLA. Cranial nerves 2-12 intact without focal deficit. Skin: Warm, dry, and intact, without rash, erythema, or lesion. Psych: pleasant, cooperative, normal speech, normal affect, no hallucinations, no dysarthia 1 L nasal cannula Objective Data Vital Signs Vital Signs: Vital Signs - 24 hr 02/01/25 11:46 02/01/25 12:00 02/01/25 12:00 Temperature 98.2 F Pulse Rate 89 81 Respiratory Rate 20 Blood Pressure 161/77 H Pulse Oximetry 98 97 Oxygen Delivery Nasal Cannula Oxygen Flow Rate 2 Fraction of Inspired Oxygen 02/01/25 12:03 02/01/25 13:19 02/01/25 14:00 Temperature Pulse Rate 99 99 Respiratory Rate 22 H Blood Pressure Pulse Oximetry 91 Oxygen Delivery Nasal Cannula BiPAP Oxygen Flow Rate 4 Fraction of Inspired Oxygen 02/01/25 15:48 02/01/25 16:00 02/01/25 16:00 Temperature 97.7 F Pulse Rate 90 83 Respiratory Rate 23 H Blood Pressure 166/91 H Pulse Oximetry 100 100 Oxygen Delivery Nasal Cannula Oxygen Flow Rate 1 Fraction of Inspired Oxygen 02/01/25 16:00 02/01/25 18:00 02/01/25 19:53 Temperature 99.2 F Pulse Rate 90 91 Respiratory Rate 16 Blood Pressure 164/71 H Pulse Oximetry 96 94 Oxygen Delivery Nasal Cannula Oxygen Flow Rate 1 Fraction of Inspired Oxygen 02/01/25 20:00 02/01/25 20:00 02/01/25 21:17 Temperature Pulse Rate 99 83 Respiratory Rate 16 Blood Pressure Pulse Oximetry 95 Oxygen Delivery Nasal Cannula Oxygen Flow Rate 1 Fraction of Inspired Oxygen 02/01/25 21:17 02/01/25 21:25 02/01/25 21:30 Temperature Pulse Rate 83 83 82 Respiratory Rate 18 18 Blood Pressure Pulse Oximetry 99 99 Oxygen Delivery Nasal Cannula BiPAP Oxygen Flow Rate 1 Fraction of Inspired Oxygen 02/01/25 22:00 02/02/25 00:00 02/02/25 00:00 Temperature Pulse Rate 85 79 Respiratory Rate Blood Pressure Pulse Oximetry 97 Oxygen Delivery BiPAP Oxygen Flow Rate Fraction of Inspired Oxygen 28 02/02/25 00:14 02/02/25 02:00 02/02/25 02:15 Temperature 99.0 F Pulse Rate 69 64 60 Respiratory Rate 17 19 Blood Pressure 146/61 H Pulse Oximetry 97 Oxygen Delivery Oxygen Flow Rate Fraction of Inspired Oxygen 02/02/25 02:17 02/02/25 02:22 02/02/25 03:06 Temperature 98.9 F Pulse Rate 60 63 89 Respiratory Rate 19 18 23 H Blood Pressure 136/68 Pulse Oximetry 99 97 Oxygen Delivery BiPAP Oxygen Flow Rate Fraction of Inspired Oxygen 02/02/25 03:10 02/02/25 04:00 02/02/25 05:40 Temperature Pulse Rate 61 Respiratory Rate Blood Pressure Pulse Oximetry 96 100 Oxygen Delivery BiPAP Nasal Cannula Oxygen Flow Rate Fraction of Inspired Oxygen 28 02/02/25 05:43 02/02/25 05:50 02/02/25 06:00 Temperature Pulse Rate 74 Respiratory Rate Blood Pressure Pulse Oximetry 96 96 Oxygen Delivery Nasal Cannula Nasal Cannula Oxygen Flow Rate 1 1 Fraction of Inspired Oxygen 02/02/25 08:00 02/02/25 08:33 02/02/25 08:33 Temperature 98.6 F Pulse Rate 84 79 Respiratory Rate 18 20 Blood Pressure 161/62 H Pulse Oximetry 97 95 Oxygen Delivery Nasal Cannula Oxygen Flow Rate 1 Fraction of Inspired Oxygen 02/02/25 08:42 Temperature Pulse Rate 82 Respiratory Rate 20 Blood Pressure Pulse Oximetry Oxygen Delivery Oxygen Flow Rate Fraction of Inspired Oxygen Intake/Output Intake/Output: Intake & Output 01/30/25 01/31/25 02/01/25 02/02/25 23:59 23:59 23:59 23:59 Intake Total 1350 274.9 480 150 Output Total 0 700 500 Balance 1350 274.9 -220 -350 Meds/Results Medications: Active Medications Generic Name Dose Route Start Last Admin Trade Name Freq PRN Reason Stop Dose Admin Acetaminophen 650 mg 01/30/25 21:25 Acetaminophen 325 Mg Tablet PO Q4H PRN Mild Pain (1-3) or Fever Albuterol/Ipratropium 3 ml 02/01/25 20:00 02/02/25 08:30 Ipratropium 0.5 Mg/Albuterol Sulfate 2.5 Mg (Base) Ampul.Neb 3 Ml INHALATION 3 ml Q6HRT JOVANY Administration Aspirin 81 mg 01/31/25 10:30 02/02/25 09:24 Aspirin 81 Mg Enteric Tablet PO 81 mg QAM JOVANY Administration Atorvastatin Calcium 20 mg 01/31/25 10:30 02/02/25 09:24 Atorvastatin 20 Mg Tablet PO 20 mg DAILY JOVANY Administration Guaifenesin 600 mg 02/01/25 15:15 02/02/25 09:24 Guaifenesin 12 Hr 600 Mg Tabcr PO 02/08/25 15:14 600 mg Q12HR JOVANY Administration Azithromycin 500 mg/ Sodium 250 mls @ 250 mls/hr 02/01/25 16:00 02/01/25 15:42 Chloride IVPB 250 mls/hr Q24H JOVANY Administration Losartan Potassium 25 mg 02/01/25 11:35 02/02/25 09:24 Losartan Potassium 25 Mg Tablet PO 25 mg DAILY JOVANY Administration Ondansetron HCl 4 mg 01/30/25 21:25 Ondansetron Inj 4 Mg/2 Ml Vial IV PUSH Q4H PRN Nausea Radiology Results: ITS Impressions Chest X-Ray 01/30/25 20:23 IMPRESSION: Bilateral perihilar opacities. Chest CT 01/30/25 20:43 IMPRESSION: No acute cardiopulmonary process. All CT scans at this facility are performed using low dose modulation techniques as appropriate to perform exam including the following: automated exposure control; use of iterative reconstruction technique; adjustment of the mA and/or kV according to patient size (this includes techniques or standardized protocols for targeted exams where dose is matched to indication/reason for exam). Labs Labs: Laboratory Results - last 24 hr 01/31/25 02/01/25 02/01/25 08:48 12:49 14:15 WBC RBC Hgb Hct MCV MCH MCHC RDW Plt Count MPV Immature Gran % (Auto) Neut % (Auto) Lymph % (Auto) [place] % (Auto) Eos % (Auto) Baso % (Auto) Lymph # (Auto) [place] # (Auto) Eos # (Auto) Baso # (Auto) Abs Immat Gran (auto) Absolute Neuts (auto) Absolute Nucleated RBC Nucleated RBC % Puncture Site Right radial Left radial ABG pH 7.339 L 7.377 ABG pCO2 81.7 H* 76.8 H* ABG pO2 79.5 L 72.6 L ABG PO2/FiO2 Ratio 2.21 1.81 ABG HCO3 43.0 H 44.1 H ABG O2 Saturation 94.4 L 93.5 L ABG O2 Content 17.2 16.3 ABG Base Excess 13.6 15.5 A-a Gradient 82.4 124.3 Oxyhemoglobin 94.5 93.5 Carboxyhemoglobin 0.5 Methemoglobin 0.1 Reduced Hemoglobin 4.9 Total Hemoglobin 12.9 12.4 O2 Delivery Device Nasal cannula Bipap O2 Liters/Min 4.0 Not Reportable Vent Rate FiO2 36 40 Expiratory Pressure 6 Inspiratory Pressure 12 Sodium Potassium Chloride Carbon Dioxide Anion Gap BUN Creatinine Estim Creat Clear Calc Estimated GFR Glucose Calcium Magnesium Total Bilirubin AST ALT Alkaline Phosphatase Total Protein Albumin Urine Color Urine Appearance Urine pH Ur Specific [place] Urine Protein Urine Glucose (UA) Urine Ketones Ur Blood (Man) Urine Nitrate Urine Bilirubin Urine Urobilinogen Leukocyte Esterase Rfl Urine RBC Urine WBC Ur Squamous Epith Cells Urine Bacteria Urine Casts Chlamy pneumoniae PCR Not detected Adenovirus (PCR) Not detected B. pertussis DNA (PCR) Not detected B.parapertussis DNA PCR Not detected Coronavirus OC43 (PCR) Not detected Coronavirus HKU1 (PCR) Not detected Coronavirus 229E (PCR) Not detected Coronavirus NL63 (PCR) Not detected Human Metapneumovir PCR Not detected Influenza A (H1) PCR Not detected Influ A (H1/09) PCR Not detected Influenza A (H3) PCR Not detected Influenza Type A (PCR) Not detected Influenza Type B (PCR) Not detected M. pneumoniae (PCR) Not detected Parainfluenza 1 (PCR) Not detected Parainfluenza 2 (PCR) Not detected Parainfluenza 3 (PCR) Not detected Parainfluenza 4 (PCR) Not detected RSV (PCR) Not detected Entero/Rhino (PCR) Not detected SARS-CoV-2 (PCR) Not detected 02/01/25 02/01/25 02/02/25 15:22 17:13 03:45 WBC 4.5 RBC 3.54 L Hgb 10.9 L Hct 35.6 L MCV 100.6 H MCH 30.8 MCHC 30.6 L RDW 12.5 Plt Count 157 MPV 10.5 H Immature Gran % (Auto) 0.4 Neut % (Auto) 62.2 Lymph % (Auto) 19.4 [place] % (Auto) 16.9 H Eos % (Auto) 0.7 Baso % (Auto) 0.4 Lymph # (Auto) 0.87 L [place] # (Auto) 0.8 H Eos # (Auto) 0.0 Baso # (Auto) 0.0 Abs Immat Gran (auto) 0.02 Absolute Neuts (auto) 2.8 Absolute Nucleated RBC 0.000 Nucleated RBC % 0.0 Puncture Site Left radial ABG pH 7.427 ABG pCO2 65.6 H* ABG pO2 128.1 H ABG PO2/FiO2 Ratio 3.20 ABG HCO3 42.3 H ABG O2 Saturation 98.5 ABG O2 Content 17.4 ABG Base Excess 15.0 A-a Gradient 81.7 Oxyhemoglobin 98.0 Carboxyhemoglobin 0.7 Methemoglobin 0.0 Reduced Hemoglobin 1.3 Total Hemoglobin 12.5 O2 Delivery Device Non-invasive vent O2 Liters/Min Not Reportable Vent Rate 4 FiO2 40 Expiratory Pressure 6 Inspiratory Pressure 12 Sodium 137 Potassium 3.3 L Chloride 94 L Carbon Dioxide > 40 H Anion Gap BUN 19 H Creatinine 0.59 L Estim Creat Clear Calc Not Reportable Estimated GFR > 60 Glucose 94 Calcium 8.3 L Magnesium 1.9 Total Bilirubin 0.5 AST 25 ALT 20 Alkaline Phosphatase 69 Total Protein 5.6 L Albumin 3.1 L Urine Color Yellow Urine Appearance Clear Urine pH 7.0 Ur Specific [place] 1.012 Urine Protein 1+ H Urine Glucose (UA) Negative Urine Ketones Negative Ur Blood (Man) 2+ H Urine Nitrate Negative Urine Bilirubin Negative Urine Urobilinogen 1.0 Leukocyte Esterase Rfl Negative Urine RBC 21-50 H Urine WBC 0-5 Ur Squamous Epith Cells None seen Urine Bacteria None seen Urine Casts 0-2 Chlamy pneumoniae PCR Adenovirus (PCR) B. pertussis DNA (PCR) B.parapertussis DNA PCR Coronavirus OC43 (PCR) Coronavirus HKU1 (PCR) Coronavirus 229E (PCR) Coronavirus NL63 (PCR) Human Metapneumovir PCR Influenza A (H1) PCR Influ A (H1/09) PCR Influenza A (H3) PCR Influenza Type A (PCR) Influenza Type B (PCR) M. pneumoniae (PCR) Parainfluenza 1 (PCR) Parainfluenza 2 (PCR) Parainfluenza 3 (PCR) Parainfluenza 4 (PCR) RSV (PCR) Entero/Rhino (PCR) SARS-CoV-2 (PCR) 02/02/25 05:17 WBC RBC Hgb Hct MCV MCH MCHC RDW Plt Count MPV Immature Gran % (Auto) Neut % (Auto) Lymph % (Auto) [place] % (Auto) Eos % (Auto) Baso % (Auto) Lymph # (Auto) [place] # (Auto) Eos # (Auto) Baso # (Auto) Abs Immat Gran (auto) Absolute Neuts (auto) Absolute Nucleated RBC Nucleated RBC % Puncture Site Right radial ABG pH 7.441 ABG pCO2 61.0 H* ABG pO2 86.2 ABG PO2/FiO2 Ratio 3.08 ABG HCO3 40.6 H ABG O2 Saturation 96.6 ABG O2 Content 17.4 ABG Base Excess 13.8 A-a Gradient 113.4 Oxyhemoglobin 96.0 Carboxyhemoglobin 0.9 Methemoglobin 0.0 Reduced Hemoglobin 3.1 Total Hemoglobin 12.8 O2 Delivery Device Bipap O2 Liters/Min Not Reportable Vent Rate FiO2 28 Expiratory Pressure 6 Inspiratory Pressure 12 Sodium Potassium Chloride Carbon Dioxide Anion Gap BUN Creatinine Estim Creat Clear Calc Estimated GFR Glucose Calcium Magnesium Total Bilirubin AST ALT Alkaline Phosphatase Total Protein Albumin Urine Color Urine Appearance Urine pH Ur Specific [place] Urine Protein Urine Glucose (UA) Urine Ketones Ur Blood (Man) Urine Nitrate Urine Bilirubin Urine Urobilinogen Leukocyte Esterase Rfl Urine RBC Urine WBC Ur Squamous Epith Cells Urine Bacteria Urine Casts Chlamy pneumoniae PCR Adenovirus (PCR) B. pertussis DNA (PCR) B.parapertussis DNA PCR Coronavirus OC43 (PCR) Coronavirus HKU1 (PCR) Coronavirus 229E (PCR) Coronavirus NL63 (PCR) Human Metapneumovir PCR Influenza A (H1) PCR Influ A (H1/09) PCR Influenza A (H3) PCR Influenza Type A (PCR) Influenza Type B (PCR) M. pneumoniae (PCR) Parainfluenza 1 (PCR) Parainfluenza 2 (PCR) Parainfluenza 3 (PCR) Parainfluenza 4 (PCR) RSV (PCR) Entero/Rhino (PCR) SARS-CoV-2 (PCR) Quality VTE Prophylaxis VTE prophylaxis: mechanical ordered Hospitalist MIPS Advance Care Plan I have confirmed that the patient's Advanced Care Plan is present, code status is documented, or surrogate decision maker is listed in patient medical record.: Yes Medication Reconciliation I have utilized all available resources to obtain, update and review the patients current medications (includes all prescriptions, OTC, herbals, cannabis, and nutritional supplements).: Yes
[2025-02-02] MEDS: AZITHROMYCIN 500 MG TABLET PO (12:30)
--- NOTE | 2025-02-02 12:42 | PCOTNOTE ---
Patient eating lunch. Will continue to follow.
[2025-02-02] MEDS: POTASSIUM CHLORIDE 20 MEQ ER TABLET 40 MEQ PO (13:59)
[2025-02-03] VITALS (14 sets, daily range): BP systolic 111–144; BP diastolic 46–64; PULSE 63–92; RESP 18–25; TEMP 36.7–37; O2SAT 95–100
[2025-02-03] MEDS: IPRATROPIUM 0.5 MG/ALBUTEROL SULFATE 2.5 MG (BASE) AMPUL.NEB 3 ML INHALATION ×4 (02:07→20:02)
[2025-02-03 04:19] LABS: Hematocrit 34.2 % (37.0-47.0); Hemoglobin 10.3 g/dL (12.0-15.0); Immature Granulocyte Percent A 0.4 % (0-0.5); Lymphocytes Absolute Auto 0.72 K/mm3 (0.9-3.2); Mean Corpuscular HGB Conc 30.1 g/dl (32-36); Mean Corpuscular Hemoglobin 31.0 pg (26-34); Mean Corpuscular Volume 103.0 fl (80-100); Nucleated Red Blood Cells Absolute Auto 0.000 K/mm3 (0.0-0.012); Nucleated Red Blood Cells Perc 0.0 % (0.0-0.2); Platelet Count Result 152 k/mm3 (150-375); Red Blood Count 3.32 M/mm3 (4.2-5.4); White Blood Count 4.5 K/mm3 (4.5-10.0)
[2025-02-03 04:34] LABS: Alanine Aminotransferase 16 U/L (6-35); Albumin Level 3.0 g/dL (3.5-5.1); Alkaline Phosphatase 63 U/L (38-126); Aspartate Amino Transferase 22 U/L (14-36); Bilirubin,Total 0.1 mg/dL (0.2-1.3); Blood Urea Nitrogen 18 mg/dL (7-17); Calcium 8.3 mg/dL (8.4-10.2); Chloride 95 mmol/L (98-107); Estimated Glomerular Filt Rate > 60; Glucose 137 mg/dL (65-110); Magnesium 2.0 mg/dL (1.6-2.3); Potassium 3.9 mmol/L (3.4-5.0); Sodium 140 mmol/L (137-145); Total Protein 5.3 g/dL (6.3-8.2)
[2025-02-03 05:03] LABS: Carbon Dioxide > 40 mmol/L (22-30)
--- NOTE | 2025-02-03 08:31 | P.PNIM_ITS ---
Progress Note: A&P Assessment and Plan (1) Acute exacerbation of chronic obstructive pulmonary disease: Code(s): J44.1 - Chronic obstructive pulmonary disease with (acute) exacerbation Status: Acute Assessment and Plan: Improving CT chest without contrast demonstrates small lung volumes, severe scoliosis, however no acute cardiopulmonary process. given Decadron 6 mg IV x1, magnesium 2 g rider, DuoNeb, aspirin, 1 L lactated Ringer's, ceftriaxone, azithromycin in ER. Quad viral screen negative. Pulmonology consult pending Rocephin, Azithromycin 500 mg IVPB daily, Guaifenesin 600 mg PO q12, PEP therapy q6, and Duo neb changed to routine. PCO2 improving on blood gas Will avoid doing steroids due to contraindication tachycardia and hypertension (2) Acute hypoxemic respiratory failure: Code(s): J96.01 - Acute respiratory failure with hypoxia Status: Acute Assessment and Plan: Secondary to above Lactic acidosis resolved old after fluid bolus Improving (3) ANDREINA (obstructive sleep apnea): Code(s): G47.33 - Obstructive sleep apnea (adult) (pediatric) Status: Acute Assessment and Plan: continue with CPAP at HS per home setting. (4) CAD (coronary artery disease): Code(s): I25.10 - Atherosclerotic heart disease of [place] coronary artery without angina pectoris Status: Acute Assessment and Plan: Continue aspirin, and Cozaar (5) Hypertension: Code(s): I10 - Essential (primary) hypertension Status: Acute Assessment and Plan: Cardiology added Cozaar (6) Elevated troponin: Code(s): R79.89 - Other specified abnormal findings of blood chemistry Status: Acute Assessment and Plan: CAD with moderate stenosis of mid left anterior descending artery Troponins flat. denied chest pain. Administered aspirin 325 mg p.o. x1 in the ER. EKG demonstrated sinus rhythm, right bundle branch block, ST depressions in V4 V5 V6 which were similar to EKG in 2016, repeat EKG after ER treatment revealed improvement in those ST depressions. Cardiology consulted, appreciate recommendations. echo done demonstrating EF of 50-55% with severe pulm HTN and PASP of 77mmHG and severe with FARRAH of 0.8cm2 follow up on OP basis to discuss if TAVR candidate (7) Altered mental status: Code(s): R41.82 - Altered mental status, unspecified Status: Acute Assessment and Plan: Resolved-at baseline DC restraints Could be from hypercarbia although it is improving No leukocytosis UA on admission negative for infection PT OT recommended SNF Time Spent With Patient Time with patient: Greater than 35 minutes Subjective Date/time seen: 02/03/25 08:31 Interval history: 79-year-old female presents the hospital with shortness of Breath found to have acute exacerbation of COPD and elevated troponin Patient is at baseline for her mental status, will transition to oral antibiotics and downgrade patient possible discharge tomorrow Patient lives at home with her demented has the care worker that comes will discuss discharge to SNF versus home with her with her children. Likely will do SNF. Medically stable for discharge Review of Systems Review of Systems: Alzheimer's at baseline Exam Narrative: General: well appearing, appears stated age. HEENT: normocephalic, atraumatic. Mucous membranes moist. EOMI, PERRLA, bilateral sclera anicteric, no conjunctival injection. Neck supple without JVD, lymphadenopathy, or bruit. Respiratory: clear to ascultation bilaterally. Productive cough Cardiovascular: Regular rate and rhythm, normal S1-S2 upon ascultation. No murmurs, rubs, or clicks. PMI is nondisplaced, capillary refill less than 3 second. Abdomen: Soft, round, no pulsatile masses, nondistended and nontender. No rebound, no guarding. No CVA tenderness, no hepatosplenomegaly. Bowel sounds present to all four quadrants. No high pitch or tinkling sounds, resonant to percussion. Extremities: No cyanosis, clubbing, or edema present. Pulses are palpable 2/2. Active ROM to all four extremities. Neuro: Alert and orientated x 4. PERRLA. Cranial nerves 2-12 intact without focal deficit. Skin: Warm, dry, and intact, without rash, erythema, or lesion. Psych: pleasant, cooperative, normal speech, normal affect, no hallucinations, no dysarthia 1 L nasal cannula Objective Data Vital Signs Vital Signs: Vital Signs - 24 hr 02/02/25 08:33 02/02/25 08:33 02/02/25 08:42 Temperature Pulse Rate 79 82 Respiratory Rate 20 20 Blood Pressure Pulse Oximetry 95 Oxygen Delivery Nasal Cannula Oxygen Flow Rate 1 02/02/25 10:00 02/02/25 10:47 02/02/25 11:56 Temperature 98.3 F Pulse Rate 87 73 Respiratory Rate 18 Blood Pressure 156/67 H Pulse Oximetry 100 Oxygen Delivery Nasal Cannula Oxygen Flow Rate 4 02/02/25 12:00 02/02/25 12:00 02/02/25 13:55 Temperature Pulse Rate 70 Respiratory Rate Blood Pressure Pulse Oximetry 99 94 Oxygen Delivery Nasal Cannula Nasal Cannula Oxygen Flow Rate 1 1 02/02/25 13:55 02/02/25 14:00 02/02/25 14:10 Temperature Pulse Rate 86 89 78 Respiratory Rate 20 20 Blood Pressure Pulse Oximetry Oxygen Delivery Oxygen Flow Rate 02/02/25 16:00 02/02/25 19:55 02/02/25 19:55 Temperature 98.3 F Pulse Rate 81 81 Respiratory Rate 20 22 H Blood Pressure 137/61 Pulse Oximetry 100 99 Oxygen Delivery Nasal Cannula Oxygen Flow Rate 5 02/02/25 20:04 02/03/25 00:00 02/03/25 02:07 Temperature 98.6 F Pulse Rate 85 74 77 Respiratory Rate 22 H 20 20 Blood Pressure 111/46 L Pulse Oximetry 100 Oxygen Delivery Oxygen Flow Rate 02/03/25 02:12 02/03/25 07:26 02/03/25 07:32 Temperature Pulse Rate 79 91 Respiratory Rate 20 19 Blood Pressure Pulse Oximetry 98 Oxygen Delivery Nasal Cannula Oxygen Flow Rate 4 02/03/25 07:36 02/03/25 07:57 Temperature 98.1 F Pulse Rate 82 92 Respiratory Rate 19 18 Blood Pressure 144/64 H Pulse Oximetry 100 Oxygen Delivery Oxygen Flow Rate Intake/Output Intake/Output: Intake & Output 01/31/25 02/01/25 02/02/25 02/03/25 23:59 23:59 23:59 23:59 Intake Total 274.9 480 1280 240 Output Total 0 700 500 300 Balance 274.9 -220 780 -60 Meds/Results Medications: Active Medications Generic Name Dose Route Start Last Admin Trade Name Freq PRN Reason Stop Dose Admin Acetaminophen 650 mg 01/30/25 21:25 Acetaminophen 325 Mg Tablet PO Q4H PRN Mild Pain (1-3) or Fever Albuterol/Ipratropium 3 ml 02/01/25 20:00 02/03/25 07:26 Ipratropium 0.5 Mg/Albuterol Sulfate 2.5 Mg (Base) Ampul.Neb 3 Ml INHALATION 3 ml Q6HRT JOVANY Administration Aspirin 81 mg 01/31/25 10:30 02/02/25 09:24 Aspirin 81 Mg Enteric Tablet PO 81 mg QAM JOVANY Administration Atorvastatin Calcium 20 mg 01/31/25 10:30 02/02/25 09:24 Atorvastatin 20 Mg Tablet PO 20 mg DAILY JOVANY Administration Azithromycin 500 mg 02/02/25 12:00 02/02/25 12:30 Azithromycin 500 Mg Tablet PO 02/05/25 09:01 500 mg DAILY JOVANY Administration Guaifenesin 600 mg 02/01/25 15:15 02/02/25 21:24 Guaifenesin 12 Hr 600 Mg Tabcr PO 02/08/25 15:14 600 mg Q12HR JOVANY Administration Losartan Potassium 25 mg 02/01/25 11:35 02/02/25 09:24 Losartan Potassium 25 Mg Tablet PO 25 mg DAILY JOVANY Administration Ondansetron HCl 4 mg 01/30/25 21:25 Ondansetron Inj 4 Mg/2 Ml Vial IV PUSH Q4H PRN Nausea Radiology Results: ITS Impressions Chest X-Ray 01/30/25 20:23 IMPRESSION: Bilateral perihilar opacities. Chest CT 01/30/25 20:43 IMPRESSION: No acute cardiopulmonary process. All CT scans at this facility are performed using low dose modulation techniques as appropriate to perform exam including the following: automated exposure control; use of iterative reconstruction technique; adjustment of the mA and/or kV according to patient size (this includes techniques or standardized protocols for targeted exams where dose is matched to indication/reason for exam). Labs Labs: Laboratory Results - last 24 hr 02/03/25 03:44 WBC 4.5 RBC 3.32 L Hgb 10.3 L Hct 34.2 L MCV 103.0 H MCH 31.0 MCHC 30.1 L RDW 12.5 Plt Count 152 MPV 10.2 Immature Gran % (Auto) 0.4 Neut % (Auto) 63.4 Lymph % (Auto) 16.1 L [place] % (Auto) 18.1 H Eos % (Auto) 1.1 Baso % (Auto) 0.9 Lymph # (Auto) 0.72 L [place] # (Auto) 0.8 H Eos # (Auto) 0.1 Baso # (Auto) 0.0 Abs Immat Gran (auto) 0.02 Absolute Neuts (auto) 2.8 Absolute Nucleated RBC 0.000 Nucleated RBC % 0.0 Sodium 140 Potassium 3.9 Chloride 95 L Carbon Dioxide > 40 H Anion Gap BUN 18 H Creatinine 0.64 L Estim Creat Clear Calc Not Reportable Estimated GFR > 60 Glucose 137 H Calcium 8.3 L Magnesium 2.0 Total Bilirubin 0.1 L AST 22 ALT 16 Alkaline Phosphatase 63 Total Protein 5.3 L Albumin 3.0 L Quality VTE Prophylaxis VTE prophylaxis: mechanical ordered
[2025-02-03] MEDS: ASPIRIN 81 MG ENTERIC TABLET PO (08:55)
[2025-02-03] MEDS: AZITHROMYCIN 500 MG TABLET PO (08:55)
[2025-02-03] MEDS: guaiFENesin 12 HR 600 MG TABCR PO ×2 (08:55→20:26)
[2025-02-03] MEDS: ATORVASTATIN 20 MG TABLET PO (08:55)
[2025-02-03] MEDS: LOSARTAN POTASSIUM 25 MG TABLET PO (08:55)
--- NOTE | 2025-02-03 10:16 | PCOTNOTE ---
RN asking to hold to let patient rest and attempt back later.
[2025-02-04] VITALS (14 sets, daily range): BP systolic 139–144; BP diastolic 72–92; PULSE 79–92; RESP 14–25; TEMP 36.8–37.3; O2SAT 93–99
[2025-02-04] MEDS: IPRATROPIUM 0.5 MG/ALBUTEROL SULFATE 2.5 MG (BASE) AMPUL.NEB 3 ML INHALATION ×4 (02:03→20:04)
[2025-02-04 05:59] LABS: Magnesium 1.8 mg/dL (1.6-2.3)
[2025-02-04 06:51] LABS: Hematocrit 35.2 % (37.0-47.0); Hemoglobin 11.0 g/dL (12.0-15.0); Immature Granulocyte Percent A 0.2 % (0-0.5); Lymphocytes Absolute Auto 0.90 K/mm3 (0.9-3.2); Mean Corpuscular HGB Conc 31.3 g/dl (32-36); Mean Corpuscular Hemoglobin 31.1 pg (26-34); Mean Corpuscular Volume 99.4 fl (80-100); Nucleated Red Blood Cells Absolute Auto 0.000 K/mm3 (0.0-0.012); Nucleated Red Blood Cells Perc 0.0 % (0.0-0.2); Platelet Count Result 173 k/mm3 (150-375); Red Blood Count 3.54 M/mm3 (4.2-5.4); White Blood Count 6.0 K/mm3 (4.5-10.0)
--- NOTE | 2025-02-04 07:25 | P.PNIM_ITS ---
Progress Note: A&P Assessment and Plan (1) Acute exacerbation of chronic obstructive pulmonary disease: Code(s): J44.1 - Chronic obstructive pulmonary disease with (acute) exacerbation Status: Acute Assessment and Plan: Improving CT chest without contrast demonstrates small lung volumes, severe scoliosis, however no acute cardiopulmonary process. given Decadron 6 mg IV x1, magnesium 2 g rider, DuoNeb, aspirin, 1 L lactated Ringer's, ceftriaxone, azithromycin in ER. Quad viral screen negative. Pulmonology consult pending Rocephin, Azithromycin 500 mg IVPB daily, Guaifenesin 600 mg PO q12, PEP therapy q6, and Duo neb changed to routine. PCO2 improving on blood gas Will avoid doing steroids due to contraindication tachycardia and hypertension (2) Acute hypoxemic respiratory failure: Code(s): J96.01 - Acute respiratory failure with hypoxia Status: Acute Assessment and Plan: Secondary to above Lactic acidosis resolved old after fluid bolus Improving (3) ANDREINA (obstructive sleep apnea): Code(s): G47.33 - Obstructive sleep apnea (adult) (pediatric) Status: Acute Assessment and Plan: continue with CPAP at HS per home setting. (4) CAD (coronary artery disease): Code(s): I25.10 - Atherosclerotic heart disease of [place] coronary artery without angina pectoris Status: Acute Assessment and Plan: Continue aspirin, and Cozaar (5) Hypertension: Code(s): I10 - Essential (primary) hypertension Status: Acute Assessment and Plan: Cardiology added Cozaar (6) Elevated troponin: Code(s): R79.89 - Other specified abnormal findings of blood chemistry Status: Acute Assessment and Plan: CAD with moderate stenosis of mid left anterior descending artery Troponins flat. denied chest pain. Administered aspirin 325 mg p.o. x1 in the ER. EKG demonstrated sinus rhythm, right bundle branch block, ST depressions in V4 V5 V6 which were similar to EKG in 2016, repeat EKG after ER treatment revealed improvement in those ST depressions. Cardiology consulted, appreciate recommendations. echo done demonstrating EF of 50-55% with severe pulm HTN and PASP of 77mmHG and severe with FARRAH of 0.8cm2 follow up on OP basis to discuss if TAVR candidate (7) Altered mental status: Code(s): R41.82 - Altered mental status, unspecified Status: Acute Assessment and Plan: Resolved-at baseline DC restraints Likely was due to hypercarbia No leukocytosis UA on admission negative for infection PT OT recommended SNF Plan Patient has been restrained free for over 24 hours vital signs stable, no labs needed Time Spent With Patient Time with patient: Greater than 35 minutes Subjective Date/time seen: 02/04/25 07:25 Interval history: 79-year-old female presents the hospital with shortness of Breath found to have acute exacerbation of COPD and elevated troponin Patient is at baseline for her mental status, will transition to oral antibioti cs and downgrade patient possible discharge tomorrow Patient lives at home with her demented has the care worker that comes will discuss discharge to SNF versus home with her with her children. Likely will do SNF. Medically stable for discharge, waiting for family to pick a facility Review of Systems Review of Systems: Alzheimer's at baseline All systems reviewed & are unremarkable except as noted in HPI and below ROS unobtainable: Yes unobtainable due to medical condition Exam Narrative: General: well appearing, appears stated age. HEENT: normocephalic, atraumatic. Mucous membranes moist. EOMI, PERRLA, bilateral sclera anicteric, no conjunctival injection. Neck supple without JVD, lymphadenopathy, or bruit. Respiratory: clear to ascultation bilaterally. Productive cough Cardiovascular: Regular rate and rhythm, normal S1-S2 upon ascultation. No murmurs, rubs, or clicks. PMI is nondisplaced, capillary refill less than 3 second. Abdomen: Soft, round, no pulsatile masses, nondistended and nontender. No rebound, no guarding. No CVA tenderness, no hepatosplenomegaly. Bowel sounds present to all four quadrants. No high pitch or tinkling sounds, resonant to percussion. Extremities: No cyanosis, clubbing, or edema present. Pulses are palpable 2/2. Active ROM to all four extremities. Neuro: Alert and orientated x 2. PERRLA. Cranial nerves 2-12 intact without focal deficit. Skin: Warm, dry, and intact, without rash, erythema, or lesion. Psych: pleasant, cooperative, normal speech, normal affect, no hallucinations, no dysarthia 1 L nasal cannula Objective Data Vital Signs Vital Signs: Vital Signs - 24 hr 02/03/25 07:26 02/03/25 07:32 02/03/25 07:36 Temperature Pulse Rate 91 82 Respiratory Rate 19 19 Blood Pressure Pulse Oximetry 98 Oxygen Delivery Nasal Cannula Oxygen Flow Rate 4 02/03/25 07:57 02/03/25 08:00 02/03/25 13:33 Temperature 98.1 F Pulse Rate 92 76 Respiratory Rate 18 20 Blood Pressure 144/64 H Pulse Oximetry 100 100 Oxygen Delivery Nasal Cannula Oxygen Flow Rate 1 02/03/25 13:39 02/03/25 15:41 02/03/25 20:00 Temperature 98.1 F Pulse Rate 77 63 Respiratory Rate 20 25 H Blood Pressure 130/58 L Pulse Oximetry 100 95 Oxygen Delivery Nasal Cannula Oxygen Flow Rate 1 02/03/25 20:02 02/03/25 20:09 02/04/25 00:00 Temperature 98.7 F Pulse Rate 80 80 79 Respiratory Rate 20 20 16 Blood Pressure 139/72 Pulse Oximetry 99 Oxygen Delivery Oxygen Flow Rate 02/04/25 02:05 02/04/25 02:10 02/04/25 02:15 Temperature Pulse Rate 83 84 83 Respiratory Rate 18 18 18 Blood Pressure Pulse Oximetry 93 Oxygen Delivery BiPAP Oxygen Flow Rate 02/04/25 04:39 Temperature 99.2 F Pulse Rate 90 Respiratory Rate 14 Blood Pressure 141/72 H Pulse Oximetry 94 Oxygen Delivery Oxygen Flow Rate Intake/Output Intake/Output: Intake & Output 02/01/25 02/02/25 02/03/25 02/04/25 23:59 23:59 23:59 23:59 Intake Total 480 1280 600 240 Output Total 700 500 300 Balance -220 780 300 240 Meds/Results Medications: Active Medications Generic Name Dose Route Start Last Admin Trade Name Freq PRN Reason Stop Dose Admin Acetaminophen 650 mg 01/30/25 21:25 Acetaminophen 325 Mg Tablet PO Q4H PRN Mild Pain (1-3) or Fever Albuterol/Ipratropium 3 ml 02/01/25 20:00 02/04/25 02:03 Ipratropium 0.5 Mg/Albuterol Sulfate 2.5 Mg (Base) Ampul.Neb 3 Ml INHALATION 3 ml Q6HRT JOVANY Administration Aspirin 81 mg 01/31/25 10:30 02/03/25 08:55 Aspirin 81 Mg Enteric Tablet PO 81 mg QAM JOVANY Administration Atorvastatin Calcium 20 mg 01/31/25 10:30 02/03/25 08:55 Atorvastatin 20 Mg Tablet PO 20 mg DAILY JOVANY Administration Azithromycin 500 mg 02/02/25 12:00 02/03/25 08:55 Azithromycin 500 Mg Tablet PO 02/05/25 09:01 500 mg DAILY JOVANY Administration Guaifenesin 600 mg 02/01/25 15:15 02/03/25 20:26 Guaifenesin 12 Hr 600 Mg Tabcr PO 02/08/25 15:14 600 mg Q12HR JOVANY Administration Losartan Potassium 25 mg 02/01/25 11:35 02/03/25 08:55 Losartan Potassium 25 Mg Tablet PO 25 mg DAILY JOVANY Administration Ondansetron HCl 4 mg 01/30/25 21:25 Ondansetron Inj 4 Mg/2 Ml Vial IV PUSH Q4H PRN Nausea Radiology Results: ITS Impressions Chest X-Ray 01/30/25 20:23 IMPRESSION: Bilateral perihilar opacities. Chest CT 01/30/25 20:43 IMPRESSION: No acute cardiopulmonary process. All CT scans at this facility are performed using low dose modulation techniques as appropriate to perform exam including the following: automated exposure control; use of iterative reconstruction technique; adjustment of the mA and/or kV according to patient size (this includes techniques or standardized protocols for targeted exams where dose is matched to indication/reason for exam). Labs Labs: Laboratory Results - last 24 hr 02/04/25 02/04/25 05:23 06:33 WBC 6.0 RBC 3.54 L Hgb 11.0 L Hct 35.2 L MCV 99.4 MCH 31.1 MCHC 31.3 L RDW 12.4 Plt Count 173 MPV 10.0 Immature Gran % (Auto) 0.2 Neut % (Auto) 71.6 Lymph % (Auto) 15.1 L [place] % (Auto) 10.4 H Eos % (Auto) 2.0 Baso % (Auto) 0.7 Lymph # (Auto) 0.90 [place] # (Auto) 0.6 Eos # (Auto) 0.1 Baso # (Auto) 0.0 Abs Immat Gran (auto) 0.01 Absolute Neuts (auto) 4.3 Absolute Nucleated RBC 0.000 Nucleated RBC % 0.0 Magnesium 1.8 Quality VTE Prophylaxis VTE prophylaxis: mechanical ordered
[2025-02-04] MEDS: SENNOSIDES 8.6 MG TABLET PO (09:08)
[2025-02-04] MEDS: guaiFENesin 12 HR 600 MG TABCR PO (09:09)
[2025-02-04] MEDS: AZITHROMYCIN 500 MG TABLET PO (09:12)
[2025-02-04] MEDS: ATORVASTATIN 20 MG TABLET PO (09:18)
[2025-02-04] MEDS: ASPIRIN 81 MG ENTERIC TABLET PO (09:19)
[2025-02-04] MEDS: LOSARTAN POTASSIUM 25 MG TABLET PO (09:20)
--- NOTE | 2025-02-04 13:19 | PCPTNOTE ---
02/04/25 Patient declines working with physical therapy stating she just wants to rest right now.
[2025-02-05] VITALS (18 sets, daily range): BP systolic 124–134; BP diastolic 53–78; PULSE 72–97; RESP 14–20; TEMP 36.4–36.5; O2SAT 86–100
[2025-02-05] MEDS: IPRATROPIUM 0.5 MG/ALBUTEROL SULFATE 2.5 MG (BASE) AMPUL.NEB 3 ML INHALATION ×4 (02:12→19:40)
[2025-02-05] MEDS: AZITHROMYCIN 500 MG TABLET PO (08:39)
[2025-02-05] MEDS: LOSARTAN POTASSIUM 25 MG TABLET PO (08:39)
[2025-02-05] MEDS: ATORVASTATIN 20 MG TABLET PO (08:39)
[2025-02-05] MEDS: ASPIRIN 81 MG ENTERIC TABLET PO (08:39)
[2025-02-05] MEDS: guaiFENesin 12 HR 600 MG TABCR PO ×2 (08:39→20:32)
--- NOTE | 2025-02-05 10:10 | P.PNIM_ITS ---
Progress Note: A&P Assessment and Plan (1) Acute exacerbation of chronic obstructive pulmonary disease: Code(s): J44.1 - Chronic obstructive pulmonary disease with (acute) exacerbation Status: Acute Assessment and Plan: Improving CT chest without contrast demonstrates small lung volumes, severe scoliosis, however no acute cardiopulmonary process. given Decadron 6 mg IV x1, magnesium 2 g rider, DuoNeb, aspirin, 1 L lactated Ringer's, ceftriaxone, azithromycin in ER. Quad viral screen negative. Rocephin, Azithromycin 500 mg IVPB daily completed 02/05 Await [facility] approval (2) Acute hypoxemic respiratory failure: Code(s): J96.01 - Acute respiratory failure with hypoxia Status: Acute Assessment and Plan: Secondary to above Lactic acidosis resolved old after fluid bolus Resolved At home uses oxygen and CPAP at night (3) ANDREINA (obstructive sleep apnea): Code(s): G47.33 - Obstructive sleep apnea (adult) (pediatric) Status: Acute Assessment and Plan: continue with CPAP at HS per home setting. (4) CAD (coronary artery disease): Code(s): I25.10 - Atherosclerotic heart disease of [place] coronary artery without angina pectoris Status: Acute Assessment and Plan: Continue aspirin, and Cozaar (5) Hypertension: Code(s): I10 - Essential (primary) hypertension Status: Acute Assessment and Plan: Controlled (6) Elevated troponin: Code(s): R79.89 - Other specified abnormal findings of blood chemistry Status: Acute Assessment and Plan: CAD with moderate stenosis of mid left anterior descending artery Troponins flat. denied chest pain. Administered aspirin 325 mg p.o. x1 in the ER. EKG demonstrated sinus rhythm, right bundle branch block, ST depressions in V4 V5 V6 which were similar to EKG in 2016, repeat EKG after ER treatment revealed improvement in those ST depressions. Cardiology consulted, appreciate recommendations. echo done demonstrating EF of 50-55% with severe pulm HTN and PASP of 77mmHG and severe with FARRAH of 0.8cm2 follow up on OP basis to discuss if TAVR candidate (7) Altered mental status: Code(s): R41.82 - Altered mental status, unspecified Status: Acute Assessment and Plan: Resolved-at baseline DC restraints Likely was due to hypercarbia No leukocytosis UA on admission negative for infection PT OT recommended SNF Plan Patient has been restrained free for over 24 hours vital signs stable, no labs needed Subjective Date/time seen: 02/05/25 10:10 Interval history: Ate a little breakfast today. Denied pain. Denied sob. Denied GI/ issues. A waiting acceptance by SNF and insurance approval for SNF. Review of Systems Review of Systems: All systems reviewed & are unremarkable except as noted in HPI and below Exam Narrative: HEENT: PERRL, sclerae nonicteric, pharyngeal mucosa pink and intact NECK: No JVD CHEST: Clear to auscultation with mild tachypnea, decreased BS bilaterally, increased AP diameter HEART: NL S1/S2, regular, Soft [place] RUSB ABDOMEN: BS+, soft, nontender, no mass, no bruits EXTREMITIES: No cyanosis, edema, or clubbing NEUROLOGIC: CN intact and symmetric to inspection MUSCULOSKELETAL: Tone and strength symmetric PSYCH: Alert. Oriented to person, place, and year (thought month was February) Objective Data Vital Signs Vital Signs: Vital Signs - 24 hr 02/04/25 14:00 02/04/25 14:10 02/04/25 20:04 Temperature 98.6 F Pulse Rate 88 90 90 Respiratory Rate 14 18 16 Blood Pressure 141/84 H Pulse Oximetry 97 Oxygen Delivery Oxygen Flow Rate 02/04/25 20:12 02/04/25 20:13 02/04/25 21:10 Temperature 98.2 F Pulse Rate 92 80 Respiratory Rate 16 22 H Blood Pressure 144/92 H Pulse Oximetry 95 99 Oxygen Delivery Nasal Cannula Oxygen Flow Rate 1 02/04/25 22:18 02/05/25 02:13 02/05/25 02:18 Temperature Pulse Rate 92 91 Respiratory Rate 25 H 16 16 Blood Pressure Pulse Oximetry Oxygen Delivery BiPAP Oxygen Flow Rate 02/05/25 05:48 02/05/25 08:00 02/05/25 08:33 Temperature 97.7 F Pulse Rate 74 73 Respiratory Rate 20 16 Blood Pressure 134/78 Pulse Oximetry 99 100 Oxygen Delivery Nasal Cannula Oxygen Flow Rate 1 02/05/25 08:35 02/05/25 08:41 02/05/25 08:43 Temperature Pulse Rate 72 Respiratory Rate 16 Blood Pressure Pulse Oximetry 99 100 Oxygen Delivery Nasal Cannula Nasal Cannula Oxygen Flow Rate 1 1 Intake/Output Intake/Output: Intake & Output 02/02/25 02/03/25 02/04/25 02/05/25 23:59 23:59 23:59 23:59 Intake Total 1280 600 480 287 Output Total 500 300 Balance 780 300 480 287 Meds/Results Medications: Active Medications Generic Name Dose Route Start Last Admin Trade Name Freq PRN Reason Stop Dose Admin Acetaminophen 650 mg 01/30/25 21:25 Acetaminophen 325 Mg Tablet PO Q4H PRN Mild Pain (1-3) or Fever Albuterol/Ipratropium 3 ml 02/01/25 20:00 02/05/25 08:32 Ipratropium 0.5 Mg/Albuterol Sulfate 2.5 Mg (Base) Ampul.Neb 3 Ml INHALATION 3 ml Q6HRT JOVANY Administration Aspirin 81 mg 01/31/25 10:30 02/05/25 08:39 Aspirin 81 Mg Enteric Tablet PO 81 mg QAM JOVANY Administration Atorvastatin Calcium 20 mg 01/31/25 10:30 02/05/25 08:39 Atorvastatin 20 Mg Tablet PO 20 mg DAILY JOVANY Administration Guaifenesin 600 mg 02/01/25 15:15 02/05/25 08:39 Guaifenesin 12 Hr 600 Mg Tabcr PO 02/08/25 15:14 600 mg Q12HR JOVANY Administration Losartan Potassium 25 mg 02/01/25 11:35 02/05/25 08:39 Losartan Potassium 25 Mg Tablet PO 25 mg DAILY JOVANY Administration Ondansetron HCl 4 mg 01/30/25 21:25 Ondansetron Inj 4 Mg/2 Ml Vial IV PUSH Q4H PRN Nausea Senna 8.6 mg 02/04/25 07:35 02/05/25 00:13 Sennosides 8.6 Mg Tablet PO Not Given HS [facility] Radiology Results: ITS Impressions Chest X-Ray 01/30/25 20:23 IMPRESSION: Bilateral perihilar opacities. Chest CT 01/30/25 20:43 IMPRESSION: No acute cardiopulmonary process. All CT scans at this facility are performed using low dose modulation techniques as appropriate to perform exam including the following: automated exposure control; use of iterative reconstruction technique; adjustment of the mA and/or kV according to patient size (this includes techniques or standardized protocols for targeted exams where dose is matched to indication/reason for exam).
[2025-02-05] MEDS: SENNOSIDES 8.6 MG TABLET PO (20:32)
[2025-02-06] VITALS (11 sets, daily range): BP systolic 126–160; BP diastolic 62–73; PULSE 78–89; RESP 16–22; TEMP 36.3–37.3; O2SAT 91–100; BMI 19.4
[2025-02-06] MEDS: IPRATROPIUM 0.5 MG/ALBUTEROL SULFATE 2.5 MG (BASE) AMPUL.NEB 3 ML INHALATION ×4 (01:53→19:54)
[2025-02-06] MEDS: ATORVASTATIN 20 MG TABLET PO (08:21)
[2025-02-06] MEDS: guaiFENesin 12 HR 600 MG TABCR PO ×2 (08:21→20:17)
[2025-02-06] MEDS: ASPIRIN 81 MG ENTERIC TABLET PO (08:21)
[2025-02-06] MEDS: LOSARTAN POTASSIUM 25 MG TABLET PO (08:21)
--- NOTE | 2025-02-06 14:31 | P.PNIM_ITS ---
Progress Note: A&P Assessment and Plan (1) Acute exacerbation of chronic obstructive pulmonary disease: Code(s): J44.1 - Chronic obstructive pulmonary disease with (acute) exacerbation Status: Acute Assessment and Plan: Improving CT chest without contrast demonstrates small lung volumes, severe scoliosis, however no acute cardiopulmonary process. given Decadron 6 mg IV x1, magnesium 2 g rider, DuoNeb, aspirin, 1 L lactated Ringer's, ceftriaxone, azithromycin in ER. Quad viral screen negative. Rocephin, Azithromycin 500 mg IVPB daily completed 02/05 Await [facility] approval (2) Acute hypoxemic respiratory failure: Code(s): J96.01 - Acute respiratory failure with hypoxia Status: Acute Assessment and Plan: Secondary to above Lactic acidosis resolved old after fluid bolus Resolved At home uses oxygen and CPAP at night (3) ANDREINA (obstructive sleep apnea): Code(s): G47.33 - Obstructive sleep apnea (adult) (pediatric) Status: Acute Assessment and Plan: continue with CPAP at HS per home setting. (4) CAD (coronary artery disease): Code(s): I25.10 - Atherosclerotic heart disease of [place] coronary artery without angina pectoris Status: Acute Assessment and Plan: Continue aspirin, and Cozaar (5) Hypertension: Code(s): I10 - Essential (primary) hypertension Status: Acute Assessment and Plan: Controlled (6) Elevated troponin: Code(s): R79.89 - Other specified abnormal findings of blood chemistry Status: Acute Assessment and Plan: CAD with moderate stenosis of mid left anterior descending artery Troponins flat. denied chest pain. Administered aspirin 325 mg p.o. x1 in the ER. EKG demonstrated sinus rhythm, right bundle branch block, ST depressions in V4 V5 V6 which were similar to EKG in 2016, repeat EKG after ER treatment revealed improvement in those ST depressions. Cardiology consulted, appreciate recommendations. echo done demonstrating EF of 50-55% with severe pulm HTN and PASP of 77mmHG and severe with FARRAH of 0.8cm2 follow up on OP basis to discuss if TAVR candidate (7) Altered mental status: Code(s): R41.82 - Altered mental status, unspecified Status: Acute Assessment and Plan: Resolved-at baseline DC restraints Likely was due to hypercarbia No leukocytosis UA on admission negative for infection PT OT recommended SNF Plan Patient has been restrained free for over 24 hours vital signs stable, no labs needed Subjective Date/time seen: 02/06/25 14:31 Interval history: COmfortable at bedside awaiting placement vs home discharge Review of Systems Review of Systems: Alzheimer's at baseline All systems reviewed & are unremarkable except as noted in HPI and below ROS unobtainable: Yes unobtainable due to medical condition Exam Narrative: HEENT: PERRL, sclerae nonicteric, pharyngeal mucosa pink and intact NECK: No JVD CHEST: Clear to auscultation with mild tachypnea, decreased BS bilaterally, increased AP diameter HEART: NL S1/S2, regular, Soft [place] RUSB ABDOMEN: BS+, soft, nontender, no mass, no bruits EXTREMITIES: No cyanosis, edema, or clubbing NEUROLOGIC: CN intact and symmetric to inspection MUSCULOSKELETAL: Tone and strength symmetric PSYCH: Alert. Oriented to person, place, and year (thought month was February) Const: General: comfortable HENMT: Mouth: Yes moist mucous membranes Eyes: Pupils: Equal, round and reactive pupils present Neck: Neck: supple Resp: Effort & Inspection: normal respiratory effort Auscultation: clear to auscultation bilaterally, rhonchi left lower and right lower and diminished lung sounds bilateral Cardio: Rate: regular rate Rhythm: regular rhythm Heart sounds: Murmur heart sound present systolic Other: Tele SR 66. GI: Inspection: non-distended Auscultation: normal bowel sounds : General: Yes bladder normal to palpation Bimanual exam- vagina & uterus: bladder normal to palpation Neuro: Cranial nerves: Yes Equal, round and reactive pupils present Motor exam (neuro): 5/5 motor strength present throughout Extrem: General: no edema Psych: Other: Oriented to person and year. Objective Data Vital Signs Vital Signs: Vital Signs - 24 hr 02/05/25 19:40 02/05/25 19:43 02/05/25 19:51 Temperature Pulse Rate 92 96 Respiratory Rate 16 16 Blood Pressure Pulse Oximetry 96 Oxygen Delivery Nasal Cannula Oxygen Flow Rate 1 02/05/25 21:08 02/06/25 01:53 02/06/25 02:03 Temperature 97.7 F Pulse Rate 96 89 88 Respiratory Rate 20 16 16 Blood Pressure 124/56 L Pulse Oximetry 96 Oxygen Delivery Oxygen Flow Rate 02/06/25 06:00 02/06/25 07:26 02/06/25 07:26 Temperature 97.4 F L Pulse Rate 88 84 Respiratory Rate 20 16 Blood Pressure 160/73 H Pulse Oximetry 97 95 Oxygen Delivery Nasal Cannula Oxygen Flow Rate 1 02/06/25 07:33 Temperature Pulse Rate 78 Respiratory Rate 16 Blood Pressure Pulse Oximetry Oxygen Delivery Oxygen Flow Rate Intake/Output Intake/Output: Intake & Output 02/03/25 02/04/25 02/05/25 02/06/25 23:59 23:59 23:59 23:59 Intake Total 600 480 749 420 Output Total 300 200 Balance 300 480 749 220 Meds/Results Medications: Active Medications Generic Name Dose Route Start Last Admin Trade Name Freq PRN Reason Stop Dose Admin Acetaminophen 650 mg 01/30/25 21:25 Acetaminophen 325 Mg Tablet PO Q4H PRN Mild Pain (1-3) or Fever Albuterol/Ipratropium 3 ml 02/01/25 20:00 02/06/25 14:26 Ipratropium 0.5 Mg/Albuterol Sulfate 2.5 Mg (Base) Ampul.Neb 3 Ml INHALATION 3 ml Q6HRT JOVANY Administration Aspirin 81 mg 01/31/25 10:30 02/06/25 08:21 Aspirin 81 Mg Enteric Tablet PO 81 mg QAM JOVANY Administration Atorvastatin Calcium 20 mg 01/31/25 10:30 02/06/25 08:21 Atorvastatin 20 Mg Tablet PO 20 mg DAILY JOVANY Administration Guaifenesin 600 mg 02/01/25 15:15 02/06/25 08:21 Guaifenesin 12 Hr 600 Mg Tabcr PO 02/08/25 15:14 600 mg Q12HR JOVANY Administration Losartan Potassium 25 mg 02/01/25 11:35 02/06/25 08:21 Losartan Potassium 25 Mg Tablet PO 25 mg DAILY JOVANY Administration Ondansetron HCl 4 mg 01/30/25 21:25 Ondansetron Inj 4 Mg/2 Ml Vial IV PUSH Q4H PRN Nausea Senna 8.6 mg 02/04/25 07:35 02/05/25 20:32 Sennosides 8.6 Mg Tablet PO 8.6 mg HS JOVANY Administration Radiology Results: ITS Impressions Chest X-Ray 01/30/25 20:23 IMPRESSION: Bilateral perihilar opacities. Chest CT 01/30/25 20:43 IMPRESSION: No acute cardiopulmonary process. All CT scans at this facility are performed using low dose modulation techniques as appropriate to perform exam including the following: automated exposure control; use of iterative reconstruction technique; adjustment of the mA and/or kV according to patient size (this includes techniques or standardized protocols for targeted exams where dose is matched to indication/reason for exam). Quality VTE Prophylaxis VTE prophylaxis: mechanical ordered
[2025-02-06] MEDS: SENNOSIDES 8.6 MG TABLET PO (20:17)
[2025-02-07] VITALS (10 sets, daily range): BP systolic 114–126; BP diastolic 54–59; PULSE 60–94; RESP 18–20; TEMP 36.8; O2SAT 94–100
[2025-02-07] MEDS: IPRATROPIUM 0.5 MG/ALBUTEROL SULFATE 2.5 MG (BASE) AMPUL.NEB 3 ML INHALATION ×3 (01:43→14:25)
[2025-02-07 05:45] LABS: Hematocrit 35.2 % (37.0-47.0); Hemoglobin 10.7 g/dL (12.0-15.0); Immature Granulocyte Percent A 0.7 % (0-0.5); Lymphocytes Absolute Auto 0.73 K/mm3 (0.9-3.2); Mean Corpuscular HGB Conc 30.4 g/dl (32-36); Mean Corpuscular Hemoglobin 31.1 pg (26-34); Mean Corpuscular Volume 102.3 fl (80-100); Nucleated Red Blood Cells Absolute Auto 0.000 K/mm3 (0.0-0.012); Nucleated Red Blood Cells Perc 0.0 % (0.0-0.2); Platelet Count Result 177 k/mm3 (150-375); Red Blood Count 3.44 M/mm3 (4.2-5.4); White Blood Count 4.4 K/mm3 (4.5-10.0)
[2025-02-07 06:01] LABS: Alanine Aminotransferase 12 U/L (6-35); Albumin Level 3.0 g/dL (3.5-5.1); Alkaline Phosphatase 73 U/L (38-126); Aspartate Amino Transferase 20 U/L (14-36); Bilirubin,Total 0.4 mg/dL (0.2-1.3); Blood Urea Nitrogen 11 mg/dL (7-17); Calcium 8.3 mg/dL (8.4-10.2); Chloride 98 mmol/L (98-107); Estimated Glomerular Filt Rate > 60; Glucose 92 mg/dL (65-110); Magnesium 1.9 mg/dL (1.6-2.3); Potassium 3.9 mmol/L (3.4-5.0); Sodium 139 mmol/L (137-145); Total Protein 5.4 g/dL (6.3-8.2)
[2025-02-07 06:10] LABS: Carbon Dioxide > 40 mmol/L (22-30)
[2025-02-07] MEDS: ATORVASTATIN 20 MG TABLET PO (08:21)
[2025-02-07] MEDS: ASPIRIN 81 MG ENTERIC TABLET PO (08:21)
[2025-02-07] MEDS: guaiFENesin 12 HR 600 MG TABCR PO (08:21)
[2025-02-07] MEDS: LOSARTAN POTASSIUM 25 MG TABLET PO (08:21)
--- NOTE | 2025-02-07 10:39 | PM.CNPUL ---
Assessment and Plan Assessment and plan (1) Acute on chronic respiratory failure with hypoxia and hypercapnia: Code(s): J96.21 - Acute and chronic respiratory failure with hypoxia; J96.22 - Acute and chronic respiratory failure with hypercapnia Status: Acute Assessment and Plan: He was admitted on January 30 with shortness of breath, cough, no infiltrate, hypercapnia; this was acute on chronic. PH 7.34 pCO2 81.7, PO2 79.5 bicarbonate 43 saturation 94% on 4 L and she was acutely ill. Maybe this was bronchitis, possibly a viral infection. She is better now. The acute respiratory event was on top of her underlying chronic hypercapnia due to her restrictive chest wall anatomy. She is better, last ABG showed a compensated pH while using BiPAP 12/6 and 2 L, Feb 02. (2) Restrictive lung disease due to kyphoscoliosis: Code(s): J98.4 - Other disorders of lung; M41.9 - Scoliosis, unspecified Status: Acute Assessment and Plan: She has severe scoliosis, has post polio syndrome, restrictive chest wall impairment due to progressive curvature of the spine to the right, demonstrated well on her chest CT. This limits her ability to take a breath in and to exhale. She does not have underlying COPD. She has never been on inhalers, never smoked. She had no occupational exposure. Her DME provider is [facility] in [place], [place] Her current AVAPS settings are: IPAP -minimum to maximum pressure 10-20 cm H2O EPAP 7 cm H2O Tidal volume 350 mill Breath Rate 15 timed inspiration 1.5; rise time setting 3; ramp time 20 minutes, REM pressure 4 cm heated tubing and humidifier. Oxygen 3.5 liters/minute at night (3) Hypoxemia requiring supplemental oxygen: Code(s): R09.02 - Hypoxemia; Z99.81 - Dependence on supplemental oxygen Status: Acute Assessment and Plan: She has been on oxygen for several years. She uses oxygen 3.5 L at night with her AVAPS machine although has not used the AVAPS machine since April 2024. She required oxygen 1 L at rest to maintain saturation above 88%. I did not ask for a walk study. She has oxygen at home already, and the goal will be to use oxygen to maintain a saturation between 90% and 95% while on the O2. (4) Pulmonary hypertension: Code(s): I27.20 - Pulmonary hypertension, unspecified Status: Acute Assessment and Plan: Echocardiogram this admission shows severe pulmonary hypertension RVSP 77 mm Hg, mild tricuspid regurgitation, normal RV size and function. Normally with pulmonary hypertension we see significant tricuspid regurgitation and often increased size of the right ventricle. This is likely secondary pulmonary hypertension due to hypoxemia especially at night as she is not using her NIV. (5) Aortic stenosis, severe: Code(s): I35.0 - Nonrheumatic aortic (valve) stenosis Status: Acute Assessment and Plan: Echo this admission shows aortic valve is not well visualized, appears to be severely calcified with restricted leaflet mobility. Severe aortic stenosis with relatively low mean gradient. Maximum velocity 3.1 m/sec, mean gradient 19 mmHg, aortic valve area 0.8 cm2. This is significant, however with her dementia, acute on chronic hypercapnic hypoxemic respiratory failure and noncompliance with NIV, she is not going to be a good candidate for any intervention. Plan plan: 1. Ok for discharge to her home. 2. She has an AVAPS machine at home, has not used it since April 2024. There is no need to make any changes. She is able to choose whether not she uses it. Her disease process is progressing due to the natural history of scoliosis. Her carbon oxide retention will worsen, faster without using nocturnal NIV. Her DME provider is [facility] in [place], [place] Her current AVAPS settings are: IPAP -minimum to maximum pressure 10-20 cm H2O EPAP 7 cm H2O Tidal volume 350 mL Breath Rate 15 timed inspiration 1.5; rise time setting 3; ramp time 20 minutes, REM pressure 4 cm heated tubing and humidifier. Oxygen 3.5 liters/minute at night 3. She does not have COPD, does not require inhalers at home. 4. She may follow up in our office if she wishes, in order to have someone oversee her AVAPS use, if she continues to want to use it. [facility] [place] Pulmonary and Sleep office number [phone]. 5. Oxygen guidelines below; The goal with using supplemental oxygen is to maintain a saturation between 90% and 94% while using supplemental oxygen. Use 1 L/min at rest. Use O2 while you are active, 2-4 L depending on what is needed to maintain saturation 90-94%. Check your saturation during exercise and 2-3 minutes after exercising when you are resting. Sometime saturation can decrease during recovery from exercise. Without oxygen, it is absolutely fine to have a saturation above 94% but it is not okay to use oxygen to get the saturation above 94%. If you are sitting quietly at rest and your saturation is 88% or below, wear O2. If you are sitting quietly at rest without O2 and your saturation is 90% or above, you do not have to use O2. If you are 95% on room air, do not wear O2. There are potential harms to having a saturation that is too high. More is not better. Buying an oximeter online can be much less expensive than buying from a drug store. Online, you may find an oximeter for $10-$20, compared to $50-$90 in a drug store. History of Present Illness History of Present Illness Consult date: 02/07/25 Chief complaint: Hypoxemia requiring oxygen, NSTEMI, COPD exacerbat Narrative: pt was seen 02/07/2025 at 10:30 Room 305; I spoke with her son Noam Anton [phone] NEW: Liat Schwab is an 79-year old female admitted 01/30/2025 with acute on chronic hypercapnic hypoxemic failure and a diagnosis of COPD exacerbation although she does not have a history of COPD. She presented with fatigue, weakness, productive cough for 2-3 days, shortness of breath which was worsening. She was severely hypoxic 56% on room air placed on a non-rebreather mask. She initially presented to a walk-in clinic then was brought to the emergency department. She had no nausea, vomiting, fever, chills. Initial arterial blood gas pH 7.34, pCO2 81.7, PO2 79.5, HC03 43, saturation 94.4% on 4 L. See series of ABG below. The patient is pleasant however has significant memory deficits. She has no record of regular visits in the [facility] system. She is a lifelong nonsmoker, grew up in a household with her father who smoked. She has been on an [employer] BiPAP?AVAPS noninvasive ventilator for restrictive chest wall impairment due to scoliosis, post polio syndrome, was born with orthopedic problems and used a tiny corset to help correct her deviated spine, and used braces on her legs. She has a left leg that his smaller and shorter than her right leg, however this did not impede her ability to function normally for most of her life. 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 She currently lives at home with her who is older than she is. Both of them have dementia according to her son. The patient has not used her AVAPS machine since April 2024. She has oxygen at home, she is using 1 L at rest and 3.5 L with sleep. She is using oxygen with exertion for the last few years, flow is not certain. I believe that she was on room at rest prior to this admission. Scoliosis worsened over years and now she has severe scoliosis which contributes to a restrictive impairment with carbon dioxide retention. She tells me that she does not use any inhalers at home. She was set up on an AVAPS machine on 11/06/2023 through [facility] disorder [place], she does not have obstructive sleep apnea, she has restrictive lung disease with hypercapnic hypoxemic respiratory failure. Her chart this admission says that she has a COPD exacerbation. Her son says she never has had a diagnosis of COPD and has never used inhalers at home. Her DME provider is [facility] in [place], [place] Her current AVAPS settings are: IPAP -minimum to maximum pressure 10-20 cm H2O EPAP 7 cm H2O Tidal volume 350 mill Breath Rate 15 timed inspiration 1.5; rise time setting 3; ramp time 20 minutes, REM pressure 4 cm heated tubing and humidifier. Oxygen 3.5 liters/minute at night PMH: nonobstructive CAD (reported to be 30-40% from 09/26/2016 cardiac catheterization), hypertension, severe kyphoscoliosis with related small lung volume (on supplemental oxygen), history of right renal cell carcinoma. She does not have COPD or obstructive sleep apnea. She uses a noninvasive ventilator at home for hypercapnia due to restrictive chest wall impairment. DATA * Date 02/01 02/01 02/01 02/02 pH 7.339 7.377 7.427 7.441 pCO2 81.7 76.8 65.6 61 pO2 79.5 72.6 128 86 HCO3 43 44 42 40 sat 94% 93% 98% 96% CarboxyHgb FiO2 36% O2 delivery 4 L 40% 40% 28% IPAP 12 12 12 EPAP 6 6 6 * 01/30/2025; chest CT ; The examination demonstrates no pulmonary nodules, infiltrates and/or effusions. There is atelectasis within the left lung and right upper lobe. Cardiac size and mediastinal configuration are normal in appearance. No hilar or mediastinal lymphadenopathy is seen. The thoracic aorta is normal in caliber. Severe scoliosis. IMPRESSION: No acute cardiopulmonary process * 01/31/2025; echo ; Suboptimal image quality. Suboptimal image quality. Normal LV size, moderate LVH, LV systolic function at lower limits of normal, ejection fraction visually estimated at about 50-55%. Hypokinetic anterior segment, aneurysmal basal inferior segment. Grade 1 diastolic dysfunction. Normal RV size and systolic function. Mild left atrial enlargement. Thickened mitral valve leaflets, mild mitral regurgitation. Aortic valve is not well visualized, appears to be severely calcified with restricted leaflet mobility. Severe aortic stenosis with relatively low mean gradient. Maximum velocity 3.1 m/sec, mean gradient 19 mmHg, aortic valve area 0.8 cm2. Mild tricuspid regurgitation, severe pulmonary hypertension, RVSP 77 mmHg. Consider further evaluation of aortic valve anatomy if clinically appropriate. Review of Systems Review of Systems: He tells me that she has lost weight over the last several months. She is not as hungry, she becomes full easily. No lower extremity swelling. No chest pain. All systems reviewed & are unremarkable except as noted in HPI and below [facility] Past Medical History Medical History (Updated 02/07/25 @ 16:17 by Radha Dye MD) Restrictive lung disease due to kyphoscoliosis Hypertension Systolic ejection murmur Overweight (BMI 25.0-29.9) COVID-19 Eczema of external ear Nasal septal deviation Hypertrophy of both inferior nasal turbinates Vasomotor rhinitis Rhinorrhea Presbyphonia Hyperlipidemia Post-polio syndrome Psoriatic arthritis History of deep venous thrombosis or pulmonary embolus Hx of renal calculi Hx of breast cancer Osteoporosis COPD (chronic obstructive pulmonary disease) History of kidney cancer Arthritis Surgical History Surgical History H/O lumpectomy History of cholecystectomy History of lithotripsy Family History Family History Father Family history of drug dependence Cerebrovascular accident Family history of lung cancer Patient's father is Family history of arthritis Family history of throat cancer Family history of cardiovascular disease Sibling Patient's brother is in good health Family history of diabetes mellitus in first degree relative Family history of malignant neoplasm of breast in first degree relative, Onset Age: 56 Patient's sister is Family history of arthritis Family history of lymphoma Mother Family history of elevated blood lipids Family history of diabetes mellitus in first degree relative Patient's mother is Family history of arthritis Social History Social History Smoking status: Never smoker Alcohol intake: never Substance use: never Do You Feel Safe in your Home?: Yes Lack of Transportation: No Lack of Food: Never True Current Housing: I Have Housing Concerned About Future Housing: No Difficulty Paying Gas/Electric Bills: No Difficulty Paying for Meds: No Currently Unemployed: No Education: Don't Know Difficulty w/ Childcare or Family Care: No Spiritual care concerns: No Meds Home Medications and Allergies Home Medications ?Medication ?Instructions ?Recorded ?Confirmed ?Type aspirin 81 mg tablet,delayed 81 mg PO QAM 30 days #30 tabs 02/07/25 Rx release atorvastatin 20 mg tablet 20 mg PO DAILY 30 days #30 tabs 02/07/25 Rx losartan 25 mg tablet 25 mg PO DAILY 30 days #30 tabs 02/07/25 Rx Allergies Allergy/AdvReac Type Severity Reaction Status Date / Time alendronate sodium Allergy Unknown Abdominal Verified 01/31/25 00:37 pain fentanyl Allergy Unknown Other Verified 01/31/25 00:37 Iodinated Contrast Media Allergy Unknown Unknown Verified 01/31/25 00:37 iodine Allergy Unknown Other Verified 01/31/25 00:37 metoprolol Allergy Unknown Confusion Verified 01/31/25 00:37 Penicillins Allergy Unknown Other Verified 01/31/25 00:37 levofloxacin AdvReac Intermediate fast heart Verified 01/31/25 00:37 rate prednisone AdvReac Unknown RAPID HR, Verified 01/31/25 00:37 HTN Vital Signs Vital Signs - 24 hr 02/06/25 14:00 02/06/25 19:55 02/06/25 19:56 Temperature 36.3 C L Pulse Rate 82 84 84 Respiratory Rate 16 20 20 Blood Pressure 126/62 Pulse Oximetry 97 91 Oxygen Delivery Nasal Cannula Oxygen Flow Rate 1 Fraction of Inspired Oxygen 24 02/06/25 20:00 02/06/25 20:13 02/06/25 20:53 Temperature 37.3 C Pulse Rate 85 89 Respiratory Rate 20 22 H Blood Pressure 140/68 Pulse Oximetry 98 100 Oxygen Delivery Nasal Cannula Oxygen Flow Rate 1 Fraction of Inspired Oxygen 02/07/25 01:43 02/07/25 01:54 02/07/25 06:00 Temperature 36.8 C Pulse Rate 60 65 86 Respiratory Rate 20 20 20 Blood Pressure 126/54 L Pulse Oximetry 94 Oxygen Delivery Oxygen Flow Rate Fraction of Inspired Oxygen 02/07/25 07:47 02/07/25 07:49 02/07/25 07:56 Temperature Pulse Rate 78 74 Respiratory Rate 20 20 Blood Pressure Pulse Oximetry 94 Oxygen Delivery Nasal Cannula Oxygen Flow Rate 1 Fraction of Inspired Oxygen 02/07/25 08:12 Temperature Pulse Rate Respiratory Rate Blood Pressure Pulse Oximetry 94 Oxygen Delivery Nasal Cannula Oxygen Flow Rate 1 Fraction of Inspired Oxygen Exam Narrative: GEN: Alert, oriented to person, place, looked at the whiteboard to read the date; not in distress. On oxygen 1 liter/minute saturation 98%. I took the oxygen off, within 5 minutes saturation went down to 88%, stopped in place he oxygen on her again. HEENT: pupils are equal, EOMI, symmetrical face; oral membranes moist, Mallampati II airway, good dentition NECK: Trachea is midline CHEST: Asymmetric thoracic cavity, severe scoliosis with curvature towards the right side, left scapula higher than the right scapula, un equal air entry due to abnormal shape of the thoracic cavity, no crackles or wheezes appreciated CV: Regular S1S2 no m/g/r Extremities : no clubbing, cyanosis, or edema. No calf tenderness. Her left leg is smaller overall, her calf is extremely tiny compared to the right calf. I can almost encircle the left calf with my thumb nd long finger. The right calf is larger, PSYCH: normal thought, speech, poor memory for distant past and for other important topics. I asked her about her O2, how long she has used it, and she is very limited. She knows she is limited, appears to have insight, said that I could call her son Noam which I did. Results Laboratory Findings 02/07/25 05:01 02/07/25 05:01 ABG, PT/INR, D-dimer: ABG ABG pH 7.441 (7.350-7.450) 02/02/25 05:17 ABG pCO2 61.0 mmHg (35.0-45.0) H* 02/02/25 05:17 ABG pO2 86.2 mmHg (80.0-100.0) 02/02/25 05:17 ABG O2 Saturation 96.6 % (95.0-100.0) 02/02/25 05:17 PT/INR, D-dimer PT 13.0 Seconds (11.1-14.7) 01/30/25 21:29 INR 1.0 01/30/25 21:29 Abnormal lab findings: Abnormal Labs 01/30/25 01/30/25 01/31/25 19:57 22:45 03:40 WBC 4.4 L RBC 3.79 L 3.82 L Hgb 11.7 L D Hct MCV 100.8 H MCHC 31.0 L 31.2 L MPV 10.6 H 10.8 H Immature Gran % (Auto) Neut % (Auto) 89.1 H Lymph % (Auto) 8.8 L 6.1 L [place] % (Auto) 18.2 H Baso % (Auto) Lymph # (Auto) 0.44 L 0.27 L [place] # (Auto) 0.9 H APTT 44.7 H ABG pH ABG pCO2 ABG pO2 ABG HCO3 ABG O2 Saturation Potassium Chloride 95 L Carbon Dioxide 38 H 34 H BUN 32 H 26 H Creatinine 0.65 L 0.51 L Glucose 190 H 140 H Lactic Acid 2.3 H Calcium Magnesium 2.5 H Total Bilirubin AST 44 H Troponin I 0.048 H* 0.047 H* NT-Pro-B Natriuret Pep 64487 H Total Protein Albumin Urine Protein Ur Blood (Man) Urine RBC 01/31/25 02/01/25 02/01/25 10:09 03:52 12:49 WBC RBC 3.56 L Hgb 11.1 L Hct 36.1 L MCV 101.4 H MCHC 30.7 L MPV 11.1 H Immature Gran % (Auto) Neut % (Auto) Lymph % (Auto) 12.3 L [place] % (Auto) 15.7 H Baso % (Auto) Lymph # (Auto) 0.65 L [place] # (Auto) 0.8 H APTT 96.4 H ABG pH 7.339 L ABG pCO2 81.7 H* ABG pO2 79.5 L ABG HCO3 43.0 H ABG O2 Saturation 94.4 L Potassium Chloride 94 L Carbon Dioxide > 40 H BUN 25 H Creatinine 0.63 L Glucose Lactic Acid Calcium 8.1 L Magnesium Total Bilirubin AST Troponin I NT-Pro-B Natriuret Pep Total Protein 6.0 L Albumin 3.3 L Urine Protein Ur Blood (Man) Urine RBC 02/01/25 02/01/25 02/01/25 14:15 15:22 17:13 WBC RBC Hgb Hct MCV MCHC MPV Immature Gran % (Auto) Neut % (Auto) Lymph % (Auto) [place] % (Auto) Baso % (Auto) Lymph # (Auto) [place] # (Auto) APTT ABG pH ABG pCO2 76.8 H* 65.6 H* ABG pO2 72.6 L 128.1 H ABG HCO3 44.1 H 42.3 H ABG O2 Saturation 93.5 L Potassium Chloride Carbon Dioxide BUN Creatinine Glucose Lactic Acid Calcium Magnesium Total Bilirubin AST Troponin I NT-Pro-B Natriuret Pep Total Protein Albumin Urine Protein 1+ H Ur Blood (Man) 2+ H Urine RBC 21-50 H 02/02/25 02/02/25 02/03/25 03:45 05:17 03:44 WBC RBC 3.54 L 3.32 L Hgb 10.9 L 10.3 L Hct 35.6 L 34.2 L MCV 100.6 H 103.0 H MCHC 30.6 L 30.1 L MPV 10.5 H Immature Gran % (Auto) Neut % (Auto) Lymph % (Auto) 16.1 L [place] % (Auto) 16.9 H 18.1 H Baso % (Auto) Lymph # (Auto) 0.87 L 0.72 L [place] # (Auto) 0.8 H 0.8 H APTT ABG pH ABG pCO2 61.0 H* ABG pO2 ABG HCO3 40.6 H ABG O2 Saturation Potassium 3.3 L Chloride 94 L 95 L Carbon Dioxide > 40 H > 40 H BUN 19 H 18 H Creatinine 0.59 L 0.64 L Glucose 137 H Lactic Acid Calcium 8.3 L 8.3 L Magnesium Total Bilirubin 0.1 L AST Troponin I NT-Pro-B Natriuret Pep Total Protein 5.6 L 5.3 L Albumin 3.1 L 3.0 L Urine Protein Ur Blood (Man) Urine RBC 02/04/25 02/07/25 06:33 05:01 WBC 4.4 L RBC 3.54 L 3.44 L Hgb 11.0 L 10.7 L Hct 35.2 L 35.2 L MCV 102.3 H MCHC 31.3 L 30.4 L MPV Immature Gran % (Auto) 0.7 H Neut % (Auto) Lymph % (Auto) 15.1 L 16.6 L [place] % (Auto) 10.4 H 11.6 H Baso % (Auto) 1.4 H Lymph # (Auto) 0.73 L [place] # (Auto) APTT ABG pH ABG pCO2 ABG pO2 ABG HCO3 ABG O2 Saturation Potassium Chloride Carbon Dioxide > 40 H BUN Creatinine 0.60 L Glucose Lactic Acid Calcium 8.3 L Magnesium Total Bilirubin AST Troponin I NT-Pro-B Natriuret Pep Total Protein 5.4 L Albumin 3.0 L Urine Protein Ur Blood (Man) Urine RBC
[2025-02-07 10:54] LABS: Vitamin B12 227.0 pg/mL (239-931)
--- NOTE | 2025-02-07 14:55 | P.DS_ITS ---
DS: Admitting Diagnosis Discharge Date 02/07/25 Admitting Diagnosis SOB DS: Discharge Diagnosis Discharge Diagnosis (1) COPD (chronic obstructive pulmonary disease): Code(s): J44.9 - Chronic obstructive pulmonary disease, unspecified Status: Acute DS: Summary Hospital Course Hospital Course: Reason for Admission Acute on chronic hypercapnic and hypoxemic respiratory failure in the setting of COPD exacerbation and restrictive lung disease due to severe kyphoscoliosis. Additional concerns included altered mental status, elevated troponin, and evaluation for possible acute coronary syndrome. Hospital Course History and Presentation: 79-year-old female with a history of severe kyphoscoliosis, restrictive lung disease, COPD, ANDREINA on AVAPS/BiPAP, hypertension, CAD with moderate LAD stenosis, severe aortic stenosis, severe pulmonary hypertension, remote polio, partial left lower extremity paralysis, and multiple other comorbidities. Presented with 3 days of productive cough, worsening dyspnea, and profound hypoxemia (O2 sat 56% on arrival). Initial Management: * Placed on non-rebreather, then weaned to 2L nasal cannula. * Received Decadron, magnesium, DuoNeb, ceftriaxone, azithromycin, and IV fluids in the ED. * Quad viral screen negative; CT chest showed no acute cardiopulmonary process. * Lactic acidosis resolved after fluids. * Troponin mildly elevated (0.048, 0.047), EKG with chronic RBBB and ST-T changes, no chest pain. * Cardiology consulted; no evidence of acute coronary syndrome, heparin gtt discontinued after initial evaluation. * Echo: EF 50-55%, severe aortic stenosis (FARRAH 0.8 cm?), severe pulmonary hypertension (PASP 77 mmHg). * Altered mental status on admission, likely due to hypercarbia, resolved with respiratory support. Hospital Course: * Completed antibiotics (ceftriaxone, azithromycin) as a precaution; no further antibiotics required. * Continued DuoNebs and albuterol PRN. * Maintained on home O2 and AVAPS/BiPAP at night. * Blood pressure managed with losartan. * No further episodes of chest pain or respiratory distress. * No further restraints required; mentation returned to baseline. * PT/OT recommended SNF placement due to functional and cognitive status. * Awaiting SNF approval at time of discharge. Discharge Diagnoses * Acute on chronic hypercapnic and hypoxemic respiratory failure?(J96.21, J96.22) * Acute exacerbation of COPD?(J44.1) * Restrictive lung disease due to severe kyphoscoliosis?(J98.4, M41.9) * Obstructive sleep apnea?(G47.33) * Coronary artery disease with moderate LAD stenosis?(I25.10) * Severe aortic stenosis?(I35.0) * Severe pulmonary hypertension?(I27.20) * Hypertension?(I10) * Altered mental status, resolved?(R41.82) * History of right renal cell carcinoma, breast cancer, DVT/PE, osteoporosis, psoriatic arthritis, post-polio syndrome, hyperlipidemia, history of kidney stones, arthritis?(chronic, not acutely addressed) Discharge Medications * Aspirin 81 mg daily * Losartan?(dose per inpatient regimen) * Statin?(if initiated during admission) * DuoNebs and albuterol PRN * Home O2?(4L on exertion, as needed) * AVAPS/BiPAP at night * Cholecalciferol 2000 units daily * Vitamin B12/folic acid daily Discharge Instructions * Continue home O2 and AVAPS/BiPAP as previously prescribed. * Use inhalers and nebulizers as directed. * Monitor for signs of respiratory distress, chest pain, or altered mental status. * Maintain blood pressure monitoring. * Encourage pulmonary rehabilitation if feasible. * Fall precautions due to mobility and cognitive impairment. * Diet as tolerated. * Follow up with primary care, pulmonology, and cardiology. * Outpatient evaluation for TAVR candidacy (severe aortic stenosis). * Home O2 study completed prior to discharge. Follow-Up * Primary Care:?Within 1 week * Pulmonology:?As scheduled * Cardiology:?As scheduled, including TAVR evaluation * SNF/Home Health:?As arranged by case management Condition at Discharge * Hemodynamically stable, at cognitive and respiratory baseline. * No acute distress. * Discharged home with home health Time Spent with Patient Time attestation: Total time spent providing and/or coordinating discharge services: DS: Data Data Completed and Pending Labs on day of discharge: Labs from last 24 hours 02/07/25 05:01 WBC 4.4 L RBC 3.44 L Hgb 10.7 L Hct 35.2 L MCV 102.3 H MCH 31.1 MCHC 30.4 L RDW 12.8 Plt Count 177 MPV 10.2 Immature Gran % (Auto) 0.7 H Neut % (Auto) 66.1 Lymph % (Auto) 16.6 L [place] % (Auto) 11.6 H Eos % (Auto) 3.6 Baso % (Auto) 1.4 H Lymph # (Auto) 0.73 L [place] # (Auto) 0.5 Eos # (Auto) 0.2 Baso # (Auto) 0.1 Abs Immat Gran (auto) 0.03 Absolute Neuts (auto) 2.9 Absolute Nucleated RBC 0.000 Nucleated RBC % 0.0 Sodium 139 Potassium 3.9 Chloride 98 Carbon Dioxide > 40 H Anion Gap BUN 11 D Creatinine 0.60 L Estim Creat Clear Calc Not Reportable Estimated GFR > 60 Glucose 92 Calcium 8.3 L Magnesium 1.9 Total Bilirubin 0.4 AST 20 ALT 12 Alkaline Phosphatase 73 Total Protein 5.4 L Albumin 3.0 L Vitamin B12 227.0 L Folate 8.7 Discharge Plan Discharge Attending physician on discharge: Lior Wagoner Consulting providers: French Garrido Discharging Clinician: Lior Wagoner Anticipated Discharge Date/Time: 02/07/25 14:51 Patient Disposition: Home with Home Health Service Activity: as tolerated Diet: as tolerated and heart healthy Discharge Instructions: Per Care Coordination: [facility] ([phone]) has been arranged for skilled RN/PT/OT services and will call to set up initial visit. Patient Instructions: Antibiotic Form Patient Language: Bulgarian Stand Alone Forms: General Discharge Information Follow-up/Referrals: French Garrido MD [Physician, Interventional Cardiology] Referral Note: F/u with cardiology as instructed More Tejada APRN [Primary Care Provider, Family Practice] Referral Note: F/u with PCP in 3-5 days Discharge Medications: New losartan 25 mg Tablet 25 mg PO DAILY 30 Days Qty: 30 0RF aspirin 81 mg Tablet,Delayed Release (Dr/Ec) 81 mg PO QAM 30 Days Qty: 30 0RF atorvastatin 20 mg Tablet 20 mg PO DAILY 30 Days Qty: 30 0RF No Action No Home Medications Date of admission: 01/30/25 22:48 Primary Care Provider: More Tejada Admitting Provider: Shivani Gould Attending physician on admission: Shivani Gould Condition: Stable
--- NOTE | 2025-02-07 14:55 | PM.DS ---
DS: Admitting Diagnosis Discharge Date 02/07/25 Admitting Diagnosis SOB DS: Discharge Diagnosis Discharge Diagnosis (1) COPD (chronic obstructive pulmonary disease): Code(s): J44.9 - Chronic obstructive pulmonary disease, unspecified Status: Acute DS: Summary Hospital Course Hospital Course: Reason for Admission Acute on chronic hypercapnic and hypoxemic respiratory failure in the setting of COPD exacerbation and restrictive lung disease due to severe kyphoscoliosis. Additional concerns included altered mental status, elevated troponin, and evaluation for possible acute coronary syndrome. Hospital Course History and Presentation: 79-year-old female with a history of severe kyphoscoliosis, restrictive lung disease, COPD, ANDREINA on AVAPS/BiPAP, hypertension, CAD with moderate LAD stenosis, severe aortic stenosis, severe pulmonary hypertension, remote polio, partial left lower extremity paralysis, and multiple other comorbidities. Presented with 3 days of productive cough, worsening dyspnea, and profound hypoxemia (O2 sat 56% on arrival). Initial Management: Placed on non-rebreather, then weaned to 2L nasal cannula. Received Decadron, magnesium, DuoNeb, ceftriaxone, azithromycin, and IV fluids in the ED. Quad viral screen negative; CT chest showed no acute cardiopulmonary process. Lactic acidosis resolved after fluids. Troponin mildly elevated (0.048, 0.047), EKG with chronic RBBB and ST-T changes, no chest pain. Cardiology consulted; no evidence of acute coronary syndrome, heparin gtt discontinued after initial evaluation. Echo: EF 50-55%, severe aortic stenosis (FARRAH 0.8 cm?), severe pulmonary hypertension (PASP 77 mmHg). Altered mental status on admission, likely due to hypercarbia, resolved with respiratory support. Hospital Course: Completed antibiotics (ceftriaxone, azithromycin) as a precaution; no further antibiotics required. Continued DuoNebs and albuterol PRN. Maintained on home O2 and AVAPS/BiPAP at night. Blood pressure managed with losartan. No further episodes of chest pain or respiratory distress. No further restraints required; mentation returned to baseline. PT/OT recommended SNF placement due to functional and cognitive status. Awaiting SNF approval at time of discharge. Discharge Diagnoses Acute on chronic hypercapnic and hypoxemic respiratory failure?(J96.21, J96.22) Acute exacerbation of COPD?(J44.1) Restrictive lung disease due to severe kyphoscoliosis?(J98.4, M41.9) Obstructive sleep apnea?(G47.33) Coronary artery disease with moderate LAD stenosis?(I25.10) Severe aortic stenosis?(I35.0) Severe pulmonary hypertension?(I27.20) Hypertension?(I10) Altered mental status, resolved?(R41.82) History of right renal cell carcinoma, breast cancer, DVT/PE, osteoporosis, psoriatic arthritis, post-polio syndrome, hyperlipidemia, history of kidney stones, arthritis?(chronic, not acutely addressed) Discharge Medications Aspirin 81 mg daily Losartan?(dose per inpatient regimen) Statin?(if initiated during admission) DuoNebs and albuterol PRN Home O2?(4L on exertion, as needed) AVAPS/BiPAP at night Cholecalciferol 2000 units daily Vitamin B12/folic acid daily Discharge Instructions Continue home O2 and AVAPS/BiPAP as previously prescribed. Use inhalers and nebulizers as directed. Monitor for signs of respiratory distress, chest pain, or altered mental status. Maintain blood pressure monitoring. Encourage pulmonary rehabilitation if feasible. Fall precautions due to mobility and cognitive impairment. Diet as tolerated. Follow up with primary care, pulmonology, and cardiology. Outpatient evaluation for TAVR candidacy (severe aortic stenosis). Home O2 study completed prior to discharge. Follow-Up Primary Care:?Within 1 week Pulmonology:?As scheduled Cardiology:?As scheduled, including TAVR evaluation SNF/Home Health:?As arranged by case management Condition at Discharge Hemodynamically stable, at cognitive and respiratory baseline. No acute distress. Discharged home with home health Time Spent with Patient Time attestation: Total time spent providing and/or coordinating discharge services: DS: Data Data Completed and Pending Labs on day of discharge: Labs from last 24 hours 02/07/25 05:01 WBC 4.4 L RBC 3.44 L Hgb 10.7 L Hct 35.2 L MCV 102.3 H MCH 31.1 MCHC 30.4 L RDW 12.8 Plt Count 177 MPV 10.2 Immature Gran % (Auto) 0.7 H Neut % (Auto) 66.1 Lymph % (Auto) 16.6 L [place] % (Auto) 11.6 H Eos % (Auto) 3.6 Baso % (Auto) 1.4 H Lymph # (Auto) 0.73 L [place] # (Auto) 0.5 Eos # (Auto) 0.2 Baso # (Auto) 0.1 Abs Immat Gran (auto) 0.03 Absolute Neuts (auto) 2.9 Absolute Nucleated RBC 0.000 Nucleated RBC % 0.0 Sodium 139 Potassium 3.9 Chloride 98 Carbon Dioxide > 40 H Anion Gap BUN 11 D Creatinine 0.60 L Estim Creat Clear Calc Not Reportable Estimated GFR > 60 Glucose 92 Calcium 8.3 L Magnesium 1.9 Total Bilirubin 0.4 AST 20 ALT 12 Alkaline Phosphatase 73 Total Protein 5.4 L Albumin 3.0 L Vitamin B12 227.0 L Folate 8.7 Discharge Plan Discharge Attending physician on discharge: Lior Wagoner Consulting providers: French Garrido Discharging Clinician: Lior Wagoner Anticipated Discharge Date/Time: 02/07/25 14:51 Patient Disposition: Home with Home Health Service Activity: as tolerated Diet: as tolerated and heart healthy Discharge Instructions: Per Care Coordination: [facility] ([phone]) has been arranged for skilled RN/PT/OT services and will call to set up initial visit. Patient Instructions: Antibiotic Form Patient Language: Samoan Stand Alone Forms: General Discharge Information Follow-up/Referrals: French Garrido MD [Physician, Interventional Cardiology] Referral Note: F/u with cardiology as instructed More Tejada APRN [Primary Care Provider, [facility]] Referral Note: F/u with PCP in 3-5 days Discharge Medications: New losartan 25 mg Tablet 25 mg PO DAILY 30 Days Qty: 30 0RF aspirin 81 mg Tablet,Delayed Release (Dr/Ec) 81 mg PO QAM 30 Days Qty: 30 0RF atorvastatin 20 mg Tablet 20 mg PO DAILY 30 Days Qty: 30 0RF No Action No Home Medications Date of admission: 01/30/25 22:48 Primary Care Provider: More Tejada Admitting Provider: Shivani Gould Attending physician on admission: Shivani Gould Condition: Stable
== END 2025-02-07 17:00 | disposition home health service (06) | DRG 189 ==
LOC: ANHED 21:03 → ANHIMU 22:49 → ANH3MEDSUR 02-03 18:56
PROVIDERS: Nurse Practitioner Family; Admitting Provider General Practice; Emergency Provider Student in an Organized Health Care Education/Training Program; PCP Nurse Practitioner Family; Visit Provider Internal Medicine
DX: J96.21 Acute and chronic respiratory failure with hypoxia (principal); E87.20 Acidosis, unspecified; J96.22 Acute and chronic respiratory failure with hypercapnia; M41.80 Other forms of scoliosis, site unspecified; E78.5 Hyperlipidemia, unspecified; I10 Essential (primary) hypertension; I25.10 Atherosclerotic heart disease of native coronary artery without angina pectoris; I34.0 Nonrheumatic mitral (valve) insufficiency; I35.0 Nonrheumatic aortic (valve) stenosis; I27.20 Pulmonary hypertension, unspecified; J98.4 Other disorders of lung; Z85.3 Personal history of malignant neoplasm of breast; Z85.528 Personal history of other malignant neoplasm of kidney; Z90.49 Acquired absence of other specified parts of digestive tract; Z88.0 Allergy status to penicillin; Z86.12 Personal history of poliomyelitis; Z99.89 Dependence on other enabling machines and devices; Z99.81 Dependence on supplemental oxygen
CPT/HCPCS: 36415; 36600; 71045; 71250; 80048; 80053; 81001; 82375; 82607; 82746; 82805; 83050; 83605; 83735; 83880; 84484; 85018; 85025; 85610; 85730; 87040; 87637; 93005; 93306; 94002; 94003; 94640; 94667; 94668; 96365; 96367; 96375; 97110; 97116; 97162; 97166; 97530; 99291; A9270; J0456; J0696; J1100; J1644; J1938; J3475; J7050; J7120; Q9957